=== PATIENT | female | born 1950 | race Caucasian/White ===

== ENCOUNTER 2017-04-01 09:10 | Day surgery (SDC) | payer MEDICARE ==
[~2017-04-01 09:10] MED LIST: ACET325 PO; ALBIPROI; ALBIPROI INH; ALBU90OI INH; ALBU90OI61 INH; AMIT10 PO; AMIT50 PO; ARIXTRA SC; ASPI325 PO; ATEN50 PO; Amox Tr-K Clv1 EAC2; Aspirin EC81 MG PO; BENHYD1012; BUME1; BUME1 PO; BUME2 PO; Bactrim 400-801 EACH PO; Bactrim Ds Tab1 EACH PO; CALC.25 PO; CALCAVITDA PO; CEPH125SU; CEPH500; CEPH500 PO; CIPR250 PO; CIPR500 PO; CITA20; CLAR500 PO; CLIN300 PO; CLOP75; CLOP75 PO; CODE30; CODGUAEL PO; CRUTCH4 USE; CYCL10 PO; Cephalexin500 MG PO; Clindamycin HC300 MG; Coumadin5 MG PO; Cymbalta30 MG PO; DIPATR; DIPATR PO; DIPATRL; DIPH50 PO; DOCU100 PO; DOXY100 PO; Dazidox10 MG PO; ENOX100I SC; ERGO50000 PO; FAMO20 PO; FENT100TP TOP; FENT50TP TOP; FERR325 PO; FISH1000 PO; FLUC100; FLUSAL2505; FOLI1 PO; FURO20; FURO20 PO; FURO40; FURO80 PO; GABA100 PO; GABA300 PO; GENPREOPSU LEFTEYE; GINKO BILOBA; GRANIX300 MCG/0. SQ; HCT; HYDACE5 PO; HYDACE5325 PO; HYDACE7.5L PO; HYDCHL12.5 PO; HYDCHL25 PO; HYDMOR2 PO; HYDR-86 PO; HYDRA25 PO; IBUP200; IBUP400 PO; IBUP600; INSLIS75I SC; INSN100I SC; INSR10I SC; INSUASPI; KLOR-CON 20MEQ; Klor-Con M1010 MEQ PO; LAMO100 PO; LAVAP17G PO; LEVFLO500 PO; LEVSOD125 PO; LIDO2TG30 TOP; LIDO5TP; LIDO5TP TD; LISHYD2012 PO; LISHYD2025 PO; LORA1 PO; Lovenox100 MG/1 M SC; METF500 PO; METO10 PO; METO2.5 PO; METO25ER PO; METO50; METO50 PO; METO50ER; METO50ER PO; NAPR500 PO; NEUPOGEN300 MCG/0. IJ; NITR.4SL SL; NITR.6SL SL; NITRSPRAY; NORT10; NYST100TC; Nitrostat0.4 MG SL; Novolin R100 UNIT/M IM; OLME20; ONDA8 PO; OXALIPLATIN50 MG; OXYACE5T PO; OXYC10ER PO; OXYC10TA19 PO; OXYC30 PO; OXYC5; Omeprazole20 M1 PO; Oxycodone HCl20 M1 PO; PANT40 PO; PARI1 PO; PIOG15; POTA10T PO; POTCHL10ER PO; PRED10 PO; PRED20 PO; PREG100 PO; PREG75 PO; PRIMATENE MIST; PROC10 PO; PROM25 PO; Pepcid20 MG PO; Potassium Chlo10 ME2 PO; Prilosec20 MG PO; QUIN325; RXCEPH500 PO; RXCLIN PO; RXHYDACE PO; RXOXYACE PO; RXSULTRIDS PO; SPIR25 PO; SULTRIDS PO; SULTRISS PO; TELM40; TOUJEO SOL300 UNIT/1 SC; VALA500 PO; VALS80; VARUBI90 MG PO; VENL75; VITAMIN D-32000 UNI1 PO; WARF5 PO; WARF7.5 PO; WARFARIN 5 MG; ZESTORETIC 20-121 EA; Zithromax Tri-500 MG PO; Zofran8 MG PO; [UNRECOGNIZED DRUG - OTHER]; [UNRECOGNIZED DRUG - OTHER] INJ; [UNRECOGNIZED DRUG - OTHER] IV
[2017-04-08] MEDS ORDERED: CEPH500 PO (11:41)
[2017-04-25] MEDS ORDERED: FURO80 PO ×2 (10:31→10:32)
[2017-04-25] MEDS ORDERED: Micro-K10 MEQ PO (10:33)
[2017-08-11] MEDS ORDERED: Bactrim Ds Tab1 EACH PO (10:11)
[2017-11-04] MEDS ORDERED: CHOL10002 PO (10:54)
[2018-04-04] MEDS ORDERED: ROXICODONE5 MG PO (21:49)
[2018-06-15] MEDS ORDERED: ALLO100 PO (11:00)
[2018-07-17] MEDS ORDERED: BUME1 PO (10:47)
[2018-07-17] MEDS ORDERED: GABA100 PO (10:47)
[2018-08-24] MEDS ORDERED: TEMA30 PO (10:33)
[2018-09-15] MEDS ORDERED: SPIR25 (10:04)
[2018-10-09] MEDS ORDERED: DULO60 PO (10:30)
== END 2017-04-01 22:46 | disposition home or self-care (01) ==
LOC: WOUND 09:10
PROC: 0HBLXZZ Excision of Left Lower Leg Skin, External Approach (ICD-10-PCS; principal; 2017-04-01)
DX: Z48.00 Encounter for change or removal of nonsurgical wound dressing (principal); E11.622 Type 2 diabetes mellitus with other skin ulcer; L89.623 Pressure ulcer of left heel, stage 3; I70.238 Atherosclerosis of native arteries of right leg with ulceration of other part of lower leg; L97.812 Non-pressure chronic ulcer of other part of right lower leg with fat layer exposed; Z85.09 Personal history of malignant neoplasm of other digestive organs

== ENCOUNTER 2017-05-06 00:21 | Day surgery (SDC) | payer OTHER ==
[~2017-05-06 00:21] MED LIST changes: +Micro-K10 MEQ PO
[2017-05-06 11:42] LABS: Hematocrit 32.1 % (33.0-51.0); Hemoglobin 10.3 g/dL (11.5-16.0); Mean Corpuscular HGB 28.3 pg (26.0-34.0); Mean Corpuscular HGB Conc 32.1 g/dL (31.5-36.5); Mean Corpuscular Volume 88 fL (80-100); Mean Platelet Volume 12.5 fL (9.1-12.4); Platelet Count 83 K/mm3 (150-400); RDW Coefficient Variation 13.9 % (11.7-14.2); RDW Standard Deviation 45.2 fL (35.1-46.3); Red Blood Cell Count 3.64 M/mm3 (3.80-5.20); White Blood Cell Count 3.54 K/mm3 (4.00-11.30)
[2017-05-06 12:12] LABS: Albumin, Blood 2.9 g/dL (3.4-5.0); Anion Gap 12 mmol/L (6-16); Blood Urea Nitrogen 48 mg/dL (8-24); Bun/Creatinine Ratio 31.2 (12.0-20.0); CO2, Blood 27 mmol/L (21-32); Calcium, Blood 8.4 mg/dL (8.5-10.1); Chloride, Blood 98 mmol/L (98-108); Creatinine, Blood 1.54 mg/dL (0.40-1.00); Glomerular Filtration Rate 36 (60-); Glucose, Blood 243 mg/dL (70-99); Potassium, Blood 4.5 mmol/L (3.5-5.5); Sodium, Blood 137 mmol/L (136-145)
[2017-08-11] MEDS ORDERED: Bactrim Ds Tab1 EACH PO (10:11)
[2017-11-04] MEDS ORDERED: CHOL10002 PO (10:54)
[2018-04-04] MEDS ORDERED: ROXICODONE5 MG PO (21:49)
== END 2017-05-06 11:28 | disposition home or self-care (01) ==
LOC: ATC 00:21
PROVIDERS: Internal Medicine Nephrology
DX: E11.22 Type 2 diabetes mellitus with diabetic chronic kidney disease (principal); N18.3 Chronic kidney disease, stage 3 (moderate); D63.1 Anemia in chronic kidney disease; E11.622 Type 2 diabetes mellitus with other skin ulcer; L89.623 Pressure ulcer of left heel, stage 3; I70.238 Atherosclerosis of native arteries of right leg with ulceration of other part of lower leg; C22.1 Intrahepatic bile duct carcinoma; L97.812 Non-pressure chronic ulcer of other part of right lower leg with fat layer exposed
CPT/HCPCS: 80069; 85027; 96365; J1642

== ENCOUNTER 2017-05-06 09:20 | Day surgery (SDC) | payer OTHER ==
[2017-08-11] MEDS ORDERED: Bactrim Ds Tab1 EACH PO (10:11)
[2017-11-04] MEDS ORDERED: CHOL10002 PO (10:54)
[2018-04-04] MEDS ORDERED: ROXICODONE5 MG PO (21:49)
== END 2017-05-06 10:39 | disposition home or self-care (01) ==
LOC: WOUND 09:20
PROC: 0HBLXZZ Excision of Left Lower Leg Skin, External Approach (ICD-10-PCS; principal; 2017-05-06)
DX: Z48.00 Encounter for change or removal of nonsurgical wound dressing (principal); E11.622 Type 2 diabetes mellitus with other skin ulcer; L97.222 Non-pressure chronic ulcer of left calf with fat layer exposed; L89.623 Pressure ulcer of left heel, stage 3; I70.238 Atherosclerosis of native arteries of right leg with ulceration of other part of lower leg; C22.1 Intrahepatic bile duct carcinoma
CPT/HCPCS: G0463

== ENCOUNTER 2017-05-09 00:52 | Day surgery (SDC) | payer OTHER ==
[2017-08-11] MEDS ORDERED: Bactrim Ds Tab1 EACH PO (10:11)
[2017-11-04] MEDS ORDERED: CHOL10002 PO (10:54)
[2018-04-04] MEDS ORDERED: ROXICODONE5 MG PO (21:49)
== END 2017-05-09 11:52 | disposition home or self-care (01) ==
LOC: ATC 00:52
DX: E87.70 Fluid overload, unspecified (principal); E11.22 Type 2 diabetes mellitus with diabetic chronic kidney disease; N18.3 Chronic kidney disease, stage 3 (moderate); D63.1 Anemia in chronic kidney disease; R80.0 Isolated proteinuria
CPT/HCPCS: 96365; J1642

== ENCOUNTER 2017-05-13 00:32 | Day surgery (SDC) | payer OTHER ==
[2017-08-11] MEDS ORDERED: Bactrim Ds Tab1 EACH PO (10:11)
[2017-11-04] MEDS ORDERED: CHOL10002 PO (10:54)
[2018-04-04] MEDS ORDERED: ROXICODONE5 MG PO (21:49)
== END 2017-05-13 22:40 | disposition home or self-care (01) ==
LOC: WOUND 00:32
PROC: 0HBLXZZ Excision of Left Lower Leg Skin, External Approach (ICD-10-PCS; principal; 2017-05-13)
DX: Z48.00 Encounter for change or removal of nonsurgical wound dressing (principal); E11.622 Type 2 diabetes mellitus with other skin ulcer; L97.812 Non-pressure chronic ulcer of other part of right lower leg with fat layer exposed; L89.623 Pressure ulcer of left heel, stage 3; I70.238 Atherosclerosis of native arteries of right leg with ulceration of other part of lower leg; C22.1 Intrahepatic bile duct carcinoma
CPT/HCPCS: G0463

== ENCOUNTER 2017-05-13 00:41 | Day surgery (SDC) | payer OTHER ==
[2017-08-11] MEDS ORDERED: Bactrim Ds Tab1 EACH PO (10:11)
[2017-11-04] MEDS ORDERED: CHOL10002 PO (10:54)
[2018-04-04] MEDS ORDERED: ROXICODONE5 MG PO (21:49)
== END 2017-05-13 11:59 | disposition home or self-care (01) ==
LOC: ATC 00:41
DX: C22.1 Intrahepatic bile duct carcinoma (principal); E11.622 Type 2 diabetes mellitus with other skin ulcer; L89.623 Pressure ulcer of left heel, stage 3; I70.238 Atherosclerosis of native arteries of right leg with ulceration of other part of lower leg; L97.812 Non-pressure chronic ulcer of other part of right lower leg with fat layer exposed; E11.22 Type 2 diabetes mellitus with diabetic chronic kidney disease; N18.3 Chronic kidney disease, stage 3 (moderate); D63.1 Anemia in chronic kidney disease; E87.70 Fluid overload, unspecified; R60.0 Localized edema
CPT/HCPCS: 96365; J1642

== ENCOUNTER 2017-05-16 00:25 | Day surgery (SDC) | payer OTHER ==
[2017-05-16 11:57] LABS: Albumin, Blood 3.1 g/dL (3.4-5.0); Anion Gap 9 mmol/L (6-16); Blood Urea Nitrogen 37 mg/dL (8-24); Bun/Creatinine Ratio 27.2 (12.0-20.0); CO2, Blood 27 mmol/L (21-32); Calcium, Blood 8.3 mg/dL (8.5-10.1); Chloride, Blood 99 mmol/L (98-108); Creatinine, Blood 1.36 mg/dL (0.40-1.00); Glomerular Filtration Rate 41 (60-); Glucose, Blood 238 mg/dL (70-99); Phosphorus, Blood 3.3 mg/dL (2.5-4.9); Sodium, Blood 135 mmol/L (136-145)
[2017-08-11] MEDS ORDERED: Bactrim Ds Tab1 EACH PO (10:11)
[2017-11-04] MEDS ORDERED: CHOL10002 PO (10:54)
[2018-04-04] MEDS ORDERED: ROXICODONE5 MG PO (21:49)
== END 2017-05-16 10:53 | disposition home or self-care (01) ==
LOC: ATC 00:25
PROVIDERS: Internal Medicine Nephrology
DX: E11.622 Type 2 diabetes mellitus with other skin ulcer (principal); L89.623 Pressure ulcer of left heel, stage 3; I70.238 Atherosclerosis of native arteries of right leg with ulceration of other part of lower leg; C22.1 Intrahepatic bile duct carcinoma; L97.812 Non-pressure chronic ulcer of other part of right lower leg with fat layer exposed; L97.929 Non-pressure chronic ulcer of unspecified part of left lower leg with unspecified severity; L95.8 Other vasculitis limited to the skin
CPT/HCPCS: 80069; 96365; J1642

== ENCOUNTER 2017-05-20 00:50 | Day surgery (SDC) | payer OTHER ==
[2017-08-11] MEDS ORDERED: Bactrim Ds Tab1 EACH PO (10:11)
[2017-11-04] MEDS ORDERED: CHOL10002 PO (10:54)
[2018-04-04] MEDS ORDERED: ROXICODONE5 MG PO (21:49)
== END 2017-05-20 11:40 | disposition home or self-care (01) ==
LOC: ATC 00:50
DX: E11.622 Type 2 diabetes mellitus with other skin ulcer (principal); L89.623 Pressure ulcer of left heel, stage 3; I70.238 Atherosclerosis of native arteries of right leg with ulceration of other part of lower leg; C22.1 Intrahepatic bile duct carcinoma; L97.812 Non-pressure chronic ulcer of other part of right lower leg with fat layer exposed; E11.22 Type 2 diabetes mellitus with diabetic chronic kidney disease; D63.1 Anemia in chronic kidney disease; N18.3 Chronic kidney disease, stage 3 (moderate)
CPT/HCPCS: 96365; J1642

== ENCOUNTER 2017-05-20 09:20 | Day surgery (SDC) | payer OTHER ==
[2017-08-11] MEDS ORDERED: Bactrim Ds Tab1 EACH PO (10:11)
[2017-11-04] MEDS ORDERED: CHOL10002 PO (10:54)
[2018-04-04] MEDS ORDERED: ROXICODONE5 MG PO (21:49)
== END 2017-05-20 11:04 | disposition home or self-care (01) ==
LOC: WOUND 09:20
DX: Z48.00 Encounter for change or removal of nonsurgical wound dressing (principal); E11.622 Type 2 diabetes mellitus with other skin ulcer; L89.623 Pressure ulcer of left heel, stage 3; I70.238 Atherosclerosis of native arteries of right leg with ulceration of other part of lower leg; C22.1 Intrahepatic bile duct carcinoma; L97.812 Non-pressure chronic ulcer of other part of right lower leg with fat layer exposed; R60.0 Localized edema
CPT/HCPCS: 87070; 87075; 87077; 87147; 87186; 87205; G0463

== ENCOUNTER 2017-05-22 11:57 | Day surgery (SDC) | payer OTHER ==
[2017-05-23 09:27] LABS: Albumin, Blood 2.9 g/dL (3.4-5.0); Anion Gap 6 mmol/L (6-16); Blood Urea Nitrogen 33 mg/dL (8-24); Bun/Creatinine Ratio 28.7 (12.0-20.0); CO2, Blood 25 mmol/L (21-32); Calcium, Blood 8.1 mg/dL (8.5-10.1); Chloride, Blood 100 mmol/L (98-108); Creatinine, Blood 1.15 mg/dL (0.40-1.00); Glomerular Filtration Rate 50 (60-); Glucose, Blood 221 mg/dL (70-99); Phosphorus, Blood 3.1 mg/dL (2.5-4.9); Potassium, Blood 4.4 mmol/L (3.5-5.5); Sodium, Blood 131 mmol/L (136-145)
[2017-08-11] MEDS ORDERED: Bactrim Ds Tab1 EACH PO (10:11)
[2017-11-04] MEDS ORDERED: CHOL10002 PO (10:54)
[2018-04-04] MEDS ORDERED: ROXICODONE5 MG PO (21:49)
== END 2017-05-22 15:06 | disposition home or self-care (01) ==
LOC: ATC 11:57
PROVIDERS: Internal Medicine Nephrology
DX: E11.22 Type 2 diabetes mellitus with diabetic chronic kidney disease (principal); N18.3 Chronic kidney disease, stage 3 (moderate); D63.1 Anemia in chronic kidney disease; E87.70 Fluid overload, unspecified; R60.0 Localized edema; R31.9 Hematuria, unspecified
CPT/HCPCS: 80069; 85018; 96365; J1642

== ENCOUNTER 2017-05-27 00:28 | Day surgery (SDC) | payer OTHER ==
[2017-05-27] MEDS ORDERED: Oxycodone HCl20 M1 PO (11:04)
[2017-05-27] MEDS ORDERED: Bactrim Ds Tab1 EACH PO (11:05)
[2017-08-11] MEDS ORDERED: Bactrim Ds Tab1 EACH PO (10:11)
[2017-11-04] MEDS ORDERED: CHOL10002 PO (10:54)
[2018-04-04] MEDS ORDERED: ROXICODONE5 MG PO (21:49)
== END 2017-05-27 11:36 | disposition home or self-care (01) ==
LOC: ATC 00:28
DX: E11.622 Type 2 diabetes mellitus with other skin ulcer (principal); L89.623 Pressure ulcer of left heel, stage 3; I70.238 Atherosclerosis of native arteries of right leg with ulceration of other part of lower leg; C22.1 Intrahepatic bile duct carcinoma; L97.812 Non-pressure chronic ulcer of other part of right lower leg with fat layer exposed
CPT/HCPCS: 96365; J1642

== ENCOUNTER 2017-05-27 09:30 | Day surgery (SDC) | payer OTHER ==
[2017-05-27] MEDS ORDERED: Oxycodone HCl20 M1 PO (11:04)
[2017-05-27] MEDS ORDERED: Bactrim Ds Tab1 EACH PO (11:05)
[2017-08-11] MEDS ORDERED: Bactrim Ds Tab1 EACH PO (10:11)
[2017-11-04] MEDS ORDERED: CHOL10002 PO (10:54)
[2018-04-04] MEDS ORDERED: ROXICODONE5 MG PO (21:49)
== END 2017-05-27 12:54 | disposition home or self-care (01) ==
LOC: WOUND 09:30
DX: Z48.00 Encounter for change or removal of nonsurgical wound dressing (principal); E11.622 Type 2 diabetes mellitus with other skin ulcer; L89.623 Pressure ulcer of left heel, stage 3; I70.238 Atherosclerosis of native arteries of right leg with ulceration of other part of lower leg; C22.1 Intrahepatic bile duct carcinoma; L97.812 Non-pressure chronic ulcer of other part of right lower leg with fat layer exposed
CPT/HCPCS: G0463

== ENCOUNTER 2017-05-30 00:58 | Day surgery (SDC) | payer OTHER ==
[2017-08-11] MEDS ORDERED: Bactrim Ds Tab1 EACH PO (10:11)
[2017-11-04] MEDS ORDERED: CHOL10002 PO (10:54)
[2018-04-04] MEDS ORDERED: ROXICODONE5 MG PO (21:49)
== END 2017-05-30 11:08 | disposition home or self-care (01) ==
LOC: ATC 00:58
DX: N18.3 Chronic kidney disease, stage 3 (moderate) (principal); D63.1 Anemia in chronic kidney disease; E87.70 Fluid overload, unspecified; R60.0 Localized edema
CPT/HCPCS: 96365; J1642

== ENCOUNTER 2017-06-03 00:09 | Day surgery (SDC) | payer OTHER ==
[2017-08-11] MEDS ORDERED: Bactrim Ds Tab1 EACH PO (10:11)
[2017-11-04] MEDS ORDERED: CHOL10002 PO (10:54)
[2018-04-04] MEDS ORDERED: ROXICODONE5 MG PO (21:49)
== END 2017-06-03 10:56 | disposition home or self-care (01) ==
LOC: ATC 00:09
DX: E11.22 Type 2 diabetes mellitus with diabetic chronic kidney disease (principal); N18.3 Chronic kidney disease, stage 3 (moderate); L03.90 Cellulitis, unspecified; D63.1 Anemia in chronic kidney disease; E87.70 Fluid overload, unspecified; R60.0 Localized edema; I73.9 Peripheral vascular disease, unspecified; Z85.89 Personal history of malignant neoplasm of other organs and systems
CPT/HCPCS: 96365; J1642

== ENCOUNTER 2017-06-06 00:43 | Day surgery (SDC) | payer OTHER ==
[2017-08-11] MEDS ORDERED: Bactrim Ds Tab1 EACH PO (10:11)
== END 2017-06-06 23:18 | disposition home or self-care (01) ==
LOC: WOUND 00:43
DX: Z48.00 Encounter for change or removal of nonsurgical wound dressing (principal); E11.622 Type 2 diabetes mellitus with other skin ulcer; E11.621 Type 2 diabetes mellitus with foot ulcer; L89.623 Pressure ulcer of left heel, stage 3; C22.1 Intrahepatic bile duct carcinoma; L97.812 Non-pressure chronic ulcer of other part of right lower leg with fat layer exposed
CPT/HCPCS: G0463

== ENCOUNTER 2017-06-06 01:01 | Day surgery (SDC) | payer OTHER ==
[2017-06-06 11:35] LABS: BASOPHILS ABSOLUTE AUTO 0.03 K/mm3 (0.00-0.23); BASOPHILS PERCENT AUTO 1 % (0-2); EOSINOPHILS ABSOLUTE AUTO 0.26 K/mm3 (0.00-0.68); EOSINOPHILS PERCENT AUTO 7 % (0-6); Hematocrit 35.8 % (33.0-51.0); Hemoglobin 11.4 g/dL (11.5-16.0); IMMATURE GRAN ABSOLUTE AUTO 0.08 K/mm3 (0.00-0.10); IMMATURE GRAN PERCENT AUTO 2 % (0-1); LYMPHOCYTES PERCENT AUTO 13 % (21-46); MONOCYTES ABSOLUTE AUTO 0.32 K/mm3 (0.16-1.47); MONOCYTES PERCENT AUTO 8 % (4-13); Mean Corpuscular HGB 26.7 pg (26.0-34.0); Mean Corpuscular HGB Conc 31.8 g/dL (31.5-36.5); Mean Corpuscular Volume 84 fL (80-100); NEUTROPHILS ABSOLUTE AUTO 2.77 K/mm3 (1.96-9.15); NEUTROPHILS PERCENT AUTO 70 % (41-73); RDW Coefficient Variation 14.4 % (11.7-14.2); RDW Standard Deviation 43.7 fL (35.1-46.3); Red Blood Cell Count 4.27 M/mm3 (3.80-5.20); White Blood Cell Count 3.96 K/mm3 (4.00-11.30)
[2017-06-06 11:39] LABS: Mean Platelet Volume 13.3 fL (9.1-12.4); Platelet Count 71 K/mm3 (150-400)
[2017-06-06 11:51] LABS: Albumin, Blood 3.4 g/dL (3.4-5.0); Anion Gap 6 mmol/L (6-16); Blood Urea Nitrogen 49 mg/dL (8-24); Bun/Creatinine Ratio 29.9 (12.0-20.0); CO2, Blood 25 mmol/L (21-32); Calcium, Blood 8.7 mg/dL (8.5-10.1); Chloride, Blood 104 mmol/L (98-108); Creatinine, Blood 1.64 mg/dL (0.40-1.00); Glomerular Filtration Rate 33 (60-); Glucose, Blood 316 mg/dL (70-99); Phosphorus, Blood 3.9 mg/dL (2.5-4.9); Potassium, Blood 5.4 mmol/L (3.5-5.5); Sodium, Blood 135 mmol/L (136-145)
[2017-08-11] MEDS ORDERED: Bactrim Ds Tab1 EACH PO (10:11)
[2017-11-04] MEDS ORDERED: CHOL10002 PO (10:54)
[2018-04-04] MEDS ORDERED: ROXICODONE5 MG PO (21:49)
== END 2017-06-06 12:04 | disposition home or self-care (01) ==
LOC: ATC 01:01
PROVIDERS: Internal Medicine Nephrology
DX: E11.622 Type 2 diabetes mellitus with other skin ulcer (principal); L89.623 Pressure ulcer of left heel, stage 3; I70.238 Atherosclerosis of native arteries of right leg with ulceration of other part of lower leg; C22.1 Intrahepatic bile duct carcinoma; N18.3 Chronic kidney disease, stage 3 (moderate); D63.1 Anemia in chronic kidney disease; E87.70 Fluid overload, unspecified; R60.0 Localized edema
CPT/HCPCS: 80069; 85025; 96365; J1642

== ENCOUNTER 2017-06-10 01:07 | Day surgery (SDC) | payer OTHER ==
[2017-08-11] MEDS ORDERED: Bactrim Ds Tab1 EACH PO (10:11)
[2017-11-04] MEDS ORDERED: CHOL10002 PO (10:54)
[2018-04-04] MEDS ORDERED: ROXICODONE5 MG PO (21:49)
== END 2017-06-10 10:33 | disposition home or self-care (01) ==
LOC: ATC 01:07
DX: E87.5 Hyperkalemia (principal); N18.3 Chronic kidney disease, stage 3 (moderate); D63.1 Anemia in chronic kidney disease; E87.70 Fluid overload, unspecified; R60.0 Localized edema
CPT/HCPCS: 84132; 96365; J1642

== ENCOUNTER 2017-06-13 00:39 | Day surgery (SDC) | payer OTHER ==
[2017-08-11] MEDS ORDERED: Bactrim Ds Tab1 EACH PO (10:11)
[2017-11-04] MEDS ORDERED: CHOL10002 PO (10:54)
[2018-04-04] MEDS ORDERED: ROXICODONE5 MG PO (21:49)
== END 2017-06-13 11:03 | disposition home or self-care (01) ==
LOC: ATC 00:39
DX: Z45.2 Encounter for adjustment and management of vascular access device (principal); E11.622 Type 2 diabetes mellitus with other skin ulcer; L89.623 Pressure ulcer of left heel, stage 3; I70.238 Atherosclerosis of native arteries of right leg with ulceration of other part of lower leg; C22.1 Intrahepatic bile duct carcinoma; L97.812 Non-pressure chronic ulcer of other part of right lower leg with fat layer exposed; E87.5 Hyperkalemia; N18.3 Chronic kidney disease, stage 3 (moderate); D63.1 Anemia in chronic kidney disease; E87.70 Fluid overload, unspecified; R60.0 Localized edema
CPT/HCPCS: 96365; J1642

== ENCOUNTER 2017-06-13 09:30 | Day surgery (SDC) | payer OTHER ==
[2017-08-11] MEDS ORDERED: Bactrim Ds Tab1 EACH PO (10:11)
[2017-11-04] MEDS ORDERED: CHOL10002 PO (10:54)
[2018-04-04] MEDS ORDERED: ROXICODONE5 MG PO (21:49)
== END 2017-06-13 10:47 | disposition home or self-care (01) ==
LOC: WOUND 09:30
DX: Z48.00 Encounter for change or removal of nonsurgical wound dressing (principal); E11.622 Type 2 diabetes mellitus with other skin ulcer; L89.623 Pressure ulcer of left heel, stage 3; I70.238 Atherosclerosis of native arteries of right leg with ulceration of other part of lower leg; C22.1 Intrahepatic bile duct carcinoma; L97.812 Non-pressure chronic ulcer of other part of right lower leg with fat layer exposed
CPT/HCPCS: G0463

== ENCOUNTER 2017-06-17 00:53 | Day surgery (SDC) | payer OTHER ==
[2017-08-11] MEDS ORDERED: Bactrim Ds Tab1 EACH PO (10:11)
[2017-11-04] MEDS ORDERED: CHOL10002 PO (10:54)
[2018-04-04] MEDS ORDERED: ROXICODONE5 MG PO (21:49)
== END 2017-06-17 14:55 | disposition home or self-care (01) ==
LOC: ATC 00:53
DX: E11.22 Type 2 diabetes mellitus with diabetic chronic kidney disease (principal); N18.3 Chronic kidney disease, stage 3 (moderate); L03.90 Cellulitis, unspecified
CPT/HCPCS: 96365; J1642

== ENCOUNTER 2017-06-20 00:44 | Day surgery (SDC) | payer OTHER ==
[2017-08-11] MEDS ORDERED: Bactrim Ds Tab1 EACH PO (10:11)
[2017-11-04] MEDS ORDERED: CHOL10002 PO (10:54)
[2018-04-04] MEDS ORDERED: ROXICODONE5 MG PO (21:49)
== END 2017-06-21 23:04 | disposition home or self-care (01) ==
LOC: ATC 00:44
DX: E11.22 Type 2 diabetes mellitus with diabetic chronic kidney disease (principal); N18.3 Chronic kidney disease, stage 3 (moderate); L03.90 Cellulitis, unspecified; C22.1 Intrahepatic bile duct carcinoma; E11.622 Type 2 diabetes mellitus with other skin ulcer; L89.623 Pressure ulcer of left heel, stage 3; I70.238 Atherosclerosis of native arteries of right leg with ulceration of other part of lower leg; L97.812 Non-pressure chronic ulcer of other part of right lower leg with fat layer exposed

== ENCOUNTER 2017-06-24 00:25 | Day surgery (SDC) | payer OTHER ==
[2017-08-11] MEDS ORDERED: Bactrim Ds Tab1 EACH PO (10:11)
[2017-11-04] MEDS ORDERED: CHOL10002 PO (10:54)
[2018-04-04] MEDS ORDERED: ROXICODONE5 MG PO (21:49)
== END 2017-06-24 14:17 | disposition home or self-care (01) ==
LOC: WOUND 00:25
PROC: 0HBLXZZ Excision of Left Lower Leg Skin, External Approach (ICD-10-PCS; principal; 2017-06-24)
DX: Z48.00 Encounter for change or removal of nonsurgical wound dressing (principal); E11.622 Type 2 diabetes mellitus with other skin ulcer; L89.623 Pressure ulcer of left heel, stage 3; I70.238 Atherosclerosis of native arteries of right leg with ulceration of other part of lower leg; C22.1 Intrahepatic bile duct carcinoma; L97.812 Non-pressure chronic ulcer of other part of right lower leg with fat layer exposed
CPT/HCPCS: G0463

== ENCOUNTER 2017-06-24 00:55 | Day surgery (SDC) | payer OTHER ==
[2017-08-11] MEDS ORDERED: Bactrim Ds Tab1 EACH PO (10:11)
[2017-11-04] MEDS ORDERED: CHOL10002 PO (10:54)
[2018-04-04] MEDS ORDERED: ROXICODONE5 MG PO (21:49)
== END 2017-06-24 11:48 | disposition home or self-care (01) ==
LOC: ATC 00:55
DX: N18.3 Chronic kidney disease, stage 3 (moderate) (principal); L03.90 Cellulitis, unspecified; I73.9 Peripheral vascular disease, unspecified; L89.619 Pressure ulcer of right heel, unspecified stage
CPT/HCPCS: 96365; J1642

== ENCOUNTER 2017-06-27 01:01 | Day surgery (SDC) | payer OTHER ==
[2017-06-27 10:26] LABS: Albumin, Blood 3.5 g/dL (3.4-5.0); Anion Gap 6 mmol/L (6-16); Blood Urea Nitrogen 50 mg/dL (8-24); Bun/Creatinine Ratio 37.6 (12.0-20.0); CO2, Blood 27 mmol/L (21-32); Calcium, Blood 8.6 mg/dL (8.5-10.1); Chloride, Blood 103 mmol/L (98-108); Creatinine, Blood 1.33 mg/dL (0.40-1.00); Glomerular Filtration Rate 42 (60-); Glucose, Blood 344 mg/dL (70-99); Phosphorus, Blood 3.3 mg/dL (2.5-4.9); Sodium, Blood 136 mmol/L (136-145)
[2017-08-11] MEDS ORDERED: Bactrim Ds Tab1 EACH PO (10:11)
[2017-11-04] MEDS ORDERED: CHOL10002 PO (10:54)
[2018-04-04] MEDS ORDERED: ROXICODONE5 MG PO (21:49)
== END 2017-06-27 10:40 | disposition home or self-care (01) ==
LOC: ATC 01:01
PROVIDERS: Internal Medicine Nephrology
DX: E11.22 Type 2 diabetes mellitus with diabetic chronic kidney disease (principal); N18.3 Chronic kidney disease, stage 3 (moderate); D63.1 Anemia in chronic kidney disease; E11.622 Type 2 diabetes mellitus with other skin ulcer; L89.623 Pressure ulcer of left heel, stage 3; I70.238 Atherosclerosis of native arteries of right leg with ulceration of other part of lower leg; C22.1 Intrahepatic bile duct carcinoma; L97.812 Non-pressure chronic ulcer of other part of right lower leg with fat layer exposed
CPT/HCPCS: 80069; 85018; 96365; J1642

== ENCOUNTER 2017-07-01 00:12 | Day surgery (SDC) | payer OTHER ==
[2017-08-11] MEDS ORDERED: Bactrim Ds Tab1 EACH PO (10:11)
[2017-11-04] MEDS ORDERED: CHOL10002 PO (10:54)
[2018-04-04] MEDS ORDERED: ROXICODONE5 MG PO (21:49)
== END 2017-07-01 12:05 | disposition home or self-care (01) ==
LOC: ATC 00:12
DX: E11.22 Type 2 diabetes mellitus with diabetic chronic kidney disease (principal); N18.3 Chronic kidney disease, stage 3 (moderate); D63.1 Anemia in chronic kidney disease; E11.622 Type 2 diabetes mellitus with other skin ulcer; L89.623 Pressure ulcer of left heel, stage 3; I70.238 Atherosclerosis of native arteries of right leg with ulceration of other part of lower leg; C22.1 Intrahepatic bile duct carcinoma; L97.812 Non-pressure chronic ulcer of other part of right lower leg with fat layer exposed
CPT/HCPCS: 83036; 84132; 87081; 96365; G0463; J1642

== ENCOUNTER 2017-07-01 09:13 | Day surgery (SDC) | payer OTHER ==
[2017-08-11] MEDS ORDERED: Bactrim Ds Tab1 EACH PO (10:11)
== END 2017-07-01 11:47 | disposition home or self-care (01) ==
LOC: WOUND 09:13
DX: Z48.00 Encounter for change or removal of nonsurgical wound dressing (principal); E11.622 Type 2 diabetes mellitus with other skin ulcer; L97.812 Non-pressure chronic ulcer of other part of right lower leg with fat layer exposed; L89.623 Pressure ulcer of left heel, stage 3; I70.238 Atherosclerosis of native arteries of right leg with ulceration of other part of lower leg; C22.1 Intrahepatic bile duct carcinoma
CPT/HCPCS: 87081; G0463

== ENCOUNTER 2017-07-04 00:19 | Day surgery (SDC) | payer OTHER ==
[2017-08-11] MEDS ORDERED: Bactrim Ds Tab1 EACH PO (10:11)
[2017-11-04] MEDS ORDERED: CHOL10002 PO (10:54)
[2018-04-04] MEDS ORDERED: ROXICODONE5 MG PO (21:49)
== END 2017-07-04 11:29 | disposition home or self-care (01) ==
LOC: ATC 00:19
DX: E11.22 Type 2 diabetes mellitus with diabetic chronic kidney disease (principal); N18.3 Chronic kidney disease, stage 3 (moderate); D63.1 Anemia in chronic kidney disease; E11.622 Type 2 diabetes mellitus with other skin ulcer; L89.623 Pressure ulcer of left heel, stage 3; C22.1 Intrahepatic bile duct carcinoma; L97.812 Non-pressure chronic ulcer of other part of right lower leg with fat layer exposed
CPT/HCPCS: 96365; J1642

== ENCOUNTER 2017-07-08 09:10 | Day surgery (SDC) | payer OTHER ==
[2017-08-11] MEDS ORDERED: Bactrim Ds Tab1 EACH PO (10:11)
[2017-11-04] MEDS ORDERED: CHOL10002 PO (10:54)
[2018-04-04] MEDS ORDERED: ROXICODONE5 MG PO (21:49)
== END 2017-07-08 23:04 | disposition home or self-care (01) ==
LOC: WOUND 09:10
DX: Z48.00 Encounter for change or removal of nonsurgical wound dressing (principal); E11.622 Type 2 diabetes mellitus with other skin ulcer; L97.812 Non-pressure chronic ulcer of other part of right lower leg with fat layer exposed; L89.623 Pressure ulcer of left heel, stage 3; I70.238 Atherosclerosis of native arteries of right leg with ulceration of other part of lower leg; C22.1 Intrahepatic bile duct carcinoma
CPT/HCPCS: 87081; G0463

== ENCOUNTER 2017-07-08 09:19 | Day surgery (SDC) | payer OTHER ==
[2017-08-11] MEDS ORDERED: Bactrim Ds Tab1 EACH PO (10:11)
[2017-11-04] MEDS ORDERED: CHOL10002 PO (10:54)
[2018-04-04] MEDS ORDERED: ROXICODONE5 MG PO (21:49)
== END 2017-07-08 11:43 | disposition home or self-care (01) ==
LOC: ATC 09:19
DX: I12.9 Hypertensive chronic kidney disease with stage 1 through stage 4 chronic kidney disease, or unspecified chronic kidney disease (principal); E11.22 Type 2 diabetes mellitus with diabetic chronic kidney disease; D63.1 Anemia in chronic kidney disease; N25.81 Secondary hyperparathyroidism of renal origin; E87.70 Fluid overload, unspecified; R60.9 Edema, unspecified
CPT/HCPCS: 96365; J1642

== ENCOUNTER 2017-07-11 01:11 | Day surgery (SDC) | payer OTHER ==
[2017-07-11 11:10] LABS: Bun/Creatinine Ratio 34.8 (12.0-20.0); Calcium, Blood 8.6 mg/dL (8.5-10.1); Creatinine, Blood 1.78 mg/dL (0.40-1.00); Potassium, Blood 4.3 mmol/L (3.5-5.5)
[2017-08-11] MEDS ORDERED: Bactrim Ds Tab1 EACH PO (10:11)
[2017-11-04] MEDS ORDERED: CHOL10002 PO (10:54)
[2018-04-04] MEDS ORDERED: ROXICODONE5 MG PO (21:49)
== END 2017-07-11 10:57 | disposition home or self-care (01) ==
LOC: ATC 01:11
PROVIDERS: Surgery Surgical Oncology
DX: C22.1 Intrahepatic bile duct carcinoma (principal)
CPT/HCPCS: 80048; 96365; J1642

== ENCOUNTER 2017-07-15 00:13 | Day surgery (SDC) | payer OTHER ==
[2017-08-11] MEDS ORDERED: Bactrim Ds Tab1 EACH PO (10:11)
[2017-11-04] MEDS ORDERED: CHOL10002 PO (10:54)
[2018-04-04] MEDS ORDERED: ROXICODONE5 MG PO (21:49)
== END 2017-07-15 11:15 | disposition home or self-care (01) ==
LOC: ATC 00:13
DX: C22.1 Intrahepatic bile duct carcinoma (principal); E11.622 Type 2 diabetes mellitus with other skin ulcer; E11.621 Type 2 diabetes mellitus with foot ulcer; L89.623 Pressure ulcer of left heel, stage 3; I70.238 Atherosclerosis of native arteries of right leg with ulceration of other part of lower leg; L97.812 Non-pressure chronic ulcer of other part of right lower leg with fat layer exposed
CPT/HCPCS: 96365; J1642

== ENCOUNTER 2017-07-15 09:18 | Day surgery (SDC) | payer OTHER ==
[2017-08-11] MEDS ORDERED: Bactrim Ds Tab1 EACH PO (10:11)
[2017-11-04] MEDS ORDERED: CHOL10002 PO (10:54)
[2018-04-04] MEDS ORDERED: ROXICODONE5 MG PO (21:49)
== END 2017-07-15 10:36 | disposition home or self-care (01) ==
LOC: WOUND 09:18
DX: Z48.00 Encounter for change or removal of nonsurgical wound dressing (principal); E11.622 Type 2 diabetes mellitus with other skin ulcer; L97.812 Non-pressure chronic ulcer of other part of right lower leg with fat layer exposed; L89.623 Pressure ulcer of left heel, stage 3; I70.238 Atherosclerosis of native arteries of right leg with ulceration of other part of lower leg; C22.1 Intrahepatic bile duct carcinoma
CPT/HCPCS: G0463

== ENCOUNTER 2017-07-18 00:45 | Day surgery (SDC) | payer OTHER ==
[2017-08-11] MEDS ORDERED: Bactrim Ds Tab1 EACH PO (10:11)
[2017-11-04] MEDS ORDERED: CHOL10002 PO (10:54)
[2018-04-04] MEDS ORDERED: ROXICODONE5 MG PO (21:49)
== END 2017-07-18 11:02 | disposition home or self-care (01) ==
LOC: ATC 00:45
DX: C22.1 Intrahepatic bile duct carcinoma (principal); E11.622 Type 2 diabetes mellitus with other skin ulcer; L89.623 Pressure ulcer of left heel, stage 3; I70.238 Atherosclerosis of native arteries of right leg with ulceration of other part of lower leg; L97.812 Non-pressure chronic ulcer of other part of right lower leg with fat layer exposed
CPT/HCPCS: 96365; J1642

== ENCOUNTER 2017-07-22 00:48 | Day surgery (SDC) | payer OTHER ==
[2017-08-11] MEDS ORDERED: Bactrim Ds Tab1 EACH PO (10:11)
[2017-11-04] MEDS ORDERED: CHOL10002 PO (10:54)
[2018-04-04] MEDS ORDERED: ROXICODONE5 MG PO (21:49)
== END 2017-07-22 11:50 | disposition home or self-care (01) ==
LOC: ATC 00:48
DX: C22.1 Intrahepatic bile duct carcinoma (principal); E11.622 Type 2 diabetes mellitus with other skin ulcer; L89.623 Pressure ulcer of left heel, stage 3; I70.238 Atherosclerosis of native arteries of right leg with ulceration of other part of lower leg; L97.812 Non-pressure chronic ulcer of other part of right lower leg with fat layer exposed
CPT/HCPCS: 96365; J1642

== ENCOUNTER 2017-07-24 09:27 | Day surgery (SDC) | payer OTHER ==
[2017-08-11] MEDS ORDERED: Bactrim Ds Tab1 EACH PO (10:11)
[2017-11-04] MEDS ORDERED: CHOL10002 PO (10:54)
[2018-04-04] MEDS ORDERED: ROXICODONE5 MG PO (21:49)
== END 2017-07-24 11:28 | disposition home or self-care (01) ==
LOC: WOUND 09:27
PROC: 2W1RX6Z Compression of Left Lower Leg using Pressure Dressing (ICD-10-PCS; principal; 2017-07-24)
DX: Z48.00 Encounter for change or removal of nonsurgical wound dressing (principal); E11.622 Type 2 diabetes mellitus with other skin ulcer; L89.623 Pressure ulcer of left heel, stage 3; I70.238 Atherosclerosis of native arteries of right leg with ulceration of other part of lower leg; L97.812 Non-pressure chronic ulcer of other part of right lower leg with fat layer exposed; Z85.09 Personal history of malignant neoplasm of other digestive organs; Z86.14 Personal history of Methicillin resistant Staphylococcus aureus infection; Z79.4 Long term (current) use of insulin
CPT/HCPCS: G0463

== ENCOUNTER 2017-07-24 10:37 | Day surgery (SDC) | payer OTHER ==
[2017-08-11] MEDS ORDERED: Bactrim Ds Tab1 EACH PO (10:11)
[2017-11-04] MEDS ORDERED: CHOL10002 PO (10:54)
[2018-04-04] MEDS ORDERED: ROXICODONE5 MG PO (21:49)
== END 2017-07-24 11:45 | disposition home or self-care (01) ==
LOC: ATC 10:37
DX: C22.1 Intrahepatic bile duct carcinoma (principal); E11.622 Type 2 diabetes mellitus with other skin ulcer; L89.623 Pressure ulcer of left heel, stage 3; I70.238 Atherosclerosis of native arteries of right leg with ulceration of other part of lower leg; L97.812 Non-pressure chronic ulcer of other part of right lower leg with fat layer exposed
CPT/HCPCS: 96365; J1642

== ENCOUNTER 2017-07-28 00:43 | Day surgery (SDC) | payer OTHER ==
[2017-07-28] MEDS ORDERED: GUAI600T33 PO (09:44)
[2017-08-11] MEDS ORDERED: Bactrim Ds Tab1 EACH PO (10:11)
[2017-11-04] MEDS ORDERED: CHOL10002 PO (10:54)
[2018-04-04] MEDS ORDERED: ROXICODONE5 MG PO (21:49)
== END 2017-07-28 10:13 | disposition home or self-care (01) ==
LOC: ATC 00:43
DX: Z45.2 Encounter for adjustment and management of vascular access device (principal); C22.1 Intrahepatic bile duct carcinoma
CPT/HCPCS: 96365; J1642

== ENCOUNTER 2017-07-28 09:00 | Day surgery (SDC) | payer OTHER ==
[2017-07-28] MEDS ORDERED: GUAI600T33 PO (09:44)
[2017-08-11] MEDS ORDERED: Bactrim Ds Tab1 EACH PO (10:11)
[2017-11-04] MEDS ORDERED: CHOL10002 PO (10:54)
[2018-04-04] MEDS ORDERED: ROXICODONE5 MG PO (21:49)
== END 2017-07-28 10:37 | disposition home or self-care (01) ==
LOC: WOUND 09:00
PROC: 2W1RX6Z Compression of Left Lower Leg using Pressure Dressing (ICD-10-PCS; principal; 2017-07-28)
DX: Z48.00 Encounter for change or removal of nonsurgical wound dressing (principal); L89.529 Pressure ulcer of left ankle, unspecified stage; L89.623 Pressure ulcer of left heel, stage 3; I70.238 Atherosclerosis of native arteries of right leg with ulceration of other part of lower leg; E11.622 Type 2 diabetes mellitus with other skin ulcer; L97.812 Non-pressure chronic ulcer of other part of right lower leg with fat layer exposed; Z86.14 Personal history of Methicillin resistant Staphylococcus aureus infection; Z79.4 Long term (current) use of insulin; Z85.89 Personal history of malignant neoplasm of other organs and systems

== ENCOUNTER 2017-07-31 00:56 | Day surgery (SDC) | payer OTHER ==
[~2017-07-31 00:56] MED LIST changes: +GUAI600T33 PO
[2017-08-11] MEDS ORDERED: Bactrim Ds Tab1 EACH PO (10:11)
[2017-11-04] MEDS ORDERED: CHOL10002 PO (10:54)
[2018-04-04] MEDS ORDERED: ROXICODONE5 MG PO (21:49)
== END 2017-07-31 11:36 | disposition home or self-care (01) ==
LOC: ATC 00:56
DX: Z45.2 Encounter for adjustment and management of vascular access device (principal); C22.1 Intrahepatic bile duct carcinoma
CPT/HCPCS: 96365; J1642

== ENCOUNTER 2017-07-31 09:30 | Day surgery (SDC) | payer OTHER ==
[2017-08-11] MEDS ORDERED: Bactrim Ds Tab1 EACH PO (10:11)
== END 2017-07-31 22:51 | disposition home or self-care (01) ==
LOC: WOUND 09:30
PROC: 2W1RX6Z Compression of Left Lower Leg using Pressure Dressing (ICD-10-PCS; principal; 2017-07-31)
DX: E11.622 Type 2 diabetes mellitus with other skin ulcer (principal); L97.812 Non-pressure chronic ulcer of other part of right lower leg with fat layer exposed; L89.623 Pressure ulcer of left heel, stage 3; C22.1 Intrahepatic bile duct carcinoma
CPT/HCPCS: G0463

== ENCOUNTER 2017-08-04 00:29 | Day surgery (SDC) | payer OTHER ==
[2017-08-11] MEDS ORDERED: Bactrim Ds Tab1 EACH PO (10:11)
== END 2017-08-04 09:05 | disposition home or self-care (01) ==
LOC: ATC 00:29
DX: C22.1 Intrahepatic bile duct carcinoma (principal); E11.622 Type 2 diabetes mellitus with other skin ulcer; L89.623 Pressure ulcer of left heel, stage 3; I70.238 Atherosclerosis of native arteries of right leg with ulceration of other part of lower leg; L97.812 Non-pressure chronic ulcer of other part of right lower leg with fat layer exposed
CPT/HCPCS: 96365; J1642

== ENCOUNTER → 2017-08-06 | Outpatient (CLI) | payer OTHER | LOC: LAB SHORT 11:48 → LAB 11:48 | DX: L02.91 Cutaneous abscess, unspecified (principal) | CPT/HCPCS: 87070; 87075; 87077; 87147; 87186; 87205 ==

== ENCOUNTER 2017-08-07 01:25 | Day surgery (SDC) | payer OTHER ==
[2017-08-11] MEDS ORDERED: Bactrim Ds Tab1 EACH PO (10:11)
== END 2017-08-07 11:55 | disposition home or self-care (01) ==
LOC: ATC 01:25
DX: C22.1 Intrahepatic bile duct carcinoma (principal); E11.622 Type 2 diabetes mellitus with other skin ulcer; L89.623 Pressure ulcer of left heel, stage 3; I70.238 Atherosclerosis of native arteries of right leg with ulceration of other part of lower leg
CPT/HCPCS: 96365; J1642

== ENCOUNTER 2017-08-07 09:15 | Day surgery (SDC) | payer OTHER ==
[2017-08-11] MEDS ORDERED: Bactrim Ds Tab1 EACH PO (10:11)
== END 2017-08-07 22:39 | disposition home or self-care (01) ==
LOC: WOUND 09:15
PROC: 2W1RX6Z Compression of Left Lower Leg using Pressure Dressing (ICD-10-PCS; principal; 2017-08-07)
DX: E11.622 Type 2 diabetes mellitus with other skin ulcer (principal); L97.812 Non-pressure chronic ulcer of other part of right lower leg with fat layer exposed; L89.623 Pressure ulcer of left heel, stage 3; I70.238 Atherosclerosis of native arteries of right leg with ulceration of other part of lower leg; C22.1 Intrahepatic bile duct carcinoma
CPT/HCPCS: 96365; G0463; J1642

== ENCOUNTER 2017-08-12 11:04 | Day surgery (SDC) | payer OTHER ==
[2017-08-12 12:20] LABS: Albumin, Blood 3.6 g/dL (3.4-5.0); Anion Gap 8 mmol/L (6-16); Blood Urea Nitrogen 63 mg/dL (8-24); CO2, Blood 24 mmol/L (21-32); Calcium, Blood 8.8 mg/dL (8.5-10.1); Chloride, Blood 105 mmol/L (98-108); Creatinine, Blood 2.25 mg/dL (0.40-1.00); Glomerular Filtration Rate 23 (60-); Glucose, Blood 221 mg/dL (70-99); Phosphorus, Blood 4.3 mg/dL (2.5-4.9); Potassium, Blood 5.1 mmol/L (3.5-5.5); Sodium, Blood 137 mmol/L (136-145)
== END 2017-08-12 11:52 | disposition home or self-care (01) ==
LOC: ATC 11:04
PROVIDERS: Internal Medicine Nephrology
DX: N18.3 Chronic kidney disease, stage 3 (moderate) (principal); C22.1 Intrahepatic bile duct carcinoma; D63.1 Anemia in chronic kidney disease; E11.622 Type 2 diabetes mellitus with other skin ulcer; L89.623 Pressure ulcer of left heel, stage 3; I70.238 Atherosclerosis of native arteries of right leg with ulceration of other part of lower leg; L97.812 Non-pressure chronic ulcer of other part of right lower leg with fat layer exposed
CPT/HCPCS: 36591; 80069; 85018; J1642

== ENCOUNTER 2017-08-12 11:15 | Day surgery (SDC) | payer OTHER | END 2017-08-12 12:23 | disposition home or self-care (01) | LOC: WOUND 11:15 | DX: Z48.00 Encounter for change or removal of nonsurgical wound dressing (principal); E11.622 Type 2 diabetes mellitus with other skin ulcer; L97.812 Non-pressure chronic ulcer of other part of right lower leg with fat layer exposed; I70.238 Atherosclerosis of native arteries of right leg with ulceration of other part of lower leg; C22.1 Intrahepatic bile duct carcinoma | CPT/HCPCS: G0463 ==

== ENCOUNTER 2017-08-14 00:28 | Day surgery (SDC) | payer OTHER | END 2017-08-14 11:49 | disposition home or self-care (01) | LOC: ATC 00:28 | DX: E11.22 Type 2 diabetes mellitus with diabetic chronic kidney disease (principal); N18.3 Chronic kidney disease, stage 3 (moderate); C22.1 Intrahepatic bile duct carcinoma; E11.622 Type 2 diabetes mellitus with other skin ulcer; L89.623 Pressure ulcer of left heel, stage 3; I70.238 Atherosclerosis of native arteries of right leg with ulceration of other part of lower leg; L97.812 Non-pressure chronic ulcer of other part of right lower leg with fat layer exposed | CPT/HCPCS: 96365; J1642 ==

== ENCOUNTER 2017-08-14 09:00 | Day surgery (SDC) | payer OTHER | END 2017-08-14 22:41 | disposition home or self-care (01) | LOC: WOUND 09:00 | PROC: 2W1RX6Z Compression of Left Lower Leg using Pressure Dressing (ICD-10-PCS; principal; 2017-08-14) | DX: E11.622 Type 2 diabetes mellitus with other skin ulcer (principal); L97.812 Non-pressure chronic ulcer of other part of right lower leg with fat layer exposed; L89.623 Pressure ulcer of left heel, stage 3; I70.238 Atherosclerosis of native arteries of right leg with ulceration of other part of lower leg; C22.1 Intrahepatic bile duct carcinoma | CPT/HCPCS: G0463 ==

== ENCOUNTER 2017-08-21 09:15 | Day surgery (SDC) | payer OTHER | END 2017-08-21 22:37 | disposition home or self-care (01) | LOC: WOUND 09:15 | PROC: 2W1RX6Z Compression of Left Lower Leg using Pressure Dressing (ICD-10-PCS; principal; 2017-08-21) | DX: E11.622 Type 2 diabetes mellitus with other skin ulcer (principal); L89.623 Pressure ulcer of left heel, stage 3; I70.238 Atherosclerosis of native arteries of right leg with ulceration of other part of lower leg; C22.1 Intrahepatic bile duct carcinoma; L97.812 Non-pressure chronic ulcer of other part of right lower leg with fat layer exposed; R60.0 Localized edema ==

== ENCOUNTER 2017-08-25 00:46 | Day surgery (SDC) | payer OTHER | END 2017-08-25 10:07 | disposition home or self-care (01) | LOC: ATC 00:46 | DX: E11.22 Type 2 diabetes mellitus with diabetic chronic kidney disease (principal); E11.622 Type 2 diabetes mellitus with other skin ulcer; N18.3 Chronic kidney disease, stage 3 (moderate); C22.1 Intrahepatic bile duct carcinoma; L89.623 Pressure ulcer of left heel, stage 3; I70.238 Atherosclerosis of native arteries of right leg with ulceration of other part of lower leg; L97.812 Non-pressure chronic ulcer of other part of right lower leg with fat layer exposed | CPT/HCPCS: 96365; G0463; J1642 ==

== ENCOUNTER 2017-08-26 11:50 | Day surgery (SDC) | payer OTHER | END 2017-08-26 22:52 | disposition home or self-care (01) | LOC: WOUND 11:50 | PROC: 2W1RX6Z Compression of Left Lower Leg using Pressure Dressing (ICD-10-PCS; principal; 2017-08-26) | DX: E11.622 Type 2 diabetes mellitus with other skin ulcer (principal); L97.812 Non-pressure chronic ulcer of other part of right lower leg with fat layer exposed; L89.623 Pressure ulcer of left heel, stage 3; I70.238 Atherosclerosis of native arteries of right leg with ulceration of other part of lower leg; C22.1 Intrahepatic bile duct carcinoma; R60.0 Localized edema ==

== ENCOUNTER 2017-08-28 00:14 | Day surgery (SDC) | payer OTHER ==
[2017-08-28] MEDS ORDERED: Neurontin 100100 MG PO (10:26)
== END 2017-08-28 15:45 | disposition home or self-care (01) ==
LOC: WOUND 00:14
DX: Z48.00 Encounter for change or removal of nonsurgical wound dressing (principal); E11.622 Type 2 diabetes mellitus with other skin ulcer; L89.623 Pressure ulcer of left heel, stage 3; L97.812 Non-pressure chronic ulcer of other part of right lower leg with fat layer exposed; I70.238 Atherosclerosis of native arteries of right leg with ulceration of other part of lower leg; R60.0 Localized edema; C22.1 Intrahepatic bile duct carcinoma
CPT/HCPCS: G0463

== ENCOUNTER 2017-09-02 01:06 | Day surgery (SDC) | payer OTHER ==
[~2017-09-02 01:06] MED LIST changes: +Neurontin 100100 MG PO
[2017-09-02] MEDS ORDERED: AZIT250 PO (19:09)
[2017-09-02] MEDS ORDERED: Ultram50 MG PO (19:09)
== END 2017-09-02 11:25 | disposition home or self-care (01) ==
LOC: ATC 01:06
DX: E11.22 Type 2 diabetes mellitus with diabetic chronic kidney disease (principal); N18.3 Chronic kidney disease, stage 3 (moderate); D63.1 Anemia in chronic kidney disease; C22.1 Intrahepatic bile duct carcinoma; E11.622 Type 2 diabetes mellitus with other skin ulcer; L89.623 Pressure ulcer of left heel, stage 3; L97.812 Non-pressure chronic ulcer of other part of right lower leg with fat layer exposed; I70.238 Atherosclerosis of native arteries of right leg with ulceration of other part of lower leg
CPT/HCPCS: J1642

== ENCOUNTER 2017-09-02 10:33 | Day surgery (SDC) | payer OTHER ==
[2017-09-02] MEDS ORDERED: Ultram50 MG PO (19:09)
[2017-09-02] MEDS ORDERED: AZIT250 PO (19:09)
== END 2017-09-02 23:34 | disposition home or self-care (01) ==
LOC: WOUND 10:33
DX: Z48.00 Encounter for change or removal of nonsurgical wound dressing (principal); E11.622 Type 2 diabetes mellitus with other skin ulcer; L89.623 Pressure ulcer of left heel, stage 3; I70.238 Atherosclerosis of native arteries of right leg with ulceration of other part of lower leg; C22.1 Intrahepatic bile duct carcinoma; L97.812 Non-pressure chronic ulcer of other part of right lower leg with fat layer exposed; R60.0 Localized edema
CPT/HCPCS: G0463

== ENCOUNTER 2017-09-05 00:14 | Day surgery (SDC) | payer OTHER ==
[~2017-09-05 00:14] MED LIST changes: +AZIT250 PO; +Ultram50 MG PO
[2017-09-05 11:30] LABS: Albumin, Blood 3.2 g/dL (3.4-5.0); Anion Gap 7 mmol/L (6-16); Blood Urea Nitrogen 57 mg/dL (8-24); Bun/Creatinine Ratio 27.1 (12.0-20.0); CO2, Blood 26 mmol/L (21-32); Calcium, Blood 8.3 mg/dL (8.5-10.1); Chloride, Blood 101 mmol/L (98-108); Glomerular Filtration Rate 25 (60-); Glucose, Blood 219 mg/dL (70-99); Phosphorus, Blood 3.1 mg/dL (2.5-4.9); Potassium, Blood 3.7 mmol/L (3.5-5.5); Sodium, Blood 134 mmol/L (136-145)
== END 2017-09-05 11:50 | disposition home or self-care (01) ==
LOC: ATC 00:14
PROVIDERS: Internal Medicine Nephrology
DX: E11.22 Type 2 diabetes mellitus with diabetic chronic kidney disease (principal); E11.622 Type 2 diabetes mellitus with other skin ulcer; N18.3 Chronic kidney disease, stage 3 (moderate); D63.1 Anemia in chronic kidney disease; C22.1 Intrahepatic bile duct carcinoma; L89.623 Pressure ulcer of left heel, stage 3; I70.238 Atherosclerosis of native arteries of right leg with ulceration of other part of lower leg; L97.812 Non-pressure chronic ulcer of other part of right lower leg with fat layer exposed
CPT/HCPCS: 80069; 85018; 96365; J1642

== ENCOUNTER 2017-09-09 00:45 | Day surgery (SDC) | payer OTHER | END 2017-09-09 11:46 | disposition home or self-care (01) | LOC: ATC 00:45 | DX: E11.22 Type 2 diabetes mellitus with diabetic chronic kidney disease (principal); E11.622 Type 2 diabetes mellitus with other skin ulcer; N18.3 Chronic kidney disease, stage 3 (moderate); D63.1 Anemia in chronic kidney disease; C22.1 Intrahepatic bile duct carcinoma; L89.623 Pressure ulcer of left heel, stage 3; L97.812 Non-pressure chronic ulcer of other part of right lower leg with fat layer exposed | CPT/HCPCS: 96365; J1642 ==

== ENCOUNTER 2017-09-11 11:55 | Day surgery (SDC) | payer OTHER | END 2017-09-11 16:11 | disposition home or self-care (01) | LOC: ATC 11:55 | DX: E11.22 Type 2 diabetes mellitus with diabetic chronic kidney disease (principal); E11.622 Type 2 diabetes mellitus with other skin ulcer; N18.3 Chronic kidney disease, stage 3 (moderate); L89.623 Pressure ulcer of left heel, stage 3; I70.238 Atherosclerosis of native arteries of right leg with ulceration of other part of lower leg; C22.1 Intrahepatic bile duct carcinoma; L97.812 Non-pressure chronic ulcer of other part of right lower leg with fat layer exposed; D63.1 Anemia in chronic kidney disease | CPT/HCPCS: 96365; J1642 ==

== ENCOUNTER 2017-09-17 07:53 | Day surgery (SDC) | payer OTHER ==
[2017-09-17 11:59] LABS: Albumin, Blood 3.2 g/dL (3.4-5.0); Anion Gap 7 mmol/L (6-16); Blood Urea Nitrogen 26 mg/dL (8-24); Bun/Creatinine Ratio 19.4 (12.0-20.0); CO2, Blood 27 mmol/L (21-32); Calcium, Blood 8.6 mg/dL (8.5-10.1); Chloride, Blood 105 mmol/L (98-108); Creatinine, Blood 1.34 mg/dL (0.40-1.00); Glomerular Filtration Rate 42 (60-); Glucose, Blood 210 mg/dL (70-99); Phosphorus, Blood 2.9 mg/dL (2.5-4.9); Sodium, Blood 139 mmol/L (136-145)
== END 2017-09-17 15:31 | disposition home or self-care (01) ==
LOC: ATC 07:53
PROVIDERS: Internal Medicine Nephrology
DX: E11.22 Type 2 diabetes mellitus with diabetic chronic kidney disease (principal); N18.4 Chronic kidney disease, stage 4 (severe); E87.70 Fluid overload, unspecified; E11.622 Type 2 diabetes mellitus with other skin ulcer; L89.623 Pressure ulcer of left heel, stage 3; L97.812 Non-pressure chronic ulcer of other part of right lower leg with fat layer exposed; C22.1 Intrahepatic bile duct carcinoma
CPT/HCPCS: 80069; 85018; 96365; J1642

== ENCOUNTER 2017-09-23 00:39 | Day surgery (SDC) | payer OTHER | END 2017-09-23 11:35 | disposition home or self-care (01) | LOC: ATC 00:39 | DX: E11.22 Type 2 diabetes mellitus with diabetic chronic kidney disease (principal); N18.4 Chronic kidney disease, stage 4 (severe); E11.622 Type 2 diabetes mellitus with other skin ulcer; E87.70 Fluid overload, unspecified; R60.0 Localized edema; L89.623 Pressure ulcer of left heel, stage 3; C22.1 Intrahepatic bile duct carcinoma; L97.812 Non-pressure chronic ulcer of other part of right lower leg with fat layer exposed | CPT/HCPCS: 96365; J1642 ==

== ENCOUNTER 2017-09-26 00:07 | Day surgery (SDC) | payer OTHER ==
[2017-09-26] MEDS ORDERED: Prednisone20 MG PO (06:41)
== END 2017-09-26 16:00 | disposition home or self-care (01) ==
LOC: ATC 00:07
DX: E11.22 Type 2 diabetes mellitus with diabetic chronic kidney disease (principal); N18.3 Chronic kidney disease, stage 3 (moderate); D63.1 Anemia in chronic kidney disease; L89.623 Pressure ulcer of left heel, stage 3; E11.622 Type 2 diabetes mellitus with other skin ulcer; C22.1 Intrahepatic bile duct carcinoma; L97.812 Non-pressure chronic ulcer of other part of right lower leg with fat layer exposed
CPT/HCPCS: 96365; J1642

== ENCOUNTER 2017-09-26 04:46 | Emergency (ER) | payer OTHER ==
[~2017-09-26] VITALS: Ht 167.6 cm; Wt 83.0 kg
[2017-09-26] MEDS ORDERED: Prednisone20 MG PO (06:41)
== END 2017-09-26 07:02 | disposition home or self-care (01) ==
LOC: ER 04:46
DX: S46.911A Strain of unspecified muscle, fascia and tendon at shoulder and upper arm level, right arm, initial encounter (principal); R07.89 Other chest pain; I12.9 Hypertensive chronic kidney disease with stage 1 through stage 4 chronic kidney disease, or unspecified chronic kidney disease; E11.22 Type 2 diabetes mellitus with diabetic chronic kidney disease; N18.9 Chronic kidney disease, unspecified; I48.91 Unspecified atrial fibrillation; J44.9 Chronic obstructive pulmonary disease, unspecified; K21.9 Gastro-esophageal reflux disease without esophagitis; Z88.1 Allergy status to other antibiotic agents; Z88.8 Allergy status to other drugs, medicaments and biological substances; Z79.899 Other long term (current) drug therapy; Z79.4 Long term (current) use of insulin; Z79.52 Long term (current) use of systemic steroids; Z87.891 Personal history of nicotine dependence; X50.9XXA Other and unspecified overexertion or strenuous movements or postures, initial encounter
CPT/HCPCS: 73030; J2930

== ENCOUNTER 2017-10-04 14:21 | Day surgery (SDC) | payer OTHER ==
[~2017-10-04 14:21] MED LIST changes: +Prednisone20 MG PO
== END 2017-10-04 15:33 | disposition home or self-care (01) ==
LOC: ATC 14:21
DX: E11.22 Type 2 diabetes mellitus with diabetic chronic kidney disease (principal); N18.4 Chronic kidney disease, stage 4 (severe); E87.70 Fluid overload, unspecified; R60.0 Localized edema; L89.623 Pressure ulcer of left heel, stage 3; I70.238 Atherosclerosis of native arteries of right leg with ulceration of other part of lower leg; C22.1 Intrahepatic bile duct carcinoma
CPT/HCPCS: 96365; J1642

== ENCOUNTER 2017-10-07 00:29 | Day surgery (SDC) | payer OTHER | END 2017-10-07 11:42 | disposition home or self-care (01) | LOC: ATC 00:29 | DX: E11.22 Type 2 diabetes mellitus with diabetic chronic kidney disease (principal); N18.4 Chronic kidney disease, stage 4 (severe); E87.70 Fluid overload, unspecified; E11.622 Type 2 diabetes mellitus with other skin ulcer; L89.623 Pressure ulcer of left heel, stage 3; L97.812 Non-pressure chronic ulcer of other part of right lower leg with fat layer exposed; C22.1 Intrahepatic bile duct carcinoma | CPT/HCPCS: 96365; J1642 ==

== ENCOUNTER 2017-10-10 00:15 | Day surgery (SDC) | payer OTHER ==
[2017-10-10] MEDS ORDERED: PRED20 PO (11:00)
[2017-10-10 11:30] LABS: Albumin, Blood 3.1 g/dL (3.4-5.0); Anion Gap 11 mmol/L (6-16); Blood Urea Nitrogen 50 mg/dL (8-24); Bun/Creatinine Ratio 36.5 (12.0-20.0); CO2, Blood 26 mmol/L (21-32); Calcium, Blood 8.6 mg/dL (8.5-10.1); Chloride, Blood 91 mmol/L (98-108); Creatinine, Blood 1.37 mg/dL (0.40-1.00); Glomerular Filtration Rate 41 (60-); Glucose, Blood 713 mg/dL (70-99); Phosphorus, Blood 3.6 mg/dL (2.5-4.9); Sodium, Blood 128 mmol/L (136-145)
== END 2017-10-10 11:10 | disposition home or self-care (01) ==
LOC: ATC 00:15
PROVIDERS: Internal Medicine Nephrology
DX: E11.22 Type 2 diabetes mellitus with diabetic chronic kidney disease (principal); N18.3 Chronic kidney disease, stage 3 (moderate); D63.1 Anemia in chronic kidney disease; L89.623 Pressure ulcer of left heel, stage 3; E11.622 Type 2 diabetes mellitus with other skin ulcer; L97.812 Non-pressure chronic ulcer of other part of right lower leg with fat layer exposed; C22.1 Intrahepatic bile duct carcinoma
CPT/HCPCS: 80069; 85018; 96365; J1642

== ENCOUNTER 2017-10-14 00:49 | Day surgery (SDC) | payer OTHER ==
[2017-10-14] MEDS ORDERED: Novolog Fl100 UNIT/1 SC (10:14)
[2017-10-14 10:52] LABS: Albumin, Blood 3.6 g/dL (3.4-5.0); Anion Gap 11 mmol/L (6-16); Blood Urea Nitrogen 80 mg/dL (8-24); Bun/Creatinine Ratio 47.1 (12.0-20.0); CO2, Blood 27 mmol/L (21-32); Calcium, Blood 8.7 mg/dL (8.5-10.1); Chloride, Blood 86 mmol/L (98-108); Glomerular Filtration Rate 32 (60-); Glucose, Blood 626 mg/dL (70-99); Sodium, Blood 124 mmol/L (136-145)
== END 2017-10-14 11:08 | disposition home or self-care (01) ==
LOC: ATC 00:49
PROVIDERS: Internal Medicine Nephrology
DX: E11.22 Type 2 diabetes mellitus with diabetic chronic kidney disease (principal); N18.3 Chronic kidney disease, stage 3 (moderate); D63.1 Anemia in chronic kidney disease; E87.70 Fluid overload, unspecified; R60.0 Localized edema; E11.622 Type 2 diabetes mellitus with other skin ulcer; L89.623 Pressure ulcer of left heel, stage 3; C22.1 Intrahepatic bile duct carcinoma; L97.812 Non-pressure chronic ulcer of other part of right lower leg with fat layer exposed
CPT/HCPCS: 80069; 85018; 96365; J1642

== ENCOUNTER 2017-10-17 00:13 | Day surgery (SDC) | payer OTHER ==
[~2017-10-17 00:13] MED LIST changes: +Novolog Fl100 UNIT/1 SC
[2017-10-17 10:47] LABS: Albumin, Blood 3.4 g/dL (3.4-5.0); Anion Gap 11 mmol/L (6-16); Blood Urea Nitrogen 66 mg/dL (8-24); CO2, Blood 22 mmol/L (21-32); Calcium, Blood 8.1 mg/dL (8.5-10.1); Chloride, Blood 95 mmol/L (98-108); Creatinine, Blood 1.57 mg/dL (0.40-1.00); Glomerular Filtration Rate 35 (60-); Glucose, Blood 600 mg/dL (70-99); Phosphorus, Blood 3.9 mg/dL (2.5-4.9); Sodium, Blood 128 mmol/L (136-145)
[2017-10-17] MEDS ORDERED: CYAN500 PO (11:11)
[2017-10-17] MEDS ORDERED: ERGO400 PO (11:12)
== END 2017-10-17 10:42 | disposition home or self-care (01) ==
LOC: ATC 00:13
PROVIDERS: Internal Medicine Nephrology
DX: E11.22 Type 2 diabetes mellitus with diabetic chronic kidney disease (principal); N18.3 Chronic kidney disease, stage 3 (moderate); D63.1 Anemia in chronic kidney disease; C22.1 Intrahepatic bile duct carcinoma; E11.622 Type 2 diabetes mellitus with other skin ulcer; L89.623 Pressure ulcer of left heel, stage 3; L97.812 Non-pressure chronic ulcer of other part of right lower leg with fat layer exposed
CPT/HCPCS: 80069; 85018; 96365; J1642

== ENCOUNTER 2017-10-21 00:20 | Day surgery (SDC) | payer OTHER ==
[~2017-10-21 00:20] MED LIST changes: +CYAN500 PO; +ERGO400 PO
[2017-10-21 11:20] LABS: BASOPHILS ABSOLUTE AUTO 0.02 K/mm3 (0.00-0.23); BASOPHILS PERCENT AUTO 0 % (0-2); EOSINOPHILS ABSOLUTE AUTO 0.16 K/mm3 (0.00-0.68); EOSINOPHILS PERCENT AUTO 2 % (0-6); Hematocrit 35.6 % (33.0-51.0); Hemoglobin 12.3 g/dL (11.5-16.0); IMMATURE GRAN ABSOLUTE AUTO 0.36 K/mm3 (0.00-0.10); IMMATURE GRAN PERCENT AUTO 4 % (0-1); LYMPHOCYTES PERCENT AUTO 9 % (21-46); MONOCYTES PERCENT AUTO 6 % (4-13); Mean Corpuscular HGB 28.5 pg (26.0-34.0); Mean Corpuscular HGB Conc 34.6 g/dL (31.5-36.5); Mean Corpuscular Volume 83 fL (80-100); Mean Platelet Volume 11.9 fL (9.1-12.4); NEUTROPHILS ABSOLUTE AUTO 6.79 K/mm3 (1.96-9.15); NEUTROPHILS PERCENT AUTO 79 % (41-73); Platelet Count 101 K/mm3 (150-400); RDW Coefficient Variation 14.2 % (11.7-14.2); RDW Standard Deviation 42.9 fL (35.1-46.3); Red Blood Cell Count 4.31 M/mm3 (3.80-5.20); White Blood Cell Count 8.63 K/mm3 (4.00-11.30)
[2017-10-21 11:39] LABS: Albumin/Globulin Ratio 1.1 (0.8-1.8); Bilirubin, Total 0.3 mg/dL (0.1-1.0); Calcium, Blood 8.5 mg/dL (8.5-10.1); Creatinine, Blood 1.34 mg/dL (0.40-1.00); Globulin, Blood 2.7 g/dL (2.2-4.0); Potassium, Blood 5.3 mmol/L (3.5-5.5); Total Protein, Blood 5.7 g/dL (6.4-8.2)
== END 2017-10-21 10:51 | disposition home or self-care (01) ==
LOC: ATC 00:20
PROVIDERS: Surgery Surgical Oncology
DX: C22.1 Intrahepatic bile duct carcinoma (principal); E11.622 Type 2 diabetes mellitus with other skin ulcer; L89.623 Pressure ulcer of left heel, stage 3; I70.238 Atherosclerosis of native arteries of right leg with ulceration of other part of lower leg; L97.812 Non-pressure chronic ulcer of other part of right lower leg with fat layer exposed
CPT/HCPCS: 80053; 82306; 85025; 86301; 96365; J1642

== ENCOUNTER 2017-10-22 17:00 | Emergency (ER) | payer OTHER ==
[~2017-10-22] VITALS: Ht 167.6 cm; Wt 81.2 kg
[2017-10-22 17:54] LABS: BASOPHILS ABSOLUTE AUTO 0.05 K/mm3 (0.00-0.23); BASOPHILS PERCENT AUTO 0 % (0-2); EOSINOPHILS ABSOLUTE AUTO 0.17 K/mm3 (0.00-0.68); EOSINOPHILS PERCENT AUTO 2 % (0-6); Hematocrit 38.3 % (33.0-51.0); Hemoglobin 13.3 g/dL (11.5-16.0); IMMATURE GRAN PERCENT AUTO 4 % (0-1); LYMPHOCYTES ABSOLUTE AUTO 0.77 K/mm3 (0.84-5.20); LYMPHOCYTES PERCENT AUTO 7 % (21-46); MONOCYTES PERCENT AUTO 4 % (4-13); Mean Corpuscular HGB 28.8 pg (26.0-34.0); Mean Corpuscular HGB Conc 34.7 g/dL (31.5-36.5); Mean Corpuscular Volume 83 fL (80-100); Mean Platelet Volume 11.7 fL (9.1-12.4); NEUTROPHILS ABSOLUTE AUTO 9.58 K/mm3 (1.96-9.15); NEUTROPHILS PERCENT AUTO 84 % (41-73); Platelet Count 118 K/mm3 (150-400); RDW Coefficient Variation 14.3 % (11.7-14.2); RDW Standard Deviation 42.8 fL (35.1-46.3); Red Blood Cell Count 4.62 M/mm3 (3.80-5.20); White Blood Cell Count 11.47 K/mm3 (4.00-11.30)
[2017-10-22 18:11] LABS: Alanine Aminotransfer (ALT/SGP 43 U/L (12-78); Albumin, Blood 3.4 g/dL (3.4-5.0); Albumin/Globulin Ratio 1.1 (0.8-1.8); Alk Phos 103 U/L (50-136); Anion Gap 11 mmol/L (6-16); Aspartate Aminotrans (AST/SGOT 7 U/L (12-37); Bilirubin, Total 0.3 mg/dL (0.1-1.0); Blood Urea Nitrogen 80 mg/dL (8-24); Bun/Creatinine Ratio 46.8 (12.0-20.0); CO2, Blood 22 mmol/L (21-32); Calcium, Blood 8.9 mg/dL (8.5-10.1); Chloride, Blood 93 mmol/L (98-108); Creatinine, Blood 1.71 mg/dL (0.40-1.00); Glomerular Filtration Rate 32 (60-); Glucose, Blood 625 mg/dL (70-99); Potassium, Blood 5.9 mmol/L (3.5-5.5); Sodium, Blood 126 mmol/L (136-145); Total Protein, Blood 6.4 g/dL (6.4-8.2)
[2017-10-22 19:18] LABS: Source, Urine Clean Catch
[2017-10-22 19:24] LABS: Bilirubin, Urine Neg (Neg); Blood, Urine Neg (Neg); Glucose Qualitative, Urine 4+ (Neg); Ketones, Urine Neg (Neg); Leukocyte Esterase, Urine Neg (Neg); Nitrite, Urine Neg (Neg); Protein, Urine 1+ (Neg); Urobilinogen, Urine NORM (Normal)
[2017-10-22 19:32] LABS: Appearance, Urine Clear (Clear); Color, Urine Yellow (P-Yellow)
[2017-10-22 20:15] LABS: Calcium, Ionized (POC) 1.14 mmol/L (1.10-1.46); Chloride (POC) 97 mmol/L (98-108); Creatinine (POC) 1.6 mg/dL (0.6-1.0); Glucose (ISTAT POC) 398 mg/dL (70-99); Hemoglobin (POC) 11.6 g/dL (12.0-16.0); Potassium (POC) 4.9 mmol/L (3.5-5.5); Sodium (POC) 132 mmol/L (135-148); Total CO2 (POC) 22 mmol/L (21-32)
== END 2017-10-22 20:45 | disposition home or self-care (01) ==
LOC: ER 17:00
PROVIDERS: Emergency Medicine
DX: E11.65 Type 2 diabetes mellitus with hyperglycemia (principal); Z88.1 Allergy status to other antibiotic agents; Z79.899 Other long term (current) drug therapy; Z79.4 Long term (current) use of insulin; Z79.891 Long term (current) use of opiate analgesic; I10 Essential (primary) hypertension; Z87.891 Personal history of nicotine dependence
CPT/HCPCS: 36415; 80047; 80053; 82010; 82947; 85014; 85025; 93005; 93010; 96360; 99283; J1815; J7030

== ENCOUNTER 2017-10-28 00:28 | Day surgery (SDC) | payer OTHER | END 2017-10-28 10:59 | disposition home or self-care (01) | LOC: ATC 00:28 | DX: E11.22 Type 2 diabetes mellitus with diabetic chronic kidney disease (principal); N18.4 Chronic kidney disease, stage 4 (severe); E11.622 Type 2 diabetes mellitus with other skin ulcer; L97.812 Non-pressure chronic ulcer of other part of right lower leg with fat layer exposed; E87.70 Fluid overload, unspecified; R60.0 Localized edema; L89.623 Pressure ulcer of left heel, stage 3 | CPT/HCPCS: 96365; J1642 ==

== ENCOUNTER 2017-10-30 00:12 | Day surgery (SDC) | payer OTHER ==
[2017-11-04] MEDS ORDERED: CHOL10002 PO (10:54)
== END 2017-10-30 16:27 | disposition home or self-care (01) ==
LOC: ATC 00:12
DX: I70.238 Atherosclerosis of native arteries of right leg with ulceration of other part of lower leg (principal); L89.623 Pressure ulcer of left heel, stage 3; E11.622 Type 2 diabetes mellitus with other skin ulcer; E83.59 Other disorders of calcium metabolism; R60.0 Localized edema; B02.22 Postherpetic trigeminal neuralgia; Z85.09 Personal history of malignant neoplasm of other digestive organs
CPT/HCPCS: 96365; J1642

== ENCOUNTER 2017-11-18 00:11 | Day surgery (SDC) | payer OTHER ==
[~2017-11-18 00:11] MED LIST changes: +CHOL10002 PO
== END 2017-11-18 14:52 | disposition home or self-care (01) ==
LOC: ATC 00:11
DX: N18.3 Chronic kidney disease, stage 3 (moderate) (principal); E86.9 Volume depletion, unspecified; E87.1 Hypo-osmolality and hyponatremia
CPT/HCPCS: 96365; J1642

== ENCOUNTER 2017-11-25 00:39 | Day surgery (SDC) | payer OTHER | END 2017-11-25 11:50 | disposition home or self-care (01) | LOC: ATC 00:39 | DX: E11.22 Type 2 diabetes mellitus with diabetic chronic kidney disease (principal); E11.622 Type 2 diabetes mellitus with other skin ulcer; N18.3 Chronic kidney disease, stage 3 (moderate); E88.9 Metabolic disorder, unspecified; E87.1 Hypo-osmolality and hyponatremia; L89.623 Pressure ulcer of left heel, stage 3; C22.1 Intrahepatic bile duct carcinoma; L97.812 Non-pressure chronic ulcer of other part of right lower leg with fat layer exposed | CPT/HCPCS: 96365; J1642 ==

== ENCOUNTER 2017-12-16 00:49 | Day surgery (SDC) | payer OTHER | END 2017-12-16 10:41 | disposition home or self-care (01) | LOC: ATC 00:49 | DX: E11.22 Type 2 diabetes mellitus with diabetic chronic kidney disease (principal); N18.3 Chronic kidney disease, stage 3 (moderate); E88.9 Metabolic disorder, unspecified; E87.1 Hypo-osmolality and hyponatremia; E11.622 Type 2 diabetes mellitus with other skin ulcer; L89.623 Pressure ulcer of left heel, stage 3; C22.1 Intrahepatic bile duct carcinoma; L97.812 Non-pressure chronic ulcer of other part of right lower leg with fat layer exposed | CPT/HCPCS: 96365; J1642 ==

== ENCOUNTER 2017-12-23 00:08 | Day surgery (SDC) | payer OTHER | END 2017-12-23 11:15 | disposition home or self-care (01) | LOC: ATC 00:08 | DX: I12.9 Hypertensive chronic kidney disease with stage 1 through stage 4 chronic kidney disease, or unspecified chronic kidney disease (principal); E11.22 Type 2 diabetes mellitus with diabetic chronic kidney disease; N18.3 Chronic kidney disease, stage 3 (moderate); L03.90 Cellulitis, unspecified; D63.1 Anemia in chronic kidney disease; N25.81 Secondary hyperparathyroidism of renal origin; E87.70 Fluid overload, unspecified; E55.9 Vitamin D deficiency, unspecified | CPT/HCPCS: 96365; J1642 ==

== ENCOUNTER 2017-12-30 07:28 | Day surgery (SDC) | payer OTHER | END 2017-12-30 10:41 | disposition home or self-care (01) | LOC: ATC 07:28 | DX: N18.3 Chronic kidney disease, stage 3 (moderate) (principal); L03.90 Cellulitis, unspecified; D63.1 Anemia in chronic kidney disease | CPT/HCPCS: 96365; J1642 ==

== ENCOUNTER 2018-01-02 00:25 | Day surgery (SDC) | payer OTHER | END 2018-01-02 11:15 | disposition home or self-care (01) | LOC: ATC 00:25 | DX: N18.3 Chronic kidney disease, stage 3 (moderate) (principal); L03.90 Cellulitis, unspecified | CPT/HCPCS: 96365; J1642 ==

== ENCOUNTER 2018-01-13 00:03 | Day surgery (SDC) | payer OTHER | END 2018-01-13 10:59 | disposition home or self-care (01) | LOC: ATC 00:03 | DX: I12.9 Hypertensive chronic kidney disease with stage 1 through stage 4 chronic kidney disease, or unspecified chronic kidney disease (principal); N18.3 Chronic kidney disease, stage 3 (moderate); L03.90 Cellulitis, unspecified | CPT/HCPCS: 96365; J1642 ==

== ENCOUNTER 2018-01-16 00:11 | Day surgery (SDC) | payer OTHER | END 2018-01-16 10:39 | disposition home or self-care (01) | LOC: ATC 00:11 | DX: I12.9 Hypertensive chronic kidney disease with stage 1 through stage 4 chronic kidney disease, or unspecified chronic kidney disease (principal); N18.3 Chronic kidney disease, stage 3 (moderate); L03.90 Cellulitis, unspecified; D63.1 Anemia in chronic kidney disease; N25.81 Secondary hyperparathyroidism of renal origin; E11.21 Type 2 diabetes mellitus with diabetic nephropathy; E11.22 Type 2 diabetes mellitus with diabetic chronic kidney disease; E87.70 Fluid overload, unspecified; E55.9 Vitamin D deficiency, unspecified | CPT/HCPCS: 96365; J1642 ==

== ENCOUNTER 2018-01-20 00:11 | Day surgery (SDC) | payer OTHER | END 2018-01-20 10:52 | disposition home or self-care (01) | LOC: ATC 00:11 | DX: I12.9 Hypertensive chronic kidney disease with stage 1 through stage 4 chronic kidney disease, or unspecified chronic kidney disease (principal); E11.22 Type 2 diabetes mellitus with diabetic chronic kidney disease; N18.3 Chronic kidney disease, stage 3 (moderate); L03.90 Cellulitis, unspecified; D63.1 Anemia in chronic kidney disease; N25.81 Secondary hyperparathyroidism of renal origin; E87.70 Fluid overload, unspecified; D50.9 Iron deficiency anemia, unspecified; E55.9 Vitamin D deficiency, unspecified | CPT/HCPCS: 96365; J1642 ==

== ENCOUNTER 2018-01-23 00:38 | Day surgery (SDC) | payer OTHER | END 2018-01-23 10:52 | disposition home or self-care (01) | LOC: ATC 00:38 | DX: I12.9 Hypertensive chronic kidney disease with stage 1 through stage 4 chronic kidney disease, or unspecified chronic kidney disease (principal); N18.3 Chronic kidney disease, stage 3 (moderate); L03.90 Cellulitis, unspecified | CPT/HCPCS: 96365; J1642 ==

== ENCOUNTER 2018-01-27 00:15 | Day surgery (SDC) | payer OTHER | END 2018-01-27 11:05 | disposition home or self-care (01) | LOC: ATC 00:15 | DX: I12.9 Hypertensive chronic kidney disease with stage 1 through stage 4 chronic kidney disease, or unspecified chronic kidney disease (principal); N18.3 Chronic kidney disease, stage 3 (moderate); L03.90 Cellulitis, unspecified | CPT/HCPCS: 96365; 96375; J1642; J2550 ==

== ENCOUNTER 2018-01-30 00:22 | Day surgery (SDC) | payer OTHER | END 2018-01-30 11:10 | disposition home or self-care (01) | LOC: ATC 00:22 | DX: I12.9 Hypertensive chronic kidney disease with stage 1 through stage 4 chronic kidney disease, or unspecified chronic kidney disease (principal); N18.3 Chronic kidney disease, stage 3 (moderate); E11.22 Type 2 diabetes mellitus with diabetic chronic kidney disease; D63.1 Anemia in chronic kidney disease; N25.81 Secondary hyperparathyroidism of renal origin; E55.9 Vitamin D deficiency, unspecified; E87.70 Fluid overload, unspecified; G60.9 Hereditary and idiopathic neuropathy, unspecified; D50.9 Iron deficiency anemia, unspecified; E11.21 Type 2 diabetes mellitus with diabetic nephropathy | CPT/HCPCS: 96365; 96375; J1642; J2405; J2550 ==

== ENCOUNTER 2018-02-03 00:03 | Day surgery (SDC) | payer OTHER ==
[2018-02-03] MEDS ORDERED: ONDA8 IV (09:36)
== END 2018-02-03 22:36 | disposition home or self-care (01) ==
LOC: ATC 00:03
DX: I12.9 Hypertensive chronic kidney disease with stage 1 through stage 4 chronic kidney disease, or unspecified chronic kidney disease (principal); N18.3 Chronic kidney disease, stage 3 (moderate); E11.22 Type 2 diabetes mellitus with diabetic chronic kidney disease; D63.1 Anemia in chronic kidney disease; N25.81 Secondary hyperparathyroidism of renal origin; E87.70 Fluid overload, unspecified; D50.9 Iron deficiency anemia, unspecified; E11.21 Type 2 diabetes mellitus with diabetic nephropathy; G60.9 Hereditary and idiopathic neuropathy, unspecified; E55.9 Vitamin D deficiency, unspecified
CPT/HCPCS: 96365; 96375; J1642; J2405

== ENCOUNTER 2018-02-06 00:18 | Day surgery (SDC) | payer OTHER ==
[~2018-02-06 00:18] MED LIST changes: +ONDA8 IV
== END 2018-02-06 11:00 | disposition home or self-care (01) ==
LOC: ATC 00:18
DX: E11.22 Type 2 diabetes mellitus with diabetic chronic kidney disease (principal); I12.9 Hypertensive chronic kidney disease with stage 1 through stage 4 chronic kidney disease, or unspecified chronic kidney disease; N18.3 Chronic kidney disease, stage 3 (moderate); D63.1 Anemia in chronic kidney disease; N25.81 Secondary hyperparathyroidism of renal origin; E87.70 Fluid overload, unspecified; R60.9 Edema, unspecified; D50.9 Iron deficiency anemia, unspecified; E11.21 Type 2 diabetes mellitus with diabetic nephropathy; G60.9 Hereditary and idiopathic neuropathy, unspecified; E55.9 Vitamin D deficiency, unspecified
CPT/HCPCS: 96365; J1642; J2405

== ENCOUNTER 2018-04-20 14:02 | Day surgery (SDC) | payer OTHER ==
[~2018-04-20 14:02] MED LIST changes: +ROXICODONE5 MG PO
== END 2018-04-20 15:08 | disposition home or self-care (01) ==
LOC: ATC 14:02
DX: C32.1 Malignant neoplasm of supraglottis (principal); F17.200 Nicotine dependence, unspecified, uncomplicated
CPT/HCPCS: 96365; 96375; J1642; J2405

== ENCOUNTER 2018-04-23 14:21 | Emergency (ER) | payer OTHER ==
[~2018-04-23] VITALS: Ht 165.1 cm; Wt 94.3 kg
[2018-04-23 15:15] LABS: BASOPHILS ABSOLUTE AUTO 0.02 K/mm3 (0.00-0.23); BASOPHILS PERCENT AUTO 0 % (0-2); EOSINOPHILS ABSOLUTE AUTO 0.11 K/mm3 (0.00-0.68); EOSINOPHILS PERCENT AUTO 2 % (0-6); Hematocrit 39.5 % (33.0-51.0); Hemoglobin 12.8 g/dL (11.5-16.0); IMMATURE GRAN ABSOLUTE AUTO 0.05 K/mm3 (0.00-0.10); IMMATURE GRAN PERCENT AUTO 1 % (0-1); LYMPHOCYTES ABSOLUTE AUTO 0.48 K/mm3 (0.84-5.20); LYMPHOCYTES PERCENT AUTO 8 % (21-46); MONOCYTES ABSOLUTE AUTO 0.35 K/mm3 (0.16-1.47); MONOCYTES PERCENT AUTO 6 % (4-13); Mean Corpuscular HGB 26.9 pg (26.0-34.0); Mean Corpuscular HGB Conc 32.4 g/dL (31.5-36.5); Mean Corpuscular Volume 83 fL (80-100); NEUTROPHILS ABSOLUTE AUTO 4.88 K/mm3 (1.96-9.15); NEUTROPHILS PERCENT AUTO 83 % (41-73); Platelet Count 85 K/mm3 (150-400); RDW Coefficient Variation 15.1 % (11.7-14.2); RDW Standard Deviation 45.9 fL (35.1-46.3); Red Blood Cell Count 4.76 M/mm3 (3.80-5.20); White Blood Cell Count 5.89 K/mm3 (4.00-11.30)
[2018-04-23 15:29] LABS: Mean Platelet Volume 13.2 fL (9.1-12.4)
[2018-04-23 15:40] LABS: Albumin, Blood 3.5 g/dL (3.4-5.0); Albumin/Globulin Ratio 1.1 (0.8-1.8); Bilirubin, Total 0.3 mg/dL (0.1-1.0); Bun/Creatinine Ratio 23.2 (12.0-20.0); Calcium, Blood 8.4 mg/dL (8.5-10.1); Creatinine, Blood 1.25 mg/dL (0.40-1.00); Globulin, Blood 3.2 g/dL (2.2-4.0); Potassium, Blood 3.3 mmol/L (3.5-5.5); Total Protein, Blood 6.7 g/dL (6.4-8.2)
[2018-04-23] MEDS ORDERED: FURO80 PO (17:33)
[2018-04-23] MEDS ORDERED: PREG100 PO (17:38)
[2018-04-23] MEDS ORDERED: CLOP75 PO (17:38)
[2018-04-23] MEDS ORDERED: Zithromax250 MG PO (18:49)
[2018-04-23] MEDS ORDERED: Prednisone50 MG PO (18:49)
== END 2018-04-23 19:17 | disposition home or self-care (01) ==
LOC: ER 14:21
PROVIDERS: Physician Assistant
DX: J44.0 Chronic obstructive pulmonary disease with (acute) lower respiratory infection (principal); J20.9 Acute bronchitis, unspecified; I12.9 Hypertensive chronic kidney disease with stage 1 through stage 4 chronic kidney disease, or unspecified chronic kidney disease; E11.22 Type 2 diabetes mellitus with diabetic chronic kidney disease; N18.9 Chronic kidney disease, unspecified; I48.91 Unspecified atrial fibrillation; K21.9 Gastro-esophageal reflux disease without esophagitis; Z79.899 Other long term (current) drug therapy; Z79.4 Long term (current) use of insulin; Z88.1 Allergy status to other antibiotic agents; Z87.891 Personal history of nicotine dependence
CPT/HCPCS: 36415; 71046; 80053; 85025; 93005; 93010; 93971; 99285-25

== ENCOUNTER 2018-04-24 00:05 | Day surgery (SDC) | payer OTHER ==
[~2018-04-24 00:05] MED LIST changes: +Prednisone50 MG PO; +Zithromax250 MG PO
== END 2018-04-24 22:45 | disposition home or self-care (01) ==
LOC: ATC 00:05
DX: J06.9 Acute upper respiratory infection, unspecified (principal); D69.6 Thrombocytopenia, unspecified
CPT/HCPCS: 96365; 96375; J1642; J2405

== ENCOUNTER 2018-04-27 00:03 | Day surgery (SDC) | payer OTHER ==
[2018-04-27 10:34] LABS: BASOPHILS ABSOLUTE AUTO 0.03 K/mm3 (0.00-0.23); BASOPHILS PERCENT AUTO 0 % (0-2); EOSINOPHILS ABSOLUTE AUTO 0.12 K/mm3 (0.00-0.68); EOSINOPHILS PERCENT AUTO 2 % (0-6); Hematocrit 39.1 % (33.0-51.0); Hemoglobin 12.8 g/dL (11.5-16.0); IMMATURE GRAN ABSOLUTE AUTO 0.13 K/mm3 (0.00-0.10); IMMATURE GRAN PERCENT AUTO 2 % (0-1); LYMPHOCYTES ABSOLUTE AUTO 0.61 K/mm3 (0.84-5.20); LYMPHOCYTES PERCENT AUTO 8 % (21-46); MONOCYTES ABSOLUTE AUTO 0.42 K/mm3 (0.16-1.47); MONOCYTES PERCENT AUTO 6 % (4-13); Mean Corpuscular HGB 26.2 pg (26.0-34.0); Mean Corpuscular HGB Conc 32.7 g/dL (31.5-36.5); NEUTROPHILS ABSOLUTE AUTO 5.95 K/mm3 (1.96-9.15); NEUTROPHILS PERCENT AUTO 82 % (41-73); Platelet Count 98 K/mm3 (150-400); RDW Coefficient Variation 15.2 % (11.7-14.2); RDW Standard Deviation 43.8 fL (35.1-46.3); Red Blood Cell Count 4.88 M/mm3 (3.80-5.20); White Blood Cell Count 7.26 K/mm3 (4.00-11.30)
[2018-04-27 10:36] LABS: Mean Corpuscular Volume 80 fL (80-100); Mean Platelet Volume 13.6 fL (9.1-12.4)
[2018-04-27 10:50] LABS: Albumin, Blood 3.6 g/dL (3.4-5.0); Anion Gap 12 mmol/L (6-16); Blood Urea Nitrogen 49 mg/dL (8-24); Bun/Creatinine Ratio 33.6 (12.0-20.0); CO2, Blood 28 mmol/L (21-32); Calcium, Blood 8.3 mg/dL (8.5-10.1); Chloride, Blood 93 mmol/L (98-108); Creatinine, Blood 1.46 mg/dL (0.40-1.00); Glomerular Filtration Rate 38 (60-); Glucose, Blood 528 mg/dL (70-99); Phosphorus, Blood 3.9 mg/dL (2.5-4.9); Potassium, Blood 3.6 mmol/L (3.5-5.5); Sodium, Blood 133 mmol/L (136-145)
== END 2018-04-27 11:04 | disposition home or self-care (01) ==
LOC: ATC 00:03
PROVIDERS: Internal Medicine Nephrology
DX: N18.3 Chronic kidney disease, stage 3 (moderate) (principal); D63.1 Anemia in chronic kidney disease; J06.9 Acute upper respiratory infection, unspecified; D69.6 Thrombocytopenia, unspecified
CPT/HCPCS: 80069; 85025; 96365; 96375; J1642; J2405

== ENCOUNTER 2018-05-01 02:26 | Day surgery (SDC) | payer OTHER | END 2018-05-01 10:43 | disposition home or self-care (01) | LOC: ATC 02:26 | DX: N18.3 Chronic kidney disease, stage 3 (moderate) (principal); D69.6 Thrombocytopenia, unspecified; J06.9 Acute upper respiratory infection, unspecified | CPT/HCPCS: 96365; 96375; J1642; J2405 ==

== ENCOUNTER 2018-05-03 13:05 | Emergency (ER) | payer OTHER ==
[~2018-05-03] VITALS: Ht 165.1 cm; Wt 93.0 kg
[2018-05-03] MEDS ORDERED: SINUS 12 HOUR120 MG PO (13:27)
[2018-05-03] MEDS ORDERED: Amoxicillin875 MG PO (13:27)
== END 2018-05-03 13:37 | disposition home or self-care (01) ==
LOC: ER 13:05
DX: J32.9 Chronic sinusitis, unspecified (principal); I12.9 Hypertensive chronic kidney disease with stage 1 through stage 4 chronic kidney disease, or unspecified chronic kidney disease; E11.22 Type 2 diabetes mellitus with diabetic chronic kidney disease; N18.9 Chronic kidney disease, unspecified; I48.91 Unspecified atrial fibrillation; Z87.891 Personal history of nicotine dependence; Z88.1 Allergy status to other antibiotic agents; Z79.52 Long term (current) use of systemic steroids; Z79.2 Long term (current) use of antibiotics; Z79.4 Long term (current) use of insulin; Z79.899 Other long term (current) drug therapy
CPT/HCPCS: 99283

== ENCOUNTER 2018-05-05 10:02 | Day surgery (SDC) | payer OTHER ==
[~2018-05-05 10:02] MED LIST changes: +Amoxicillin875 MG PO; +SINUS 12 HOUR120 MG PO
[2018-05-05] MEDS ORDERED: AMOX875 PO (10:37)
== END 2018-05-05 10:58 | disposition home or self-care (01) ==
LOC: ATC 10:02
DX: N18.3 Chronic kidney disease, stage 3 (moderate) (principal); D63.1 Anemia in chronic kidney disease; J06.9 Acute upper respiratory infection, unspecified; D69.6 Thrombocytopenia, unspecified
CPT/HCPCS: 96365; 96375; J1642; J2405

== ENCOUNTER 2018-05-08 01:26 | Day surgery (SDC) | payer OTHER ==
[~2018-05-08 01:26] MED LIST changes: +AMOX875 PO
== END 2018-05-08 08:52 | disposition home or self-care (01) ==
LOC: ATC 01:26
DX: N18.3 Chronic kidney disease, stage 3 (moderate) (principal); D63.1 Anemia in chronic kidney disease
CPT/HCPCS: 96365; 96374; J1642; J2405

== ENCOUNTER 2018-05-12 00:07 | Day surgery (SDC) | payer OTHER | END 2018-05-12 11:04 | disposition home or self-care (01) | LOC: ATC 00:07 | DX: I12.9 Hypertensive chronic kidney disease with stage 1 through stage 4 chronic kidney disease, or unspecified chronic kidney disease (principal); N18.3 Chronic kidney disease, stage 3 (moderate); D63.1 Anemia in chronic kidney disease; N25.81 Secondary hyperparathyroidism of renal origin; E11.21 Type 2 diabetes mellitus with diabetic nephropathy; R60.9 Edema, unspecified; E55.9 Vitamin D deficiency, unspecified | CPT/HCPCS: 96365; 96375; J1642; J2405 ==

== ENCOUNTER 2018-05-15 00:19 | Day surgery (SDC) | payer OTHER | END 2018-05-15 10:44 | disposition home or self-care (01) | LOC: ATC 00:19 | DX: N18.3 Chronic kidney disease, stage 3 (moderate) (principal); D69.6 Thrombocytopenia, unspecified; D63.1 Anemia in chronic kidney disease | CPT/HCPCS: 96365; 96375; J1642; J2405 ==

== ENCOUNTER 2018-05-19 00:17 | Day surgery (SDC) | payer OTHER ==
[2018-05-19] MEDS ORDERED: TRAM50 PO (07:41)
== END 2018-05-19 08:50 | disposition home or self-care (01) ==
LOC: ATC 00:17
DX: N18.3 Chronic kidney disease, stage 3 (moderate) (principal); D63.1 Anemia in chronic kidney disease; J06.9 Acute upper respiratory infection, unspecified; D69.6 Thrombocytopenia, unspecified
CPT/HCPCS: 96365; 96375; J1642; J2405

== ENCOUNTER 2018-05-22 00:58 | Day surgery (SDC) | payer OTHER ==
[~2018-05-22 00:58] MED LIST changes: +TRAM50 PO
== END 2018-05-22 11:03 | disposition home or self-care (01) ==
LOC: ATC 00:58
DX: N18.3 Chronic kidney disease, stage 3 (moderate) (principal); D63.1 Anemia in chronic kidney disease; J06.9 Acute upper respiratory infection, unspecified; D69.6 Thrombocytopenia, unspecified; R11.2 Nausea with vomiting, unspecified
CPT/HCPCS: 96365; 96375; J1642; J2405

== ENCOUNTER 2018-05-26 00:05 | Day surgery (SDC) | payer OTHER | END 2018-05-26 11:08 | disposition home or self-care (01) | LOC: ATC 00:05 | DX: N18.3 Chronic kidney disease, stage 3 (moderate) (principal); D63.1 Anemia in chronic kidney disease; J06.9 Acute upper respiratory infection, unspecified; D69.6 Thrombocytopenia, unspecified | CPT/HCPCS: 96365; 96375; J1642; J2405 ==

== ENCOUNTER 2018-05-29 00:52 | Day surgery (SDC) | payer OTHER | END 2018-05-29 11:04 | disposition home or self-care (01) | LOC: ATC 00:52 | DX: J06.9 Acute upper respiratory infection, unspecified (principal); D69.6 Thrombocytopenia, unspecified; N18.3 Chronic kidney disease, stage 3 (moderate); D63.1 Anemia in chronic kidney disease | CPT/HCPCS: 96365; 96375; J1642; J2405 ==

== ENCOUNTER 2018-06-01 01:45 | Emergency (ER) | payer OTHER ==
[~2018-06-01] VITALS: Ht 167.6 cm; Wt 99.8 kg
[2018-06-01] MEDS ORDERED: RISP1 PO (03:08)
[2018-06-01] MEDS ORDERED: OXYC5 (03:08)
[2018-06-01] MEDS ORDERED: ARIPIPRAZOLE2 MG PO (03:09)
[2018-06-01] MEDS ORDERED: Novolin R100 UNIT/M SC (03:16)
== END 2018-06-01 04:46 | disposition home or self-care (01) ==
LOC: ER 01:45
DX: M25.431 Effusion, right wrist (principal); I10 Essential (primary) hypertension; E11.9 Type 2 diabetes mellitus without complications; Z87.891 Personal history of nicotine dependence; Z88.1 Allergy status to other antibiotic agents; Z79.899 Other long term (current) drug therapy
CPT/HCPCS: 29125; 73110; 99283-25

== ENCOUNTER 2018-06-02 00:15 | Day surgery (SDC) | payer OTHER ==
[~2018-06-02 00:15] MED LIST changes: +ARIPIPRAZOLE2 MG PO; +Novolin R100 UNIT/M SC; +RISP1 PO
== END 2018-06-02 11:00 | disposition home or self-care (01) ==
LOC: ATC 00:15
DX: N18.3 Chronic kidney disease, stage 3 (moderate) (principal); D63.1 Anemia in chronic kidney disease; J06.9 Acute upper respiratory infection, unspecified; D69.6 Thrombocytopenia, unspecified
CPT/HCPCS: 96365; 96375; J1642; J2405

== ENCOUNTER 2018-06-05 07:25 | Day surgery (SDC) | payer OTHER ==
[2018-06-05 10:45] LABS: Albumin, Blood 3.3 g/dL (3.4-5.0); Anion Gap 7 mmol/L (6-16); Blood Urea Nitrogen 38 mg/dL (8-24); Bun/Creatinine Ratio 26.6 (12.0-20.0); CO2, Blood 30 mmol/L (21-32); Calcium, Blood 8.6 mg/dL (8.5-10.1); Chloride, Blood 101 mmol/L (98-108); Creatinine, Blood 1.43 mg/dL (0.40-1.00); Glomerular Filtration Rate 39 (60-); Glucose, Blood 276 mg/dL (70-99); Phosphorus, Blood 3.3 mg/dL (2.5-4.9); Potassium, Blood 3.8 mmol/L (3.5-5.5); Sodium, Blood 138 mmol/L (136-145); Uric Acid, Blood 9.9 mg/dL (2.6-6.0)
[2018-06-05 10:53] LABS: BASOPHILS ABSOLUTE AUTO 0.02 K/mm3 (0.00-0.23); BASOPHILS PERCENT AUTO 0 % (0-2); EOSINOPHILS ABSOLUTE AUTO 0.08 K/mm3 (0.00-0.68); EOSINOPHILS PERCENT AUTO 2 % (0-6); Hematocrit 37.3 % (33.0-51.0); Hemoglobin 12.1 g/dL (11.5-16.0); IMMATURE GRAN ABSOLUTE AUTO 0.09 K/mm3 (0.00-0.10); IMMATURE GRAN PERCENT AUTO 2 % (0-1); LYMPHOCYTES ABSOLUTE AUTO 0.53 K/mm3 (0.84-5.20); LYMPHOCYTES PERCENT AUTO 11 % (21-46); MONOCYTES ABSOLUTE AUTO 0.32 K/mm3 (0.16-1.47); MONOCYTES PERCENT AUTO 7 % (4-13); Mean Corpuscular HGB 26.6 pg (26.0-34.0); Mean Corpuscular HGB Conc 32.4 g/dL (31.5-36.5); Mean Corpuscular Volume 82 fL (80-100); NEUTROPHILS ABSOLUTE AUTO 3.88 K/mm3 (1.96-9.15); NEUTROPHILS PERCENT AUTO 79 % (41-73); Platelet Count 109 K/mm3 (150-400); RDW Coefficient Variation 15.6 % (11.7-14.2); RDW Standard Deviation 46.7 fL (35.1-46.3); Red Blood Cell Count 4.55 M/mm3 (3.80-5.20); White Blood Cell Count 4.92 K/mm3 (4.00-11.30)
== END 2018-06-05 11:03 | disposition home or self-care (01) ==
LOC: ATC 07:25
PROVIDERS: Internal Medicine Nephrology
DX: E11.22 Type 2 diabetes mellitus with diabetic chronic kidney disease (principal); I12.9 Hypertensive chronic kidney disease with stage 1 through stage 4 chronic kidney disease, or unspecified chronic kidney disease; N18.3 Chronic kidney disease, stage 3 (moderate); J06.9 Acute upper respiratory infection, unspecified; D69.6 Thrombocytopenia, unspecified; D63.1 Anemia in chronic kidney disease; N25.81 Secondary hyperparathyroidism of renal origin; M25.441 Effusion, right hand; R60.9 Edema, unspecified; D50.9 Iron deficiency anemia, unspecified; G60.9 Hereditary and idiopathic neuropathy, unspecified; E55.9 Vitamin D deficiency, unspecified
CPT/HCPCS: 73100; 73120; 80069; 84550; 85025; 96365; 96375; J1642; J2405

== ENCOUNTER 2018-06-08 00:19 | Day surgery (SDC) | payer OTHER | END 2018-06-08 10:37 | disposition home or self-care (01) | LOC: ATC 00:19 | DX: J06.9 Acute upper respiratory infection, unspecified (principal); D69.6 Thrombocytopenia, unspecified; M25.441 Effusion, right hand; I12.9 Hypertensive chronic kidney disease with stage 1 through stage 4 chronic kidney disease, or unspecified chronic kidney disease; N18.3 Chronic kidney disease, stage 3 (moderate) | CPT/HCPCS: 96365; 96375; J1642; J2405 ==

== ENCOUNTER 2018-06-11 09:52 | Day surgery (SDC) | payer OTHER ==
--- NOTE | 2018-06-11 12:50 | NUR ---
LINE SLUGGISH WHILE FLUSHING. AFTER 10ML NOT ABLE TO FLUSH 2ND SYRINGE. DEACCESSED PORT AND NEW ZAIDI PLACED. GOOD BLOOD RETURN, SAMPLE SENT FOR LAB AND DEACCESSED. BANDAID PLACED OVER SITE, NO BLEEDING NOTED
[2018-06-11 12:59] LABS: Free Thyroxine 1.29 ng/dL (0.70-1.60)
[2018-06-11 13:02] LABS: Thyroid Stimulating Hormone 6.06 uIU/mL (0.360-4.800)
== END 2018-06-11 11:45 | disposition home or self-care (01) ==
LOC: ATC 09:52
PROVIDERS: Nurse Practitioner Family
DX: I12.9 Hypertensive chronic kidney disease with stage 1 through stage 4 chronic kidney disease, or unspecified chronic kidney disease (principal); E11.22 Type 2 diabetes mellitus with diabetic chronic kidney disease; N18.3 Chronic kidney disease, stage 3 (moderate); D63.1 Anemia in chronic kidney disease; J06.9 Acute upper respiratory infection, unspecified; D69.6 Thrombocytopenia, unspecified; E03.9 Hypothyroidism, unspecified; N25.81 Secondary hyperparathyroidism of renal origin
CPT/HCPCS: 83036; 84439; 84443; 96365; 96375; J1642; J2405

== ENCOUNTER 2018-06-15 00:11 | Day surgery (SDC) | payer OTHER ==
[2018-06-15] MEDS ORDERED: ALLO100 (11:00)
== END 2018-06-15 22:37 | disposition home or self-care (01) ==
LOC: ATC 00:11
DX: I12.9 Hypertensive chronic kidney disease with stage 1 through stage 4 chronic kidney disease, or unspecified chronic kidney disease (principal); E11.622 Type 2 diabetes mellitus with other skin ulcer; N18.3 Chronic kidney disease, stage 3 (moderate); D63.1 Anemia in chronic kidney disease; N25.81 Secondary hyperparathyroidism of renal origin; E11.21 Type 2 diabetes mellitus with diabetic nephropathy; J06.9 Acute upper respiratory infection, unspecified; D69.6 Thrombocytopenia, unspecified
CPT/HCPCS: 96365; 96375; J1642; J2405

== ENCOUNTER 2018-06-18 00:23 | Day surgery (SDC) | payer OTHER ==
[~2018-06-18 00:23] MED LIST changes: +ALLO100
== END 2018-06-18 08:21 | disposition home or self-care (01) ==
LOC: ATC 00:23
DX: J06.9 Acute upper respiratory infection, unspecified (principal); D69.6 Thrombocytopenia, unspecified; N18.3 Chronic kidney disease, stage 3 (moderate); D63.1 Anemia in chronic kidney disease; E03.9 Hypothyroidism, unspecified; E11.9 Type 2 diabetes mellitus without complications; Z79.4 Long term (current) use of insulin
CPT/HCPCS: 96365; 96375; J1642; J2405

== ENCOUNTER 2018-06-22 00:13 | Day surgery (SDC) | payer OTHER | END 2018-06-22 09:42 | disposition home or self-care (01) | LOC: ATC 00:13 | DX: J06.9 Acute upper respiratory infection, unspecified (principal); D69.6 Thrombocytopenia, unspecified; M25.441 Effusion, right hand; E03.9 Hypothyroidism, unspecified; E11.22 Type 2 diabetes mellitus with diabetic chronic kidney disease; I12.9 Hypertensive chronic kidney disease with stage 1 through stage 4 chronic kidney disease, or unspecified chronic kidney disease; N18.3 Chronic kidney disease, stage 3 (moderate); D63.1 Anemia in chronic kidney disease; N25.81 Secondary hyperparathyroidism of renal origin; G60.9 Hereditary and idiopathic neuropathy, unspecified; E55.9 Vitamin D deficiency, unspecified | CPT/HCPCS: 96365; 96375; J1642; J2405 ==

== ENCOUNTER 2018-06-26 00:48 | Day surgery (SDC) | payer OTHER ==
[2018-06-26 11:19] LABS: CHOL/HDL RATIO 5.3; Cholesterol 148 mg/dL (50-200); HDL Cholesterol 28 mg/dL (>39); LDL/HDL RATIO Unable to Calculate; Low Density Lipoprotein Chol Unable to Calculate mg/dL (0-110); Triglycerides 500 mg/dL (30-160); Very Low Density Lipoprot Chol Unable to Calculate mg/dL (6-32)
[2018-06-26] MEDS ORDERED: SHORT ACTING INSULIN (11:30)
[2018-06-26 11:35] LABS: LDL Direct Measurement 53 mg/dL (0-130)
[2018-06-26 11:40] LABS: Creatinine, Urine Random 96.5 mg/dL (27.00-270.00)
--- NOTE | 2018-06-26 11:51 | NUR ---
BLOOD WORK LAB RESULTS FROM TODAY FAXED TO JENNIFER ZHAO NP AT [phone].
--- NOTE | 2018-06-26 11:52 | NUR ---
BLOOD WORK WAS DRAWN FROM [facility] BY Jesús BLACKMAN RN.
[2018-06-26 12:27] LABS: Microalb/Creat Ratio UR, Rand 743.005 mg/g (0.000-30.000)
== END 2018-06-26 11:24 | disposition home or self-care (01) ==
LOC: ATC 00:48
PROVIDERS: Nurse Practitioner Family
DX: E11.9 Type 2 diabetes mellitus without complications (principal)
CPT/HCPCS: 80061; 82043; 82570; 83721; J1642; J2405

== ENCOUNTER 2018-07-01 00:08 | Day surgery (SDC) | payer OTHER ==
[~2018-07-01 00:08] MED LIST changes: +SHORT ACTING INSULIN
[2018-07-01] MEDS ORDERED: Bactrim 400-801 EACH PO (14:51)
[2018-07-01] MEDS ORDERED: HUMULIN 70100 UNIT/1 SC (14:52)
[2018-07-01 15:31] LABS: Albumin, Blood 3.5 g/dL (3.4-5.0); Anion Gap 10 mmol/L (6-16); Blood Urea Nitrogen 34 mg/dL (8-24); Bun/Creatinine Ratio 23.6 (12.0-20.0); CO2, Blood 25 mmol/L (21-32); Chloride, Blood 102 mmol/L (98-108); Creatinine, Blood 1.44 mg/dL (0.40-1.00); Glomerular Filtration Rate 39 (60-); Glucose, Blood 371 mg/dL (70-99); Phosphorus, Blood 3.8 mg/dL (2.5-4.9); Potassium, Blood 3.7 mmol/L (3.5-5.5); Sodium, Blood 137 mmol/L (136-145)
== END 2018-07-01 15:07 | disposition home or self-care (01) ==
LOC: ATC 00:08
PROVIDERS: Internal Medicine Nephrology
DX: N18.3 Chronic kidney disease, stage 3 (moderate) (principal); D63.1 Anemia in chronic kidney disease; E11.9 Type 2 diabetes mellitus without complications; E03.9 Hypothyroidism, unspecified; Z79.4 Long term (current) use of insulin
CPT/HCPCS: 80069; 85018; 96365; 96375; J1642; J2405

== ENCOUNTER 2018-07-03 00:09 | Day surgery (SDC) | payer OTHER ==
[~2018-07-03 00:09] MED LIST changes: +HUMULIN 70100 UNIT/1 SC
== END 2018-07-03 10:57 | disposition home or self-care (01) ==
LOC: ATC 00:09
DX: E11.22 Type 2 diabetes mellitus with diabetic chronic kidney disease (principal); I12.9 Hypertensive chronic kidney disease with stage 1 through stage 4 chronic kidney disease, or unspecified chronic kidney disease; N18.3 Chronic kidney disease, stage 3 (moderate); D63.1 Anemia in chronic kidney disease; J06.9 Acute upper respiratory infection, unspecified; D69.6 Thrombocytopenia, unspecified; M25.441 Effusion, right hand; E03.9 Hypothyroidism, unspecified; N25.81 Secondary hyperparathyroidism of renal origin; E87.70 Fluid overload, unspecified; D50.9 Iron deficiency anemia, unspecified; E11.21 Type 2 diabetes mellitus with diabetic nephropathy; G60.9 Hereditary and idiopathic neuropathy, unspecified; E55.9 Vitamin D deficiency, unspecified
CPT/HCPCS: 96365; 96375; J1642; J2405

== ENCOUNTER 2018-07-07 09:58 | Day surgery (SDC) | payer OTHER | END 2018-07-07 11:02 | disposition home or self-care (01) | LOC: ATC 09:58 | DX: N18.3 Chronic kidney disease, stage 3 (moderate) (principal); L03.90 Cellulitis, unspecified | CPT/HCPCS: 96365; 96375; J1642; J2405 ==

== ENCOUNTER 2018-07-10 00:52 | Day surgery (SDC) | payer OTHER | END 2018-07-10 10:49 | disposition home or self-care (01) | LOC: ATC 00:52 | DX: N18.3 Chronic kidney disease, stage 3 (moderate) (principal); L03.90 Cellulitis, unspecified | CPT/HCPCS: 96365; 96375; J1642; J2405 ==

== ENCOUNTER 2018-07-15 00:09 | Day surgery (SDC) | payer OTHER ==
[2018-07-17] MEDS ORDERED: BUME1 PO (10:47)
[2018-07-17] MEDS ORDERED: GABA100 PO (10:47)
== END 2018-07-15 14:58 | disposition home or self-care (01) ==
LOC: ATC 00:09
DX: N18.3 Chronic kidney disease, stage 3 (moderate) (principal); D69.6 Thrombocytopenia, unspecified; Z79.899 Other long term (current) drug therapy
CPT/HCPCS: 96365; 96375; J1642; J2405

== ENCOUNTER → 2018-07-18 | Outpatient (CLI) | payer OTHER ==
[2018-07-18 12:34] LABS: Creatinine Urine 21.7 mg/dL (27.00-270.00)
[2018-07-18 12:37] LABS: Microalbumin, Urine Quant. 90.1 mg/L (0.000-20.000)
== END | disposition home or self-care (01) ==
LOC: LAB SHORT 11:59 → LAB 11:59
PROVIDERS: Internal Medicine Nephrology
DX: N18.3 Chronic kidney disease, stage 3 (moderate) (principal); D63.1 Anemia in chronic kidney disease; R80.9 Proteinuria, unspecified
CPT/HCPCS: 81050; 82043; 82570; 84156

== ENCOUNTER 2018-07-21 00:07 | Day surgery (SDC) | payer OTHER | END 2018-07-21 10:58 | disposition home or self-care (01) | LOC: ATC 00:07 | DX: I12.9 Hypertensive chronic kidney disease with stage 1 through stage 4 chronic kidney disease, or unspecified chronic kidney disease (principal); E11.22 Type 2 diabetes mellitus with diabetic chronic kidney disease; N18.3 Chronic kidney disease, stage 3 (moderate); D63.1 Anemia in chronic kidney disease; R80.9 Proteinuria, unspecified; E11.21 Type 2 diabetes mellitus with diabetic nephropathy; N25.81 Secondary hyperparathyroidism of renal origin | CPT/HCPCS: 96365; 96375; J1642; J2405 ==

== ENCOUNTER 2018-07-24 00:22 | Day surgery (SDC) | payer OTHER | END 2018-07-24 11:08 | disposition home or self-care (01) | LOC: ATC 00:22 | DX: I12.9 Hypertensive chronic kidney disease with stage 1 through stage 4 chronic kidney disease, or unspecified chronic kidney disease (principal); E11.22 Type 2 diabetes mellitus with diabetic chronic kidney disease; N18.3 Chronic kidney disease, stage 3 (moderate); D63.1 Anemia in chronic kidney disease; E11.21 Type 2 diabetes mellitus with diabetic nephropathy; L03.90 Cellulitis, unspecified; R80.9 Proteinuria, unspecified; N25.81 Secondary hyperparathyroidism of renal origin; E87.70 Fluid overload, unspecified; D50.9 Iron deficiency anemia, unspecified; G60.9 Hereditary and idiopathic neuropathy, unspecified; E55.9 Vitamin D deficiency, unspecified; Z79.899 Other long term (current) drug therapy | CPT/HCPCS: 96365; 96375; J1642; J2405 ==

== ENCOUNTER 2018-07-28 00:18 | Day surgery (SDC) | payer OTHER | END 2018-07-28 10:47 | disposition home or self-care (01) | LOC: ATC 00:18 | DX: I12.9 Hypertensive chronic kidney disease with stage 1 through stage 4 chronic kidney disease, or unspecified chronic kidney disease (principal); N18.3 Chronic kidney disease, stage 3 (moderate); L03.90 Cellulitis, unspecified; D63.1 Anemia in chronic kidney disease; R80.9 Proteinuria, unspecified; N25.81 Secondary hyperparathyroidism of renal origin; E87.70 Fluid overload, unspecified; D50.9 Iron deficiency anemia, unspecified; E11.21 Type 2 diabetes mellitus with diabetic nephropathy; E55.9 Vitamin D deficiency, unspecified; G80.9 Cerebral palsy, unspecified; Z79.899 Other long term (current) drug therapy; Z88.2 Allergy status to sulfonamides; Z88.1 Allergy status to other antibiotic agents | CPT/HCPCS: J1642; J2405 ==

== ENCOUNTER 2018-08-07 00:40 | Day surgery (SDC) | payer OTHER ==
[~2018-08-07 00:40] MED LIST changes: -ALLO100; +ALLO100 PO
[2018-08-07] MEDS ORDERED: BUPR150ER PO (11:29)
== END 2018-08-07 10:52 | disposition home or self-care (01) ==
LOC: ATC 00:40
DX: I12.9 Hypertensive chronic kidney disease with stage 1 through stage 4 chronic kidney disease, or unspecified chronic kidney disease (principal); E11.22 Type 2 diabetes mellitus with diabetic chronic kidney disease; N18.3 Chronic kidney disease, stage 3 (moderate); D63.1 Anemia in chronic kidney disease; R80.9 Proteinuria, unspecified; E11.21 Type 2 diabetes mellitus with diabetic nephropathy; Z88.1 Allergy status to other antibiotic agents; Z88.2 Allergy status to sulfonamides; Z88.8 Allergy status to other drugs, medicaments and biological substances; Z79.899 Other long term (current) drug therapy
CPT/HCPCS: 96365; 96375; J1642; J2405

== ENCOUNTER 2018-08-14 00:26 | Day surgery (SDC) | payer OTHER ==
[~2018-08-14 00:26] MED LIST changes: +BUPR150ER PO
== END 2018-08-14 10:39 | disposition home or self-care (01) ==
LOC: ATC 00:26
DX: I12.9 Hypertensive chronic kidney disease with stage 1 through stage 4 chronic kidney disease, or unspecified chronic kidney disease (principal); E11.22 Type 2 diabetes mellitus with diabetic chronic kidney disease; N18.3 Chronic kidney disease, stage 3 (moderate); D63.1 Anemia in chronic kidney disease; L03.90 Cellulitis, unspecified; R80.9 Proteinuria, unspecified; E11.40 Type 2 diabetes mellitus with diabetic neuropathy, unspecified; Z79.899 Other long term (current) drug therapy; Z88.8 Allergy status to other drugs, medicaments and biological substances; Z88.1 Allergy status to other antibiotic agents; Z88.2 Allergy status to sulfonamides
CPT/HCPCS: J1642; J2405

== ENCOUNTER 2018-08-18 00:10 | Day surgery (SDC) | payer OTHER | END 2018-08-18 11:00 | disposition home or self-care (01) | LOC: ATC 00:10 | DX: I12.9 Hypertensive chronic kidney disease with stage 1 through stage 4 chronic kidney disease, or unspecified chronic kidney disease (principal); E11.22 Type 2 diabetes mellitus with diabetic chronic kidney disease; N18.3 Chronic kidney disease, stage 3 (moderate); D63.1 Anemia in chronic kidney disease; R80.9 Proteinuria, unspecified; L03.90 Cellulitis, unspecified; E11.21 Type 2 diabetes mellitus with diabetic nephropathy; Z88.2 Allergy status to sulfonamides; Z88.1 Allergy status to other antibiotic agents; Z88.0 Allergy status to penicillin; Z79.899 Other long term (current) drug therapy | CPT/HCPCS: 96365; 96375; J1642; J2405 ==

== ENCOUNTER 2018-08-21 07:16 | Day surgery (SDC) | payer OTHER ==
[2018-08-21] MEDS ORDERED: METO5 PO (10:28)
[2018-08-21] MEDS ORDERED: LAMO100 PO (10:29)
[2018-08-21] MEDS ORDERED: GLYXAMBI 10 MG1 EACH PO (10:30)
[2018-08-21] MEDS ORDERED: NOVOLOG FL100 UNIT/1 SC (10:31)
[2018-08-21] MEDS ORDERED: TOUJEO SOL300 UNIT/1 SC (10:31)
[2018-08-24] MEDS ORDERED: TEMA30 PO (10:33)
== END 2018-08-21 10:56 | disposition home or self-care (01) ==
LOC: ATC 07:16
DX: I12.9 Hypertensive chronic kidney disease with stage 1 through stage 4 chronic kidney disease, or unspecified chronic kidney disease (principal); N18.3 Chronic kidney disease, stage 3 (moderate); D63.1 Anemia in chronic kidney disease; L03.90 Cellulitis, unspecified; R80.9 Proteinuria, unspecified; D50.9 Iron deficiency anemia, unspecified; Z79.899 Other long term (current) drug therapy; Z88.1 Allergy status to other antibiotic agents; Z88.2 Allergy status to sulfonamides; Z88.8 Allergy status to other drugs, medicaments and biological substances
CPT/HCPCS: 96365; 96375; J1642; J2405

== ENCOUNTER 2018-08-28 00:17 | Day surgery (SDC) | payer OTHER ==
[~2018-08-28 00:17] MED LIST changes: +GLYXAMBI 10 MG1 EACH PO; +METO5 PO; +NOVOLOG FL100 UNIT/1 SC; +TEMA30 PO
[2018-08-28] MEDS ORDERED: HEPARIN IV (10:32)
[2018-08-28 11:23] LABS: Albumin, Blood 3.8 g/dL (3.4-5.0); Anion Gap 12 mmol/L (6-16); Blood Urea Nitrogen 57 mg/dL (8-24); Bun/Creatinine Ratio 28.1 (12.0-20.0); CO2, Blood 30 mmol/L (21-32); Chloride, Blood 96 mmol/L (98-108); Creatinine, Blood 2.03 mg/dL (0.40-1.00); Glomerular Filtration Rate 26 (60-); Glucose, Blood 234 mg/dL (70-99); Phosphorus, Blood 3.7 mg/dL (2.5-4.9); Potassium, Blood 2.4 mmol/L (3.5-5.5); Sodium, Blood 138 mmol/L (136-145)
== END 2018-08-28 10:56 | disposition home or self-care (01) ==
LOC: ATC 00:17
PROVIDERS: Internal Medicine Nephrology
DX: I12.9 Hypertensive chronic kidney disease with stage 1 through stage 4 chronic kidney disease, or unspecified chronic kidney disease (principal); E11.21 Type 2 diabetes mellitus with diabetic nephropathy; E11.22 Type 2 diabetes mellitus with diabetic chronic kidney disease; N18.3 Chronic kidney disease, stage 3 (moderate); D63.1 Anemia in chronic kidney disease; L03.90 Cellulitis, unspecified; R80.9 Proteinuria, unspecified; Z79.899 Other long term (current) drug therapy; Z79.82 Long term (current) use of aspirin; Z88.1 Allergy status to other antibiotic agents; Z88.2 Allergy status to sulfonamides; Z88.8 Allergy status to other drugs, medicaments and biological substances
CPT/HCPCS: 80069; 96365; 96375; J1642; J2405

== ENCOUNTER 2018-09-01 00:27 | Day surgery (SDC) | payer OTHER ==
[~2018-09-01 00:27] MED LIST changes: +HEPARIN IV
[2018-09-01] MEDS ORDERED: POTCHL10ER PO (10:24)
== END 2018-09-01 10:56 | disposition home or self-care (01) ==
LOC: ATC 00:27
DX: I12.9 Hypertensive chronic kidney disease with stage 1 through stage 4 chronic kidney disease, or unspecified chronic kidney disease (principal); E11.22 Type 2 diabetes mellitus with diabetic chronic kidney disease; N18.3 Chronic kidney disease, stage 3 (moderate); D63.1 Anemia in chronic kidney disease; L03.90 Cellulitis, unspecified; R80.9 Proteinuria, unspecified; D50.9 Iron deficiency anemia, unspecified; Z79.899 Other long term (current) drug therapy; Z88.8 Allergy status to other drugs, medicaments and biological substances; Z88.1 Allergy status to other antibiotic agents; Z88.2 Allergy status to sulfonamides
CPT/HCPCS: 84132; 96365; 96375; J1642; J2405

== ENCOUNTER 2018-09-08 00:20 | Day surgery (SDC) | payer OTHER | END 2018-09-08 22:58 | disposition home or self-care (01) | LOC: ATC 00:20 | DX: L03.90 Cellulitis, unspecified (principal); E11.22 Type 2 diabetes mellitus with diabetic chronic kidney disease; I12.9 Hypertensive chronic kidney disease with stage 1 through stage 4 chronic kidney disease, or unspecified chronic kidney disease; N18.3 Chronic kidney disease, stage 3 (moderate); D63.1 Anemia in chronic kidney disease; R80.9 Proteinuria, unspecified; E87.6 Hypokalemia; Z88.1 Allergy status to other antibiotic agents; Z88.2 Allergy status to sulfonamides; Z88.8 Allergy status to other drugs, medicaments and biological substances; Z79.899 Other long term (current) drug therapy | CPT/HCPCS: 84132; 96365; 96375; J1642; J2405 ==

== ENCOUNTER 2018-09-17 00:16 | Day surgery (SDC) | payer OTHER ==
[~2018-09-17 00:16] MED LIST changes: +SPIR25
== END 2018-09-17 08:44 | disposition home or self-care (01) ==
LOC: ATC 00:16
DX: I12.9 Hypertensive chronic kidney disease with stage 1 through stage 4 chronic kidney disease, or unspecified chronic kidney disease (principal); E11.22 Type 2 diabetes mellitus with diabetic chronic kidney disease; N18.4 Chronic kidney disease, stage 4 (severe); D63.1 Anemia in chronic kidney disease; E87.6 Hypokalemia; E86.9 Volume depletion, unspecified
CPT/HCPCS: 84132; 96365; 96375; J1642; J2405

== ENCOUNTER 2018-09-24 00:27 | Day surgery (SDC) | payer OTHER ==
[2018-09-24 12:04] LABS: Albumin, Blood 3.5 g/dL (3.4-5.0); Anion Gap 8 mmol/L (6-16); Blood Urea Nitrogen 33 mg/dL (8-24); Bun/Creatinine Ratio 22.6 (12.0-20.0); CO2, Blood 27 mmol/L (21-32); Calcium, Blood 8.3 mg/dL (8.5-10.1); Chloride, Blood 103 mmol/L (98-108); Creatinine, Blood 1.46 mg/dL (0.40-1.00); Glomerular Filtration Rate 38 (60-); Glucose, Blood 193 mg/dL (70-99); Phosphorus, Blood 3.8 mg/dL (2.5-4.9); Potassium, Blood 3.7 mmol/L (3.5-5.5); Sodium, Blood 138 mmol/L (136-145)
== END 2018-09-24 12:11 | disposition home or self-care (01) ==
LOC: ATC 00:27
PROVIDERS: Internal Medicine Nephrology
DX: I12.9 Hypertensive chronic kidney disease with stage 1 through stage 4 chronic kidney disease, or unspecified chronic kidney disease (principal); E11.22 Type 2 diabetes mellitus with diabetic chronic kidney disease; N18.6 End stage renal disease; D63.1 Anemia in chronic kidney disease; D50.9 Iron deficiency anemia, unspecified; E87.6 Hypokalemia; Z79.899 Other long term (current) drug therapy; Z79.82 Long term (current) use of aspirin; Z88.1 Allergy status to other antibiotic agents; Z88.2 Allergy status to sulfonamides; Z88.8 Allergy status to other drugs, medicaments and biological substances
CPT/HCPCS: 80069; 96365; 96375; J1642; J2405

== ENCOUNTER 2018-10-06 00:26 | Day surgery (SDC) | payer OTHER | END 2018-10-06 11:03 | disposition home or self-care (01) | LOC: ATC 00:26 | DX: B02.22 Postherpetic trigeminal neuralgia (principal); I12.9 Hypertensive chronic kidney disease with stage 1 through stage 4 chronic kidney disease, or unspecified chronic kidney disease; E11.22 Type 2 diabetes mellitus with diabetic chronic kidney disease; N18.4 Chronic kidney disease, stage 4 (severe); D63.1 Anemia in chronic kidney disease; E86.9 Volume depletion, unspecified; E78.5 Hyperlipidemia, unspecified; M54.9 Dorsalgia, unspecified; G89.29 Other chronic pain | CPT/HCPCS: 96365; 96375; J1642; J2405 ==

== ENCOUNTER 2018-10-12 15:55 | Day surgery (SDC) | payer OTHER ==
[2018-10-12 11:23] LABS: Albumin, Blood 3.9 g/dL (3.4-5.0); Anion Gap 8 mmol/L (6-16); Blood Urea Nitrogen 78 mg/dL (8-24); CO2, Blood 35 mmol/L (21-32); Calcium, Blood 9.5 mg/dL (8.5-10.1); Chloride, Blood 89 mmol/L (98-108); Glomerular Filtration Rate 26 (60-); Glucose, Blood 282 mg/dL (70-99); Phosphorus, Blood 3.8 mg/dL (2.5-4.9); Potassium, Blood 2.9 mmol/L (3.5-5.5); Sodium, Blood 132 mmol/L (136-145)
--- NOTE | 2018-10-12 11:33 | NUR ---
PT CONTINUES TO BE VERY DIZZY WITH MOVING.
[~2018-10-12 15:55] MED LIST changes: +DULO60 PO; +SODIUM THI12.5 GM/50 IV; -SPIR25; -[UNRECOGNIZED DRUG - OTHER] IV
--- NOTE | 2018-10-12 16:12 | NUR ---
2ND VISIT: PT CAME BACK FOR 2ND VISIT AND IV FLUIDS
== END 2018-10-12 17:12 | disposition home or self-care (01) ==
LOC: ATC 15:55
PROVIDERS: Internal Medicine Nephrology
DX: I12.9 Hypertensive chronic kidney disease with stage 1 through stage 4 chronic kidney disease, or unspecified chronic kidney disease (principal); E11.22 Type 2 diabetes mellitus with diabetic chronic kidney disease; N18.4 Chronic kidney disease, stage 4 (severe); D63.1 Anemia in chronic kidney disease; E86.9 Volume depletion, unspecified; J45.909 Unspecified asthma, uncomplicated; E78.5 Hyperlipidemia, unspecified; F32.9 Major depressive disorder, single episode, unspecified; Z79.899 Other long term (current) drug therapy; Z79.01 Long term (current) use of anticoagulants; Z88.1 Allergy status to other antibiotic agents; Z88.8 Allergy status to other drugs, medicaments and biological substances; Z87.891 Personal history of nicotine dependence
CPT/HCPCS: 80069; 85018; 96361; 96365; 96375; J1642; J2405; J7030

== ENCOUNTER 2018-10-13 11:48 | Day surgery (SDC) | payer OTHER | END 2018-10-13 14:51 | disposition home or self-care (01) | LOC: ATC 11:48 | DX: E87.6 Hypokalemia (principal); B02.22 Postherpetic trigeminal neuralgia; I10 Essential (primary) hypertension; E11.9 Type 2 diabetes mellitus without complications; J45.909 Unspecified asthma, uncomplicated; E78.5 Hyperlipidemia, unspecified; F32.9 Major depressive disorder, single episode, unspecified; D64.9 Anemia, unspecified; Z79.899 Other long term (current) drug therapy; Z79.01 Long term (current) use of anticoagulants; Z87.891 Personal history of nicotine dependence | CPT/HCPCS: 84132; 96360; J1642; J7030 ==

== ENCOUNTER 2018-10-14 08:08 | Day surgery (SDC) | payer OTHER ==
--- NOTE | 2018-10-14 12:02 | NUR ---
STOP TIME: 1202
== END 2018-10-14 12:05 | disposition home or self-care (01) ==
LOC: ATC 08:08
DX: E87.6 Hypokalemia (principal); B02.22 Postherpetic trigeminal neuralgia; I10 Essential (primary) hypertension; E11.9 Type 2 diabetes mellitus without complications; J45.909 Unspecified asthma, uncomplicated; E78.5 Hyperlipidemia, unspecified; F32.9 Major depressive disorder, single episode, unspecified; D64.9 Anemia, unspecified; Z79.899 Other long term (current) drug therapy; Z79.01 Long term (current) use of anticoagulants; Z88.1 Allergy status to other antibiotic agents; Z88.8 Allergy status to other drugs, medicaments and biological substances; Z87.891 Personal history of nicotine dependence
CPT/HCPCS: 84132; 96361; 96365; 96375; J1642; J2405; J7030

== ENCOUNTER 2018-10-17 19:41 | Inpatient (IN) | payer OTHER ==
[~2018-10-17] VITALS: Ht 167.6 cm; Wt 91.5 kg
[2018-10-17 20:06] LABS: BASOPHILS ABSOLUTE AUTO 0.05 K/mm3 (0.00-0.23); BASOPHILS PERCENT AUTO 0 % (0-2); EOSINOPHILS ABSOLUTE AUTO 0.29 K/mm3 (0.00-0.68); EOSINOPHILS PERCENT AUTO 3 % (0-6); Hematocrit 42.3 % (33.0-51.0); IMMATURE GRAN ABSOLUTE AUTO 0.25 K/mm3 (0.00-0.10); IMMATURE GRAN PERCENT AUTO 2 % (0-1); LYMPHOCYTES ABSOLUTE AUTO 1.26 K/mm3 (0.84-5.20); LYMPHOCYTES PERCENT AUTO 11 % (21-46); MONOCYTES ABSOLUTE AUTO 0.73 K/mm3 (0.16-1.47); MONOCYTES PERCENT AUTO 7 % (4-13); Mean Corpuscular HGB 28.4 pg (26.0-34.0); Mean Corpuscular HGB Conc 33.1 g/dL (31.5-36.5); Mean Corpuscular Volume 86 fL (80-100); Mean Platelet Volume 12.5 fL (9.1-12.4); NEUTROPHILS ABSOLUTE AUTO 8.57 K/mm3 (1.96-9.15); NEUTROPHILS PERCENT AUTO 77 % (41-73); Platelet Count 153 K/mm3 (150-400); RDW Coefficient Variation 16.2 % (11.7-14.2); RDW Standard Deviation 50.7 fL (35.1-46.3); Red Blood Cell Count 4.93 M/mm3 (3.80-5.20); White Blood Cell Count 11.15 K/mm3 (4.00-11.30)
[2018-10-17 20:24] LABS: Albumin, Blood 3.8 g/dL (3.4-5.0); Albumin/Globulin Ratio 1.3 (0.8-1.8); Bilirubin, Total 0.3 mg/dL (0.1-1.0); Bun/Creatinine Ratio 18.9 (12.0-20.0); Calcium, Blood 8.5 mg/dL (8.5-10.1); Creatinine, Blood 1.75 mg/dL (0.40-1.00); Globulin, Blood 2.9 g/dL (2.2-4.0); Potassium, Blood 3.8 mmol/L (3.5-5.5); Total Protein, Blood 6.7 g/dL (6.4-8.2)
--- NOTE | 2018-10-17 23:00 | NUR ---
RECEIVED HAND OFF FROM ER NURSE USING SBAR. TRANSPORTED TO ROOM 214 VIA STRETCHER. TRANSFERED TO BED WITH FULL STAFF ASSISTANCE. TOLERATED WELL. LYING IN SEMI FOWERS WITH EYES CLOSED AND SPOUSE AT BEDSIDE. AAO X3, INTERMITTENTLY DROWSY, BUT ABLE TO COMMUNICATE CLEARLY. ORIENTED TO ROOM, CALL SYSTEM, AND POC, VOICES UNDERSTANDING. LEFT FA 20G SL PIV IS PATENT, FLUSHING WITH EASE. RIGHT AC 20G PIV IS PATENT, FLUSING WITH EASE WHILE INFUSING NS AT 100ML/HR. JEFF CATH IS PATENT, DRAINING CLOUDY YELLOW URINE TO GRAVITY. POSITIONED FOR COMFORT, DENIES FURTHER NEEDS AT THIS TIME. SAFETY MEASURES IN PLACE. ADMISSION ASSESSMENT IN PROGRESS. WILL CONTINUE TO MONITOR.
[2018-10-17 23:15] LABS: Source, Urine Catheter
[2018-10-17 23:24] LABS: Appearance, Urine Hazy (Clear); Bilirubin, Urine Neg (Neg); Blood, Urine Neg (Neg); Color, Urine Yellow (P-Yellow); Glucose Qualitative, Urine 4+ (Neg); Ketones, Urine Neg (Neg); Leukocyte Esterase, Urine 2+ (Neg); Nitrite, Urine Neg (Neg); Protein, Urine Neg (Neg); Urobilinogen, Urine NORM (Normal)
[2018-10-17 23:30] LABS: Bacteria Many /hpf; Red Blood Cells, Urine 0-2 /hpf (0-2); Squamous Epithelial Cells Many /hpf (Few)
[2018-10-18 04:29] LABS: Bun/Creatinine Ratio 18.9 (12.0-20.0); Calcium, Blood 7.8 mg/dL (8.5-10.1); Creatinine, Blood 1.96 mg/dL (0.40-1.00); Potassium, Blood 4.1 mmol/L (3.5-5.5)
--- NOTE | 2018-10-18 07:11 | NUR ---
SHIFT SUMMARY RESTED WELL, HAS REQUIRED PAIN MEDS LESS OFTEN , BUT MUSCLE SPASMS HAVE BEEN UNBEARABLE AT TIMES. DENEIS PAIN OR DISCOMFORT AT THIS TIME. DENEIS FURTHER NEEDS AT THIS TIME. SAFETY MEASURES IN PLACE. WILL CONTINUE TO MONITOR.
--- NOTE | 2018-10-18 13:46 | NUR ---
PT TAKEN TO OR AT THIS TIME BY CAMI ALVAREZ.
--- NOTE | 2018-10-18 14:06 | NUR ---
REPORT GIVEN TO GIANNI ALVAREZ. PT IN OR AT THIS TIME.
--- NOTE | 2018-10-18 16:33 | NUR ---
POST-OP ARRIVED FROM PACU VIA BED, AWAKE, A&OX3, PT MOANING, C/O 8/10 PAIN ON L HIP, PT WAS GIVEN FENTANYL IN PACU, GAVE 2 OXYCODONE, CONT. TO MONITOR.
--- NOTE | 2018-10-18 17:31 | NUR ---
VSS, REPORTS PAIN IS "GETTING BETTER" REPOSITIONED IN BED, NO ACUTE CHANGES THIS SHIFT.
--- NOTE | 2018-10-18 20:15 | NUR ---
CONTINUES TO RATE PAIN AT 10/10. REPOSITIONED AND REPLACED ICE PACK. VERBALIZES UNDERSTANDING OF INSTRUCTIONS WITH T/C/DB AND CALMING BEATHING. UPDATED ON NEXT AVAILABILITY OF PAIN MEDS. SPOUSE AT BEDSIDE. SAFETY MEASURES IN PLACE. WILL CONTINUE TO MONITOR.
--- NOTE | 2018-10-19 06:54 | NUR ---
SHIFT SUMMARY RESTED WELL, PAIN MANAGEMENT HAS BEEN DIFFICULT. HAS BEEN BEING MEDICATED QUITE OFTEN THROUGHOUT SHIFT. DENIES FURTHER NEEDS AT THIS TIME. SAFETY MEASURES IN PLACE. WILL CONTINUE TO MONITOR.
[2018-10-19 08:40] LABS: Hematocrit 32.9 % (33.0-51.0); Hemoglobin 10.9 g/dL (11.5-16.0); Mean Corpuscular HGB Conc 33.1 g/dL (31.5-36.5); Mean Corpuscular Volume 88 fL (80-100); Platelet Count 86 K/mm3 (150-400); RDW Coefficient Variation 15.9 % (11.7-14.2); RDW Standard Deviation 50.2 fL (35.1-46.3); Red Blood Cell Count 3.76 M/mm3 (3.80-5.20); White Blood Cell Count 10.17 K/mm3 (4.00-11.30)
[2018-10-19 08:52] LABS: Bun/Creatinine Ratio 19.7 (12.0-20.0); Calcium, Blood 7.9 mg/dL (8.5-10.1); Creatinine, Blood 1.57 mg/dL (0.40-1.00); Potassium, Blood 3.7 mmol/L (3.5-5.5)
--- NOTE | 2018-10-19 13:26 | NUR ---
10/19/18 1326 Nehal Alexander VERIFICTIONS: EDIT CHART.
--- NOTE | 2018-10-19 18:22 | NUR ---
SHIFT SUMMARY PT STRUGGLED WITH PAIN BUT WAS ABLE TO WORK WITH THERAPY, SIT UP IN CHAIR. JEFF WAS REMOVED AND PT VOIDING WITHOUT DIFF; DOESN'T HAVE THE STRENGTH AT THIS TIME TO WALK TO RESTROOM BUT DISCUSSED MAKING GOALS FOR EACH DAY.
--- NOTE | 2018-10-20 00:20 | NUR ---
ASSUMED CARE OF PT. PT LYING AWAKE IN BED, DENIES NEEDS AT THIS TIME. PRN PAIN MED ORDERS REV W/PT, PLAN TO MONITOR AND TX PER ORDERS.
[2018-10-20 05:47] LABS: Calcium, Blood 8.3 mg/dL (8.5-10.1); Creatinine, Blood 1.38 mg/dL (0.40-1.00); Potassium, Blood 3.8 mmol/L (3.5-5.5)
--- NOTE | 2018-10-20 06:33 | NUR ---
POD 2 S/P LEFT HIP REPAIR. PT VSS T/O NIGHT. DRESSING CDI. PAIN MGD PER EMAR. PT UP OOB W/1-2 ASSIST. PT ANXIOUS AT TIMES, NEEDING ENCOURAGEMENT TO PARTICIPATE W/REPOSITIONING AND TRANSFERS. PT USING CALL LIGHT FOR ASSISTANCE, ATTENTIVE AT BEDSIDE, WILL CONT TO MONITOR UNTIL REP GIVEN TO ONCOMING RN.
--- NOTE | 2018-10-20 15:55 | NUR ---
DISCHARGE PT WORKED WITH BOTH PT&OT, SAT UP IN CHAIR x 3 THIS SHIFT. PASSING GAS BUT NO BM, DISCUSSED IMPORTANCE OF BOWEL CARE. REPORT CALLED TO CAROLINE PENA. PT TRANSERED VIA W/C, SPOUSE AT SIDE, ATTENTIVE AND LOVING.
== END 2018-10-20 15:44 | DRG 482 ==
LOC: ER 19:41 → SURS 21:27
PROVIDERS: Emergency Medicine; Internal Medicine; Orthopaedic Surgery; ADMIT Internal Medicine
PROC: 0QS736Z Reposition Left Upper Femur with Intramedullary Internal Fixation Device, Percutaneous Approach (ICD-10-PCS; principal; 2018-10-18 13:00)
DX: S72.142A Displaced intertrochanteric fracture of left femur, initial encounter for closed fracture (principal); I12.9 Hypertensive chronic kidney disease with stage 1 through stage 4 chronic kidney disease, or unspecified chronic kidney disease; E11.22 Type 2 diabetes mellitus with diabetic chronic kidney disease; N18.3 Chronic kidney disease, stage 3 (moderate); E03.9 Hypothyroidism, unspecified; I73.9 Peripheral vascular disease, unspecified; W19.XXXA Unspecified fall, initial encounter; I48.2 Chronic atrial fibrillation; K21.9 Gastro-esophageal reflux disease without esophagitis; Z98.84 Bariatric surgery status; J45.909 Unspecified asthma, uncomplicated; Z85.09 Personal history of malignant neoplasm of other digestive organs; I95.1 Orthostatic hypotension; Z87.891 Personal history of nicotine dependence
CPT/HCPCS: 36415; 51702; 71045; 73502; 80048; 80053; 81001; 82947; 83036; 84443; 85025; 85027; 87077; 87081; 87086; 87186; 93005; 93010; 94762; 96361; 96374; 96375; 96376; 97110; 97163; 97167; 97530; 97535; 99285-25; C1713; J0690; J1170; J1650; J1815; J2250; J2370; J2405; J2704; J2710; J3010; J7030; J7120

== ENCOUNTER 2018-11-03 00:12 | Day surgery (SDC) | payer OTHER | END 2018-11-03 10:35 | disposition home or self-care (01) | LOC: ATC 00:12 | DX: N18.3 Chronic kidney disease, stage 3 (moderate) (principal); L03.90 Cellulitis, unspecified; E87.6 Hypokalemia; E87.5 Hyperkalemia | CPT/HCPCS: 96365; 96375; J1642; J2405 ==

== ENCOUNTER 2018-11-06 01:13 | Day surgery (SDC) | payer OTHER | END 2018-11-06 11:31 | disposition home or self-care (01) | LOC: ATC 01:13 | DX: E87.6 Hypokalemia (principal); I10 Essential (primary) hypertension; E11.9 Type 2 diabetes mellitus without complications; E03.8 Other specified hypothyroidism; K21.9 Gastro-esophageal reflux disease without esophagitis; J45.909 Unspecified asthma, uncomplicated; E78.5 Hyperlipidemia, unspecified; F32.9 Major depressive disorder, single episode, unspecified; D64.9 Anemia, unspecified; Z79.899 Other long term (current) drug therapy; Z79.01 Long term (current) use of anticoagulants; Z88.1 Allergy status to other antibiotic agents; Z87.891 Personal history of nicotine dependence | CPT/HCPCS: 96365; 96375; J1642; J2405 ==

== ENCOUNTER 2018-11-10 00:24 | Day surgery (SDC) | payer OTHER | END 2018-11-10 11:08 | disposition home or self-care (01) | LOC: ATC 00:24 | DX: E11.22 Type 2 diabetes mellitus with diabetic chronic kidney disease (principal); N18.3 Chronic kidney disease, stage 3 (moderate); L03.90 Cellulitis, unspecified; E87.6 Hypokalemia; B02.22 Postherpetic trigeminal neuralgia; I12.9 Hypertensive chronic kidney disease with stage 1 through stage 4 chronic kidney disease, or unspecified chronic kidney disease; E11.42 Type 2 diabetes mellitus with diabetic polyneuropathy; E78.5 Hyperlipidemia, unspecified; F32.9 Major depressive disorder, single episode, unspecified; D63.1 Anemia in chronic kidney disease; N25.81 Secondary hyperparathyroidism of renal origin; E78.00 Pure hypercholesterolemia, unspecified; E55.9 Vitamin D deficiency, unspecified; E86.9 Volume depletion, unspecified; R80.9 Proteinuria, unspecified; E87.1 Hypo-osmolality and hyponatremia; Z79.899 Other long term (current) drug therapy; Z85.05 Personal history of malignant neoplasm of liver; Z79.4 Long term (current) use of insulin; Z88.2 Allergy status to sulfonamides; Z88.1 Allergy status to other antibiotic agents | CPT/HCPCS: 96365; 96375; J1642; J2405 ==

== ENCOUNTER 2018-11-13 00:46 | Day surgery (SDC) | payer OTHER ==
[2018-11-13] MEDS ORDERED: CYCL10 PO (10:44)
[2018-11-13] MEDS ORDERED: OXYC5 PO (10:45)
== END 2018-11-13 10:55 | disposition home or self-care (01) ==
LOC: ATC 00:46
DX: E87.6 Hypokalemia (principal); B02.22 Postherpetic trigeminal neuralgia; E11.22 Type 2 diabetes mellitus with diabetic chronic kidney disease; I12.9 Hypertensive chronic kidney disease with stage 1 through stage 4 chronic kidney disease, or unspecified chronic kidney disease; N18.9 Chronic kidney disease, unspecified; E11.42 Type 2 diabetes mellitus with diabetic polyneuropathy; J45.909 Unspecified asthma, uncomplicated; E78.5 Hyperlipidemia, unspecified; F32.9 Major depressive disorder, single episode, unspecified; Z87.891 Personal history of nicotine dependence; Z79.899 Other long term (current) drug therapy; Z85.05 Personal history of malignant neoplasm of liver; Z79.4 Long term (current) use of insulin
CPT/HCPCS: 96365; 96375; J1642; J2405

== ENCOUNTER 2018-11-17 00:25 | Day surgery (SDC) | payer OTHER ==
[~2018-11-17 00:25] MED LIST changes: +OXYC5 PO
[2018-11-17] MEDS ORDERED: TRAM50 PO (16:23)
== END 2018-11-17 17:02 | disposition home or self-care (01) ==
LOC: ATC 00:25
DX: B02.22 Postherpetic trigeminal neuralgia (principal); I12.9 Hypertensive chronic kidney disease with stage 1 through stage 4 chronic kidney disease, or unspecified chronic kidney disease; E11.22 Type 2 diabetes mellitus with diabetic chronic kidney disease; N18.9 Chronic kidney disease, unspecified; J45.909 Unspecified asthma, uncomplicated; E78.5 Hyperlipidemia, unspecified; G89.29 Other chronic pain; F32.9 Major depressive disorder, single episode, unspecified; Z79.899 Other long term (current) drug therapy; Z88.1 Allergy status to other antibiotic agents; Z88.0 Allergy status to penicillin; Z87.891 Personal history of nicotine dependence
CPT/HCPCS: 96365; 96375; J1642; J2405

== ENCOUNTER 2018-11-20 00:54 | Day surgery (SDC) | payer OTHER | END 2018-11-20 23:33 | disposition home or self-care (01) | LOC: ATC 00:54 | DX: E87.6 Hypokalemia (principal); B02.22 Postherpetic trigeminal neuralgia; N18.3 Chronic kidney disease, stage 3 (moderate); E11.42 Type 2 diabetes mellitus with diabetic polyneuropathy; E78.5 Hyperlipidemia, unspecified; E11.22 Type 2 diabetes mellitus with diabetic chronic kidney disease; I12.9 Hypertensive chronic kidney disease with stage 1 through stage 4 chronic kidney disease, or unspecified chronic kidney disease; Z85.05 Personal history of malignant neoplasm of liver; Z79.899 Other long term (current) drug therapy; Z98.84 Bariatric surgery status; Z98.0 Intestinal bypass and anastomosis status; Z79.4 Long term (current) use of insulin; Z87.891 Personal history of nicotine dependence | CPT/HCPCS: 96365; 96375; J1642; J2405 ==

== ENCOUNTER 2018-11-24 00:03 | Day surgery (SDC) | payer OTHER ==
[2018-11-24] MEDS ORDERED: HYDR1TAB94 PO (10:33)
== END 2018-11-24 11:32 | disposition home or self-care (01) ==
LOC: ATC 00:03
DX: B02.22 Postherpetic trigeminal neuralgia (principal); E87.6 Hypokalemia; E11.9 Type 2 diabetes mellitus without complications; J45.909 Unspecified asthma, uncomplicated; E78.5 Hyperlipidemia, unspecified; M54.9 Dorsalgia, unspecified; G89.29 Other chronic pain; I12.9 Hypertensive chronic kidney disease with stage 1 through stage 4 chronic kidney disease, or unspecified chronic kidney disease; N18.9 Chronic kidney disease, unspecified; Z87.891 Personal history of nicotine dependence
CPT/HCPCS: 96365; 96375; J1642; J2405

== ENCOUNTER 2018-11-27 02:25 | Day surgery (SDC) | payer OTHER ==
[~2018-11-27 02:25] MED LIST changes: +HYDR1TAB94 PO
== END 2018-11-27 11:14 | disposition home or self-care (01) ==
LOC: ATC 02:25
DX: E87.6 Hypokalemia (principal); B02.22 Postherpetic trigeminal neuralgia; I12.9 Hypertensive chronic kidney disease with stage 1 through stage 4 chronic kidney disease, or unspecified chronic kidney disease; E11.22 Type 2 diabetes mellitus with diabetic chronic kidney disease; N18.9 Chronic kidney disease, unspecified; D63.1 Anemia in chronic kidney disease; E11.40 Type 2 diabetes mellitus with diabetic neuropathy, unspecified; J45.909 Unspecified asthma, uncomplicated; F32.9 Major depressive disorder, single episode, unspecified; E78.5 Hyperlipidemia, unspecified; Z79.899 Other long term (current) drug therapy; Z88.1 Allergy status to other antibiotic agents; Z87.891 Personal history of nicotine dependence
CPT/HCPCS: 96365; 96375; J1642; J2405

== ENCOUNTER 2018-12-01 00:10 | Day surgery (SDC) | payer OTHER ==
[2018-12-01 11:18] LABS: Albumin, Blood 3.8 g/dL (3.4-5.0); Anion Gap 9 mmol/L (6-16); Blood Urea Nitrogen 54 mg/dL (8-24); CO2, Blood 29 mmol/L (21-32); Calcium, Blood 8.6 mg/dL (8.5-10.1); Chloride, Blood 92 mmol/L (98-108); Creatinine, Blood 1.59 mg/dL (0.40-1.00); Glomerular Filtration Rate 34 (60-); Glucose, Blood 347 mg/dL (70-99); Phosphorus, Blood 4.1 mg/dL (2.5-4.9); Potassium, Blood 3.2 mmol/L (3.5-5.5); Sodium, Blood 130 mmol/L (136-145)
== END 2018-12-01 11:02 | disposition home or self-care (01) ==
LOC: ATC 00:10
PROVIDERS: Internal Medicine Nephrology
DX: B02.22 Postherpetic trigeminal neuralgia (principal); I12.9 Hypertensive chronic kidney disease with stage 1 through stage 4 chronic kidney disease, or unspecified chronic kidney disease; E11.22 Type 2 diabetes mellitus with diabetic chronic kidney disease; N18.3 Chronic kidney disease, stage 3 (moderate); D63.1 Anemia in chronic kidney disease; L03.90 Cellulitis, unspecified; E87.6 Hypokalemia; J45.909 Unspecified asthma, uncomplicated; F32.9 Major depressive disorder, single episode, unspecified; E78.5 Hyperlipidemia, unspecified; Z79.899 Other long term (current) drug therapy; Z79.02 Long term (current) use of antithrombotics/antiplatelets; Z88.1 Allergy status to other antibiotic agents; Z87.891 Personal history of nicotine dependence
CPT/HCPCS: 80069; 85018; 96365; 96375; J1642; J2405

== ENCOUNTER 2018-12-04 02:09 | Day surgery (SDC) | payer OTHER ==
[2018-12-04 10:36] LABS: Potassium, Blood 3.1 mmol/L (3.5-5.5)
== END 2018-12-04 10:44 | disposition home or self-care (01) ==
LOC: ATC 02:09
PROVIDERS: Internal Medicine Nephrology
DX: E87.1 Hypo-osmolality and hyponatremia (principal); E87.6 Hypokalemia; L03.90 Cellulitis, unspecified; I12.9 Hypertensive chronic kidney disease with stage 1 through stage 4 chronic kidney disease, or unspecified chronic kidney disease; E11.22 Type 2 diabetes mellitus with diabetic chronic kidney disease; N18.3 Chronic kidney disease, stage 3 (moderate); D63.1 Anemia in chronic kidney disease; B02.22 Postherpetic trigeminal neuralgia; E78.5 Hyperlipidemia, unspecified; M54.9 Dorsalgia, unspecified; G89.29 Other chronic pain
CPT/HCPCS: 84132; 84295; 96365; 96375; J1642; J2405

== ENCOUNTER 2018-12-08 00:08 | Day surgery (SDC) | payer OTHER ==
[2018-12-08 11:04] LABS: Albumin, Blood 3.9 g/dL (3.4-5.0); Anion Gap 12 mmol/L (6-16); Blood Urea Nitrogen 74 mg/dL (8-24); Bun/Creatinine Ratio 38.7 (12.0-20.0); CO2, Blood 29 mmol/L (21-32); Calcium, Blood 8.9 mg/dL (8.5-10.1); Chloride, Blood 89 mmol/L (98-108); Creatinine, Blood 1.91 mg/dL (0.40-1.00); Glomerular Filtration Rate 28 (60-); Glucose, Blood 340 mg/dL (70-99); Phosphorus, Blood 4.4 mg/dL (2.5-4.9); Potassium, Blood 2.8 mmol/L (3.5-5.5); Sodium, Blood 130 mmol/L (136-145)
== END 2018-12-08 10:54 | disposition home or self-care (01) ==
LOC: ATC 00:08
PROVIDERS: Internal Medicine Nephrology
DX: I12.9 Hypertensive chronic kidney disease with stage 1 through stage 4 chronic kidney disease, or unspecified chronic kidney disease (principal); E11.22 Type 2 diabetes mellitus with diabetic chronic kidney disease; N18.3 Chronic kidney disease, stage 3 (moderate); L03.90 Cellulitis, unspecified; J45.909 Unspecified asthma, uncomplicated; E78.5 Hyperlipidemia, unspecified; G89.29 Other chronic pain; F32.9 Major depressive disorder, single episode, unspecified; D64.9 Anemia, unspecified; Z79.899 Other long term (current) drug therapy; Z87.891 Personal history of nicotine dependence; Z98.890 Other specified postprocedural states
CPT/HCPCS: 80069; 96365; 96375; J1642; J2405

== ENCOUNTER 2018-12-11 00:20 | Day surgery (SDC) | payer OTHER | END 2018-12-11 10:29 | disposition home or self-care (01) | LOC: ATC 00:20 | DX: I12.9 Hypertensive chronic kidney disease with stage 1 through stage 4 chronic kidney disease, or unspecified chronic kidney disease (principal); E11.22 Type 2 diabetes mellitus with diabetic chronic kidney disease; N18.3 Chronic kidney disease, stage 3 (moderate); D63.1 Anemia in chronic kidney disease; E87.6 Hypokalemia; L03.90 Cellulitis, unspecified; J45.909 Unspecified asthma, uncomplicated; E78.5 Hyperlipidemia, unspecified; F32.9 Major depressive disorder, single episode, unspecified; Z79.899 Other long term (current) drug therapy; Z79.02 Long term (current) use of antithrombotics/antiplatelets; Z87.891 Personal history of nicotine dependence | CPT/HCPCS: 36591; 84132; 96365; 96375; J1642; J2405 ==

== ENCOUNTER 2018-12-15 00:17 | Day surgery (SDC) | payer OTHER ==
[2018-12-15] MEDS ORDERED: POTCHL20ER PO (10:06)
== END 2018-12-15 10:37 | disposition home or self-care (01) ==
LOC: ATC 00:17
DX: I12.9 Hypertensive chronic kidney disease with stage 1 through stage 4 chronic kidney disease, or unspecified chronic kidney disease (principal); E11.22 Type 2 diabetes mellitus with diabetic chronic kidney disease; N18.3 Chronic kidney disease, stage 3 (moderate); D63.1 Anemia in chronic kidney disease; E87.6 Hypokalemia; L03.90 Cellulitis, unspecified; E11.40 Type 2 diabetes mellitus with diabetic neuropathy, unspecified; J45.909 Unspecified asthma, uncomplicated; E78.5 Hyperlipidemia, unspecified; F32.9 Major depressive disorder, single episode, unspecified; Z79.01 Long term (current) use of anticoagulants; Z79.899 Other long term (current) drug therapy; Z87.891 Personal history of nicotine dependence
CPT/HCPCS: 96365; 96374; J1642; J2405

== ENCOUNTER 2018-12-18 01:51 | Day surgery (SDC) | payer OTHER ==
[~2018-12-18 01:51] MED LIST changes: +POTCHL20ER PO
[2018-12-18 10:50] LABS: Albumin, Blood 3.7 g/dL (3.4-5.0); Anion Gap 8 mmol/L (6-16); Blood Urea Nitrogen 62 mg/dL (8-24); Bun/Creatinine Ratio 34.4 (12.0-20.0); CO2, Blood 31 mmol/L (21-32); Chloride, Blood 96 mmol/L (98-108); Glomerular Filtration Rate 30 (60-); Glucose, Blood 229 mg/dL (70-99); Phosphorus, Blood 4.3 mg/dL (2.5-4.9); Potassium, Blood 3.2 mmol/L (3.5-5.5); Sodium, Blood 135 mmol/L (136-145)
== END 2018-12-18 10:48 | disposition home or self-care (01) ==
LOC: ATC 01:51
PROVIDERS: Internal Medicine Nephrology
DX: I12.9 Hypertensive chronic kidney disease with stage 1 through stage 4 chronic kidney disease, or unspecified chronic kidney disease (principal); E11.22 Type 2 diabetes mellitus with diabetic chronic kidney disease; N18.3 Chronic kidney disease, stage 3 (moderate); D63.1 Anemia in chronic kidney disease; B02.22 Postherpetic trigeminal neuralgia; F32.9 Major depressive disorder, single episode, unspecified; E78.5 Hyperlipidemia, unspecified; J45.909 Unspecified asthma, uncomplicated; Z79.899 Other long term (current) drug therapy; Z79.02 Long term (current) use of antithrombotics/antiplatelets; Z88.1 Allergy status to other antibiotic agents; Z87.891 Personal history of nicotine dependence
CPT/HCPCS: 80069; 85018; 96365; 96375; J1642; J2405

== ENCOUNTER 2018-12-20 10:44 | Emergency (ER) | payer OTHER ==
[~2018-12-20] VITALS: Ht 167.6 cm; Wt 83.5 kg
[2018-12-20] MEDS ORDERED: FLUC200 PO (11:21)
[2018-12-20] MEDS ORDERED: KETO15TC TOP (11:21)
[2018-12-20] MEDS ORDERED: HYDR1TAB94 PO (11:22)
== END 2018-12-20 12:40 | disposition home or self-care (01) ==
LOC: ER 10:44
DX: L30.4 Erythema intertrigo (principal); M25.552 Pain in left hip; G89.29 Other chronic pain; Z88.1 Allergy status to other antibiotic agents; Z79.899 Other long term (current) drug therapy; Z79.4 Long term (current) use of insulin; Z79.891 Long term (current) use of opiate analgesic; I48.91 Unspecified atrial fibrillation; E11.9 Type 2 diabetes mellitus without complications; I12.9 Hypertensive chronic kidney disease with stage 1 through stage 4 chronic kidney disease, or unspecified chronic kidney disease; N18.9 Chronic kidney disease, unspecified; K21.9 Gastro-esophageal reflux disease without esophagitis; Z87.891 Personal history of nicotine dependence
CPT/HCPCS: 99283

== ENCOUNTER 2018-12-22 00:12 | Day surgery (SDC) | payer OTHER ==
[~2018-12-22 00:12] MED LIST changes: +FLUC200 PO; +KETO15TC TOP
== END 2018-12-22 11:13 | disposition home or self-care (01) ==
LOC: ATC 00:12
DX: I12.9 Hypertensive chronic kidney disease with stage 1 through stage 4 chronic kidney disease, or unspecified chronic kidney disease (principal); E11.22 Type 2 diabetes mellitus with diabetic chronic kidney disease; N18.3 Chronic kidney disease, stage 3 (moderate); D63.1 Anemia in chronic kidney disease; E78.5 Hyperlipidemia, unspecified; M54.9 Dorsalgia, unspecified; G89.29 Other chronic pain; Z87.891 Personal history of nicotine dependence
CPT/HCPCS: 96365; 96375; J1642; J2405

== ENCOUNTER 2018-12-25 01:54 | Day surgery (SDC) | payer OTHER ==
[2018-12-25] MEDS ORDERED: POTA10T PO (10:19)
[2018-12-26] MEDS ORDERED: Augmentin 875-1 EACH PO (19:17)
[2018-12-26] MEDS ORDERED: Monodox100 MG PO (19:17)
== END 2018-12-25 10:35 | disposition home or self-care (01) ==
LOC: ATC 01:54
DX: I12.9 Hypertensive chronic kidney disease with stage 1 through stage 4 chronic kidney disease, or unspecified chronic kidney disease (principal); E11.22 Type 2 diabetes mellitus with diabetic chronic kidney disease; N18.3 Chronic kidney disease, stage 3 (moderate); D63.1 Anemia in chronic kidney disease; B02.29 Other postherpetic nervous system involvement; J45.909 Unspecified asthma, uncomplicated; E78.5 Hyperlipidemia, unspecified; M54.9 Dorsalgia, unspecified; G89.29 Other chronic pain; Z87.891 Personal history of nicotine dependence; Z88.1 Allergy status to other antibiotic agents
CPT/HCPCS: 84132; 96365; 96375; J1642; J2405

== ENCOUNTER 2018-12-26 14:42 | Emergency (ER) | payer OTHER ==
[~2018-12-26] VITALS: Ht 167.6 cm; Wt 83.0 kg
[2018-12-26 15:58] LABS: BASOPHILS ABSOLUTE AUTO 0.03 K/mm3 (0.00-0.23); BASOPHILS PERCENT AUTO 0 % (0-2); EOSINOPHILS ABSOLUTE AUTO 0.14 K/mm3 (0.00-0.68); EOSINOPHILS PERCENT AUTO 2 % (0-6); Hematocrit 37.7 % (33.0-51.0); Hemoglobin 12.5 g/dL (11.5-16.0); IMMATURE GRAN ABSOLUTE AUTO 0.11 K/mm3 (0.00-0.10); IMMATURE GRAN PERCENT AUTO 2 % (0-1); LYMPHOCYTES ABSOLUTE AUTO 0.61 K/mm3 (0.84-5.20); LYMPHOCYTES PERCENT AUTO 8 % (21-46); MONOCYTES ABSOLUTE AUTO 0.53 K/mm3 (0.16-1.47); MONOCYTES PERCENT AUTO 7 % (4-13); Mean Corpuscular HGB 27.8 pg (26.0-34.0); Mean Corpuscular HGB Conc 33.2 g/dL (31.5-36.5); Mean Corpuscular Volume 84 fL (80-100); Mean Platelet Volume 12.6 fL (9.1-12.4); NEUTROPHILS PERCENT AUTO 81 % (41-73); Platelet Count 137 K/mm3 (150-400); RDW Standard Deviation 45.7 fL (35.1-46.3); White Blood Cell Count 7.52 K/mm3 (4.00-11.30)
[2018-12-26 16:16] LABS: Albumin, Blood 3.7 g/dL (3.4-5.0); Albumin/Globulin Ratio 1.1 (0.8-1.8); Bilirubin, Total 0.3 mg/dL (0.1-1.0); Bun/Creatinine Ratio 28.8 (12.0-20.0); Calcium, Blood 8.7 mg/dL (8.5-10.1); Creatinine, Blood 1.7 mg/dL (0.40-1.00); Globulin, Blood 3.5 g/dL (2.2-4.0); Potassium, Blood 2.9 mmol/L (3.5-5.5); Total Protein, Blood 7.2 g/dL (6.4-8.2)
[2018-12-26] MEDS ORDERED: Augmentin 875-1 EACH PO (19:17)
[2018-12-26] MEDS ORDERED: Monodox100 MG PO (19:17)
== END 2018-12-26 19:40 | disposition home or self-care (01) ==
LOC: ER 14:42
PROVIDERS: Physician Assistant
DX: N76.4 Abscess of vulva (principal); E87.6 Hypokalemia; Z88.1 Allergy status to other antibiotic agents; Z79.899 Other long term (current) drug therapy; Z79.4 Long term (current) use of insulin; Z79.891 Long term (current) use of opiate analgesic; I10 Essential (primary) hypertension; E11.9 Type 2 diabetes mellitus without complications; Z85.05 Personal history of malignant neoplasm of liver; Z87.891 Personal history of nicotine dependence
CPT/HCPCS: 36415; 72192; 80053; 83605; 85025; 87040; 93005; 93010; 96365; 96374; 99284-25; J2543

== ENCOUNTER 2018-12-29 00:06 | Day surgery (SDC) | payer OTHER ==
[~2018-12-29 00:06] MED LIST changes: +Augmentin 875-1 EACH PO; +Monodox100 MG PO
== END 2018-12-29 10:54 | disposition home or self-care (01) ==
LOC: ATC 00:06
DX: I12.9 Hypertensive chronic kidney disease with stage 1 through stage 4 chronic kidney disease, or unspecified chronic kidney disease (principal); N18.4 Chronic kidney disease, stage 4 (severe); D63.1 Anemia in chronic kidney disease; L03.90 Cellulitis, unspecified; N25.81 Secondary hyperparathyroidism of renal origin; E55.9 Vitamin D deficiency, unspecified; Z79.899 Other long term (current) drug therapy; Z88.1 Allergy status to other antibiotic agents; Z88.2 Allergy status to sulfonamides
CPT/HCPCS: 84132; 96365; 96375; J1642; J2405

== ENCOUNTER 2019-01-01 00:29 | Day surgery (SDC) | payer OTHER | END 2019-01-01 11:20 | disposition home or self-care (01) | LOC: ATC 00:29 | DX: I12.9 Hypertensive chronic kidney disease with stage 1 through stage 4 chronic kidney disease, or unspecified chronic kidney disease (principal); N18.4 Chronic kidney disease, stage 4 (severe); D63.1 Anemia in chronic kidney disease; L03.90 Cellulitis, unspecified; E87.6 Hypokalemia; N25.81 Secondary hyperparathyroidism of renal origin; E86.9 Volume depletion, unspecified; E87.1 Hypo-osmolality and hyponatremia; E78.00 Pure hypercholesterolemia, unspecified; E55.9 Vitamin D deficiency, unspecified | CPT/HCPCS: 96365; 96375; J1642; J2405 ==

== ENCOUNTER 2019-01-05 00:21 | Day surgery (SDC) | payer OTHER ==
[2019-01-05 11:23] LABS: Creatinine, Blood 1.51 mg/dL (0.40-1.00); Magnesium, Blood 1.5 mg/dL (1.6-2.4); Potassium, Blood 2.9 mmol/L (3.5-5.5)
== END 2019-01-05 11:39 | disposition home or self-care (01) ==
LOC: ATC 00:21
PROVIDERS: Internal Medicine Nephrology
DX: I12.9 Hypertensive chronic kidney disease with stage 1 through stage 4 chronic kidney disease, or unspecified chronic kidney disease (principal); N18.4 Chronic kidney disease, stage 4 (severe); D63.1 Anemia in chronic kidney disease; N25.81 Secondary hyperparathyroidism of renal origin; Z79.899 Other long term (current) drug therapy; Z79.82 Long term (current) use of aspirin; Z88.8 Allergy status to other drugs, medicaments and biological substances; Z88.1 Allergy status to other antibiotic agents; Z88.2 Allergy status to sulfonamides
CPT/HCPCS: 82565; 83735; 84132; 96365; 96375; J1642; J2405

== ENCOUNTER 2019-01-08 02:17 | Day surgery (SDC) | payer OTHER ==
[2019-01-08 12:03] LABS: Magnesium, Blood 1.5 mg/dL (1.6-2.4); Potassium, Blood 3.4 mmol/L (3.5-5.5)
== END 2019-01-08 11:48 | disposition home or self-care (01) ==
LOC: ATC 02:17
PROVIDERS: Internal Medicine Nephrology
DX: I12.9 Hypertensive chronic kidney disease with stage 1 through stage 4 chronic kidney disease, or unspecified chronic kidney disease (principal); N18.4 Chronic kidney disease, stage 4 (severe); D63.1 Anemia in chronic kidney disease; N25.81 Secondary hyperparathyroidism of renal origin; E87.1 Hypo-osmolality and hyponatremia; E87.6 Hypokalemia; E78.00 Pure hypercholesterolemia, unspecified; E55.9 Vitamin D deficiency, unspecified
CPT/HCPCS: 83735; 84132; 96365; 96375; J1642; J2405

== ENCOUNTER 2019-01-12 00:10 | Day surgery (SDC) | payer OTHER ==
[2019-01-12 10:49] LABS: Magnesium, Blood 1.7 mg/dL (1.6-2.4)
[2019-01-12 10:50] LABS: Potassium, Blood 3.3 mmol/L (3.5-5.5)
== END 2019-01-12 10:59 | disposition home or self-care (01) ==
LOC: ATC 00:10
PROVIDERS: Internal Medicine Nephrology
DX: I12.9 Hypertensive chronic kidney disease with stage 1 through stage 4 chronic kidney disease, or unspecified chronic kidney disease (principal); N18.4 Chronic kidney disease, stage 4 (severe); N18.3 Chronic kidney disease, stage 3 (moderate); D63.1 Anemia in chronic kidney disease; N25.81 Secondary hyperparathyroidism of renal origin; E87.6 Hypokalemia; Z79.899 Other long term (current) drug therapy; Z88.1 Allergy status to other antibiotic agents; Z88.2 Allergy status to sulfonamides; Z88.8 Allergy status to other drugs, medicaments and biological substances
CPT/HCPCS: 83735; 84132; 96365; 96375; J1642; J2405

== ENCOUNTER 2019-01-15 00:41 | Day surgery (SDC) | payer OTHER ==
[2019-01-15 10:48] LABS: Magnesium, Blood 1.7 mg/dL (1.6-2.4); Potassium, Blood 3.2 mmol/L (3.5-5.5)
== END 2019-01-15 10:55 | disposition home or self-care (01) ==
LOC: ATC 00:41
PROVIDERS: Internal Medicine Nephrology
DX: I12.9 Hypertensive chronic kidney disease with stage 1 through stage 4 chronic kidney disease, or unspecified chronic kidney disease (principal); N18.4 Chronic kidney disease, stage 4 (severe); D63.1 Anemia in chronic kidney disease; N25.81 Secondary hyperparathyroidism of renal origin; E83.42 Hypomagnesemia; E87.6 Hypokalemia; L03.90 Cellulitis, unspecified; Z79.899 Other long term (current) drug therapy; Z88.0 Allergy status to penicillin; Z88.2 Allergy status to sulfonamides; Z88.1 Allergy status to other antibiotic agents
CPT/HCPCS: 36591; 83735; 84132; 96365; 96375; J1642; J2405

== ENCOUNTER 2019-01-19 00:16 | Day surgery (SDC) | payer OTHER ==
[2019-01-19] MEDS ORDERED: Bumetanide2 MG PO (10:34)
[2019-01-19] MEDS ORDERED: POTCHL20ER PO (10:35)
== END 2019-01-19 11:00 | disposition home or self-care (01) ==
LOC: ATC 00:16
DX: I12.9 Hypertensive chronic kidney disease with stage 1 through stage 4 chronic kidney disease, or unspecified chronic kidney disease (principal); N18.4 Chronic kidney disease, stage 4 (severe); D63.1 Anemia in chronic kidney disease; N25.81 Secondary hyperparathyroidism of renal origin; E86.9 Volume depletion, unspecified; E87.1 Hypo-osmolality and hyponatremia; E87.6 Hypokalemia; E78.00 Pure hypercholesterolemia, unspecified; E55.9 Vitamin D deficiency, unspecified; R80.9 Proteinuria, unspecified; Z88.1 Allergy status to other antibiotic agents; Z88.2 Allergy status to sulfonamides
CPT/HCPCS: 96365; 96375; J1642; J2405

== ENCOUNTER 2019-01-22 00:27 | Day surgery (SDC) | payer OTHER ==
[~2019-01-22 00:27] MED LIST changes: +Bumetanide2 MG PO
== END 2019-01-22 11:40 | disposition home or self-care (01) ==
LOC: ATC 00:27
DX: I12.9 Hypertensive chronic kidney disease with stage 1 through stage 4 chronic kidney disease, or unspecified chronic kidney disease (principal); N18.4 Chronic kidney disease, stage 4 (severe); D63.1 Anemia in chronic kidney disease; N25.81 Secondary hyperparathyroidism of renal origin; L03.90 Cellulitis, unspecified; E86.9 Volume depletion, unspecified; E87.1 Hypo-osmolality and hyponatremia; E87.6 Hypokalemia; E55.9 Vitamin D deficiency, unspecified; Z79.899 Other long term (current) drug therapy; Z79.82 Long term (current) use of aspirin; Z88.1 Allergy status to other antibiotic agents; Z88.2 Allergy status to sulfonamides; Z88.8 Allergy status to other drugs, medicaments and biological substances
CPT/HCPCS: 96365; 96375; J1642; J2405

== ENCOUNTER 2019-01-26 00:11 | Day surgery (SDC) | payer OTHER ==
[2019-01-26 11:06] LABS: Albumin, Blood 3.8 g/dL (3.4-5.0); Anion Gap 8 mmol/L (6-16); Blood Urea Nitrogen 70 mg/dL (8-24); Bun/Creatinine Ratio 38.7 (12.0-20.0); CO2, Blood 30 mmol/L (21-32); Calcium, Blood 8.5 mg/dL (8.5-10.1); Chloride, Blood 92 mmol/L (98-108); Creatinine, Blood 1.81 mg/dL (0.40-1.00); Glomerular Filtration Rate 30 (60-); Glucose, Blood 352 mg/dL (70-99); Magnesium, Blood 1.7 mg/dL (1.6-2.4); Phosphorus, Blood 4.4 mg/dL (2.5-4.9); Potassium, Blood 3.8 mmol/L (3.5-5.5); Sodium, Blood 130 mmol/L (136-145)
== END 2019-01-26 22:46 | disposition home or self-care (01) ==
LOC: ATC 00:11
PROVIDERS: Internal Medicine Nephrology
DX: I12.9 Hypertensive chronic kidney disease with stage 1 through stage 4 chronic kidney disease, or unspecified chronic kidney disease (principal); N18.4 Chronic kidney disease, stage 4 (severe); D63.1 Anemia in chronic kidney disease; N25.81 Secondary hyperparathyroidism of renal origin; L03.90 Cellulitis, unspecified; E86.9 Volume depletion, unspecified; E55.9 Vitamin D deficiency, unspecified; Z79.899 Other long term (current) drug therapy; Z88.1 Allergy status to other antibiotic agents; Z88.2 Allergy status to sulfonamides; Z88.8 Allergy status to other drugs, medicaments and biological substances
CPT/HCPCS: 80069; 83735; 85018; 96365; 96375; J1642; J2405

== ENCOUNTER 2019-01-29 01:07 | Day surgery (SDC) | payer OTHER | END 2019-01-29 11:07 | disposition home or self-care (01) | LOC: ATC 01:07 | DX: I12.9 Hypertensive chronic kidney disease with stage 1 through stage 4 chronic kidney disease, or unspecified chronic kidney disease (principal); N18.4 Chronic kidney disease, stage 4 (severe); D63.1 Anemia in chronic kidney disease; N25.81 Secondary hyperparathyroidism of renal origin; E86.9 Volume depletion, unspecified; E87.1 Hypo-osmolality and hyponatremia; E55.9 Vitamin D deficiency, unspecified; E87.6 Hypokalemia; Z79.899 Other long term (current) drug therapy; Z88.1 Allergy status to other antibiotic agents; Z88.2 Allergy status to sulfonamides; Z88.8 Allergy status to other drugs, medicaments and biological substances | CPT/HCPCS: 96365; 96375; J1642; J2405 ==

== ENCOUNTER 2019-02-02 00:15 | Day surgery (SDC) | payer OTHER | END 2019-02-02 11:16 | disposition home or self-care (01) | LOC: ATC 00:15 | DX: I12.9 Hypertensive chronic kidney disease with stage 1 through stage 4 chronic kidney disease, or unspecified chronic kidney disease (principal); N18.4 Chronic kidney disease, stage 4 (severe); D63.1 Anemia in chronic kidney disease; N25.81 Secondary hyperparathyroidism of renal origin; R80.9 Proteinuria, unspecified; E87.1 Hypo-osmolality and hyponatremia; E87.0 Hyperosmolality and hypernatremia; E55.9 Vitamin D deficiency, unspecified; E78.00 Pure hypercholesterolemia, unspecified | CPT/HCPCS: 96365; 96374; 96375; J1642; J2405 ==

== ENCOUNTER 2019-02-05 00:19 | Day surgery (SDC) | payer OTHER | END 2019-02-05 11:02 | disposition home or self-care (01) | LOC: ATC 00:19 | DX: I12.9 Hypertensive chronic kidney disease with stage 1 through stage 4 chronic kidney disease, or unspecified chronic kidney disease (principal); E11.22 Type 2 diabetes mellitus with diabetic chronic kidney disease; N18.3 Chronic kidney disease, stage 3 (moderate); L03.90 Cellulitis, unspecified; D63.1 Anemia in chronic kidney disease; N25.81 Secondary hyperparathyroidism of renal origin; Z79.899 Other long term (current) drug therapy; Z79.82 Long term (current) use of aspirin; Z88.8 Allergy status to other drugs, medicaments and biological substances; Z88.1 Allergy status to other antibiotic agents; Z88.2 Allergy status to sulfonamides; Z79.02 Long term (current) use of antithrombotics/antiplatelets; Z79.4 Long term (current) use of insulin | CPT/HCPCS: 96365; 96375; J1642; J2405 ==

== ENCOUNTER 2019-02-09 00:03 | Day surgery (SDC) | payer OTHER | END 2019-02-09 08:40 | disposition home or self-care (01) | LOC: ATC 00:03 | DX: I12.9 Hypertensive chronic kidney disease with stage 1 through stage 4 chronic kidney disease, or unspecified chronic kidney disease (principal); N18.3 Chronic kidney disease, stage 3 (moderate); D63.1 Anemia in chronic kidney disease; L03.90 Cellulitis, unspecified; N25.81 Secondary hyperparathyroidism of renal origin; E87.70 Fluid overload, unspecified; D50.9 Iron deficiency anemia, unspecified; E55.9 Vitamin D deficiency, unspecified; E11.21 Type 2 diabetes mellitus with diabetic nephropathy; G60.9 Hereditary and idiopathic neuropathy, unspecified; Z88.1 Allergy status to other antibiotic agents; Z88.2 Allergy status to sulfonamides; Z79.899 Other long term (current) drug therapy | CPT/HCPCS: 96365; 96375; J1642; J2405 ==

== ENCOUNTER 2019-02-12 00:33 | Day surgery (SDC) | payer OTHER | END 2019-02-12 10:47 | disposition home or self-care (01) | LOC: ATC 00:33 | DX: I12.9 Hypertensive chronic kidney disease with stage 1 through stage 4 chronic kidney disease, or unspecified chronic kidney disease (principal); N18.4 Chronic kidney disease, stage 4 (severe); L03.90 Cellulitis, unspecified; D63.1 Anemia in chronic kidney disease; N25.81 Secondary hyperparathyroidism of renal origin; E86.9 Volume depletion, unspecified; M10.9 Gout, unspecified; Z79.899 Other long term (current) drug therapy; Z79.82 Long term (current) use of aspirin; Z88.1 Allergy status to other antibiotic agents; Z88.8 Allergy status to other drugs, medicaments and biological substances; Z88.2 Allergy status to sulfonamides; Z79.02 Long term (current) use of antithrombotics/antiplatelets | CPT/HCPCS: 96365; 96375; J1642; J2405 ==

== ENCOUNTER 2019-02-16 09:50 | Day surgery (SDC) | payer OTHER | END 2019-02-16 10:50 | disposition home or self-care (01) | LOC: ATC 09:50 | DX: I12.9 Hypertensive chronic kidney disease with stage 1 through stage 4 chronic kidney disease, or unspecified chronic kidney disease (principal); N18.3 Chronic kidney disease, stage 3 (moderate); L03.90 Cellulitis, unspecified; N25.81 Secondary hyperparathyroidism of renal origin; D63.1 Anemia in chronic kidney disease; E78.00 Pure hypercholesterolemia, unspecified; M10.9 Gout, unspecified; Z79.899 Other long term (current) drug therapy; Z88.1 Allergy status to other antibiotic agents; Z88.8 Allergy status to other drugs, medicaments and biological substances; Z88.2 Allergy status to sulfonamides; Z79.02 Long term (current) use of antithrombotics/antiplatelets; Z79.4 Long term (current) use of insulin | CPT/HCPCS: 96365; 96375; J1642; J2405 ==

== ENCOUNTER 2019-02-19 01:13 | Day surgery (SDC) | payer OTHER | END 2019-02-19 16:28 | disposition home or self-care (01) | LOC: ATC 01:13 | DX: I12.9 Hypertensive chronic kidney disease with stage 1 through stage 4 chronic kidney disease, or unspecified chronic kidney disease (principal); N18.4 Chronic kidney disease, stage 4 (severe); D63.1 Anemia in chronic kidney disease; N25.81 Secondary hyperparathyroidism of renal origin; E86.9 Volume depletion, unspecified; R80.9 Proteinuria, unspecified; E87.1 Hypo-osmolality and hyponatremia; E87.6 Hypokalemia; E78.00 Pure hypercholesterolemia, unspecified; E55.9 Vitamin D deficiency, unspecified; Z79.82 Long term (current) use of aspirin; Z79.899 Other long term (current) drug therapy; Z88.0 Allergy status to penicillin; Z88.2 Allergy status to sulfonamides; Z88.1 Allergy status to other antibiotic agents | CPT/HCPCS: 96365; 96375; J1642; J2405 ==

== ENCOUNTER 2019-02-26 00:38 | Day surgery (SDC) | payer OTHER | END 2019-02-26 11:05 | disposition home or self-care (01) | LOC: ATC 00:38 | DX: I12.9 Hypertensive chronic kidney disease with stage 1 through stage 4 chronic kidney disease, or unspecified chronic kidney disease (principal); E11.22 Type 2 diabetes mellitus with diabetic chronic kidney disease; N18.3 Chronic kidney disease, stage 3 (moderate); D63.1 Anemia in chronic kidney disease; L03.90 Cellulitis, unspecified; E11.21 Type 2 diabetes mellitus with diabetic nephropathy; Z88.1 Allergy status to other antibiotic agents; Z88.2 Allergy status to sulfonamides | CPT/HCPCS: 96365; 96375; J1642; J2405 ==

== ENCOUNTER 2019-03-04 12:44 | Emergency (ER) | payer OTHER ==
[~2019-03-04] VITALS: Ht 167.6 cm; Wt 85.7 kg
[2019-03-04] MEDS ORDERED: TRAM50 PO (14:30)
== END 2019-03-04 14:57 | disposition home or self-care (01) ==
LOC: ER 12:44
DX: S20.212A Contusion of left front wall of thorax, initial encounter (principal); I10 Essential (primary) hypertension; E11.9 Type 2 diabetes mellitus without complications; Z79.899 Other long term (current) drug therapy; Z87.891 Personal history of nicotine dependence; X58.XXXA Exposure to other specified factors, initial encounter
CPT/HCPCS: 71101; 99283-25

== ENCOUNTER 2019-03-05 00:21 | Day surgery (SDC) | payer OTHER ==
[2019-03-05 11:56] LABS: Albumin, Blood 3.9 g/dL (3.4-5.0); Anion Gap 9 mmol/L (6-16); Blood Urea Nitrogen 70 mg/dL (8-24); Bun/Creatinine Ratio 37.2 (12.0-20.0); CO2, Blood 29 mmol/L (21-32); Calcium, Blood 8.4 mg/dL (8.5-10.1); Chloride, Blood 88 mmol/L (98-108); Creatinine, Blood 1.88 mg/dL (0.40-1.00); Glomerular Filtration Rate 28 (60-); Glucose, Blood 437 mg/dL (70-99); Phosphorus, Blood 3.8 mg/dL (2.5-4.9); Sodium, Blood 126 mmol/L (136-145)
== END 2019-03-05 11:24 | disposition home or self-care (01) ==
LOC: ATC 00:21
PROVIDERS: Internal Medicine Nephrology
DX: I12.9 Hypertensive chronic kidney disease with stage 1 through stage 4 chronic kidney disease, or unspecified chronic kidney disease (principal); E11.22 Type 2 diabetes mellitus with diabetic chronic kidney disease; N18.3 Chronic kidney disease, stage 3 (moderate); D63.1 Anemia in chronic kidney disease; L03.90 Cellulitis, unspecified; N25.81 Secondary hyperparathyroidism of renal origin; E11.21 Type 2 diabetes mellitus with diabetic nephropathy; G60.9 Hereditary and idiopathic neuropathy, unspecified; E11.40 Type 2 diabetes mellitus with diabetic neuropathy, unspecified; E78.00 Pure hypercholesterolemia, unspecified; Z79.899 Other long term (current) drug therapy; Z88.1 Allergy status to other antibiotic agents; Z88.2 Allergy status to sulfonamides; Z88.8 Allergy status to other drugs, medicaments and biological substances
CPT/HCPCS: 80069; 85018; 96365; 96375; J1642; J2405

== ENCOUNTER 2019-03-19 10:03 | Day surgery (SDC) | payer OTHER ==
[2019-03-19 10:58] LABS: Albumin, Blood 3.5 g/dL (3.4-5.0); Anion Gap 6 mmol/L (6-16); Blood Urea Nitrogen 38 mg/dL (8-24); Bun/Creatinine Ratio 27.1 (12.0-20.0); CO2, Blood 28 mmol/L (21-32); Calcium, Blood 8.6 mg/dL (8.5-10.1); Chloride, Blood 101 mmol/L (98-108); Glomerular Filtration Rate 40 (60-); Glucose, Blood 239 mg/dL (70-99); Phosphorus, Blood 3.2 mg/dL (2.5-4.9); Potassium, Blood 4.3 mmol/L (3.5-5.5); Sodium, Blood 135 mmol/L (136-145)
== END 2019-03-19 11:20 | disposition home or self-care (01) ==
LOC: ATC 10:03
PROVIDERS: Internal Medicine Nephrology
DX: I12.9 Hypertensive chronic kidney disease with stage 1 through stage 4 chronic kidney disease, or unspecified chronic kidney disease (principal); E11.21 Type 2 diabetes mellitus with diabetic nephropathy; E11.22 Type 2 diabetes mellitus with diabetic chronic kidney disease; N18.3 Chronic kidney disease, stage 3 (moderate); L03.90 Cellulitis, unspecified; D63.1 Anemia in chronic kidney disease; N25.81 Secondary hyperparathyroidism of renal origin; E87.70 Fluid overload, unspecified; G60.9 Hereditary and idiopathic neuropathy, unspecified; E55.9 Vitamin D deficiency, unspecified; D50.9 Iron deficiency anemia, unspecified; Z88.0 Allergy status to penicillin; Z88.2 Allergy status to sulfonamides; Z88.1 Allergy status to other antibiotic agents; Z79.899 Other long term (current) drug therapy; Z79.02 Long term (current) use of antithrombotics/antiplatelets; Z79.4 Long term (current) use of insulin
CPT/HCPCS: 80069; 85018; J1642; J2405

== ENCOUNTER 2019-03-23 00:13 | Day surgery (SDC) | payer OTHER ==
[2019-03-30] MEDS ORDERED: Azithromycin250 MG PO (10:28)
== END 2019-03-23 11:00 | disposition home or self-care (01) ==
LOC: ATC 00:13
DX: I12.9 Hypertensive chronic kidney disease with stage 1 through stage 4 chronic kidney disease, or unspecified chronic kidney disease (principal); E11.22 Type 2 diabetes mellitus with diabetic chronic kidney disease; N18.3 Chronic kidney disease, stage 3 (moderate); L03.90 Cellulitis, unspecified; D63.1 Anemia in chronic kidney disease; N25.81 Secondary hyperparathyroidism of renal origin; E11.21 Type 2 diabetes mellitus with diabetic nephropathy; D50.9 Iron deficiency anemia, unspecified; Z79.899 Other long term (current) drug therapy; Z88.1 Allergy status to other antibiotic agents; Z88.2 Allergy status to sulfonamides; Z88.8 Allergy status to other drugs, medicaments and biological substances; Z79.02 Long term (current) use of antithrombotics/antiplatelets; Z79.4 Long term (current) use of insulin
CPT/HCPCS: 96365; 96375; J1642; J2405

== ENCOUNTER 2019-03-26 00:24 | Day surgery (SDC) | payer OTHER ==
[2019-03-30] MEDS ORDERED: Azithromycin250 MG PO (10:28)
== END 2019-03-26 11:01 | disposition home or self-care (01) ==
LOC: ATC 00:24
DX: I12.9 Hypertensive chronic kidney disease with stage 1 through stage 4 chronic kidney disease, or unspecified chronic kidney disease (principal); E11.22 Type 2 diabetes mellitus with diabetic chronic kidney disease; E11.21 Type 2 diabetes mellitus with diabetic nephropathy; E55.9 Vitamin D deficiency, unspecified; E11.40 Type 2 diabetes mellitus with diabetic neuropathy, unspecified; N18.3 Chronic kidney disease, stage 3 (moderate); L03.90 Cellulitis, unspecified; D63.1 Anemia in chronic kidney disease; N25.81 Secondary hyperparathyroidism of renal origin; Z79.899 Other long term (current) drug therapy; Z88.2 Allergy status to sulfonamides; Z88.1 Allergy status to other antibiotic agents; Z88.0 Allergy status to penicillin; Z79.02 Long term (current) use of antithrombotics/antiplatelets; Z79.4 Long term (current) use of insulin
CPT/HCPCS: 96365; 96375; J1642; J2405

== ENCOUNTER 2019-04-06 00:03 | Day surgery (SDC) | payer OTHER ==
[~2019-04-06 00:03] MED LIST changes: +Azithromycin250 MG PO
== END 2019-04-06 11:05 | disposition home or self-care (01) ==
LOC: ATC 00:03
DX: I12.9 Hypertensive chronic kidney disease with stage 1 through stage 4 chronic kidney disease, or unspecified chronic kidney disease (principal); N18.3 Chronic kidney disease, stage 3 (moderate); L03.90 Cellulitis, unspecified; D63.1 Anemia in chronic kidney disease; N25.81 Secondary hyperparathyroidism of renal origin; E86.9 Volume depletion, unspecified; E78.00 Pure hypercholesterolemia, unspecified; M10.9 Gout, unspecified; Z88.1 Allergy status to other antibiotic agents; Z88.2 Allergy status to sulfonamides; Z88.8 Allergy status to other drugs, medicaments and biological substances; Z79.02 Long term (current) use of antithrombotics/antiplatelets; Z79.82 Long term (current) use of aspirin; Z79.4 Long term (current) use of insulin; Z79.2 Long term (current) use of antibiotics; Z79.899 Other long term (current) drug therapy
CPT/HCPCS: 96365; 96375; J1642; J2405

== ENCOUNTER 2019-04-09 01:20 | Day surgery (SDC) | payer OTHER | END 2019-04-09 11:00 | disposition home or self-care (01) | LOC: ATC 01:20 | DX: I12.9 Hypertensive chronic kidney disease with stage 1 through stage 4 chronic kidney disease, or unspecified chronic kidney disease (principal); N18.3 Chronic kidney disease, stage 3 (moderate); L03.90 Cellulitis, unspecified; N25.81 Secondary hyperparathyroidism of renal origin; D63.1 Anemia in chronic kidney disease; E86.9 Volume depletion, unspecified; E78.00 Pure hypercholesterolemia, unspecified; M10.9 Gout, unspecified; Z88.1 Allergy status to other antibiotic agents; Z88.2 Allergy status to sulfonamides; Z88.8 Allergy status to other drugs, medicaments and biological substances; Z79.02 Long term (current) use of antithrombotics/antiplatelets; Z79.82 Long term (current) use of aspirin; Z79.4 Long term (current) use of insulin; Z79.2 Long term (current) use of antibiotics; Z79.899 Other long term (current) drug therapy | CPT/HCPCS: 96365; 96375; J1642; J2405 ==

== ENCOUNTER 2019-04-13 00:11 | Day surgery (SDC) | payer OTHER | END 2019-04-13 22:56 | disposition home or self-care (01) | LOC: ATC 00:11 | DX: I12.9 Hypertensive chronic kidney disease with stage 1 through stage 4 chronic kidney disease, or unspecified chronic kidney disease (principal); N18.4 Chronic kidney disease, stage 4 (severe); L03.90 Cellulitis, unspecified; D63.1 Anemia in chronic kidney disease; N25.81 Secondary hyperparathyroidism of renal origin; E86.9 Volume depletion, unspecified; E87.1 Hypo-osmolality and hyponatremia; E87.6 Hypokalemia; R11.2 Nausea with vomiting, unspecified; E78.00 Pure hypercholesterolemia, unspecified; E55.9 Vitamin D deficiency, unspecified; M85.80 Other specified disorders of bone density and structure, unspecified site; M10.9 Gout, unspecified; Z79.82 Long term (current) use of aspirin; Z79.899 Other long term (current) drug therapy; Z88.0 Allergy status to penicillin; Z88.2 Allergy status to sulfonamides; Z88.1 Allergy status to other antibiotic agents | CPT/HCPCS: 96365; 96375; J1642; J2405 ==

== ENCOUNTER 2019-04-15 00:12 | Day surgery (SDC) | payer OTHER | END 2019-04-15 10:35 | disposition home or self-care (01) | LOC: ATC 00:12 | DX: I12.9 Hypertensive chronic kidney disease with stage 1 through stage 4 chronic kidney disease, or unspecified chronic kidney disease (principal); E11.22 Type 2 diabetes mellitus with diabetic chronic kidney disease; N18.3 Chronic kidney disease, stage 3 (moderate); L03.90 Cellulitis, unspecified; D63.1 Anemia in chronic kidney disease; N25.81 Secondary hyperparathyroidism of renal origin; E11.21 Type 2 diabetes mellitus with diabetic nephropathy; E86.9 Volume depletion, unspecified; E55.9 Vitamin D deficiency, unspecified; Z79.02 Long term (current) use of antithrombotics/antiplatelets; Z79.4 Long term (current) use of insulin; Z79.899 Other long term (current) drug therapy; Z88.1 Allergy status to other antibiotic agents | CPT/HCPCS: 96365; 96375; J1642; J2405 ==

== ENCOUNTER 2019-04-20 00:31 | Day surgery (SDC) | payer OTHER ==
--- NOTE | 2019-04-20 11:28 | NUR ---
PT HAD A SUDDEN ONSET OF PROJECTILE VOMITING AFTER INFUSION DINISHED.
== END 2019-04-20 11:15 | disposition home or self-care (01) ==
LOC: ATC 00:31
DX: I12.9 Hypertensive chronic kidney disease with stage 1 through stage 4 chronic kidney disease, or unspecified chronic kidney disease (principal); E11.22 Type 2 diabetes mellitus with diabetic chronic kidney disease; N18.3 Chronic kidney disease, stage 3 (moderate); L03.90 Cellulitis, unspecified; D63.1 Anemia in chronic kidney disease; N25.81 Secondary hyperparathyroidism of renal origin; E11.21 Type 2 diabetes mellitus with diabetic nephropathy; E55.9 Vitamin D deficiency, unspecified; Z79.82 Long term (current) use of aspirin; Z79.4 Long term (current) use of insulin; Z79.02 Long term (current) use of antithrombotics/antiplatelets; Z79.899 Other long term (current) drug therapy; Z88.1 Allergy status to other antibiotic agents; Z88.2 Allergy status to sulfonamides; Z88.8 Allergy status to other drugs, medicaments and biological substances
CPT/HCPCS: 96365; 96375; J1642; J2405

== ENCOUNTER 2019-04-24 09:59 | Day surgery (SDC) | payer OTHER | END 2019-04-24 10:58 | disposition home or self-care (01) | LOC: ATC 09:59 | DX: I12.9 Hypertensive chronic kidney disease with stage 1 through stage 4 chronic kidney disease, or unspecified chronic kidney disease (principal); E11.22 Type 2 diabetes mellitus with diabetic chronic kidney disease; N18.3 Chronic kidney disease, stage 3 (moderate); E11.628 Type 2 diabetes mellitus with other skin complications; L03.90 Cellulitis, unspecified; D63.1 Anemia in chronic kidney disease; N25.81 Secondary hyperparathyroidism of renal origin; E11.21 Type 2 diabetes mellitus with diabetic nephropathy; E55.9 Vitamin D deficiency, unspecified; E86.9 Volume depletion, unspecified; Z79.82 Long term (current) use of aspirin; Z79.899 Other long term (current) drug therapy; Z88.1 Allergy status to other antibiotic agents; Z88.2 Allergy status to sulfonamides; Z79.4 Long term (current) use of insulin; Z79.02 Long term (current) use of antithrombotics/antiplatelets; Z88.8 Allergy status to other drugs, medicaments and biological substances | CPT/HCPCS: 96365; 96375; J1642; J2405 ==

== ENCOUNTER 2019-04-27 00:05 | Day surgery (SDC) | payer OTHER ==
[2019-04-27 10:22] LABS: BASOPHILS ABSOLUTE AUTO 0.07 K/mm3 (0.00-0.23); BASOPHILS PERCENT AUTO 1 % (0-2); EOSINOPHILS ABSOLUTE AUTO 0.24 K/mm3 (0.00-0.68); EOSINOPHILS PERCENT AUTO 2 % (0-6); Hematocrit 42.8 % (33.0-51.0); Hemoglobin 13.8 g/dL (11.5-16.0); IMMATURE GRAN ABSOLUTE AUTO 0.16 K/mm3 (0.00-0.10); IMMATURE GRAN PERCENT AUTO 2 % (0-1); LYMPHOCYTES ABSOLUTE AUTO 1.04 K/mm3 (0.84-5.20); LYMPHOCYTES PERCENT AUTO 10 % (21-46); MONOCYTES ABSOLUTE AUTO 0.56 K/mm3 (0.16-1.47); MONOCYTES PERCENT AUTO 6 % (4-13); Mean Corpuscular HGB Conc 32.2 g/dL (31.5-36.5); Mean Corpuscular Volume 87 fL (80-100); Mean Platelet Volume 12.7 fL (9.1-12.4); NEUTROPHILS ABSOLUTE AUTO 8.07 K/mm3 (1.96-9.15); NEUTROPHILS PERCENT AUTO 80 % (41-73); Platelet Count 166 K/mm3 (150-400); RDW Coefficient Variation 14.7 % (11.7-14.2); RDW Standard Deviation 47.2 fL (35.1-46.3); Red Blood Cell Count 4.93 M/mm3 (3.80-5.20); White Blood Cell Count 10.14 K/mm3 (4.00-11.30)
[2019-04-27 10:46] LABS: Albumin, Blood 3.9 g/dL (3.4-5.0); Anion Gap 7 mmol/L (6-16); Blood Urea Nitrogen 47 mg/dL (8-24); Bun/Creatinine Ratio 32.6 (12.0-20.0); CO2, Blood 28 mmol/L (21-32); Calcium, Blood 9.1 mg/dL (8.5-10.1); Chloride, Blood 102 mmol/L (98-108); Creatinine, Blood 1.44 mg/dL (0.40-1.00); Glomerular Filtration Rate 38 (60-); Glucose, Blood 227 mg/dL (70-99); Phosphorus, Blood 4.5 mg/dL (2.5-4.9); Potassium, Blood 4.1 mmol/L (3.5-5.5); Sodium, Blood 137 mmol/L (136-145)
== END 2019-04-27 10:31 | disposition home or self-care (01) ==
LOC: ATC 00:05
PROVIDERS: Internal Medicine Nephrology
DX: I12.9 Hypertensive chronic kidney disease with stage 1 through stage 4 chronic kidney disease, or unspecified chronic kidney disease (principal); E11.22 Type 2 diabetes mellitus with diabetic chronic kidney disease; N18.3 Chronic kidney disease, stage 3 (moderate); E11.628 Type 2 diabetes mellitus with other skin complications; L03.90 Cellulitis, unspecified; D63.1 Anemia in chronic kidney disease; N25.81 Secondary hyperparathyroidism of renal origin; E55.9 Vitamin D deficiency, unspecified; Z79.82 Long term (current) use of aspirin; Z79.02 Long term (current) use of antithrombotics/antiplatelets; Z79.4 Long term (current) use of insulin; Z79.899 Other long term (current) drug therapy; Z88.1 Allergy status to other antibiotic agents; Z88.2 Allergy status to sulfonamides; Z88.8 Allergy status to other drugs, medicaments and biological substances
CPT/HCPCS: 80069; 85025; 96365; 96375; J1642; J2405

== ENCOUNTER 2019-04-30 02:13 | Day surgery (SDC) | payer OTHER | END 2019-04-30 10:57 | disposition home or self-care (01) | LOC: ATC 02:13 | DX: I12.9 Hypertensive chronic kidney disease with stage 1 through stage 4 chronic kidney disease, or unspecified chronic kidney disease (principal); E11.22 Type 2 diabetes mellitus with diabetic chronic kidney disease; N18.3 Chronic kidney disease, stage 3 (moderate); D63.1 Anemia in chronic kidney disease; L03.90 Cellulitis, unspecified; N25.81 Secondary hyperparathyroidism of renal origin; E11.21 Type 2 diabetes mellitus with diabetic nephropathy; E55.9 Vitamin D deficiency, unspecified; M85.80 Other specified disorders of bone density and structure, unspecified site; Z79.899 Other long term (current) drug therapy; Z88.0 Allergy status to penicillin; Z88.1 Allergy status to other antibiotic agents; Z88.2 Allergy status to sulfonamides; Z88.8 Allergy status to other drugs, medicaments and biological substances | CPT/HCPCS: 96365; 96375; J1642; J2405 ==

== ENCOUNTER 2019-05-04 00:53 | Day surgery (SDC) | payer OTHER | END 2019-05-04 11:28 | disposition home or self-care (01) | LOC: ATC 00:53 | DX: I12.9 Hypertensive chronic kidney disease with stage 1 through stage 4 chronic kidney disease, or unspecified chronic kidney disease (principal); N18.3 Chronic kidney disease, stage 3 (moderate); L03.90 Cellulitis, unspecified; D63.1 Anemia in chronic kidney disease; Z79.899 Other long term (current) drug therapy; Z79.82 Long term (current) use of aspirin; Z88.1 Allergy status to other antibiotic agents; Z88.2 Allergy status to sulfonamides | CPT/HCPCS: 96365; 96375; J1642; J2405 ==

== ENCOUNTER 2019-05-09 07:05 | Day surgery (SDC) | payer OTHER | END 2019-05-09 22:34 | disposition home or self-care (01) | LOC: ATC 07:05 | DX: I12.9 Hypertensive chronic kidney disease with stage 1 through stage 4 chronic kidney disease, or unspecified chronic kidney disease (principal); E11.22 Type 2 diabetes mellitus with diabetic chronic kidney disease; N18.3 Chronic kidney disease, stage 3 (moderate); L03.90 Cellulitis, unspecified; D63.1 Anemia in chronic kidney disease; N25.81 Secondary hyperparathyroidism of renal origin; E11.21 Type 2 diabetes mellitus with diabetic nephropathy; E86.9 Volume depletion, unspecified; E55.9 Vitamin D deficiency, unspecified; M85.80 Other specified disorders of bone density and structure, unspecified site; M25.551 Pain in right hip; M25.552 Pain in left hip; Z88.2 Allergy status to sulfonamides; Z88.1 Allergy status to other antibiotic agents; Z88.0 Allergy status to penicillin; Z79.02 Long term (current) use of antithrombotics/antiplatelets; Z79.899 Other long term (current) drug therapy; Z79.4 Long term (current) use of insulin | CPT/HCPCS: J1642; J2405 ==

== ENCOUNTER 2019-05-11 00:25 | Day surgery (SDC) | payer OTHER | END 2019-05-11 11:35 | disposition home or self-care (01) | LOC: ATC 00:25 | DX: I12.9 Hypertensive chronic kidney disease with stage 1 through stage 4 chronic kidney disease, or unspecified chronic kidney disease (principal); E11.22 Type 2 diabetes mellitus with diabetic chronic kidney disease; N18.3 Chronic kidney disease, stage 3 (moderate); L03.90 Cellulitis, unspecified; E11.21 Type 2 diabetes mellitus with diabetic nephropathy; E86.9 Volume depletion, unspecified; E55.9 Vitamin D deficiency, unspecified; N25.81 Secondary hyperparathyroidism of renal origin; D63.1 Anemia in chronic kidney disease; Z79.82 Long term (current) use of aspirin; Z79.899 Other long term (current) drug therapy; Z88.1 Allergy status to other antibiotic agents; Z79.02 Long term (current) use of antithrombotics/antiplatelets; Z79.4 Long term (current) use of insulin | CPT/HCPCS: 96365; 96375; J1642; J2405 ==

== ENCOUNTER 2019-05-14 00:52 | Day surgery (SDC) | payer OTHER | END 2019-05-14 23:07 | disposition home or self-care (01) | LOC: ATC 00:52 | DX: I12.9 Hypertensive chronic kidney disease with stage 1 through stage 4 chronic kidney disease, or unspecified chronic kidney disease (principal); E11.22 Type 2 diabetes mellitus with diabetic chronic kidney disease; N18.3 Chronic kidney disease, stage 3 (moderate); L03.90 Cellulitis, unspecified; D63.1 Anemia in chronic kidney disease; N25.81 Secondary hyperparathyroidism of renal origin; E11.21 Type 2 diabetes mellitus with diabetic nephropathy; E55.9 Vitamin D deficiency, unspecified; Z79.82 Long term (current) use of aspirin; Z79.899 Other long term (current) drug therapy; Z88.1 Allergy status to other antibiotic agents; Z88.2 Allergy status to sulfonamides; Z79.02 Long term (current) use of antithrombotics/antiplatelets; Z79.4 Long term (current) use of insulin | CPT/HCPCS: 96365; 96375; J1642; J2405 ==

== ENCOUNTER 2019-05-18 00:03 | Day surgery (SDC) | payer OTHER | END 2019-05-18 11:12 | disposition home or self-care (01) | LOC: ATC 00:03 | DX: I12.9 Hypertensive chronic kidney disease with stage 1 through stage 4 chronic kidney disease, or unspecified chronic kidney disease (principal); E11.22 Type 2 diabetes mellitus with diabetic chronic kidney disease; N18.3 Chronic kidney disease, stage 3 (moderate); L03.90 Cellulitis, unspecified; D63.1 Anemia in chronic kidney disease; N25.81 Secondary hyperparathyroidism of renal origin; E11.21 Type 2 diabetes mellitus with diabetic nephropathy; E86.9 Volume depletion, unspecified; E55.9 Vitamin D deficiency, unspecified; J44.9 Chronic obstructive pulmonary disease, unspecified; I48.0 Paroxysmal atrial fibrillation; Z79.82 Long term (current) use of aspirin; Z79.02 Long term (current) use of antithrombotics/antiplatelets; Z79.4 Long term (current) use of insulin; Z79.899 Other long term (current) drug therapy; Z88.1 Allergy status to other antibiotic agents; Z88.2 Allergy status to sulfonamides; Z88.8 Allergy status to other drugs, medicaments and biological substances; Z87.891 Personal history of nicotine dependence | CPT/HCPCS: 96365; 96375; J1642; J2405 ==

== ENCOUNTER 2019-05-21 02:05 | Day surgery (SDC) | payer OTHER ==
[2019-05-21] MEDS ORDERED: METO25ER PO (12:51)
== END 2019-05-21 10:57 | disposition home or self-care (01) ==
LOC: ATC 02:05
DX: I12.9 Hypertensive chronic kidney disease with stage 1 through stage 4 chronic kidney disease, or unspecified chronic kidney disease (principal); E11.22 Type 2 diabetes mellitus with diabetic chronic kidney disease; N18.3 Chronic kidney disease, stage 3 (moderate); L03.90 Cellulitis, unspecified; D63.1 Anemia in chronic kidney disease; N25.81 Secondary hyperparathyroidism of renal origin; E11.21 Type 2 diabetes mellitus with diabetic nephropathy; E86.9 Volume depletion, unspecified; E55.9 Vitamin D deficiency, unspecified; Z79.82 Long term (current) use of aspirin; Z79.02 Long term (current) use of antithrombotics/antiplatelets; Z79.4 Long term (current) use of insulin; Z79.899 Other long term (current) drug therapy; Z88.1 Allergy status to other antibiotic agents; Z88.2 Allergy status to sulfonamides; Z88.8 Allergy status to other drugs, medicaments and biological substances
CPT/HCPCS: 96365; 96375; J1642; J2405

== ENCOUNTER 2019-05-25 00:10 | Day surgery (SDC) | payer OTHER | END 2019-05-25 11:00 | disposition home or self-care (01) | LOC: ATC 00:10 | DX: I12.9 Hypertensive chronic kidney disease with stage 1 through stage 4 chronic kidney disease, or unspecified chronic kidney disease (principal); E11.22 Type 2 diabetes mellitus with diabetic chronic kidney disease; N18.3 Chronic kidney disease, stage 3 (moderate); L03.90 Cellulitis, unspecified; D63.1 Anemia in chronic kidney disease; N25.81 Secondary hyperparathyroidism of renal origin; E11.21 Type 2 diabetes mellitus with diabetic nephropathy; E86.9 Volume depletion, unspecified; E55.9 Vitamin D deficiency, unspecified; Z79.82 Long term (current) use of aspirin; Z79.02 Long term (current) use of antithrombotics/antiplatelets; Z79.4 Long term (current) use of insulin; Z79.899 Other long term (current) drug therapy; Z88.1 Allergy status to other antibiotic agents; Z88.2 Allergy status to sulfonamides; Z88.8 Allergy status to other drugs, medicaments and biological substances | CPT/HCPCS: 96365; 96375; J1642; J2405 ==

== ENCOUNTER 2019-06-01 00:02 | Day surgery (SDC) | payer OTHER | END 2019-06-01 11:13 | disposition home or self-care (01) | LOC: ATC 00:02 | DX: I12.9 Hypertensive chronic kidney disease with stage 1 through stage 4 chronic kidney disease, or unspecified chronic kidney disease (principal); E11.22 Type 2 diabetes mellitus with diabetic chronic kidney disease; N18.3 Chronic kidney disease, stage 3 (moderate); L03.90 Cellulitis, unspecified; D63.1 Anemia in chronic kidney disease; N25.81 Secondary hyperparathyroidism of renal origin; E11.21 Type 2 diabetes mellitus with diabetic nephropathy; E86.9 Volume depletion, unspecified; E55.9 Vitamin D deficiency, unspecified; R94.6 Abnormal results of thyroid function studies; M85.80 Other specified disorders of bone density and structure, unspecified site; Z79.899 Other long term (current) drug therapy; Z88.1 Allergy status to other antibiotic agents; Z88.2 Allergy status to sulfonamides; Z88.8 Allergy status to other drugs, medicaments and biological substances; Z79.02 Long term (current) use of antithrombotics/antiplatelets; Z79.4 Long term (current) use of insulin | CPT/HCPCS: J1642; J2405 ==

== ENCOUNTER 2019-06-06 15:43 | Emergency (ER) | payer OTHER ==
[~2019-06-06] VITALS: Ht 167.6 cm; Wt 89.4 kg
== END 2019-06-06 17:40 | disposition home or self-care (01) ==
LOC: ER 15:43
DX: S06.9X9A Unspecified intracranial injury with loss of consciousness of unspecified duration, initial encounter (principal); S30.0XXA Contusion of lower back and pelvis, initial encounter; I12.9 Hypertensive chronic kidney disease with stage 1 through stage 4 chronic kidney disease, or unspecified chronic kidney disease; E11.22 Type 2 diabetes mellitus with diabetic chronic kidney disease; N18.9 Chronic kidney disease, unspecified; E11.51 Type 2 diabetes mellitus with diabetic peripheral angiopathy without gangrene; I73.9 Peripheral vascular disease, unspecified; I48.91 Unspecified atrial fibrillation; J44.9 Chronic obstructive pulmonary disease, unspecified; K21.9 Gastro-esophageal reflux disease without esophagitis; Z88.1 Allergy status to other antibiotic agents; Z79.899 Other long term (current) drug therapy; Z79.4 Long term (current) use of insulin; Z79.01 Long term (current) use of anticoagulants; W01.0XXA Fall on same level from slipping, tripping and stumbling without subsequent striking against object, initial encounter
CPT/HCPCS: 70450; 72125; 72131; 99284-25; J2405; J3010

== ENCOUNTER 2019-06-08 00:10 | Day surgery (SDC) | payer OTHER | END 2019-06-08 22:56 | disposition home or self-care (01) | LOC: ATC 00:10 | DX: I12.9 Hypertensive chronic kidney disease with stage 1 through stage 4 chronic kidney disease, or unspecified chronic kidney disease (principal); L03.90 Cellulitis, unspecified; N18.3 Chronic kidney disease, stage 3 (moderate); D63.1 Anemia in chronic kidney disease; E11.21 Type 2 diabetes mellitus with diabetic nephropathy; N25.81 Secondary hyperparathyroidism of renal origin; E11.22 Type 2 diabetes mellitus with diabetic chronic kidney disease ==

== ENCOUNTER 2019-06-18 02:00 | Day surgery (SDC) | payer OTHER ==
[~2019-06-18 02:00] MED LIST changes: -ALLO100 PO; -BUPR150ER PO; -Bumetanide2 MG PO; -DULO60 PO; -GLYXAMBI 10 MG1 EACH PO; -METO5 PO; -NOVOLOG FL100 UNIT/1 SC; -SODIUM THI12.5 GM/50 IV; -TEMA30 PO
== END 2019-06-18 10:10 | disposition home or self-care (01) ==
LOC: ATC 02:00
DX: I12.9 Hypertensive chronic kidney disease with stage 1 through stage 4 chronic kidney disease, or unspecified chronic kidney disease (principal); E11.21 Type 2 diabetes mellitus with diabetic nephropathy; E11.22 Type 2 diabetes mellitus with diabetic chronic kidney disease; N18.3 Chronic kidney disease, stage 3 (moderate); L03.90 Cellulitis, unspecified; D63.1 Anemia in chronic kidney disease; N25.81 Secondary hyperparathyroidism of renal origin; M25.551 Pain in right hip; M25.552 Pain in left hip; Z88.0 Allergy status to penicillin; Z79.82 Long term (current) use of aspirin; Z79.4 Long term (current) use of insulin; Z88.1 Allergy status to other antibiotic agents; Z88.2 Allergy status to sulfonamides; E83.59 Other disorders of calcium metabolism; M85.80 Other specified disorders of bone density and structure, unspecified site; Z79.899 Other long term (current) drug therapy; Z79.02 Long term (current) use of antithrombotics/antiplatelets
CPT/HCPCS: 96365; 96375; J1642; J2405

== ENCOUNTER 2019-06-22 00:02 | Day surgery (SDC) | payer OTHER ==
[2019-06-22 09:27] LABS: BASOPHILS ABSOLUTE AUTO 0.06 K/mm3 (0.00-0.23); BASOPHILS PERCENT AUTO 0 % (0-2); EOSINOPHILS ABSOLUTE AUTO 0.28 K/mm3 (0.00-0.68); EOSINOPHILS PERCENT AUTO 2 % (0-6); Hematocrit 39.1 % (33.0-51.0); Hemoglobin 13.2 g/dL (11.5-16.0); IMMATURE GRAN ABSOLUTE AUTO 0.19 K/mm3 (0.00-0.10); IMMATURE GRAN PERCENT AUTO 1 % (0-1); LYMPHOCYTES ABSOLUTE AUTO 1.04 K/mm3 (0.84-5.20); LYMPHOCYTES PERCENT AUTO 8 % (21-46); MONOCYTES ABSOLUTE AUTO 1.01 K/mm3 (0.16-1.47); MONOCYTES PERCENT AUTO 7 % (4-13); Mean Corpuscular HGB Conc 33.8 g/dL (31.5-36.5); Mean Corpuscular Volume 83 fL (80-100); Mean Platelet Volume 11.5 fL (9.1-12.4); NEUTROPHILS ABSOLUTE AUTO 11.22 K/mm3 (1.96-9.15); NEUTROPHILS PERCENT AUTO 81 % (41-73); Platelet Count 226 K/mm3 (150-400); RDW Coefficient Variation 13.6 % (11.7-14.2); RDW Standard Deviation 41.1 fL (35.1-46.3); Red Blood Cell Count 4.72 M/mm3 (3.80-5.20)
[2019-06-22 09:54] LABS: Alanine Aminotransfer (ALT/SGP 24 U/L (12-78); Albumin, Blood 3.5 g/dL (3.4-5.0); Alk Phos 108 U/L (50-136); Anion Gap 11 mmol/L (6-16); Aspartate Aminotrans (AST/SGOT 13 U/L (12-37); Bilirubin, Direct 0.1 mg/dL (0.0-0.3); Bilirubin, Indirect 0.4 mg/dL (0.1-0.7); Bilirubin, Total 0.5 mg/dL (0.1-1.0); Blood Urea Nitrogen 60 mg/dL (8-24); Bun/Creatinine Ratio 32.4 (12.0-20.0); CO2, Blood 31 mmol/L (21-32); Calcium, Blood 7.9 mg/dL (8.5-10.1); Chloride, Blood 84 mmol/L (98-108); Creatinine, Blood 1.85 mg/dL (0.40-1.00); Globulin, Blood 3.4 g/dL (2.2-4.0); Glomerular Filtration Rate 29 (60-); Glucose, Blood 208 mg/dL (70-99); Phosphorus, Blood 4.1 mg/dL (2.5-4.9); Sodium, Blood 126 mmol/L (136-145); Total Protein, Blood 6.9 g/dL (6.4-8.2)
[2019-06-22 10:01] LABS: Potassium, Blood 2.2 mmol/L (3.5-5.5)
--- NOTE | 2019-06-22 13:15 | NUR ---
1314, THIS RN CALLED AND SPOKE WITH DR HERNDON CONCERNING RESULTS OF LAB, K+ 2.2
[2019-06-22] MEDS ORDERED: OXYC10TA19 PO (17:52)
[2019-06-22] MEDS ORDERED: SPIR25 PO (17:53)
[2019-06-22] MEDS ORDERED: BUPROPION XL150 M1 PO (17:53)
[2019-06-22] MEDS ORDERED: DULO30 PO (17:53)
[2019-06-22] MEDS ORDERED: NOVOLOG FL100 UNIT/1 SC (17:54)
[2019-06-22] MEDS ORDERED: FOLI1 PO (17:55)
[2019-06-22] MEDS ORDERED: GABA300 PO ×2 (17:55→18:20)
[2019-06-22] MEDS ORDERED: METO5 PO (17:55)
[2019-06-22] MEDS ORDERED: GLYXAMBI 10 MG1 EACH PO (17:56)
[2019-06-22] MEDS ORDERED: Bumetanide2 MG PO (17:56)
[2019-06-22] MEDS ORDERED: CLOP75 PO (17:57)
[2019-06-22] MEDS ORDERED: METO25ER PO (18:00)
[2019-06-22] MEDS ORDERED: EUTHYROX125 MCG PO (18:16)
[2019-06-22] MEDS ORDERED: SODIUM THI12.5 GM/50 IV (18:16)
[2019-06-22] MEDS ORDERED: ALLO100 PO (18:17)
[2019-06-22] MEDS ORDERED: TEMA30 PO (18:17)
[2019-06-22] MEDS ORDERED: TOUJEO SOL300 UNIT/1 SC (18:17)
[2019-06-22] MEDS ORDERED: POTA10T PO (18:18)
[2019-06-22] MEDS ORDERED: LAMO100 PO (18:22)
[2019-06-22] MEDS ORDERED: DULO60 PO (21:25)
[2019-06-22] MEDS ORDERED: POTCHL20ER PO ×2 (21:45→21:46)
== END 2019-06-22 10:19 | disposition home or self-care (01) ==
LOC: ATC 00:02
PROVIDERS: Internal Medicine Nephrology
DX: N18.3 Chronic kidney disease, stage 3 (moderate) (principal); L03.90 Cellulitis, unspecified
CPT/HCPCS: 36591; 80053; 82248; 84100; 85025; 96365; 96375; J1642; J2405

== ENCOUNTER 2019-06-22 16:22 | Inpatient (IN) | payer OTHER ==
[~2019-06-22] VITALS: Ht 167.6 cm; Wt 81.4 kg
[2019-06-22] MEDS ORDERED: OXYC10TA19 PO (17:52)
[2019-06-22] MEDS ORDERED: DULO30 PO (17:53)
[2019-06-22] MEDS ORDERED: SPIR25 PO (17:53)
[2019-06-22] MEDS ORDERED: BUPROPION XL150 M1 PO (17:53)
[2019-06-22] MEDS ORDERED: NOVOLOG FL100 UNIT/1 SC (17:54)
[2019-06-22] MEDS ORDERED: FOLI1 PO (17:55)
[2019-06-22] MEDS ORDERED: METO5 PO (17:55)
[2019-06-22] MEDS ORDERED: GABA300 PO ×2 (17:55→18:20)
[2019-06-22] MEDS ORDERED: Bumetanide2 MG PO (17:56)
[2019-06-22] MEDS ORDERED: GLYXAMBI 10 MG1 EACH PO (17:56)
[2019-06-22] MEDS ORDERED: CLOP75 PO (17:57)
[2019-06-22] MEDS ORDERED: METO25ER PO (18:00)
[2019-06-22] MEDS ORDERED: SODIUM THI12.5 GM/50 IV (18:16)
[2019-06-22] MEDS ORDERED: EUTHYROX125 MCG PO (18:16)
[2019-06-22] MEDS ORDERED: TEMA30 PO (18:17)
[2019-06-22] MEDS ORDERED: ALLO100 PO (18:17)
[2019-06-22] MEDS ORDERED: TOUJEO SOL300 UNIT/1 SC (18:17)
[2019-06-22] MEDS ORDERED: POTA10T PO (18:18)
[2019-06-22] MEDS ORDERED: LAMO100 PO (18:22)
[2019-06-22] MEDS ORDERED: DULO60 PO (21:25)
[2019-06-22] MEDS ORDERED: POTCHL20ER PO ×2 (21:45→21:46)
[2019-06-23 05:28] LABS: Hemoglobin 12.6 g/dL (11.5-16.0); Mean Corpuscular HGB 27.9 pg (26.0-34.0); Mean Corpuscular HGB Conc 34.1 g/dL (31.5-36.5); Mean Corpuscular Volume 82 fL (80-100); Mean Platelet Volume 11.9 fL (9.1-12.4); Platelet Count 201 K/mm3 (150-400); RDW Coefficient Variation 13.9 % (11.7-14.2); Red Blood Cell Count 4.52 M/mm3 (3.80-5.20); White Blood Cell Count 9.84 K/mm3 (4.00-11.30)
[2019-06-23 06:00] LABS: Magnesium, Blood 2.1 mg/dL (1.6-2.4)
[2019-06-23 06:15] LABS: Bun/Creatinine Ratio 34.4 (12.0-20.0); Calcium, Blood 8.2 mg/dL (8.5-10.1); Creatinine, Blood 1.89 mg/dL (0.40-1.00)
[2019-06-23 06:18] LABS: Potassium, Blood 2.3 mmol/L (3.5-5.5)
--- NOTE | 2019-06-23 07:57 | NUR ---
SHIFT SUMMARY PT NEW ADMIT TO FLOOR LAST NIGHT FOR LOW K. AOX4. VSS. REPORTS PAIN IN LEFT SIDE/HIP FROM PREVIOUS FALL ON 06/06/19, MEDICATED W/OXYCODONE PER ORDERS. REPORTS NAUSEA & MEDICATED 1X W/ZOFRAN & STATES RELIEF. DENIES DYSPNEA. NS W/20MEQ RUNNING @75/HR. THIS AM PT HAD A CRITICAL K OF 2.3, DR SON WAS NOTIFIED & NEW ORDERS WERE PLACE. CALL LIGHT IN REACH.
--- NOTE | 2019-06-23 12:07 | NUR ---
ALERTED THAT FAMILY BROUGHT IN HOME MED (TOUJAO). NO NEW ORDERS RECIEVED AT THIS TIME BUT SHE STATED SHE'D REVIEW IT.
--- NOTE | 2019-06-23 13:31 | NUR ---
REPORT PROVIDED TO REBECCA DONIS WHO'S NOW RESUMING CARE.
--- NOTE | 2019-06-23 14:51 | NUR ---
PATIENT DISCHARGE PATIENT WHEELED OUT WITH THIS RN AND AT BEDSIDE. PATIENT STATED SHE WOULD FOLLOW UP WITH DR. HERNDON HER PCP ON HER OWN. HE REQUESTED SHE STOP BY HIS OFFICE AFTER SHE LEAVES THE HOSPITAL. PATIENT ON HER WAY OVER THERE. GIVEN BACK HOME MEDICATION TRAJEO. PATIENT HAD NO OTHER REQUESTS. NO NEW SCRIPTS NOTED.
== END 2019-06-23 14:34 | disposition home health service (06) | DRG 641 ==
LOC: ER 16:22 → ERHOLD 16:23 → MEDS 20:47
PROVIDERS: ADMIT Internal Medicine
DX: E87.6 Hypokalemia (principal); N18.4 Chronic kidney disease, stage 4 (severe); E83.42 Hypomagnesemia; E11.22 Type 2 diabetes mellitus with diabetic chronic kidney disease; R29.6 Repeated falls; E11.51 Type 2 diabetes mellitus with diabetic peripheral angiopathy without gangrene; I12.9 Hypertensive chronic kidney disease with stage 1 through stage 4 chronic kidney disease, or unspecified chronic kidney disease; K21.9 Gastro-esophageal reflux disease without esophagitis; I48.0 Paroxysmal atrial fibrillation; E03.9 Hypothyroidism, unspecified; Z79.4 Long term (current) use of insulin; Z79.02 Long term (current) use of antithrombotics/antiplatelets; Z79.899 Other long term (current) drug therapy; R42 Dizziness and giddiness
CPT/HCPCS: 36415; 80048; 82947; 83735; 84132; 85027; 87070; 87147; 93005; 93010; 96365; 96366; 96367; 96375; 97116; 97161; 99285-25; A9270-GY; G0378; J1642; J2405; J3475; J3480

== ENCOUNTER 2019-06-25 00:12 | Day surgery (SDC) | payer OTHER ==
[~2019-06-25 00:12] MED LIST changes: +ALLO100 PO; +BUPROPION XL150 M1 PO; +Bumetanide2 MG PO; +DULO30 PO; +DULO60 PO; +EUTHYROX125 MCG PO; +GLYXAMBI 10 MG1 EACH PO; +METO5 PO; +NOVOLOG FL100 UNIT/1 SC; +SODIUM THI12.5 GM/50 IV; +TEMA30 PO
[2019-06-25 09:55] LABS: Albumin, Blood 3.1 g/dL (3.4-5.0); Anion Gap 8 mmol/L (6-16); Blood Urea Nitrogen 45 mg/dL (8-24); Bun/Creatinine Ratio 32.8 (12.0-20.0); CO2, Blood 24 mmol/L (21-32); Calcium, Blood 8.1 mg/dL (8.5-10.1); Chloride, Blood 105 mmol/L (98-108); Creatinine, Blood 1.37 mg/dL (0.40-1.00); Glomerular Filtration Rate 41 (60-); Glucose, Blood 136 mg/dL (70-99); Magnesium, Blood 1.7 mg/dL (1.6-2.4); Phosphorus, Blood 2.3 mg/dL (2.5-4.9); Potassium, Blood 3.7 mmol/L (3.5-5.5); Sodium, Blood 137 mmol/L (136-145)
--- NOTE | 2019-06-25 11:23 | NUR ---
PT VERY SLEEPY. AWAKENS EASILY.
[2019-06-28] MEDS ORDERED: Tamiflu75 MG PO (18:42)
== END 2019-06-25 10:15 | disposition home or self-care (01) ==
LOC: ATC 00:12
PROVIDERS: Internal Medicine Nephrology
DX: E87.6 Hypokalemia (principal); L03.90 Cellulitis, unspecified; E11.22 Type 2 diabetes mellitus with diabetic chronic kidney disease; I12.9 Hypertensive chronic kidney disease with stage 1 through stage 4 chronic kidney disease, or unspecified chronic kidney disease; E11.51 Type 2 diabetes mellitus with diabetic peripheral angiopathy without gangrene; E03.9 Hypothyroidism, unspecified; N18.4 Chronic kidney disease, stage 4 (severe); E83.42 Hypomagnesemia; J45.909 Unspecified asthma, uncomplicated; K21.9 Gastro-esophageal reflux disease without esophagitis; Z88.1 Allergy status to other antibiotic agents; Z79.4 Long term (current) use of insulin; Z91.81 History of falling; Z79.899 Other long term (current) drug therapy
CPT/HCPCS: 80069; 83735; 85018; J1642; J2405

== ENCOUNTER 2019-07-02 00:56 | Day surgery (SDC) | payer OTHER ==
[~2019-07-02 00:56] MED LIST changes: +Tamiflu75 MG PO
== END 2019-07-02 23:26 | disposition home or self-care (01) ==
LOC: ATC 00:56
DX: I12.9 Hypertensive chronic kidney disease with stage 1 through stage 4 chronic kidney disease, or unspecified chronic kidney disease (principal); E11.22 Type 2 diabetes mellitus with diabetic chronic kidney disease; N18.4 Chronic kidney disease, stage 4 (severe); E03.9 Hypothyroidism, unspecified; E11.51 Type 2 diabetes mellitus with diabetic peripheral angiopathy without gangrene; J45.909 Unspecified asthma, uncomplicated; K21.9 Gastro-esophageal reflux disease without esophagitis; I48.0 Paroxysmal atrial fibrillation; E83.59 Other disorders of calcium metabolism; Z88.1 Allergy status to other antibiotic agents; Z79.02 Long term (current) use of antithrombotics/antiplatelets; Z79.4 Long term (current) use of insulin; Z79.899 Other long term (current) drug therapy

== ENCOUNTER 2019-07-04 18:18 | Emergency (ER) | payer OTHER ==
[~2019-07-04] VITALS: Ht 167.6 cm; Wt 86.6 kg
[2019-07-04 20:08] LABS: BASOPHILS ABSOLUTE AUTO 0.06 K/mm3 (0.00-0.23); BASOPHILS PERCENT AUTO 0 % (0-2); EOSINOPHILS ABSOLUTE AUTO 0.31 K/mm3 (0.00-0.68); EOSINOPHILS PERCENT AUTO 2 % (0-6); Hematocrit 35.1 % (33.0-51.0); Hemoglobin 11.4 g/dL (11.5-16.0); IMMATURE GRAN ABSOLUTE AUTO 0.44 K/mm3 (0.00-0.10); IMMATURE GRAN PERCENT AUTO 3 % (0-1); LYMPHOCYTES ABSOLUTE AUTO 0.89 K/mm3 (0.84-5.20); LYMPHOCYTES PERCENT AUTO 6 % (21-46); MONOCYTES ABSOLUTE AUTO 0.77 K/mm3 (0.16-1.47); MONOCYTES PERCENT AUTO 6 % (4-13); Mean Corpuscular HGB 27.7 pg (26.0-34.0); Mean Corpuscular HGB Conc 32.5 g/dL (31.5-36.5); Mean Corpuscular Volume 85 fL (80-100); Mean Platelet Volume 11.1 fL (9.1-12.4); NEUTROPHILS ABSOLUTE AUTO 11.62 K/mm3 (1.96-9.15); NEUTROPHILS PERCENT AUTO 83 % (41-73); Platelet Count 295 K/mm3 (150-400); RDW Coefficient Variation 14.6 % (11.7-14.2); RDW Standard Deviation 45.7 fL (35.1-46.3); Red Blood Cell Count 4.12 M/mm3 (3.80-5.20); White Blood Cell Count 14.09 K/mm3 (4.00-11.30)
[2019-07-04 20:27] LABS: Albumin, Blood 3.1 g/dL (3.4-5.0); Albumin/Globulin Ratio 0.8 (0.8-1.8); Bilirubin, Total 0.3 mg/dL (0.1-1.0); Calcium, Blood 8.4 mg/dL (8.5-10.1); Creatinine, Blood 1.31 mg/dL (0.40-1.00); Globulin, Blood 3.9 g/dL (2.2-4.0); Potassium, Blood 4.5 mmol/L (3.5-5.5)
[2019-07-04] MEDS ORDERED: AZIT250 PO (20:49)
[2019-07-04] MEDS ORDERED: Augmentin 875-1 EACH PO (20:49)
[2019-07-04] MEDS ORDERED: GUAIFENESIN-CODE5 ML PO (20:52)
== END 2019-07-04 21:22 | disposition home or self-care (01) ==
LOC: ER 18:18
PROVIDERS: Physician Assistant
DX: J18.9 Pneumonia, unspecified organism (principal); J02.9 Acute pharyngitis, unspecified; E11.51 Type 2 diabetes mellitus with diabetic peripheral angiopathy without gangrene; E11.22 Type 2 diabetes mellitus with diabetic chronic kidney disease; N18.9 Chronic kidney disease, unspecified; I12.9 Hypertensive chronic kidney disease with stage 1 through stage 4 chronic kidney disease, or unspecified chronic kidney disease; J44.9 Chronic obstructive pulmonary disease, unspecified; K21.9 Gastro-esophageal reflux disease without esophagitis; I48.91 Unspecified atrial fibrillation; Z88.1 Allergy status to other antibiotic agents; Z79.4 Long term (current) use of insulin; Z79.899 Other long term (current) drug therapy
CPT/HCPCS: 71046; 80053; 83605; 85025; 96365; 99283-25; J0696

== ENCOUNTER 2019-07-09 11:02 | Day surgery (SDC) | payer OTHER ==
[~2019-07-09 11:02] MED LIST changes: +GUAIFENESIN-CODE5 ML PO
[2019-07-09 11:06] LABS: Alanine Aminotransfer (ALT/SGP 22 U/L (12-78); Albumin/Globulin Ratio 0.9 (0.8-1.8); Alk Phos 95 U/L (50-136); Anion Gap 5 mmol/L (6-16); Aspartate Aminotrans (AST/SGOT 12 U/L (12-37); Bilirubin, Direct <0.1 mg/dL (0.0-0.3); Bilirubin, Indirect Unable to Calculate mg/dL (0.1-0.7); Bilirubin, Total 0.3 mg/dL (0.1-1.0); Blood Urea Nitrogen 21 mg/dL (8-24); Bun/Creatinine Ratio 16.2 (12.0-20.0); CO2, Blood 26 mmol/L (21-32); Calcium, Blood 8.4 mg/dL (8.5-10.1); Chloride, Blood 108 mmol/L (98-108); Globulin, Blood 3.3 g/dL (2.2-4.0); Glomerular Filtration Rate 43 (60-); Glucose, Blood 146 mg/dL (70-99); Phosphorus, Blood 3.8 mg/dL (2.5-4.9); Potassium, Blood 4.6 mmol/L (3.5-5.5); Sodium, Blood 139 mmol/L (136-145); Total Protein, Blood 6.3 g/dL (6.4-8.2)
== END 2019-07-09 11:09 | disposition home or self-care (01) ==
LOC: ATC 11:02
PROVIDERS: Internal Medicine Nephrology
DX: E87.6 Hypokalemia (principal); E83.42 Hypomagnesemia; I12.9 Hypertensive chronic kidney disease with stage 1 through stage 4 chronic kidney disease, or unspecified chronic kidney disease; E11.51 Type 2 diabetes mellitus with diabetic peripheral angiopathy without gangrene; E11.22 Type 2 diabetes mellitus with diabetic chronic kidney disease; N18.4 Chronic kidney disease, stage 4 (severe); E03.9 Hypothyroidism, unspecified; Z91.81 History of falling; Z79.02 Long term (current) use of antithrombotics/antiplatelets; Z79.4 Long term (current) use of insulin; Z79.899 Other long term (current) drug therapy; J45.909 Unspecified asthma, uncomplicated; K21.9 Gastro-esophageal reflux disease without esophagitis; Z88.1 Allergy status to other antibiotic agents
CPT/HCPCS: 36591; 80053; 82248; 84100; 96365; J1642; J2405

== ENCOUNTER 2019-07-13 00:03 | Day surgery (SDC) | payer OTHER | END 2019-07-13 11:03 | disposition home or self-care (01) | LOC: ATC 00:03 | DX: E87.6 Hypokalemia (principal); E83.42 Hypomagnesemia; E11.22 Type 2 diabetes mellitus with diabetic chronic kidney disease; E11.51 Type 2 diabetes mellitus with diabetic peripheral angiopathy without gangrene; I12.9 Hypertensive chronic kidney disease with stage 1 through stage 4 chronic kidney disease, or unspecified chronic kidney disease; E03.9 Hypothyroidism, unspecified; L03.90 Cellulitis, unspecified; N18.4 Chronic kidney disease, stage 4 (severe); J45.909 Unspecified asthma, uncomplicated; K21.9 Gastro-esophageal reflux disease without esophagitis; Z88.1 Allergy status to other antibiotic agents; Z79.4 Long term (current) use of insulin; Z79.02 Long term (current) use of antithrombotics/antiplatelets; Z79.899 Other long term (current) drug therapy; Z91.81 History of falling | CPT/HCPCS: 96365; J1642; J2405 ==

== ENCOUNTER 2019-07-16 02:37 | Day surgery (SDC) | payer OTHER ==
--- NOTE | 2019-07-21 10:49 | NUR ---
LATE ENTRY: 07/16/2019 SODIUM THIOSULFATE STOP TIME 1055.
== END 2019-07-16 10:59 | disposition home or self-care (01) ==
LOC: ATC 02:37
DX: E11.22 Type 2 diabetes mellitus with diabetic chronic kidney disease (principal); I12.9 Hypertensive chronic kidney disease with stage 1 through stage 4 chronic kidney disease, or unspecified chronic kidney disease; N18.4 Chronic kidney disease, stage 4 (severe); L03.90 Cellulitis, unspecified; E03.9 Hypothyroidism, unspecified; E11.51 Type 2 diabetes mellitus with diabetic peripheral angiopathy without gangrene; R42 Dizziness and giddiness; E87.6 Hypokalemia; E83.42 Hypomagnesemia; K21.9 Gastro-esophageal reflux disease without esophagitis; Z88.1 Allergy status to other antibiotic agents; Z79.02 Long term (current) use of antithrombotics/antiplatelets; Z79.899 Other long term (current) drug therapy; Z79.4 Long term (current) use of insulin
CPT/HCPCS: 96365; 96375; J1642; J2405

== ENCOUNTER 2019-07-20 00:18 | Day surgery (SDC) | payer OTHER | END 2019-07-20 10:55 | disposition home or self-care (01) | LOC: ATC 00:18 | DX: I12.9 Hypertensive chronic kidney disease with stage 1 through stage 4 chronic kidney disease, or unspecified chronic kidney disease (principal); E11.22 Type 2 diabetes mellitus with diabetic chronic kidney disease; N18.4 Chronic kidney disease, stage 4 (severe); L03.90 Cellulitis, unspecified; E11.51 Type 2 diabetes mellitus with diabetic peripheral angiopathy without gangrene; I73.9 Peripheral vascular disease, unspecified; I48.0 Paroxysmal atrial fibrillation; E03.9 Hypothyroidism, unspecified; Z79.899 Other long term (current) drug therapy; Z79.01 Long term (current) use of anticoagulants; Z79.4 Long term (current) use of insulin | CPT/HCPCS: 96365; 96375; J1642; J2405 ==

== ENCOUNTER 2019-07-23 00:42 | Day surgery (SDC) | payer OTHER | END 2019-07-23 11:17 | disposition home or self-care (01) | LOC: ATC 00:42 | DX: I12.9 Hypertensive chronic kidney disease with stage 1 through stage 4 chronic kidney disease, or unspecified chronic kidney disease (principal); E11.22 Type 2 diabetes mellitus with diabetic chronic kidney disease; N18.4 Chronic kidney disease, stage 4 (severe); E87.6 Hypokalemia; I48.0 Paroxysmal atrial fibrillation; E11.51 Type 2 diabetes mellitus with diabetic peripheral angiopathy without gangrene; E03.9 Hypothyroidism, unspecified; K21.9 Gastro-esophageal reflux disease without esophagitis; J45.909 Unspecified asthma, uncomplicated; E83.42 Hypomagnesemia; Z79.4 Long term (current) use of insulin; Z79.899 Other long term (current) drug therapy | CPT/HCPCS: 96365; 96375; J1642; J2405 ==

== ENCOUNTER 2019-07-30 00:28 | Day surgery (SDC) | payer OTHER | END 2019-07-30 10:53 | disposition home or self-care (01) | LOC: ATC 00:28 | DX: I12.9 Hypertensive chronic kidney disease with stage 1 through stage 4 chronic kidney disease, or unspecified chronic kidney disease (principal); E11.22 Type 2 diabetes mellitus with diabetic chronic kidney disease; N18.4 Chronic kidney disease, stage 4 (severe); L03.90 Cellulitis, unspecified; I48.0 Paroxysmal atrial fibrillation; E11.51 Type 2 diabetes mellitus with diabetic peripheral angiopathy without gangrene; E03.9 Hypothyroidism, unspecified; J45.909 Unspecified asthma, uncomplicated; K21.9 Gastro-esophageal reflux disease without esophagitis; E87.6 Hypokalemia; E83.42 Hypomagnesemia; Z88.1 Allergy status to other antibiotic agents; Z79.02 Long term (current) use of antithrombotics/antiplatelets; Z79.4 Long term (current) use of insulin; Z79.899 Other long term (current) drug therapy; Z91.81 History of falling | CPT/HCPCS: J1642; J2405 ==

== ENCOUNTER 2019-08-27 00:27 | Day surgery (SDC) | payer OTHER | END 2019-08-27 11:02 | disposition home or self-care (01) | LOC: ATC 00:27 | DX: E11.22 Type 2 diabetes mellitus with diabetic chronic kidney disease (principal); I12.9 Hypertensive chronic kidney disease with stage 1 through stage 4 chronic kidney disease, or unspecified chronic kidney disease; N18.4 Chronic kidney disease, stage 4 (severe); E87.6 Hypokalemia; E03.9 Hypothyroidism, unspecified; J45.909 Unspecified asthma, uncomplicated; Z88.1 Allergy status to other antibiotic agents; Z79.4 Long term (current) use of insulin; Z79.02 Long term (current) use of antithrombotics/antiplatelets; Z79.899 Other long term (current) drug therapy; E83.42 Hypomagnesemia; E11.51 Type 2 diabetes mellitus with diabetic peripheral angiopathy without gangrene; Z91.81 History of falling | CPT/HCPCS: J1642; J2405 ==

== ENCOUNTER 2019-09-10 00:11 | Day surgery (SDC) | payer OTHER | END 2019-09-10 11:22 | disposition home or self-care (01) | LOC: ATC 00:11 | DX: I12.0 Hypertensive chronic kidney disease with stage 5 chronic kidney disease or end stage renal disease (principal); E11.22 Type 2 diabetes mellitus with diabetic chronic kidney disease; L03.90 Cellulitis, unspecified; E87.6 Hypokalemia; N18.4 Chronic kidney disease, stage 4 (severe); E03.9 Hypothyroidism, unspecified; E11.51 Type 2 diabetes mellitus with diabetic peripheral angiopathy without gangrene; I48.0 Paroxysmal atrial fibrillation; K21.9 Gastro-esophageal reflux disease without esophagitis; E83.42 Hypomagnesemia; J45.909 Unspecified asthma, uncomplicated; Z88.1 Allergy status to other antibiotic agents; Z79.4 Long term (current) use of insulin; Z79.899 Other long term (current) drug therapy; Z79.02 Long term (current) use of antithrombotics/antiplatelets; Z91.81 History of falling | CPT/HCPCS: J1642; J2405 ==

== ENCOUNTER 2019-09-14 00:06 | Day surgery (SDC) | payer OTHER ==
[2019-09-14 11:58] LABS: Albumin, Blood 3.4 g/dL (3.4-5.0); Anion Gap 15 mmol/L (6-16); Blood Urea Nitrogen 29 mg/dL (8-24); Bun/Creatinine Ratio 21.8 (12.0-20.0); CO2, Blood 23 mmol/L (21-32); Calcium, Blood 7.7 mg/dL (8.5-10.1); Chloride, Blood 101 mmol/L (98-108); Creatinine, Blood 1.33 mg/dL (0.40-1.00); Glomerular Filtration Rate 42 (60-); Glucose, Blood 261 mg/dL (70-99); Phosphorus, Blood 3.1 mg/dL (2.5-4.9); Potassium, Blood 4.1 mmol/L (3.5-5.5); Sodium, Blood 139 mmol/L (136-145)
== END 2019-09-14 11:05 | disposition home or self-care (01) ==
LOC: ATC 00:06
PROVIDERS: Internal Medicine Nephrology
DX: I12.9 Hypertensive chronic kidney disease with stage 1 through stage 4 chronic kidney disease, or unspecified chronic kidney disease (principal); N18.3 Chronic kidney disease, stage 3 (moderate); L03.90 Cellulitis, unspecified; E11.22 Type 2 diabetes mellitus with diabetic chronic kidney disease; E11.51 Type 2 diabetes mellitus with diabetic peripheral angiopathy without gangrene; E03.9 Hypothyroidism, unspecified; I48.0 Paroxysmal atrial fibrillation; K21.9 Gastro-esophageal reflux disease without esophagitis; Z88.1 Allergy status to other antibiotic agents; Z79.02 Long term (current) use of antithrombotics/antiplatelets; Z79.4 Long term (current) use of insulin; Z79.899 Other long term (current) drug therapy
CPT/HCPCS: 80069; 85018; 96365; 96375; J1642; J2405

== ENCOUNTER 2019-09-17 00:09 | Day surgery (SDC) | payer OTHER | END 2019-09-17 11:02 | disposition home or self-care (01) | LOC: ATC 00:09 | DX: I12.9 Hypertensive chronic kidney disease with stage 1 through stage 4 chronic kidney disease, or unspecified chronic kidney disease (principal); N18.3 Chronic kidney disease, stage 3 (moderate); L03.90 Cellulitis, unspecified; E03.9 Hypothyroidism, unspecified; E11.22 Type 2 diabetes mellitus with diabetic chronic kidney disease; E11.51 Type 2 diabetes mellitus with diabetic peripheral angiopathy without gangrene; I48.0 Paroxysmal atrial fibrillation; K21.9 Gastro-esophageal reflux disease without esophagitis; J45.909 Unspecified asthma, uncomplicated; Z88.1 Allergy status to other antibiotic agents; Z79.02 Long term (current) use of antithrombotics/antiplatelets; Z79.4 Long term (current) use of insulin; Z79.899 Other long term (current) drug therapy | CPT/HCPCS: 96365; 96375; J1642; J2405 ==

== ENCOUNTER 2019-09-21 00:07 | Day surgery (SDC) | payer OTHER | END 2019-09-21 11:02 | disposition home or self-care (01) | DX: I12.9 Hypertensive chronic kidney disease with stage 1 through stage 4 chronic kidney disease, or unspecified chronic kidney disease (principal); N18.3 Chronic kidney disease, stage 3 (moderate); L03.90 Cellulitis, unspecified; E11.22 Type 2 diabetes mellitus with diabetic chronic kidney disease; E03.9 Hypothyroidism, unspecified; E11.51 Type 2 diabetes mellitus with diabetic peripheral angiopathy without gangrene; I48.0 Paroxysmal atrial fibrillation; Z79.4 Long term (current) use of insulin; Z79.899 Other long term (current) drug therapy; Z88.1 Allergy status to other antibiotic agents ==

== ENCOUNTER 2019-10-01 00:48 | Day surgery (SDC) | payer OTHER | END 2019-10-01 11:04 | disposition home or self-care (01) | LOC: ATC 00:48 | DX: I12.9 Hypertensive chronic kidney disease with stage 1 through stage 4 chronic kidney disease, or unspecified chronic kidney disease (principal); E11.22 Type 2 diabetes mellitus with diabetic chronic kidney disease; N18.3 Chronic kidney disease, stage 3 (moderate); Z91.81 History of falling; E11.51 Type 2 diabetes mellitus with diabetic peripheral angiopathy without gangrene; E03.9 Hypothyroidism, unspecified; E87.6 Hypokalemia; E83.42 Hypomagnesemia; Z79.4 Long term (current) use of insulin; Z79.02 Long term (current) use of antithrombotics/antiplatelets; Z79.899 Other long term (current) drug therapy; J45.909 Unspecified asthma, uncomplicated; K21.9 Gastro-esophageal reflux disease without esophagitis | CPT/HCPCS: 96365; 96375; J1642; J2405 ==

== ENCOUNTER 2019-10-08 00:21 | Day surgery (SDC) | payer OTHER | END 2019-10-08 11:40 | disposition home or self-care (01) | LOC: ATC 00:21 | DX: I12.9 Hypertensive chronic kidney disease with stage 1 through stage 4 chronic kidney disease, or unspecified chronic kidney disease (principal); E11.22 Type 2 diabetes mellitus with diabetic chronic kidney disease; N18.3 Chronic kidney disease, stage 3 (moderate); E11.51 Type 2 diabetes mellitus with diabetic peripheral angiopathy without gangrene; E03.9 Hypothyroidism, unspecified; Z91.81 History of falling; E87.6 Hypokalemia; E83.42 Hypomagnesemia; J45.909 Unspecified asthma, uncomplicated; K21.9 Gastro-esophageal reflux disease without esophagitis; Z88.1 Allergy status to other antibiotic agents; Z79.899 Other long term (current) drug therapy; Z79.02 Long term (current) use of antithrombotics/antiplatelets; Z79.4 Long term (current) use of insulin | CPT/HCPCS: 96365; 96375 ==

== ENCOUNTER 2019-10-12 00:02 | Day surgery (SDC) | payer OTHER | END 2019-10-12 13:00 | disposition home or self-care (01) | LOC: ATC 00:02 | DX: I12.9 Hypertensive chronic kidney disease with stage 1 through stage 4 chronic kidney disease, or unspecified chronic kidney disease (principal); E11.22 Type 2 diabetes mellitus with diabetic chronic kidney disease; N18.3 Chronic kidney disease, stage 3 (moderate); D63.1 Anemia in chronic kidney disease; Z79.899 Other long term (current) drug therapy; Z79.82 Long term (current) use of aspirin; Z88.1 Allergy status to other antibiotic agents; Z88.2 Allergy status to sulfonamides; Z88.8 Allergy status to other drugs, medicaments and biological substances; N25.81 Secondary hyperparathyroidism of renal origin; E87.1 Hypo-osmolality and hyponatremia; E87.6 Hypokalemia; E55.9 Vitamin D deficiency, unspecified; E03.9 Hypothyroidism, unspecified; E79.0 Hyperuricemia without signs of inflammatory arthritis and tophaceous disease; Z79.02 Long term (current) use of antithrombotics/antiplatelets; Z79.4 Long term (current) use of insulin | CPT/HCPCS: 96365; 96375; J1642; J2405 ==

== ENCOUNTER 2019-10-15 00:23 | Day surgery (SDC) | payer OTHER ==
--- NOTE | 2019-10-18 17:21 | NUR ---
STOP TIME FOR SODIUM THIOSULFATE ON 10-15-19 WAS 1050
== END 2019-10-15 10:40 | disposition home or self-care (01) ==
LOC: ATC 00:23
DX: I12.9 Hypertensive chronic kidney disease with stage 1 through stage 4 chronic kidney disease, or unspecified chronic kidney disease (principal); E11.22 Type 2 diabetes mellitus with diabetic chronic kidney disease; N18.3 Chronic kidney disease, stage 3 (moderate); D63.1 Anemia in chronic kidney disease; N25.81 Secondary hyperparathyroidism of renal origin; E87.1 Hypo-osmolality and hyponatremia; E55.9 Vitamin D deficiency, unspecified; E03.9 Hypothyroidism, unspecified; E79.0 Hyperuricemia without signs of inflammatory arthritis and tophaceous disease; Z79.899 Other long term (current) drug therapy; Z79.82 Long term (current) use of aspirin; Z88.2 Allergy status to sulfonamides; Z88.1 Allergy status to other antibiotic agents; Z79.02 Long term (current) use of antithrombotics/antiplatelets; Z79.4 Long term (current) use of insulin
CPT/HCPCS: 96365; 96375; J1642; J2405

== ENCOUNTER 2019-10-22 01:20 | Day surgery (SDC) | payer OTHER ==
[2019-10-26] MEDS ORDERED: METO5 PO (10:39)
== END 2019-10-22 11:00 | disposition home or self-care (01) ==
LOC: ATC 01:20
DX: I12.9 Hypertensive chronic kidney disease with stage 1 through stage 4 chronic kidney disease, or unspecified chronic kidney disease (principal); E11.22 Type 2 diabetes mellitus with diabetic chronic kidney disease; N18.3 Chronic kidney disease, stage 3 (moderate); D63.1 Anemia in chronic kidney disease; N25.81 Secondary hyperparathyroidism of renal origin; E87.1 Hypo-osmolality and hyponatremia; E87.6 Hypokalemia; E55.9 Vitamin D deficiency, unspecified; E03.9 Hypothyroidism, unspecified; E79.0 Hyperuricemia without signs of inflammatory arthritis and tophaceous disease; Z88.2 Allergy status to sulfonamides; Z88.1 Allergy status to other antibiotic agents; Z88.0 Allergy status to penicillin; Z88.8 Allergy status to other drugs, medicaments and biological substances; Z79.899 Other long term (current) drug therapy; Z79.02 Long term (current) use of antithrombotics/antiplatelets; Z79.4 Long term (current) use of insulin
CPT/HCPCS: 96365; 96375; J1642; J2405

== ENCOUNTER 2019-11-09 00:04 | Day surgery (SDC) | payer OTHER ==
[~2019-11-09 00:04] MED LIST changes: -NOVOLOG FL100 UNIT/1 SC; +NOVOLOG FL100 UNIT/3 SC; +SODIUM THI IV; -SODIUM THI12.5 GM/50 IV; +TOUJEO SOL300 UNIT/2 SC
== END 2019-11-09 10:43 | disposition home or self-care (01) ==
LOC: ATC 00:04
DX: I12.9 Hypertensive chronic kidney disease with stage 1 through stage 4 chronic kidney disease, or unspecified chronic kidney disease (principal); E11.22 Type 2 diabetes mellitus with diabetic chronic kidney disease; N18.3 Chronic kidney disease, stage 3 (moderate); D63.1 Anemia in chronic kidney disease; N25.81 Secondary hyperparathyroidism of renal origin; E87.1 Hypo-osmolality and hyponatremia; E87.6 Hypokalemia; E55.9 Vitamin D deficiency, unspecified; E03.9 Hypothyroidism, unspecified; E79.0 Hyperuricemia without signs of inflammatory arthritis and tophaceous disease; Z88.2 Allergy status to sulfonamides; Z88.1 Allergy status to other antibiotic agents; Z79.82 Long term (current) use of aspirin; Z79.02 Long term (current) use of antithrombotics/antiplatelets; Z79.899 Other long term (current) drug therapy; Z79.4 Long term (current) use of insulin
CPT/HCPCS: 96365; 96375; J1642; J2405

== ENCOUNTER 2019-11-16 01:17 | Day surgery (SDC) | payer OTHER | END 2019-11-16 11:18 | disposition home or self-care (01) | LOC: ATC 01:17 | DX: I12.9 Hypertensive chronic kidney disease with stage 1 through stage 4 chronic kidney disease, or unspecified chronic kidney disease (principal); E11.22 Type 2 diabetes mellitus with diabetic chronic kidney disease; N18.3 Chronic kidney disease, stage 3 (moderate); N25.81 Secondary hyperparathyroidism of renal origin; E87.6 Hypokalemia; E55.9 Vitamin D deficiency, unspecified; E87.1 Hypo-osmolality and hyponatremia; E03.9 Hypothyroidism, unspecified; E79.0 Hyperuricemia without signs of inflammatory arthritis and tophaceous disease; Z79.899 Other long term (current) drug therapy; Z79.82 Long term (current) use of aspirin; Z88.0 Allergy status to penicillin; Z88.1 Allergy status to other antibiotic agents; Z88.2 Allergy status to sulfonamides; Z79.02 Long term (current) use of antithrombotics/antiplatelets; Z79.4 Long term (current) use of insulin | CPT/HCPCS: 96365; 96375; J1642; J2405 ==

== ENCOUNTER 2019-12-12 20:25 | Emergency (ER) | payer OTHER ==
[~2019-12-12] VITALS: Ht 167.6 cm; Wt 91.6 kg
[2019-12-12] MEDS ORDERED: Monodox100 MG PO (22:24)
== END 2019-12-12 22:52 | disposition home or self-care (01) ==
LOC: ER 20:25
DX: L03.317 Cellulitis of buttock (principal); I10 Essential (primary) hypertension; E11.9 Type 2 diabetes mellitus without complications; Z88.1 Allergy status to other antibiotic agents; Z88.0 Allergy status to penicillin; Z79.4 Long term (current) use of insulin; Z79.02 Long term (current) use of antithrombotics/antiplatelets; Z79.899 Other long term (current) drug therapy; Z87.891 Personal history of nicotine dependence; Z90.710 Acquired absence of both cervix and uterus
CPT/HCPCS: 72192; 99283-25

== ENCOUNTER 2019-12-14 00:07 | Day surgery (SDC) | payer OTHER | END 2019-12-14 11:28 | disposition home or self-care (01) | LOC: ATC 00:07 | DX: I12.9 Hypertensive chronic kidney disease with stage 1 through stage 4 chronic kidney disease, or unspecified chronic kidney disease (principal); N18.3 Chronic kidney disease, stage 3 (moderate); L03.90 Cellulitis, unspecified; D63.1 Anemia in chronic kidney disease; E11.22 Type 2 diabetes mellitus with diabetic chronic kidney disease; E11.21 Type 2 diabetes mellitus with diabetic nephropathy; Z88.1 Allergy status to other antibiotic agents; Z88.2 Allergy status to sulfonamides | CPT/HCPCS: 96365; 96375; J1642; J2405 ==

== ENCOUNTER 2019-12-17 00:28 | Day surgery (SDC) | payer OTHER ==
[2019-12-17] MEDS ORDERED: MONDOXYNE NL100 MG PO (10:34)
[2019-12-17 11:01] LABS: Anion Gap 7 mmol/L (6-16); Blood Urea Nitrogen 41 mg/dL (8-24); Bun/Creatinine Ratio 24.8 (12.0-20.0); CO2, Blood 25 mmol/L (21-32); Calcium, Blood 8.6 mg/dL (8.5-10.1); Chloride, Blood 104 mmol/L (98-108); Creatinine, Blood 1.65 mg/dL (0.40-1.00); Glomerular Filtration Rate 33 (60-); Glucose, Blood 181 mg/dL (70-99); Phosphorus, Blood 4.3 mg/dL (2.5-4.9); Potassium, Blood 4.4 mmol/L (3.5-5.5); Sodium, Blood 136 mmol/L (136-145); Uric Acid, Blood 6.1 mg/dL (2.6-6.0)
== END 2019-12-17 11:01 | disposition home or self-care (01) ==
LOC: ATC 00:28
PROVIDERS: Internal Medicine Nephrology
DX: I12.9 Hypertensive chronic kidney disease with stage 1 through stage 4 chronic kidney disease, or unspecified chronic kidney disease (principal); E11.22 Type 2 diabetes mellitus with diabetic chronic kidney disease; N18.3 Chronic kidney disease, stage 3 (moderate); D63.1 Anemia in chronic kidney disease; N25.81 Secondary hyperparathyroidism of renal origin; E87.1 Hypo-osmolality and hyponatremia; E87.6 Hypokalemia; E55.9 Vitamin D deficiency, unspecified; E03.9 Hypothyroidism, unspecified; E79.0 Hyperuricemia without signs of inflammatory arthritis and tophaceous disease; Z79.899 Other long term (current) drug therapy; Z88.0 Allergy status to penicillin; Z88.2 Allergy status to sulfonamides; Z88.1 Allergy status to other antibiotic agents; Z88.8 Allergy status to other drugs, medicaments and biological substances; Z79.02 Long term (current) use of antithrombotics/antiplatelets; Z79.4 Long term (current) use of insulin
CPT/HCPCS: 80069; 84550; 85018; 96365; 96375; J1642; J2405

== ENCOUNTER 2019-12-21 00:32 | Day surgery (SDC) | payer OTHER ==
[~2019-12-21 00:32] MED LIST changes: +MONDOXYNE NL100 MG PO
== END 2019-12-21 11:05 | disposition home or self-care (01) ==
LOC: ATC 00:32
DX: I12.9 Hypertensive chronic kidney disease with stage 1 through stage 4 chronic kidney disease, or unspecified chronic kidney disease (principal); E11.22 Type 2 diabetes mellitus with diabetic chronic kidney disease; N18.3 Chronic kidney disease, stage 3 (moderate); D63.1 Anemia in chronic kidney disease; N25.81 Secondary hyperparathyroidism of renal origin; E87.1 Hypo-osmolality and hyponatremia; E87.6 Hypokalemia; E55.9 Vitamin D deficiency, unspecified; E03.9 Hypothyroidism, unspecified; E79.0 Hyperuricemia without signs of inflammatory arthritis and tophaceous disease; Z88.2 Allergy status to sulfonamides; Z88.8 Allergy status to other drugs, medicaments and biological substances; Z88.1 Allergy status to other antibiotic agents; Z79.82 Long term (current) use of aspirin; Z79.899 Other long term (current) drug therapy; Z79.02 Long term (current) use of antithrombotics/antiplatelets; Z79.4 Long term (current) use of insulin
CPT/HCPCS: 96365; 96375; J1642; J2405

== ENCOUNTER 2019-12-28 00:05 | Day surgery (SDC) | payer OTHER | END 2019-12-28 10:59 | disposition home or self-care (01) | LOC: ATC 00:05 | DX: I12.9 Hypertensive chronic kidney disease with stage 1 through stage 4 chronic kidney disease, or unspecified chronic kidney disease (principal); E11.22 Type 2 diabetes mellitus with diabetic chronic kidney disease; D63.1 Anemia in chronic kidney disease; N18.3 Chronic kidney disease, stage 3 (moderate); N25.81 Secondary hyperparathyroidism of renal origin; E87.1 Hypo-osmolality and hyponatremia; E87.6 Hypokalemia; E55.9 Vitamin D deficiency, unspecified; E03.9 Hypothyroidism, unspecified; E79.0 Hyperuricemia without signs of inflammatory arthritis and tophaceous disease; Z79.899 Other long term (current) drug therapy; Z79.82 Long term (current) use of aspirin; Z88.0 Allergy status to penicillin; Z88.2 Allergy status to sulfonamides; Z88.8 Allergy status to other drugs, medicaments and biological substances; Z88.1 Allergy status to other antibiotic agents; Z79.02 Long term (current) use of antithrombotics/antiplatelets; Z79.4 Long term (current) use of insulin | CPT/HCPCS: 96365; 96375; J1642; J2405 ==

== ENCOUNTER 2019-12-31 11:47 | Emergency (ER) | payer OTHER ==
[~2019-12-31] VITALS: Ht 165.1 cm; Wt 91.2 kg
[2019-12-31] MEDS ORDERED: Estrace Vagin42.5 GM VAG (14:35)
== END 2019-12-31 14:50 | disposition home or self-care (01) ==
LOC: ER 11:47
DX: R04.0 Epistaxis (principal); N76.89 Other specified inflammation of vagina and vulva; I10 Essential (primary) hypertension; E11.9 Type 2 diabetes mellitus without complications; Z88.1 Allergy status to other antibiotic agents; Z79.02 Long term (current) use of antithrombotics/antiplatelets; Z79.4 Long term (current) use of insulin; Z79.899 Other long term (current) drug therapy; Z87.891 Personal history of nicotine dependence
CPT/HCPCS: 99283

== ENCOUNTER 2020-01-07 07:36 | Day surgery (SDC) | payer OTHER ==
[~2020-01-07 07:36] MED LIST changes: +Estrace Vagin42.5 GM VAG
== END 2020-01-07 10:58 | disposition home or self-care (01) ==
LOC: ATC 07:36
DX: I12.9 Hypertensive chronic kidney disease with stage 1 through stage 4 chronic kidney disease, or unspecified chronic kidney disease (principal); E11.22 Type 2 diabetes mellitus with diabetic chronic kidney disease; N18.3 Chronic kidney disease, stage 3 (moderate); E55.9 Vitamin D deficiency, unspecified; E87.6 Hypokalemia; E03.9 Hypothyroidism, unspecified; E79.0 Hyperuricemia without signs of inflammatory arthritis and tophaceous disease; D63.1 Anemia in chronic kidney disease; Z79.899 Other long term (current) drug therapy; Z79.82 Long term (current) use of aspirin; Z88.2 Allergy status to sulfonamides; Z88.8 Allergy status to other drugs, medicaments and biological substances; Z88.0 Allergy status to penicillin; Z79.02 Long term (current) use of antithrombotics/antiplatelets; Z79.4 Long term (current) use of insulin
CPT/HCPCS: 96365; 96375; J1642; J2405

== ENCOUNTER 2020-01-11 00:21 | Day surgery (SDC) | payer OTHER | END 2020-01-11 11:00 | disposition home or self-care (01) | LOC: ATC 00:21 | DX: I12.9 Hypertensive chronic kidney disease with stage 1 through stage 4 chronic kidney disease, or unspecified chronic kidney disease (principal); E11.22 Type 2 diabetes mellitus with diabetic chronic kidney disease; N18.3 Chronic kidney disease, stage 3 (moderate); D63.1 Anemia in chronic kidney disease; N25.81 Secondary hyperparathyroidism of renal origin; E87.1 Hypo-osmolality and hyponatremia; E87.6 Hypokalemia; E83.30 Disorder of phosphorus metabolism, unspecified; E03.9 Hypothyroidism, unspecified; E79.0 Hyperuricemia without signs of inflammatory arthritis and tophaceous disease; E83.59 Other disorders of calcium metabolism; Z79.82 Long term (current) use of aspirin; Z79.899 Other long term (current) drug therapy; Z88.2 Allergy status to sulfonamides; Z88.0 Allergy status to penicillin; Z88.1 Allergy status to other antibiotic agents; Z79.02 Long term (current) use of antithrombotics/antiplatelets; Z79.4 Long term (current) use of insulin | CPT/HCPCS: 96365; 96375; J1642; J2405 ==

== ENCOUNTER 2020-01-14 00:43 | Day surgery (SDC) | payer OTHER | END 2020-01-14 10:49 | disposition home or self-care (01) | LOC: ATC 00:43 | DX: I12.9 Hypertensive chronic kidney disease with stage 1 through stage 4 chronic kidney disease, or unspecified chronic kidney disease (principal); N18.3 Chronic kidney disease, stage 3 (moderate); L03.90 Cellulitis, unspecified; D63.1 Anemia in chronic kidney disease; N25.81 Secondary hyperparathyroidism of renal origin; E11.21 Type 2 diabetes mellitus with diabetic nephropathy; Z79.899 Other long term (current) drug therapy | CPT/HCPCS: 96365; 96375; J1642; J2405 ==

== ENCOUNTER 2020-01-18 00:11 | Day surgery (SDC) | payer OTHER | END 2020-01-18 11:20 | disposition home or self-care (01) | LOC: ATC 00:11 | DX: I12.9 Hypertensive chronic kidney disease with stage 1 through stage 4 chronic kidney disease, or unspecified chronic kidney disease (principal); E11.22 Type 2 diabetes mellitus with diabetic chronic kidney disease; N18.3 Chronic kidney disease, stage 3 (moderate); D63.1 Anemia in chronic kidney disease; N25.81 Secondary hyperparathyroidism of renal origin; E87.1 Hypo-osmolality and hyponatremia; E87.6 Hypokalemia; E55.9 Vitamin D deficiency, unspecified; E03.9 Hypothyroidism, unspecified; E79.0 Hyperuricemia without signs of inflammatory arthritis and tophaceous disease; Z79.899 Other long term (current) drug therapy; Z88.2 Allergy status to sulfonamides; Z88.1 Allergy status to other antibiotic agents; Z79.02 Long term (current) use of antithrombotics/antiplatelets; Z79.4 Long term (current) use of insulin | CPT/HCPCS: 96365; J1642; J2405 ==

== ENCOUNTER 2020-01-21 00:30 | Day surgery (SDC) | payer OTHER ==
[2020-01-21] MEDS ORDERED: BUME2 PO (10:47)
[2020-01-21] MEDS ORDERED: NOVOLOG100 UNIT/3 SC (10:49)
[2020-01-21 11:25] LABS: Albumin, Blood 3.6 g/dL (3.4-5.0); Anion Gap 8 mmol/L (6-16); Blood Urea Nitrogen 36 mg/dL (8-24); Bun/Creatinine Ratio 24.7 (12.0-20.0); CO2, Blood 23 mmol/L (21-32); Calcium, Blood 8.3 mg/dL (8.5-10.1); Chloride, Blood 104 mmol/L (98-108); Creatinine, Blood 1.46 mg/dL (0.40-1.00); Glomerular Filtration Rate 38 (60-); Glucose, Blood 339 mg/dL (70-99); Phosphorus, Blood 3.8 mg/dL (2.5-4.9); Potassium, Blood 4.7 mmol/L (3.5-5.5); Sodium, Blood 135 mmol/L (136-145)
== END 2020-01-21 11:35 | disposition home or self-care (01) ==
LOC: ATC 00:30
PROVIDERS: Internal Medicine Nephrology
DX: I12.9 Hypertensive chronic kidney disease with stage 1 through stage 4 chronic kidney disease, or unspecified chronic kidney disease (principal); N18.3 Chronic kidney disease, stage 3 (moderate); D63.1 Anemia in chronic kidney disease; Z79.899 Other long term (current) drug therapy; Z88.0 Allergy status to penicillin; Z88.1 Allergy status to other antibiotic agents; Z88.2 Allergy status to sulfonamides; E11.22 Type 2 diabetes mellitus with diabetic chronic kidney disease; E87.1 Hypo-osmolality and hyponatremia; E87.6 Hypokalemia; E55.9 Vitamin D deficiency, unspecified; E03.9 Hypothyroidism, unspecified; E79.0 Hyperuricemia without signs of inflammatory arthritis and tophaceous disease; Z79.02 Long term (current) use of antithrombotics/antiplatelets; Z79.4 Long term (current) use of insulin
CPT/HCPCS: 80069; 96365; 96375; J1642; J2405

== ENCOUNTER 2020-01-25 00:25 | Day surgery (SDC) | payer OTHER ==
[~2020-01-25 00:25] MED LIST changes: +NOVOLOG100 UNIT/3 SC
== END 2020-01-25 11:03 | disposition home or self-care (01) ==
LOC: ATC 00:25
DX: I12.9 Hypertensive chronic kidney disease with stage 1 through stage 4 chronic kidney disease, or unspecified chronic kidney disease (principal); E11.22 Type 2 diabetes mellitus with diabetic chronic kidney disease; N18.3 Chronic kidney disease, stage 3 (moderate); D63.1 Anemia in chronic kidney disease; N25.81 Secondary hyperparathyroidism of renal origin; E55.9 Vitamin D deficiency, unspecified; E03.9 Hypothyroidism, unspecified; Z79.82 Long term (current) use of aspirin; Z79.899 Other long term (current) drug therapy; Z88.2 Allergy status to sulfonamides; Z88.1 Allergy status to other antibiotic agents; Z88.0 Allergy status to penicillin
CPT/HCPCS: 96365; 96375; J1642; J2405

== ENCOUNTER 2020-02-07 00:13 | Day surgery (SDC) | payer OTHER | END 2020-02-07 11:28 | disposition home or self-care (01) | LOC: ATC 00:13 | DX: I12.9 Hypertensive chronic kidney disease with stage 1 through stage 4 chronic kidney disease, or unspecified chronic kidney disease (principal); E11.22 Type 2 diabetes mellitus with diabetic chronic kidney disease; N18.30 Chronic kidney disease, stage 3 unspecified; Z88.2 Allergy status to sulfonamides; Z88.1 Allergy status to other antibiotic agents; Z88.8 Allergy status to other drugs, medicaments and biological substances; D63.1 Anemia in chronic kidney disease; N25.81 Secondary hyperparathyroidism of renal origin; E87.1 Hypo-osmolality and hyponatremia; E87.6 Hypokalemia; E03.9 Hypothyroidism, unspecified; E55.9 Vitamin D deficiency, unspecified; Z79.899 Other long term (current) drug therapy; Z79.82 Long term (current) use of aspirin; Z79.02 Long term (current) use of antithrombotics/antiplatelets; Z79.4 Long term (current) use of insulin | CPT/HCPCS: 96365; 96375; J1642; J2405 ==

== ENCOUNTER 2020-02-10 00:27 | Day surgery (SDC) | payer OTHER | END 2020-02-10 10:47 | disposition home or self-care (01) | LOC: ATC 00:27 | DX: I12.9 Hypertensive chronic kidney disease with stage 1 through stage 4 chronic kidney disease, or unspecified chronic kidney disease (principal); E11.22 Type 2 diabetes mellitus with diabetic chronic kidney disease; N18.30 Chronic kidney disease, stage 3 unspecified; Z79.899 Other long term (current) drug therapy; Z88.2 Allergy status to sulfonamides; Z88.1 Allergy status to other antibiotic agents; Z88.8 Allergy status to other drugs, medicaments and biological substances; N25.81 Secondary hyperparathyroidism of renal origin; D63.1 Anemia in chronic kidney disease; E87.1 Hypo-osmolality and hyponatremia; E87.6 Hypokalemia; E55.9 Vitamin D deficiency, unspecified; E03.9 Hypothyroidism, unspecified; Z79.02 Long term (current) use of antithrombotics/antiplatelets; Z79.4 Long term (current) use of insulin | CPT/HCPCS: 96365; 96375; J1642; J2405 ==

== ENCOUNTER 2020-02-14 00:13 | Day surgery (SDC) | payer OTHER | END 2020-02-14 11:09 | disposition home or self-care (01) | LOC: ATC 00:13 | DX: I12.9 Hypertensive chronic kidney disease with stage 1 through stage 4 chronic kidney disease, or unspecified chronic kidney disease (principal); E11.22 Type 2 diabetes mellitus with diabetic chronic kidney disease; N18.30 Chronic kidney disease, stage 3 unspecified; D63.1 Anemia in chronic kidney disease; L03.90 Cellulitis, unspecified; N25.81 Secondary hyperparathyroidism of renal origin; E11.21 Type 2 diabetes mellitus with diabetic nephropathy; E55.9 Vitamin D deficiency, unspecified; E03.9 Hypothyroidism, unspecified; E87.1 Hypo-osmolality and hyponatremia; E87.6 Hypokalemia; Z79.82 Long term (current) use of aspirin; Z79.899 Other long term (current) drug therapy; Z88.2 Allergy status to sulfonamides; Z88.1 Allergy status to other antibiotic agents | CPT/HCPCS: 96365; 96375; J1642; J2405 ==

== ENCOUNTER 2020-02-17 00:09 | Day surgery (SDC) | payer OTHER | END 2020-02-17 10:47 | disposition home or self-care (01) | LOC: ATC 00:09 | DX: I12.9 Hypertensive chronic kidney disease with stage 1 through stage 4 chronic kidney disease, or unspecified chronic kidney disease (principal); E11.22 Type 2 diabetes mellitus with diabetic chronic kidney disease; N18.30 Chronic kidney disease, stage 3 unspecified; N25.81 Secondary hyperparathyroidism of renal origin; D63.1 Anemia in chronic kidney disease; E87.1 Hypo-osmolality and hyponatremia; E87.6 Hypokalemia; E55.9 Vitamin D deficiency, unspecified; E03.9 Hypothyroidism, unspecified; Z79.82 Long term (current) use of aspirin; Z88.1 Allergy status to other antibiotic agents; Z88.2 Allergy status to sulfonamides; Z88.0 Allergy status to penicillin; Z79.899 Other long term (current) drug therapy; Z79.02 Long term (current) use of antithrombotics/antiplatelets; Z79.4 Long term (current) use of insulin | CPT/HCPCS: 96365; 96375; J1642; J2405 ==

== ENCOUNTER 2020-02-21 00:13 | Day surgery (SDC) | payer OTHER ==
[2020-02-21] MEDS ORDERED: CEPH250A PO (10:57)
== END 2020-02-21 11:08 | disposition home or self-care (01) ==
LOC: ATC 00:13
DX: I12.9 Hypertensive chronic kidney disease with stage 1 through stage 4 chronic kidney disease, or unspecified chronic kidney disease (principal); E11.22 Type 2 diabetes mellitus with diabetic chronic kidney disease; N18.30 Chronic kidney disease, stage 3 unspecified; N25.81 Secondary hyperparathyroidism of renal origin; D63.1 Anemia in chronic kidney disease; Z88.2 Allergy status to sulfonamides; Z88.1 Allergy status to other antibiotic agents; E87.1 Hypo-osmolality and hyponatremia; E55.9 Vitamin D deficiency, unspecified; E03.9 Hypothyroidism, unspecified; E79.0 Hyperuricemia without signs of inflammatory arthritis and tophaceous disease; Z79.899 Other long term (current) drug therapy; Z79.82 Long term (current) use of aspirin; Z79.02 Long term (current) use of antithrombotics/antiplatelets; Z79.4 Long term (current) use of insulin
CPT/HCPCS: 96365; 96375; J1642; J2405

== ENCOUNTER 2020-02-25 02:01 | Day surgery (SDC) | payer OTHER ==
[~2020-02-25 02:01] MED LIST changes: +CEPH250A PO
== END 2020-02-25 11:10 | disposition home or self-care (01) ==
LOC: ATC 02:01
DX: I12.9 Hypertensive chronic kidney disease with stage 1 through stage 4 chronic kidney disease, or unspecified chronic kidney disease (principal); N18.30 Chronic kidney disease, stage 3 unspecified; D63.1 Anemia in chronic kidney disease; E11.22 Type 2 diabetes mellitus with diabetic chronic kidney disease; Z79.899 Other long term (current) drug therapy; Z79.82 Long term (current) use of aspirin; Z88.2 Allergy status to sulfonamides; Z88.1 Allergy status to other antibiotic agents; Z88.8 Allergy status to other drugs, medicaments and biological substances; E87.1 Hypo-osmolality and hyponatremia; E55.9 Vitamin D deficiency, unspecified; E03.9 Hypothyroidism, unspecified; E87.6 Hypokalemia
CPT/HCPCS: 96365; 96375; J1642; J2405

== ENCOUNTER 2020-02-28 00:08 | Day surgery (SDC) | payer OTHER ==
[2020-02-28] MEDS ORDERED: OZEMPIC0.25 MG/0. SC (10:57)
== END 2020-02-28 11:10 | disposition home or self-care (01) ==
LOC: ATC 00:08
DX: I12.9 Hypertensive chronic kidney disease with stage 1 through stage 4 chronic kidney disease, or unspecified chronic kidney disease (principal); E11.22 Type 2 diabetes mellitus with diabetic chronic kidney disease; N18.30 Chronic kidney disease, stage 3 unspecified; D63.1 Anemia in chronic kidney disease; L03.90 Cellulitis, unspecified; N25.81 Secondary hyperparathyroidism of renal origin; E11.21 Type 2 diabetes mellitus with diabetic nephropathy; E87.70 Fluid overload, unspecified; E87.1 Hypo-osmolality and hyponatremia; E55.9 Vitamin D deficiency, unspecified; E87.6 Hypokalemia; Z79.4 Long term (current) use of insulin; Z79.82 Long term (current) use of aspirin; Z79.899 Other long term (current) drug therapy; Z88.1 Allergy status to other antibiotic agents; Z88.2 Allergy status to sulfonamides; Z88.8 Allergy status to other drugs, medicaments and biological substances; Z51.5 Encounter for palliative care
CPT/HCPCS: 96365; 96375; J1642; J2405

== ENCOUNTER 2020-03-02 00:20 | Day surgery (SDC) | payer OTHER ==
[~2020-03-02 00:20] MED LIST changes: +OZEMPIC0.25 MG/0. SC
== END 2020-03-02 11:06 | disposition home or self-care (01) ==
LOC: ATC 00:20
DX: I12.9 Hypertensive chronic kidney disease with stage 1 through stage 4 chronic kidney disease, or unspecified chronic kidney disease (principal); E11.22 Type 2 diabetes mellitus with diabetic chronic kidney disease; N18.30 Chronic kidney disease, stage 3 unspecified; D63.1 Anemia in chronic kidney disease; N25.81 Secondary hyperparathyroidism of renal origin; Z88.2 Allergy status to sulfonamides; Z88.8 Allergy status to other drugs, medicaments and biological substances; Z88.1 Allergy status to other antibiotic agents; E87.1 Hypo-osmolality and hyponatremia; E87.6 Hypokalemia; E55.9 Vitamin D deficiency, unspecified; E03.9 Hypothyroidism, unspecified; Z79.899 Other long term (current) drug therapy; Z79.02 Long term (current) use of antithrombotics/antiplatelets; Z79.4 Long term (current) use of insulin
CPT/HCPCS: 96365; 96375; J1642; J2405

== ENCOUNTER 2020-03-14 00:22 | Day surgery (SDC) | payer OTHER | END 2020-03-14 10:56 | disposition home or self-care (01) | LOC: ATC 00:22 | DX: I12.9 Hypertensive chronic kidney disease with stage 1 through stage 4 chronic kidney disease, or unspecified chronic kidney disease (principal); E11.22 Type 2 diabetes mellitus with diabetic chronic kidney disease; N18.30 Chronic kidney disease, stage 3 unspecified; D63.1 Anemia in chronic kidney disease; N25.81 Secondary hyperparathyroidism of renal origin; E87.1 Hypo-osmolality and hyponatremia; E87.6 Hypokalemia; E55.9 Vitamin D deficiency, unspecified; E03.9 Hypothyroidism, unspecified; Z79.4 Long term (current) use of insulin; Z79.82 Long term (current) use of aspirin; Z88.2 Allergy status to sulfonamides; Z88.0 Allergy status to penicillin; Z88.1 Allergy status to other antibiotic agents; Z88.8 Allergy status to other drugs, medicaments and biological substances; Z79.899 Other long term (current) drug therapy | CPT/HCPCS: 96365; 96375; J1642; J2405 ==

== ENCOUNTER 2020-03-16 00:11 | Day surgery (SDC) | payer OTHER ==
[2020-03-16 12:21] LABS: BASOPHILS ABSOLUTE AUTO 0.05 K/mm3 (0.00-0.23); BASOPHILS PERCENT AUTO 1 % (0-2); EOSINOPHILS ABSOLUTE AUTO 0.29 K/mm3 (0.00-0.68); EOSINOPHILS PERCENT AUTO 4 % (0-6); Hemoglobin 12.2 g/dL (11.5-16.0); IMMATURE GRAN ABSOLUTE AUTO 0.14 K/mm3 (0.00-0.10); IMMATURE GRAN PERCENT AUTO 2 % (0-1); LYMPHOCYTES ABSOLUTE AUTO 0.61 K/mm3 (0.84-5.20); LYMPHOCYTES PERCENT AUTO 9 % (21-46); MONOCYTES ABSOLUTE AUTO 0.41 K/mm3 (0.16-1.47); MONOCYTES PERCENT AUTO 6 % (4-13); Mean Corpuscular HGB 26.1 pg (26.0-34.0); Mean Corpuscular HGB Conc 31.3 g/dL (31.5-36.5); Mean Corpuscular Volume 83 fL (80-100); Mean Platelet Volume 12.8 fL (9.1-12.4); NEUTROPHILS PERCENT AUTO 78 % (41-73); Platelet Count 172 K/mm3 (150-400); RDW Coefficient Variation 15.2 % (11.7-14.2); RDW Standard Deviation 45.6 fL (35.1-46.3); Red Blood Cell Count 4.68 M/mm3 (3.80-5.20)
[2020-03-16 12:50] LABS: Alanine Aminotransfer (ALT/SGP 34 U/L (12-78); Albumin, Blood 3.4 g/dL (3.4-5.0); Albumin/Globulin Ratio 1.1 (0.8-1.8); Alk Phos 121 U/L (50-136); Anion Gap 8 mmol/L (6-16); Aspartate Aminotrans (AST/SGOT 20 U/L (12-37); Bilirubin, Total 0.3 mg/dL (0.1-1.0); Blood Urea Nitrogen 42 mg/dL (8-24); Bun/Creatinine Ratio 25.1 (12.0-20.0); CHOL/HDL RATIO 5.5; CO2, Blood 27 mmol/L (21-32); Calcium, Blood 8.6 mg/dL (8.5-10.1); Chloride, Blood 100 mmol/L (98-108); Cholesterol 164 mg/dL (50-200); Creatinine, Blood 1.67 mg/dL (0.40-1.00); Globulin, Blood 3.2 g/dL (2.2-4.0); Glomerular Filtration Rate 32 (60-); Glucose, Blood 274 mg/dL (70-99); HDL Cholesterol 30 mg/dL (>39); LDL/HDL RATIO Unable to Calculate; Low Density Lipoprotein Chol Unable to Calculate mg/dL (0-110); Phosphorus, Blood 4.5 mg/dL (2.5-4.9); Potassium, Blood 3.9 mmol/L (3.5-5.5); Sodium, Blood 135 mmol/L (136-145); Total Protein, Blood 6.6 g/dL (6.4-8.2); Triglycerides 573 mg/dL (30-160); Very Low Density Lipoprot Chol Unable to Calculate mg/dL (6-32)
== END 2020-03-16 11:25 | disposition home or self-care (01) ==
LOC: ATC 00:11 → LAB 00:11 → ATC 10:00
PROVIDERS: Family Medicine
DX: I12.9 Hypertensive chronic kidney disease with stage 1 through stage 4 chronic kidney disease, or unspecified chronic kidney disease (principal); E11.22 Type 2 diabetes mellitus with diabetic chronic kidney disease; N18.30 Chronic kidney disease, stage 3 unspecified; D63.1 Anemia in chronic kidney disease; N25.81 Secondary hyperparathyroidism of renal origin; E11.21 Type 2 diabetes mellitus with diabetic nephropathy; E55.9 Vitamin D deficiency, unspecified; E03.9 Hypothyroidism, unspecified; Z88.0 Allergy status to penicillin; Z88.1 Allergy status to other antibiotic agents; Z88.2 Allergy status to sulfonamides; Z88.8 Allergy status to other drugs, medicaments and biological substances; Z79.02 Long term (current) use of antithrombotics/antiplatelets; Z79.4 Long term (current) use of insulin; Z79.82 Long term (current) use of aspirin; Z79.899 Other long term (current) drug therapy; Z51.5 Encounter for palliative care
CPT/HCPCS: 80053; 80061; 84100; 85025; 86803; 96365; 96375; J1642; J2405

== ENCOUNTER 2020-03-30 00:05 | Day surgery (SDC) | payer OTHER | END 2020-03-30 22:43 | disposition home or self-care (01) | LOC: ATC 00:05 | DX: I12.9 Hypertensive chronic kidney disease with stage 1 through stage 4 chronic kidney disease, or unspecified chronic kidney disease (principal); E11.22 Type 2 diabetes mellitus with diabetic chronic kidney disease; N18.30 Chronic kidney disease, stage 3 unspecified; D63.1 Anemia in chronic kidney disease; N25.81 Secondary hyperparathyroidism of renal origin; E87.6 Hypokalemia; E87.1 Hypo-osmolality and hyponatremia; E55.9 Vitamin D deficiency, unspecified; E03.9 Hypothyroidism, unspecified; Z79.82 Long term (current) use of aspirin; Z88.2 Allergy status to sulfonamides; Z88.1 Allergy status to other antibiotic agents; Z79.4 Long term (current) use of insulin | CPT/HCPCS: J1642; J2405 ==

== ENCOUNTER 2020-04-03 00:20 | Day surgery (SDC) | payer OTHER | END 2020-04-03 22:43 | disposition home or self-care (01) | LOC: ATC 00:20 | DX: I12.9 Hypertensive chronic kidney disease with stage 1 through stage 4 chronic kidney disease, or unspecified chronic kidney disease (principal); E11.22 Type 2 diabetes mellitus with diabetic chronic kidney disease; N18.30 Chronic kidney disease, stage 3 unspecified; N25.81 Secondary hyperparathyroidism of renal origin; D63.1 Anemia in chronic kidney disease; E55.9 Vitamin D deficiency, unspecified; E03.9 Hypothyroidism, unspecified; Z88.1 Allergy status to other antibiotic agents; Z88.0 Allergy status to penicillin; Z79.4 Long term (current) use of insulin; Z79.899 Other long term (current) drug therapy ==

== ENCOUNTER 2020-04-27 00:06 | Day surgery (SDC) | payer OTHER | END 2020-04-27 10:55 | disposition home or self-care (01) | LOC: ATC 00:06 | DX: I12.9 Hypertensive chronic kidney disease with stage 1 through stage 4 chronic kidney disease, or unspecified chronic kidney disease (principal); E11.22 Type 2 diabetes mellitus with diabetic chronic kidney disease; N18.30 Chronic kidney disease, stage 3 unspecified; L03.90 Cellulitis, unspecified; N25.81 Secondary hyperparathyroidism of renal origin; Z79.899 Other long term (current) drug therapy; Z88.2 Allergy status to sulfonamides; Z88.0 Allergy status to penicillin; Z88.1 Allergy status to other antibiotic agents; E87.1 Hypo-osmolality and hyponatremia; E87.6 Hypokalemia; E55.9 Vitamin D deficiency, unspecified; E03.9 Hypothyroidism, unspecified | CPT/HCPCS: 96365; 96375; J1642; J2405 ==

== ENCOUNTER 2020-05-02 00:19 | Day surgery (SDC) | payer OTHER | END 2020-05-02 11:19 | disposition home or self-care (01) | LOC: ATC 00:19 | DX: I12.9 Hypertensive chronic kidney disease with stage 1 through stage 4 chronic kidney disease, or unspecified chronic kidney disease (principal); E11.22 Type 2 diabetes mellitus with diabetic chronic kidney disease; N18.30 Chronic kidney disease, stage 3 unspecified; E11.628 Type 2 diabetes mellitus with other skin complications; L03.90 Cellulitis, unspecified; D63.1 Anemia in chronic kidney disease; N25.81 Secondary hyperparathyroidism of renal origin; E11.21 Type 2 diabetes mellitus with diabetic nephropathy; E55.9 Vitamin D deficiency, unspecified; Z88.0 Allergy status to penicillin; Z88.1 Allergy status to other antibiotic agents; Z88.2 Allergy status to sulfonamides; Z88.8 Allergy status to other drugs, medicaments and biological substances; Z79.82 Long term (current) use of aspirin; Z79.4 Long term (current) use of insulin; Z79.899 Other long term (current) drug therapy | CPT/HCPCS: 96365; 96375; J1642; J2405 ==

== ENCOUNTER 2020-05-15 00:21 | Day surgery (SDC) | payer OTHER ==
[2020-05-15 10:32] LABS: BASOPHILS ABSOLUTE AUTO 0.05 K/mm3 (0.00-0.23); BASOPHILS PERCENT AUTO 1 % (0-2); EOSINOPHILS ABSOLUTE AUTO 0.46 K/mm3 (0.00-0.68); EOSINOPHILS PERCENT AUTO 6 % (0-6); Hematocrit 35.6 % (33.0-51.0); Hemoglobin 10.7 g/dL (11.5-16.0); IMMATURE GRAN ABSOLUTE AUTO 0.11 K/mm3 (0.00-0.10); IMMATURE GRAN PERCENT AUTO 2 % (0-1); LYMPHOCYTES ABSOLUTE AUTO 1.29 K/mm3 (0.84-5.20); LYMPHOCYTES PERCENT AUTO 18 % (21-46); MONOCYTES ABSOLUTE AUTO 0.69 K/mm3 (0.16-1.47); MONOCYTES PERCENT AUTO 9 % (4-13); Mean Corpuscular HGB 24.5 pg (26.0-34.0); Mean Corpuscular HGB Conc 30.1 g/dL (31.5-36.5); Mean Corpuscular Volume 82 fL (80-100); Mean Platelet Volume 12.1 fL (9.1-12.4); NEUTROPHILS ABSOLUTE AUTO 4.73 K/mm3 (1.96-9.15); NEUTROPHILS PERCENT AUTO 65 % (41-73); Platelet Count 199 K/mm3 (150-400); RDW Coefficient Variation 17.2 % (11.7-14.2); RDW Standard Deviation 51.6 fL (35.1-46.3); Red Blood Cell Count 4.36 M/mm3 (3.80-5.20); White Blood Cell Count 7.33 K/mm3 (4.00-11.30)
[2020-05-15 10:54] LABS: Free Thyroxine 1.07 ng/dL (0.70-1.60); Triiodothyronine, Free 2.72 pg/mL (2.18-3.98)
[2020-05-15 10:58] LABS: Alanine Aminotransfer (ALT/SGP 28 U/L (12-78); Albumin/Globulin Ratio 0.9 (0.8-1.8); Alk Phos 101 U/L (50-136); Aspartate Aminotrans (AST/SGOT 18 U/L (12-37); Bilirubin, Direct <0.1 mg/dL (0.0-0.3); Bilirubin, Indirect Unable to Calculate mg/dL (0.1-0.7); Bilirubin, Total 0.3 mg/dL (0.1-1.0); Globulin, Blood 3.2 g/dL (2.2-4.0); Total Protein, Blood 6.2 g/dL (6.4-8.2)
[2020-08-30] MEDS ORDERED: LAMO100 PO (23:00)
[2020-08-31] MEDS ORDERED: DULO60 PO (02:38)
[2020-08-31] MEDS ORDERED: ONDA4 PO (02:39)
[2020-08-31] MEDS ORDERED: METO5 PO (02:40)
[2020-09-01] MEDS ORDERED: CEFD300 PO (11:40)
== END 2020-05-15 10:57 | disposition home or self-care (01) ==
LOC: ATC 00:21
PROVIDERS: Internal Medicine Nephrology
DX: N18.30 Chronic kidney disease, stage 3 unspecified (principal); L03.90 Cellulitis, unspecified; Z79.4 Long term (current) use of insulin; Z88.0 Allergy status to penicillin; Z88.1 Allergy status to other antibiotic agents; Z79.02 Long term (current) use of antithrombotics/antiplatelets; Z79.899 Other long term (current) drug therapy
CPT/HCPCS: 80076; 82728; 83540; 83550; 84439; 84443; 84481; 85025; 96365; 96375; J1642; J2405

== ENCOUNTER 2020-05-19 01:52 | Day surgery (SDC) | payer OTHER ==
[2020-08-30] MEDS ORDERED: LAMO100 PO (23:00)
[2020-08-31] MEDS ORDERED: DULO60 PO (02:38)
[2020-08-31] MEDS ORDERED: ONDA4 PO (02:39)
[2020-08-31] MEDS ORDERED: METO5 PO (02:40)
[2020-09-01] MEDS ORDERED: CEFD300 PO (11:40)
== END 2020-05-19 11:50 | disposition home or self-care (01) ==
LOC: ATC 01:52
DX: I12.9 Hypertensive chronic kidney disease with stage 1 through stage 4 chronic kidney disease, or unspecified chronic kidney disease (principal); N18.30 Chronic kidney disease, stage 3 unspecified; L03.90 Cellulitis, unspecified; N25.81 Secondary hyperparathyroidism of renal origin; E87.70 Fluid overload, unspecified; E11.21 Type 2 diabetes mellitus with diabetic nephropathy; Z88.0 Allergy status to penicillin; Z88.1 Allergy status to other antibiotic agents; Z79.899 Other long term (current) drug therapy
CPT/HCPCS: 96365; 96375; J1642; J2405

== ENCOUNTER 2020-05-22 00:14 | Day surgery (SDC) | payer OTHER ==
[2020-08-30] MEDS ORDERED: LAMO100 PO (23:00)
[2020-08-31] MEDS ORDERED: DULO60 PO (02:38)
[2020-08-31] MEDS ORDERED: ONDA4 PO (02:39)
[2020-08-31] MEDS ORDERED: METO5 PO (02:40)
[2020-09-01] MEDS ORDERED: CEFD300 PO (11:40)
== END 2020-05-22 10:55 | disposition home or self-care (01) ==
LOC: ATC 00:14
DX: I12.9 Hypertensive chronic kidney disease with stage 1 through stage 4 chronic kidney disease, or unspecified chronic kidney disease (principal); N18.30 Chronic kidney disease, stage 3 unspecified; E11.22 Type 2 diabetes mellitus with diabetic chronic kidney disease; L03.90 Cellulitis, unspecified; D63.1 Anemia in chronic kidney disease; N25.81 Secondary hyperparathyroidism of renal origin; E11.21 Type 2 diabetes mellitus with diabetic nephropathy; E03.9 Hypothyroidism, unspecified; Z88.0 Allergy status to penicillin; Z88.1 Allergy status to other antibiotic agents; Z79.02 Long term (current) use of antithrombotics/antiplatelets; Z79.4 Long term (current) use of insulin; Z79.899 Other long term (current) drug therapy
CPT/HCPCS: 96365; J1642; J2405

== ENCOUNTER 2020-05-25 00:24 | Day surgery (SDC) | payer OTHER ==
[2020-08-30] MEDS ORDERED: LAMO100 PO (23:00)
[2020-08-31] MEDS ORDERED: DULO60 PO (02:38)
[2020-08-31] MEDS ORDERED: ONDA4 PO (02:39)
[2020-08-31] MEDS ORDERED: METO5 PO (02:40)
[2020-09-01] MEDS ORDERED: CEFD300 PO (11:40)
== END 2020-05-25 11:02 | disposition home or self-care (01) ==
LOC: ATC 00:24
DX: I12.9 Hypertensive chronic kidney disease with stage 1 through stage 4 chronic kidney disease, or unspecified chronic kidney disease (principal); N18.30 Chronic kidney disease, stage 3 unspecified; L03.90 Cellulitis, unspecified; D63.1 Anemia in chronic kidney disease; N25.81 Secondary hyperparathyroidism of renal origin; Z88.0 Allergy status to penicillin; Z88.1 Allergy status to other antibiotic agents; Z79.02 Long term (current) use of antithrombotics/antiplatelets; Z79.4 Long term (current) use of insulin; Z79.899 Other long term (current) drug therapy
CPT/HCPCS: 96365; 96375; J1642; J2405

== ENCOUNTER 2020-06-01 00:14 | Day surgery (SDC) | payer OTHER ==
[2020-08-30] MEDS ORDERED: LAMO100 PO (23:00)
[2020-08-31] MEDS ORDERED: DULO60 PO (02:38)
[2020-08-31] MEDS ORDERED: ONDA4 PO (02:39)
[2020-08-31] MEDS ORDERED: METO5 PO (02:40)
[2020-09-01] MEDS ORDERED: CEFD300 PO (11:40)
== END 2020-06-01 11:05 | disposition home or self-care (01) ==
LOC: ATC 00:14
DX: N18.30 Chronic kidney disease, stage 3 unspecified (principal); L03.90 Cellulitis, unspecified; I12.9 Hypertensive chronic kidney disease with stage 1 through stage 4 chronic kidney disease, or unspecified chronic kidney disease; E11.22 Type 2 diabetes mellitus with diabetic chronic kidney disease; Z88.1 Allergy status to other antibiotic agents; Z88.2 Allergy status to sulfonamides; Z79.82 Long term (current) use of aspirin
CPT/HCPCS: 96365; 96375; J1642; J2405

== ENCOUNTER 2020-06-05 00:21 | Day surgery (SDC) | payer OTHER ==
--- NOTE | 2020-06-05 11:02 | NUR ---
Pt comes in today, states she has a new sore to her right calf that opened up yesterday. 1 cm round, dry, dark brown colored center open area. No drainage noted, firmness noted around wound edges. Called Dr. Mercer and notified him of the new open area on the right calf. New orders received for an increase in sodium thiosulfate to 25 grams IV twice a week. Spoke with pharmacy account director and new order faxed to pharmacy. Another 12.5 grams of sodium thiosulfate will be mixed and sent to [facility] this morning. Pt currently has the first 12.5 grams of sodium thiosulfate running.
[2020-08-30] MEDS ORDERED: LAMO100 PO (23:00)
[2020-08-31] MEDS ORDERED: DULO60 PO (02:38)
[2020-08-31] MEDS ORDERED: ONDA4 PO (02:39)
[2020-08-31] MEDS ORDERED: METO5 PO (02:40)
[2020-09-01] MEDS ORDERED: CEFD300 PO (11:40)
== END 2020-06-05 11:55 | disposition home or self-care (01) ==
LOC: ATC 00:21
DX: I12.9 Hypertensive chronic kidney disease with stage 1 through stage 4 chronic kidney disease, or unspecified chronic kidney disease (principal); N18.30 Chronic kidney disease, stage 3 unspecified; E11.22 Type 2 diabetes mellitus with diabetic chronic kidney disease; E03.9 Hypothyroidism, unspecified; Z88.1 Allergy status to other antibiotic agents; Z88.2 Allergy status to sulfonamides
CPT/HCPCS: 96365; 96375; J1642; J2405

== ENCOUNTER 2020-06-08 00:09 | Day surgery (SDC) | payer OTHER ==
--- NOTE | 2020-06-08 12:04 | NUR ---
PT C/O N/V DURING INFUSION, PT ALSO HAD A SEVER NOSE BLEED, WHICH SHE STS HAPPENS FRQUENTLY WHEN SHE VOMITS, SHE PLACED A NOSE CLAMP THAT SHE KEEPS WITH HER WHICH DID HELP TO STOP THE BLEEDING. D/C'D IVF AFTER 170ML OF THE 200ML BAG AT PT REQUEST. PT STS SHE WILL TALK TO HER DOCTOR RE CHANGING THE DOSE/FREQUENCY. PT WAS PREMEDICATED W/ 8 MG IV ZOFRAN.
[2020-08-30] MEDS ORDERED: LAMO100 PO (23:00)
[2020-08-31] MEDS ORDERED: DULO60 PO (02:38)
[2020-08-31] MEDS ORDERED: ONDA4 PO (02:39)
[2020-08-31] MEDS ORDERED: METO5 PO (02:40)
[2020-09-01] MEDS ORDERED: CEFD300 PO (11:40)
== END 2020-06-08 11:50 | disposition home or self-care (01) ==
LOC: ATC 00:09
DX: I12.9 Hypertensive chronic kidney disease with stage 1 through stage 4 chronic kidney disease, or unspecified chronic kidney disease (principal); E11.22 Type 2 diabetes mellitus with diabetic chronic kidney disease; N18.30 Chronic kidney disease, stage 3 unspecified; D63.1 Anemia in chronic kidney disease; Z79.4 Long term (current) use of insulin; Z88.2 Allergy status to sulfonamides; Z88.1 Allergy status to other antibiotic agents
CPT/HCPCS: 96365; 96375; J1642; J2405

== ENCOUNTER 2020-06-12 00:25 | Day surgery (SDC) | payer OTHER ==
[2020-08-30] MEDS ORDERED: LAMO100 PO (23:00)
[2020-08-31] MEDS ORDERED: DULO60 PO (02:38)
[2020-08-31] MEDS ORDERED: ONDA4 PO (02:39)
[2020-08-31] MEDS ORDERED: METO5 PO (02:40)
[2020-09-01] MEDS ORDERED: CEFD300 PO (11:40)
== END 2020-06-12 10:40 | disposition home or self-care (01) ==
LOC: ATC 00:25
DX: I12.9 Hypertensive chronic kidney disease with stage 1 through stage 4 chronic kidney disease, or unspecified chronic kidney disease (principal); E11.22 Type 2 diabetes mellitus with diabetic chronic kidney disease; N18.30 Chronic kidney disease, stage 3 unspecified; N25.81 Secondary hyperparathyroidism of renal origin; D63.1 Anemia in chronic kidney disease; E11.21 Type 2 diabetes mellitus with diabetic nephropathy; E03.9 Hypothyroidism, unspecified; E87.1 Hypo-osmolality and hyponatremia; Z88.1 Allergy status to other antibiotic agents; Z88.2 Allergy status to sulfonamides; Z79.82 Long term (current) use of aspirin; Z79.899 Other long term (current) drug therapy
CPT/HCPCS: 96365; J1642; J2405

== ENCOUNTER 2020-06-16 01:54 | Day surgery (SDC) | payer OTHER ==
[2020-08-30] MEDS ORDERED: LAMO100 PO (23:00)
[2020-08-31] MEDS ORDERED: DULO60 PO (02:38)
[2020-08-31] MEDS ORDERED: ONDA4 PO (02:39)
[2020-08-31] MEDS ORDERED: METO5 PO (02:40)
[2020-09-01] MEDS ORDERED: CEFD300 PO (11:40)
== END 2020-06-16 10:38 | disposition home or self-care (01) ==
LOC: ATC 01:54
DX: I12.9 Hypertensive chronic kidney disease with stage 1 through stage 4 chronic kidney disease, or unspecified chronic kidney disease (principal); E11.22 Type 2 diabetes mellitus with diabetic chronic kidney disease; N18.30 Chronic kidney disease, stage 3 unspecified; D63.1 Anemia in chronic kidney disease; N25.81 Secondary hyperparathyroidism of renal origin; E11.21 Type 2 diabetes mellitus with diabetic nephropathy; R60.9 Edema, unspecified; R80.9 Proteinuria, unspecified; E87.1 Hypo-osmolality and hyponatremia; E87.6 Hypokalemia; E55.9 Vitamin D deficiency, unspecified; Z79.4 Long term (current) use of insulin; Z88.2 Allergy status to sulfonamides
CPT/HCPCS: 96365; 96375; J1642; J2405

== ENCOUNTER 2020-06-19 00:22 | Day surgery (SDC) | payer OTHER ==
[2020-08-30] MEDS ORDERED: LAMO100 PO (23:00)
[2020-08-31] MEDS ORDERED: DULO60 PO (02:38)
[2020-08-31] MEDS ORDERED: ONDA4 PO (02:39)
[2020-08-31] MEDS ORDERED: METO5 PO (02:40)
[2020-09-01] MEDS ORDERED: CEFD300 PO (11:40)
== END 2020-06-19 11:10 | disposition home or self-care (01) ==
LOC: ATC 00:22
DX: I12.9 Hypertensive chronic kidney disease with stage 1 through stage 4 chronic kidney disease, or unspecified chronic kidney disease (principal); N18.30 Chronic kidney disease, stage 3 unspecified; E11.22 Type 2 diabetes mellitus with diabetic chronic kidney disease; D63.1 Anemia in chronic kidney disease; N25.81 Secondary hyperparathyroidism of renal origin; E11.21 Type 2 diabetes mellitus with diabetic nephropathy; E55.9 Vitamin D deficiency, unspecified; E03.9 Hypothyroidism, unspecified; Z88.1 Allergy status to other antibiotic agents; Z88.2 Allergy status to sulfonamides; Z79.82 Long term (current) use of aspirin
CPT/HCPCS: 96365; 96375; J1642; J2405

== ENCOUNTER 2020-06-21 00:11 | Day surgery (SDC) | payer OTHER ==
[2020-08-30] MEDS ORDERED: LAMO100 PO (23:00)
[2020-08-31] MEDS ORDERED: DULO60 PO (02:38)
[2020-08-31] MEDS ORDERED: ONDA4 PO (02:39)
[2020-08-31] MEDS ORDERED: METO5 PO (02:40)
[2020-09-01] MEDS ORDERED: CEFD300 PO (11:40)
== END 2020-06-21 11:00 | disposition home or self-care (01) ==
LOC: ATC 00:11
DX: I12.9 Hypertensive chronic kidney disease with stage 1 through stage 4 chronic kidney disease, or unspecified chronic kidney disease (principal); N18.30 Chronic kidney disease, stage 3 unspecified; E11.22 Type 2 diabetes mellitus with diabetic chronic kidney disease; D63.1 Anemia in chronic kidney disease; N25.81 Secondary hyperparathyroidism of renal origin; E11.21 Type 2 diabetes mellitus with diabetic nephropathy; E55.9 Vitamin D deficiency, unspecified; E03.9 Hypothyroidism, unspecified; Z88.1 Allergy status to other antibiotic agents; Z88.2 Allergy status to sulfonamides; Z79.82 Long term (current) use of aspirin
CPT/HCPCS: 96365; 96375; J1642; J2405

== ENCOUNTER 2020-06-23 00:59 | Day surgery (SDC) | payer OTHER ==
[2020-08-30] MEDS ORDERED: LAMO100 PO (23:00)
[2020-08-31] MEDS ORDERED: DULO60 PO (02:38)
[2020-08-31] MEDS ORDERED: ONDA4 PO (02:39)
[2020-08-31] MEDS ORDERED: METO5 PO (02:40)
[2020-09-01] MEDS ORDERED: CEFD300 PO (11:40)
== END 2020-06-23 10:40 | disposition home or self-care (01) ==
LOC: ATC 00:59
DX: I12.9 Hypertensive chronic kidney disease with stage 1 through stage 4 chronic kidney disease, or unspecified chronic kidney disease (principal); N18.30 Chronic kidney disease, stage 3 unspecified; E11.22 Type 2 diabetes mellitus with diabetic chronic kidney disease; D63.1 Anemia in chronic kidney disease; N25.81 Secondary hyperparathyroidism of renal origin; E11.21 Type 2 diabetes mellitus with diabetic nephropathy; E55.9 Vitamin D deficiency, unspecified; E03.9 Hypothyroidism, unspecified; Z88.1 Allergy status to other antibiotic agents; Z88.2 Allergy status to sulfonamides; Z79.82 Long term (current) use of aspirin
CPT/HCPCS: 96365; 96375; J1642; J2405

== ENCOUNTER 2020-06-26 00:21 | Day surgery (SDC) | payer OTHER ==
[2020-08-30] MEDS ORDERED: LAMO100 PO (23:00)
[2020-08-31] MEDS ORDERED: DULO60 PO (02:38)
[2020-08-31] MEDS ORDERED: ONDA4 PO (02:39)
[2020-08-31] MEDS ORDERED: METO5 PO (02:40)
[2020-09-01] MEDS ORDERED: CEFD300 PO (11:40)
== END 2020-06-26 10:58 | disposition home or self-care (01) ==
LOC: ATC 00:21
DX: E11.22 Type 2 diabetes mellitus with diabetic chronic kidney disease (principal); I12.9 Hypertensive chronic kidney disease with stage 1 through stage 4 chronic kidney disease, or unspecified chronic kidney disease; N18.30 Chronic kidney disease, stage 3 unspecified; D63.1 Anemia in chronic kidney disease; N25.81 Secondary hyperparathyroidism of renal origin; E87.70 Fluid overload, unspecified; E11.21 Type 2 diabetes mellitus with diabetic nephropathy; R80.9 Proteinuria, unspecified; E87.1 Hypo-osmolality and hyponatremia; E87.6 Hypokalemia; E83.30 Disorder of phosphorus metabolism, unspecified; E55.9 Vitamin D deficiency, unspecified
CPT/HCPCS: 96365; 96375; J1642; J2405

== ENCOUNTER 2020-06-28 00:14 | Day surgery (SDC) | payer OTHER ==
[2020-08-30] MEDS ORDERED: LAMO100 PO (23:00)
[2020-08-31] MEDS ORDERED: DULO60 PO (02:38)
[2020-08-31] MEDS ORDERED: ONDA4 PO (02:39)
[2020-08-31] MEDS ORDERED: METO5 PO (02:40)
[2020-09-01] MEDS ORDERED: CEFD300 PO (11:40)
== END 2020-06-28 11:00 | disposition home or self-care (01) ==
LOC: ATC 00:14
DX: N18.30 Chronic kidney disease, stage 3 unspecified (principal); I12.9 Hypertensive chronic kidney disease with stage 1 through stage 4 chronic kidney disease, or unspecified chronic kidney disease; E11.22 Type 2 diabetes mellitus with diabetic chronic kidney disease; E11.21 Type 2 diabetes mellitus with diabetic nephropathy; D63.1 Anemia in chronic kidney disease; Z79.82 Long term (current) use of aspirin; Z88.1 Allergy status to other antibiotic agents; Z88.2 Allergy status to sulfonamides; Z88.8 Allergy status to other drugs, medicaments and biological substances
CPT/HCPCS: 96365; 96375; J1642; J2405

== ENCOUNTER 2020-06-30 00:41 | Day surgery (SDC) | payer OTHER ==
[2020-08-30] MEDS ORDERED: LAMO100 PO (23:00)
[2020-08-31] MEDS ORDERED: DULO60 PO (02:38)
[2020-08-31] MEDS ORDERED: ONDA4 PO (02:39)
[2020-08-31] MEDS ORDERED: METO5 PO (02:40)
[2020-09-01] MEDS ORDERED: CEFD300 PO (11:40)
== END 2020-06-30 10:45 | disposition home or self-care (01) ==
LOC: ATC 00:41
DX: E11.22 Type 2 diabetes mellitus with diabetic chronic kidney disease (principal); I12.9 Hypertensive chronic kidney disease with stage 1 through stage 4 chronic kidney disease, or unspecified chronic kidney disease; N18.30 Chronic kidney disease, stage 3 unspecified; D63.1 Anemia in chronic kidney disease; N25.81 Secondary hyperparathyroidism of renal origin; E87.70 Fluid overload, unspecified; R80.9 Proteinuria, unspecified; E87.1 Hypo-osmolality and hyponatremia; E87.6 Hypokalemia; E55.9 Vitamin D deficiency, unspecified; E03.9 Hypothyroidism, unspecified; E79.0 Hyperuricemia without signs of inflammatory arthritis and tophaceous disease; Z88.1 Allergy status to other antibiotic agents; Z88.3 Allergy status to other anti-infective agents; Z88.2 Allergy status to sulfonamides; Z88.8 Allergy status to other drugs, medicaments and biological substances; Z79.82 Long term (current) use of aspirin; Z79.899 Other long term (current) drug therapy
CPT/HCPCS: 96365; 96375; J1642; J2405

== ENCOUNTER 2020-07-03 00:18 | Day surgery (SDC) | payer OTHER ==
[2020-08-30] MEDS ORDERED: LAMO100 PO (23:00)
[2020-08-31] MEDS ORDERED: DULO60 PO (02:38)
[2020-08-31] MEDS ORDERED: ONDA4 PO (02:39)
[2020-08-31] MEDS ORDERED: METO5 PO (02:40)
[2020-09-01] MEDS ORDERED: CEFD300 PO (11:40)
== END 2020-07-03 11:05 | disposition home or self-care (01) ==
LOC: ATC 00:18
DX: I12.9 Hypertensive chronic kidney disease with stage 1 through stage 4 chronic kidney disease, or unspecified chronic kidney disease (principal); N18.30 Chronic kidney disease, stage 3 unspecified; D63.1 Anemia in chronic kidney disease; N25.81 Secondary hyperparathyroidism of renal origin; E87.70 Fluid overload, unspecified; E11.21 Type 2 diabetes mellitus with diabetic nephropathy; E87.1 Hypo-osmolality and hyponatremia; E87.6 Hypokalemia; E83.30 Disorder of phosphorus metabolism, unspecified; E03.9 Hypothyroidism, unspecified; E79.0 Hyperuricemia without signs of inflammatory arthritis and tophaceous disease; Z79.82 Long term (current) use of aspirin
CPT/HCPCS: 96365; 96375; J1642; J2405

== ENCOUNTER 2020-07-05 | Day surgery (SDC) | payer OTHER ==
[2020-08-30] MEDS ORDERED: LAMO100 PO (23:00)
[2020-08-31] MEDS ORDERED: DULO60 PO (02:38)
[2020-08-31] MEDS ORDERED: ONDA4 PO (02:39)
[2020-08-31] MEDS ORDERED: METO5 PO (02:40)
[2020-09-01] MEDS ORDERED: CEFD300 PO (11:40)
== END 2020-07-05 10:54 | disposition home or self-care (01) ==
LOC: ATC
DX: E11.22 Type 2 diabetes mellitus with diabetic chronic kidney disease (principal); I12.9 Hypertensive chronic kidney disease with stage 1 through stage 4 chronic kidney disease, or unspecified chronic kidney disease; N18.30 Chronic kidney disease, stage 3 unspecified; D63.1 Anemia in chronic kidney disease; N25.81 Secondary hyperparathyroidism of renal origin; E87.70 Fluid overload, unspecified; E11.21 Type 2 diabetes mellitus with diabetic nephropathy; R80.9 Proteinuria, unspecified; E87.1 Hypo-osmolality and hyponatremia; E87.6 Hypokalemia; E83.30 Disorder of phosphorus metabolism, unspecified; E03.9 Hypothyroidism, unspecified; E79.0 Hyperuricemia without signs of inflammatory arthritis and tophaceous disease; E83.59 Other disorders of calcium metabolism; Z88.0 Allergy status to penicillin; Z88.2 Allergy status to sulfonamides; Z79.4 Long term (current) use of insulin; Z79.899 Other long term (current) drug therapy
CPT/HCPCS: 96365; 96375; J1642; J2405

== ENCOUNTER 2020-07-07 00:37 | Day surgery (SDC) | payer OTHER ==
[2020-08-30] MEDS ORDERED: LAMO100 PO (23:00)
[2020-08-31] MEDS ORDERED: DULO60 PO (02:38)
[2020-08-31] MEDS ORDERED: ONDA4 PO (02:39)
[2020-08-31] MEDS ORDERED: METO5 PO (02:40)
[2020-09-01] MEDS ORDERED: CEFD300 PO (11:40)
== END 2020-07-07 10:53 | disposition home or self-care (01) ==
LOC: ATC 00:37
DX: I12.9 Hypertensive chronic kidney disease with stage 1 through stage 4 chronic kidney disease, or unspecified chronic kidney disease (principal); N18.30 Chronic kidney disease, stage 3 unspecified; E11.22 Type 2 diabetes mellitus with diabetic chronic kidney disease; D63.1 Anemia in chronic kidney disease; N25.81 Secondary hyperparathyroidism of renal origin; E11.21 Type 2 diabetes mellitus with diabetic nephropathy; E83.30 Disorder of phosphorus metabolism, unspecified; E03.9 Hypothyroidism, unspecified; E83.59 Other disorders of calcium metabolism; E55.9 Vitamin D deficiency, unspecified; Z88.1 Allergy status to other antibiotic agents; Z88.2 Allergy status to sulfonamides; Z79.82 Long term (current) use of aspirin
CPT/HCPCS: 96365; 96375; J1642; J2405

== ENCOUNTER 2020-07-10 01:06 | Day surgery (SDC) | payer OTHER ==
[2020-08-30] MEDS ORDERED: LAMO100 PO (23:00)
[2020-08-31] MEDS ORDERED: DULO60 PO (02:38)
[2020-08-31] MEDS ORDERED: ONDA4 PO (02:39)
[2020-08-31] MEDS ORDERED: METO5 PO (02:40)
[2020-09-01] MEDS ORDERED: CEFD300 PO (11:40)
== END 2020-07-10 11:10 | disposition home or self-care (01) ==
LOC: ATC 01:06
DX: I12.9 Hypertensive chronic kidney disease with stage 1 through stage 4 chronic kidney disease, or unspecified chronic kidney disease (principal); N18.30 Chronic kidney disease, stage 3 unspecified; N25.81 Secondary hyperparathyroidism of renal origin; E03.9 Hypothyroidism, unspecified; E83.59 Other disorders of calcium metabolism; D63.1 Anemia in chronic kidney disease; E11.21 Type 2 diabetes mellitus with diabetic nephropathy; E11.22 Type 2 diabetes mellitus with diabetic chronic kidney disease; Z79.82 Long term (current) use of aspirin
CPT/HCPCS: 96365; 96375; J1642; J2405

== ENCOUNTER 2020-07-12 00:05 | Day surgery (SDC) | payer OTHER ==
[2020-07-12 14:21] LABS: Albumin, Blood 3.5 g/dL (3.4-5.0); Anion Gap 7 mmol/L (6-16); Blood Urea Nitrogen 28 mg/dL (8-24); Bun/Creatinine Ratio 19.7 (12.0-20.0); CO2, Blood 26 mmol/L (21-32); Chloride, Blood 96 mmol/L (98-108); Creatinine, Blood 1.42 mg/dL (0.40-1.00); Glomerular Filtration Rate 39 (60-); Glucose, Blood 154 mg/dL (70-99); Phosphorus, Blood 3.5 mg/dL (2.5-4.9); Potassium, Blood 4.2 mmol/L (3.5-5.5); Sodium, Blood 129 mmol/L (136-145)
--- NOTE | 2020-07-12 14:53 | NUR ---
LAB RESULTS FAXED TO DR DANA GOULD AND DR BAY PER PT REQUEST.
[2020-08-30] MEDS ORDERED: LAMO100 PO (23:00)
[2020-08-31] MEDS ORDERED: DULO60 PO (02:38)
[2020-08-31] MEDS ORDERED: ONDA4 PO (02:39)
[2020-08-31] MEDS ORDERED: METO5 PO (02:40)
[2020-09-01] MEDS ORDERED: CEFD300 PO (11:40)
== END 2020-07-12 14:30 | disposition home or self-care (01) ==
LOC: ATC 00:05
PROVIDERS: Internal Medicine Nephrology
DX: I12.9 Hypertensive chronic kidney disease with stage 1 through stage 4 chronic kidney disease, or unspecified chronic kidney disease (principal); N18.30 Chronic kidney disease, stage 3 unspecified; D63.1 Anemia in chronic kidney disease; E11.21 Type 2 diabetes mellitus with diabetic nephropathy; E11.22 Type 2 diabetes mellitus with diabetic chronic kidney disease
CPT/HCPCS: 80069; 84443; 85018; 96365; 96375; J1642; J2405

== ENCOUNTER 2020-07-14 00:40 | Day surgery (SDC) | payer OTHER ==
[2020-08-30] MEDS ORDERED: LAMO100 PO (23:00)
[2020-08-31] MEDS ORDERED: DULO60 PO (02:38)
[2020-08-31] MEDS ORDERED: ONDA4 PO (02:39)
[2020-08-31] MEDS ORDERED: METO5 PO (02:40)
[2020-09-01] MEDS ORDERED: CEFD300 PO (11:40)
== END 2020-07-14 11:02 | disposition home or self-care (01) ==
LOC: ATC 00:40
DX: I12.9 Hypertensive chronic kidney disease with stage 1 through stage 4 chronic kidney disease, or unspecified chronic kidney disease (principal); N18.30 Chronic kidney disease, stage 3 unspecified; N25.81 Secondary hyperparathyroidism of renal origin; D63.1 Anemia in chronic kidney disease; E11.21 Type 2 diabetes mellitus with diabetic nephropathy; E11.22 Type 2 diabetes mellitus with diabetic chronic kidney disease; E03.9 Hypothyroidism, unspecified; Z79.82 Long term (current) use of aspirin
CPT/HCPCS: 96365; 96375; J1642; J2405

== ENCOUNTER 2020-07-17 00:19 | Day surgery (SDC) | payer OTHER ==
[2020-08-30] MEDS ORDERED: LAMO100 PO (23:00)
[2020-08-31] MEDS ORDERED: DULO60 PO (02:38)
[2020-08-31] MEDS ORDERED: ONDA4 PO (02:39)
[2020-08-31] MEDS ORDERED: METO5 PO (02:40)
[2020-09-01] MEDS ORDERED: CEFD300 PO (11:40)
== END 2020-07-17 11:12 | disposition home or self-care (01) ==
LOC: ATC 00:19
DX: I12.9 Hypertensive chronic kidney disease with stage 1 through stage 4 chronic kidney disease, or unspecified chronic kidney disease (principal); N18.30 Chronic kidney disease, stage 3 unspecified; D63.1 Anemia in chronic kidney disease; E11.21 Type 2 diabetes mellitus with diabetic nephropathy; Z88.2 Allergy status to sulfonamides; Z88.8 Allergy status to other drugs, medicaments and biological substances; Z88.1 Allergy status to other antibiotic agents; Z79.4 Long term (current) use of insulin
CPT/HCPCS: 96365; 96375; J1642; J2405

== ENCOUNTER 2020-07-24 00:28 | Day surgery (SDC) | payer OTHER ==
[2020-08-30] MEDS ORDERED: LAMO100 PO (23:00)
[2020-08-31] MEDS ORDERED: DULO60 PO (02:38)
[2020-08-31] MEDS ORDERED: ONDA4 PO (02:39)
[2020-08-31] MEDS ORDERED: METO5 PO (02:40)
[2020-09-01] MEDS ORDERED: CEFD300 PO (11:40)
== END 2020-07-24 10:50 | disposition home or self-care (01) ==
LOC: ATC 00:28
DX: I12.9 Hypertensive chronic kidney disease with stage 1 through stage 4 chronic kidney disease, or unspecified chronic kidney disease (principal); N18.30 Chronic kidney disease, stage 3 unspecified; N17.9 Acute kidney failure, unspecified; D63.1 Anemia in chronic kidney disease; N25.81 Secondary hyperparathyroidism of renal origin; R60.9 Edema, unspecified; E11.22 Type 2 diabetes mellitus with diabetic chronic kidney disease; E11.21 Type 2 diabetes mellitus with diabetic nephropathy; R80.9 Proteinuria, unspecified; E87.1 Hypo-osmolality and hyponatremia; E87.6 Hypokalemia; E83.30 Disorder of phosphorus metabolism, unspecified; E55.9 Vitamin D deficiency, unspecified; E03.9 Hypothyroidism, unspecified; E79.0 Hyperuricemia without signs of inflammatory arthritis and tophaceous disease; E83.59 Other disorders of calcium metabolism; Z88.2 Allergy status to sulfonamides; Z88.1 Allergy status to other antibiotic agents; Z88.8 Allergy status to other drugs, medicaments and biological substances; Z79.4 Long term (current) use of insulin
CPT/HCPCS: 96365; 96375; J1642; J2405

== ENCOUNTER 2020-07-26 00:03 | Day surgery (SDC) | payer OTHER ==
[2020-08-30] MEDS ORDERED: LAMO100 PO (23:00)
[2020-08-31] MEDS ORDERED: DULO60 PO (02:38)
[2020-08-31] MEDS ORDERED: ONDA4 PO (02:39)
[2020-08-31] MEDS ORDERED: METO5 PO (02:40)
[2020-09-01] MEDS ORDERED: CEFD300 PO (11:40)
== END 2020-07-26 10:58 | disposition home or self-care (01) ==
LOC: ATC 00:03
DX: I12.9 Hypertensive chronic kidney disease with stage 1 through stage 4 chronic kidney disease, or unspecified chronic kidney disease (principal); N18.30 Chronic kidney disease, stage 3 unspecified; D63.1 Anemia in chronic kidney disease; N25.81 Secondary hyperparathyroidism of renal origin; E11.21 Type 2 diabetes mellitus with diabetic nephropathy; E03.9 Hypothyroidism, unspecified; Z88.1 Allergy status to other antibiotic agents; Z88.2 Allergy status to sulfonamides
CPT/HCPCS: 96365; 96375; J1642; J2405

== ENCOUNTER 2020-07-29 09:38 | Day surgery (SDC) | payer OTHER ==
[2020-08-30] MEDS ORDERED: LAMO100 PO (23:00)
[2020-08-31] MEDS ORDERED: DULO60 PO (02:38)
[2020-08-31] MEDS ORDERED: ONDA4 PO (02:39)
[2020-08-31] MEDS ORDERED: METO5 PO (02:40)
[2020-09-01] MEDS ORDERED: CEFD300 PO (11:40)
== END 2020-07-29 11:00 | disposition home or self-care (01) ==
LOC: ATC 09:38
DX: I12.9 Hypertensive chronic kidney disease with stage 1 through stage 4 chronic kidney disease, or unspecified chronic kidney disease (principal); N18.30 Chronic kidney disease, stage 3 unspecified; E11.22 Type 2 diabetes mellitus with diabetic chronic kidney disease; E11.21 Type 2 diabetes mellitus with diabetic nephropathy; D63.1 Anemia in chronic kidney disease; N25.81 Secondary hyperparathyroidism of renal origin; E03.9 Hypothyroidism, unspecified; E87.70 Fluid overload, unspecified; E87.1 Hypo-osmolality and hyponatremia; E83.30 Disorder of phosphorus metabolism, unspecified; E55.9 Vitamin D deficiency, unspecified; E83.59 Other disorders of calcium metabolism; Z88.1 Allergy status to other antibiotic agents; Z88.2 Allergy status to sulfonamides
CPT/HCPCS: 96365; 96375; J1642; J2405

== ENCOUNTER 2020-07-31 09:25 | Day surgery (SDC) | payer OTHER ==
[2020-07-31 11:04] LABS: Albumin, Blood 3.2 g/dL (3.4-5.0); Anion Gap 6 mmol/L (6-16); Blood Urea Nitrogen 17 mg/dL (8-24); Bun/Creatinine Ratio 13.1 (12.0-20.0); CO2, Blood 26 mmol/L (21-32); Calcium, Blood 7.6 mg/dL (8.5-10.1); Chloride, Blood 103 mmol/L (98-108); Glomerular Filtration Rate 43 (60-); Glucose, Blood 185 mg/dL (70-99); Phosphorus, Blood 3.7 mg/dL (2.5-4.9); Potassium, Blood 4.3 mmol/L (3.5-5.5); Sodium, Blood 135 mmol/L (136-145)
[2020-08-30] MEDS ORDERED: LAMO100 PO (23:00)
[2020-08-31] MEDS ORDERED: DULO60 PO (02:38)
[2020-08-31] MEDS ORDERED: ONDA4 PO (02:39)
[2020-08-31] MEDS ORDERED: METO5 PO (02:40)
[2020-09-01] MEDS ORDERED: CEFD300 PO (11:40)
== END 2020-07-31 11:16 | disposition home or self-care (01) ==
LOC: ATC 09:25
PROVIDERS: Internal Medicine Nephrology
DX: I12.9 Hypertensive chronic kidney disease with stage 1 through stage 4 chronic kidney disease, or unspecified chronic kidney disease (principal); N18.30 Chronic kidney disease, stage 3 unspecified; D75.1 Secondary polycythemia; E11.21 Type 2 diabetes mellitus with diabetic nephropathy; E11.22 Type 2 diabetes mellitus with diabetic chronic kidney disease; Z88.1 Allergy status to other antibiotic agents; Z88.2 Allergy status to sulfonamides
CPT/HCPCS: 80069; 85018; 96365; 96375; J1642; J2405

== ENCOUNTER 2020-08-01 00:15 | Day surgery (SDC) | payer OTHER ==
[2020-08-30] MEDS ORDERED: LAMO100 PO (23:00)
[2020-08-31] MEDS ORDERED: DULO60 PO (02:38)
[2020-08-31] MEDS ORDERED: ONDA4 PO (02:39)
[2020-08-31] MEDS ORDERED: METO5 PO (02:40)
[2020-09-01] MEDS ORDERED: CEFD300 PO (11:40)
== END 2020-08-01 11:08 | disposition home or self-care (01) ==
LOC: ATC 00:15
DX: I12.9 Hypertensive chronic kidney disease with stage 1 through stage 4 chronic kidney disease, or unspecified chronic kidney disease (principal); N18.30 Chronic kidney disease, stage 3 unspecified; D75.1 Secondary polycythemia; E11.22 Type 2 diabetes mellitus with diabetic chronic kidney disease; E11.21 Type 2 diabetes mellitus with diabetic nephropathy; Z88.1 Allergy status to other antibiotic agents; Z88.2 Allergy status to sulfonamides
CPT/HCPCS: 96365; 96375; J1642; J2405

== ENCOUNTER 2020-08-03 00:04 | Day surgery (SDC) | payer OTHER ==
[2020-08-30] MEDS ORDERED: LAMO100 PO (23:00)
[2020-08-31] MEDS ORDERED: DULO60 PO (02:38)
[2020-08-31] MEDS ORDERED: ONDA4 PO (02:39)
[2020-08-31] MEDS ORDERED: METO5 PO (02:40)
[2020-09-01] MEDS ORDERED: CEFD300 PO (11:40)
== END 2020-08-03 11:00 | disposition home or self-care (01) ==
LOC: ATC 00:04
DX: I12.9 Hypertensive chronic kidney disease with stage 1 through stage 4 chronic kidney disease, or unspecified chronic kidney disease (principal); E11.22 Type 2 diabetes mellitus with diabetic chronic kidney disease; N18.30 Chronic kidney disease, stage 3 unspecified; D63.1 Anemia in chronic kidney disease; N25.81 Secondary hyperparathyroidism of renal origin; E11.21 Type 2 diabetes mellitus with diabetic nephropathy; E03.9 Hypothyroidism, unspecified; Z79.82 Long term (current) use of aspirin
CPT/HCPCS: 96365; 96375; J1642; J2405

== ENCOUNTER 2020-08-04 00:14 | Day surgery (SDC) | payer OTHER ==
[2020-08-30] MEDS ORDERED: LAMO100 PO (23:00)
[2020-08-31] MEDS ORDERED: DULO60 PO (02:38)
[2020-08-31] MEDS ORDERED: ONDA4 PO (02:39)
[2020-08-31] MEDS ORDERED: METO5 PO (02:40)
[2020-09-01] MEDS ORDERED: CEFD300 PO (11:40)
== END 2020-08-04 10:56 | disposition home or self-care (01) ==
LOC: ATC 00:14
DX: I12.9 Hypertensive chronic kidney disease with stage 1 through stage 4 chronic kidney disease, or unspecified chronic kidney disease (principal); N18.30 Chronic kidney disease, stage 3 unspecified; D63.1 Anemia in chronic kidney disease; E11.21 Type 2 diabetes mellitus with diabetic nephropathy; E03.9 Hypothyroidism, unspecified; Z79.82 Long term (current) use of aspirin; Z88.1 Allergy status to other antibiotic agents; Z88.2 Allergy status to sulfonamides
CPT/HCPCS: 96365; 96375; J1642; J2405

== ENCOUNTER 2020-08-07 00:09 | Day surgery (SDC) | payer OTHER ==
[2020-08-30] MEDS ORDERED: LAMO100 PO (23:00)
[2020-08-31] MEDS ORDERED: DULO60 PO (02:38)
[2020-08-31] MEDS ORDERED: ONDA4 PO (02:39)
[2020-08-31] MEDS ORDERED: METO5 PO (02:40)
[2020-09-01] MEDS ORDERED: CEFD300 PO (11:40)
== END 2020-08-07 10:47 | disposition home or self-care (01) ==
LOC: ATC 00:09
DX: I12.9 Hypertensive chronic kidney disease with stage 1 through stage 4 chronic kidney disease, or unspecified chronic kidney disease (principal); E11.22 Type 2 diabetes mellitus with diabetic chronic kidney disease; N18.30 Chronic kidney disease, stage 3 unspecified; D63.1 Anemia in chronic kidney disease; E03.9 Hypothyroidism, unspecified; E79.0 Hyperuricemia without signs of inflammatory arthritis and tophaceous disease; E87.6 Hypokalemia; Z88.1 Allergy status to other antibiotic agents; Z88.2 Allergy status to sulfonamides; Z88.8 Allergy status to other drugs, medicaments and biological substances
CPT/HCPCS: 96365; 96375; J1642; J2405

== ENCOUNTER 2020-08-08 00:43 | Day surgery (SDC) | payer OTHER ==
[2020-08-30] MEDS ORDERED: LAMO100 PO (23:00)
[2020-08-31] MEDS ORDERED: DULO60 PO (02:38)
[2020-08-31] MEDS ORDERED: ONDA4 PO (02:39)
[2020-08-31] MEDS ORDERED: METO5 PO (02:40)
[2020-09-01] MEDS ORDERED: CEFD300 PO (11:40)
== END 2020-08-08 11:09 | disposition home or self-care (01) ==
LOC: ATC 00:43
DX: I12.9 Hypertensive chronic kidney disease with stage 1 through stage 4 chronic kidney disease, or unspecified chronic kidney disease (principal); N18.30 Chronic kidney disease, stage 3 unspecified; D63.1 Anemia in chronic kidney disease; D75.1 Secondary polycythemia; E11.21 Type 2 diabetes mellitus with diabetic nephropathy; E11.22 Type 2 diabetes mellitus with diabetic chronic kidney disease; Z88.1 Allergy status to other antibiotic agents; Z88.2 Allergy status to sulfonamides
CPT/HCPCS: 96365; 96375; J1642; J2405

== ENCOUNTER 2020-08-08 00:55 | Day surgery (SDC) | payer OTHER ==
[2020-08-30] MEDS ORDERED: LAMO100 PO (23:00)
[2020-08-31] MEDS ORDERED: DULO60 PO (02:38)
[2020-08-31] MEDS ORDERED: ONDA4 PO (02:39)
[2020-08-31] MEDS ORDERED: METO5 PO (02:40)
[2020-09-01] MEDS ORDERED: CEFD300 PO (11:40)
== END 2020-08-08 22:53 | disposition home or self-care (01) ==
LOC: WOUND 00:55
DX: E11.622 Type 2 diabetes mellitus with other skin ulcer (principal); E11.51 Type 2 diabetes mellitus with diabetic peripheral angiopathy without gangrene; L97.812 Non-pressure chronic ulcer of other part of right lower leg with fat layer exposed; I70.238 Atherosclerosis of native arteries of right leg with ulceration of other part of lower leg; L89.623 Pressure ulcer of left heel, stage 3; C22.1 Intrahepatic bile duct carcinoma; R60.0 Localized edema; E83.59 Other disorders of calcium metabolism
CPT/HCPCS: 87070; 87075; 87077; 87147; 87186; 87205; G0463

== ENCOUNTER 2020-08-10 00:38 | Day surgery (SDC) | payer OTHER ==
[2020-08-30] MEDS ORDERED: LAMO100 PO (23:00)
[2020-08-31] MEDS ORDERED: DULO60 PO (02:38)
[2020-08-31] MEDS ORDERED: ONDA4 PO (02:39)
[2020-08-31] MEDS ORDERED: METO5 PO (02:40)
[2020-09-01] MEDS ORDERED: CEFD300 PO (11:40)
== END 2020-08-10 15:37 | disposition home or self-care (01) ==
LOC: ATC 00:38
DX: I12.9 Hypertensive chronic kidney disease with stage 1 through stage 4 chronic kidney disease, or unspecified chronic kidney disease (principal); E11.22 Type 2 diabetes mellitus with diabetic chronic kidney disease; N18.30 Chronic kidney disease, stage 3 unspecified; D63.1 Anemia in chronic kidney disease; N25.81 Secondary hyperparathyroidism of renal origin; E87.70 Fluid overload, unspecified; E11.21 Type 2 diabetes mellitus with diabetic nephropathy; E87.1 Hypo-osmolality and hyponatremia; E87.6 Hypokalemia; E83.30 Disorder of phosphorus metabolism, unspecified; E55.9 Vitamin D deficiency, unspecified; E03.9 Hypothyroidism, unspecified; E83.59 Other disorders of calcium metabolism; Z88.1 Allergy status to other antibiotic agents; Z88.2 Allergy status to sulfonamides
CPT/HCPCS: 96365; 96375; J1642; J2405

== ENCOUNTER 2020-08-11 00:15 | Day surgery (SDC) | payer OTHER ==
--- NOTE | 2020-08-11 10:44 | NUR ---
PATIENT NAUSEATED AFTER MEDICATIN INFUSED. CONCERNED ABOUT WOUND ON RIGHT LOWER LEG AND TAKING PT STRAIGHT TO THE ED. MEDIPORT LEFT ACCESSED FOR ED VISIT.
[2020-08-30] MEDS ORDERED: LAMO100 PO (23:00)
[2020-08-31] MEDS ORDERED: DULO60 PO (02:38)
[2020-08-31] MEDS ORDERED: ONDA4 PO (02:39)
[2020-08-31] MEDS ORDERED: METO5 PO (02:40)
[2020-09-01] MEDS ORDERED: CEFD300 PO (11:40)
== END 2020-08-11 10:44 | disposition home or self-care (01) ==
LOC: ATC 00:15
DX: I12.9 Hypertensive chronic kidney disease with stage 1 through stage 4 chronic kidney disease, or unspecified chronic kidney disease (principal); N18.30 Chronic kidney disease, stage 3 unspecified; D63.1 Anemia in chronic kidney disease; E11.21 Type 2 diabetes mellitus with diabetic nephropathy; E03.9 Hypothyroidism, unspecified; Z88.1 Allergy status to other antibiotic agents; Z88.2 Allergy status to sulfonamides
CPT/HCPCS: 96365; 96375; J1642; J2405

== ENCOUNTER 2020-08-11 11:03 | Emergency (ER) | payer OTHER ==
[~2020-08-11] VITALS: Ht 167.6 cm; Wt 98.0 kg
[2020-08-11 12:13] LABS: BASOPHILS ABSOLUTE AUTO 0.03 K/mm3 (0.00-0.23); BASOPHILS PERCENT AUTO 0 % (0-2); EOSINOPHILS ABSOLUTE AUTO 0.04 K/mm3 (0.00-0.68); EOSINOPHILS PERCENT AUTO 0 % (0-6); Hematocrit 34.4 % (33.0-51.0); Hemoglobin 11.3 g/dL (11.5-16.0); IMMATURE GRAN ABSOLUTE AUTO 0.07 K/mm3 (0.00-0.10); IMMATURE GRAN PERCENT AUTO 1 % (0-1); LYMPHOCYTES ABSOLUTE AUTO 0.81 K/mm3 (0.84-5.20); LYMPHOCYTES PERCENT AUTO 6 % (21-46); MONOCYTES ABSOLUTE AUTO 0.91 K/mm3 (0.16-1.47); MONOCYTES PERCENT AUTO 7 % (4-13); Mean Corpuscular HGB 26.2 pg (26.0-34.0); Mean Corpuscular HGB Conc 32.8 g/dL (31.5-36.5); Mean Corpuscular Volume 80 fL (80-100); Mean Platelet Volume 11.8 fL (9.1-12.4); NEUTROPHILS PERCENT AUTO 86 % (41-73); Platelet Count 234 K/mm3 (150-400); RDW Coefficient Variation 15.9 % (11.7-14.2); RDW Standard Deviation 45.8 fL (35.1-46.3); Red Blood Cell Count 4.31 M/mm3 (3.80-5.20); White Blood Cell Count 12.76 K/mm3 (4.00-11.30)
[2020-08-11 12:48] LABS: Albumin, Blood 2.8 g/dL (3.4-5.0); Albumin/Globulin Ratio 0.7 (0.8-1.8); Bilirubin, Total 0.9 mg/dL (0.1-1.0); Bun/Creatinine Ratio 16.8 (12.0-20.0); Calcium, Blood 7.5 mg/dL (8.5-10.1); Creatinine, Blood 1.43 mg/dL (0.40-1.00); Globulin, Blood 3.9 g/dL (2.2-4.0); Potassium, Blood 3.4 mmol/L (3.5-5.5); Total Protein, Blood 6.7 g/dL (6.4-8.2)
== END 2020-08-11 13:58 | disposition home or self-care (01) ==
LOC: ER 11:03
PROVIDERS: Physician Assistant
DX: E11.622 Type 2 diabetes mellitus with other skin ulcer (principal); L97.919 Non-pressure chronic ulcer of unspecified part of right lower leg with unspecified severity; Z79.899 Other long term (current) drug therapy; Z79.4 Long term (current) use of insulin; Z79.02 Long term (current) use of antithrombotics/antiplatelets; I10 Essential (primary) hypertension; Z87.891 Personal history of nicotine dependence
CPT/HCPCS: 36415; 80053; 85025; 99284; J1642; J7030

== ENCOUNTER 2020-08-14 00:28 | Day surgery (SDC) | payer OTHER ==
[2020-08-14] MEDS ORDERED: LEVFLO500 PO (10:13)
== END 2020-08-14 11:08 | disposition home or self-care (01) ==
LOC: ATC 00:28
DX: I12.9 Hypertensive chronic kidney disease with stage 1 through stage 4 chronic kidney disease, or unspecified chronic kidney disease (principal); E11.22 Type 2 diabetes mellitus with diabetic chronic kidney disease; N18.30 Chronic kidney disease, stage 3 unspecified; D63.1 Anemia in chronic kidney disease; N25.81 Secondary hyperparathyroidism of renal origin; E11.21 Type 2 diabetes mellitus with diabetic nephropathy; E87.70 Fluid overload, unspecified; E03.9 Hypothyroidism, unspecified; E87.1 Hypo-osmolality and hyponatremia; E87.6 Hypokalemia; E83.30 Disorder of phosphorus metabolism, unspecified; E55.9 Vitamin D deficiency, unspecified; E83.59 Other disorders of calcium metabolism; Z88.2 Allergy status to sulfonamides; Z88.1 Allergy status to other antibiotic agents
CPT/HCPCS: 96365; 96375; J1642; J2405

== ENCOUNTER 2020-08-15 00:15 | Day surgery (SDC) | payer OTHER | END 2020-08-15 10:50 | disposition home or self-care (01) | LOC: ATC 00:15 | DX: I12.9 Hypertensive chronic kidney disease with stage 1 through stage 4 chronic kidney disease, or unspecified chronic kidney disease (principal); N18.30 Chronic kidney disease, stage 3 unspecified; D63.1 Anemia in chronic kidney disease; N25.81 Secondary hyperparathyroidism of renal origin; E11.21 Type 2 diabetes mellitus with diabetic nephropathy; E87.1 Hypo-osmolality and hyponatremia; E87.6 Hypokalemia; E83.30 Disorder of phosphorus metabolism, unspecified; E55.9 Vitamin D deficiency, unspecified; E03.9 Hypothyroidism, unspecified; E79.0 Hyperuricemia without signs of inflammatory arthritis and tophaceous disease; E83.59 Other disorders of calcium metabolism; Z88.1 Allergy status to other antibiotic agents; Z88.2 Allergy status to sulfonamides; Z88.8 Allergy status to other drugs, medicaments and biological substances | CPT/HCPCS: J1642; J2405 ==

== ENCOUNTER 2020-08-15 01:05 | Day surgery (SDC) | payer OTHER | END 2020-08-15 22:43 | disposition home or self-care (01) | LOC: WOUND | DX: E11.622 Type 2 diabetes mellitus with other skin ulcer (principal); L97.812 Non-pressure chronic ulcer of other part of right lower leg with fat layer exposed; L89.623 Pressure ulcer of left heel, stage 3; I70.238 Atherosclerosis of native arteries of right leg with ulceration of other part of lower leg; C22.1 Intrahepatic bile duct carcinoma; R60.0 Localized edema; E83.59 Other disorders of calcium metabolism | CPT/HCPCS: G0463 ==

== ENCOUNTER 2020-08-18 00:12 | Day surgery (SDC) | payer OTHER ==
[2020-08-18 11:25] LABS: Anion Gap 6 mmol/L (6-16); Blood Urea Nitrogen 32 mg/dL (8-24); Bun/Creatinine Ratio 18.3 (12.0-20.0); CO2, Blood 29 mmol/L (21-32); Calcium, Blood 8.1 mg/dL (8.5-10.1); Chloride, Blood 99 mmol/L (98-108); Creatinine, Blood 1.75 mg/dL (0.40-1.00); Glomerular Filtration Rate 31 (60-); Glucose, Blood 165 mg/dL (70-99); Phosphorus, Blood 4.9 mg/dL (2.5-4.9); Potassium, Blood 3.4 mmol/L (3.5-5.5); Sodium, Blood 134 mmol/L (136-145); Thyroxine (T4) 10.1 ug/dL (4.8-13.9)
[2020-08-30] MEDS ORDERED: LAMO100 PO (23:00)
[2020-08-31] MEDS ORDERED: DULO60 PO (02:38)
[2020-08-31] MEDS ORDERED: ONDA4 PO (02:39)
[2020-08-31] MEDS ORDERED: METO5 PO (02:40)
== END 2020-08-18 17:00 | disposition home or self-care (01) ==
LOC: ATC 00:12
PROVIDERS: Internal Medicine Nephrology
DX: I12.9 Hypertensive chronic kidney disease with stage 1 through stage 4 chronic kidney disease, or unspecified chronic kidney disease (principal); N18.30 Chronic kidney disease, stage 3 unspecified; D63.1 Anemia in chronic kidney disease; N25.81 Secondary hyperparathyroidism of renal origin; E11.21 Type 2 diabetes mellitus with diabetic nephropathy; E87.1 Hypo-osmolality and hyponatremia; E87.6 Hypokalemia; E83.30 Disorder of phosphorus metabolism, unspecified; E55.9 Vitamin D deficiency, unspecified; E03.9 Hypothyroidism, unspecified; E79.0 Hyperuricemia without signs of inflammatory arthritis and tophaceous disease; E83.59 Other disorders of calcium metabolism; Z88.1 Allergy status to other antibiotic agents; Z88.2 Allergy status to sulfonamides; Z88.8 Allergy status to other drugs, medicaments and biological substances
CPT/HCPCS: 80069; 84436; 84443; 84480; 85018; 96365; 96375; J1642; J2405

== ENCOUNTER 2020-08-19 00:24 | Day surgery (SDC) | payer OTHER | END 2020-08-19 10:48 | disposition home or self-care (01) | LOC: ATC 00:24 | DX: I12.9 Hypertensive chronic kidney disease with stage 1 through stage 4 chronic kidney disease, or unspecified chronic kidney disease (principal); E11.22 Type 2 diabetes mellitus with diabetic chronic kidney disease; N18.30 Chronic kidney disease, stage 3 unspecified; D63.1 Anemia in chronic kidney disease; N25.81 Secondary hyperparathyroidism of renal origin; E11.21 Type 2 diabetes mellitus with diabetic nephropathy; E87.70 Fluid overload, unspecified; E03.9 Hypothyroidism, unspecified; E87.1 Hypo-osmolality and hyponatremia; E87.6 Hypokalemia; E83.30 Disorder of phosphorus metabolism, unspecified; E55.9 Vitamin D deficiency, unspecified; E83.59 Other disorders of calcium metabolism; E79.0 Hyperuricemia without signs of inflammatory arthritis and tophaceous disease; Z88.2 Allergy status to sulfonamides; Z88.1 Allergy status to other antibiotic agents | CPT/HCPCS: J1642; J2405 ==

== ENCOUNTER 2020-08-21 00:37 | Day surgery (SDC) | payer OTHER | END 2020-08-21 10:54 | disposition home or self-care (01) | LOC: ATC 00:37 | DX: I12.9 Hypertensive chronic kidney disease with stage 1 through stage 4 chronic kidney disease, or unspecified chronic kidney disease (principal); N18.30 Chronic kidney disease, stage 3 unspecified; D63.1 Anemia in chronic kidney disease; N25.81 Secondary hyperparathyroidism of renal origin; E11.621 Type 2 diabetes mellitus with foot ulcer; E87.1 Hypo-osmolality and hyponatremia; E87.6 Hypokalemia; E83.30 Disorder of phosphorus metabolism, unspecified; E55.9 Vitamin D deficiency, unspecified; E03.9 Hypothyroidism, unspecified; E79.0 Hyperuricemia without signs of inflammatory arthritis and tophaceous disease; E83.59 Other disorders of calcium metabolism; Z88.1 Allergy status to other antibiotic agents; Z88.2 Allergy status to sulfonamides; Z88.8 Allergy status to other drugs, medicaments and biological substances; Z79.4 Long term (current) use of insulin | CPT/HCPCS: 96365; 96375; J1642; J2405 ==

== ENCOUNTER 2020-08-22 00:02 | Day surgery (SDC) | payer OTHER | END 2020-08-22 22:38 | disposition home or self-care (01) | LOC: WOUND 00:02 | DX: E11.622 Type 2 diabetes mellitus with other skin ulcer (principal); L97.812 Non-pressure chronic ulcer of other part of right lower leg with fat layer exposed; L97.829 Non-pressure chronic ulcer of other part of left lower leg with unspecified severity; L89.623 Pressure ulcer of left heel, stage 3; I70.238 Atherosclerosis of native arteries of right leg with ulceration of other part of lower leg; C22.1 Intrahepatic bile duct carcinoma; R60.0 Localized edema; E83.59 Other disorders of calcium metabolism ==

== ENCOUNTER 2020-08-22 00:27 | Day surgery (SDC) | payer OTHER | END 2020-08-22 10:30 | disposition home or self-care (01) | LOC: ATC 00:27 | DX: I12.9 Hypertensive chronic kidney disease with stage 1 through stage 4 chronic kidney disease, or unspecified chronic kidney disease (principal); E11.22 Type 2 diabetes mellitus with diabetic chronic kidney disease; N18.30 Chronic kidney disease, stage 3 unspecified; D63.1 Anemia in chronic kidney disease; E03.9 Hypothyroidism, unspecified; E87.6 Hypokalemia; E79.0 Hyperuricemia without signs of inflammatory arthritis and tophaceous disease; Z79.82 Long term (current) use of aspirin; Z88.1 Allergy status to other antibiotic agents; Z88.2 Allergy status to sulfonamides; Z88.8 Allergy status to other drugs, medicaments and biological substances | CPT/HCPCS: 96365; 96375; J1642; J2405 ==

== ENCOUNTER 2020-08-24 00:40 | Day surgery (SDC) | payer OTHER | END 2020-08-24 11:00 | disposition home or self-care (01) | LOC: ATC 00:40 | DX: I12.9 Hypertensive chronic kidney disease with stage 1 through stage 4 chronic kidney disease, or unspecified chronic kidney disease (principal); E11.22 Type 2 diabetes mellitus with diabetic chronic kidney disease; N18.30 Chronic kidney disease, stage 3 unspecified; D63.1 Anemia in chronic kidney disease; N25.81 Secondary hyperparathyroidism of renal origin; Z79.82 Long term (current) use of aspirin; E03.9 Hypothyroidism, unspecified | CPT/HCPCS: 96365; 96372; J1642; J2405 ==

== ENCOUNTER 2020-08-25 00:17 | Day surgery (SDC) | payer OTHER | END 2020-08-25 11:00 | disposition home or self-care (01) | LOC: ATC 00:17 | DX: I12.9 Hypertensive chronic kidney disease with stage 1 through stage 4 chronic kidney disease, or unspecified chronic kidney disease (principal); E11.22 Type 2 diabetes mellitus with diabetic chronic kidney disease; N18.30 Chronic kidney disease, stage 3 unspecified; D63.1 Anemia in chronic kidney disease; N25.81 Secondary hyperparathyroidism of renal origin; E11.21 Type 2 diabetes mellitus with diabetic nephropathy; E03.9 Hypothyroidism, unspecified; E87.1 Hypo-osmolality and hyponatremia; E87.6 Hypokalemia; E55.9 Vitamin D deficiency, unspecified; E79.0 Hyperuricemia without signs of inflammatory arthritis and tophaceous disease; Z88.1 Allergy status to other antibiotic agents; Z88.2 Allergy status to sulfonamides; Z88.8 Allergy status to other drugs, medicaments and biological substances; Z79.82 Long term (current) use of aspirin | CPT/HCPCS: J1642; J2405 ==

== ENCOUNTER 2020-08-28 00:04 | Day surgery (SDC) | payer OTHER ==
--- NOTE | 2020-08-28 10:27 | NUR ---
PT'S SPOUSE REPORTS PT HAS BEEN HAVING "PERIODS OF BLACK OUTS BUT NOT ACTUALLY PASSING OUT" FOR THE PAST WEEK. SPOUSE REPORTS PT'S "BODY STIFFENS LIKE A BOARD" AND SHE SEEMS TO BE CONFUSED. PT REPORTS SHE DOESN'T KNOW THAT SHE HAS HAD THESE EPISODES AND DOESN'T REMEMBER ANYTHING ABOUT THEM. PT REPORTS SHE HAS STOPPED HER LAMOTRIGIN BECAUSE SOME OF THE SIDE EFFECTS LISTED SEEM TO BE WHAT SHE IS EXPERIENCING. PT HAS NOT CONTACTED HER PCP ABOUT THESE EPISODES OR STOPPING HER LAMOTRIGIN. 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 PT AND SPOUSE VERBALIZE UNDERSTANDING AND STATE THAT THEY WILL CONTACT HER PCP.
== END 2020-08-28 10:45 | disposition home or self-care (01) ==
LOC: ATC 00:04
DX: I12.9 Hypertensive chronic kidney disease with stage 1 through stage 4 chronic kidney disease, or unspecified chronic kidney disease (principal); N18.30 Chronic kidney disease, stage 3 unspecified; D63.1 Anemia in chronic kidney disease; E11.22 Type 2 diabetes mellitus with diabetic chronic kidney disease; E11.21 Type 2 diabetes mellitus with diabetic nephropathy; N25.81 Secondary hyperparathyroidism of renal origin; E55.9 Vitamin D deficiency, unspecified; E78.00 Pure hypercholesterolemia, unspecified; R76.9 Abnormal immunological finding in serum, unspecified; R94.5 Abnormal results of liver function studies; R94.6 Abnormal results of thyroid function studies; Z88.1 Allergy status to other antibiotic agents; Z88.2 Allergy status to sulfonamides
CPT/HCPCS: J1642; J2405

== ENCOUNTER 2020-08-29 00:03 | Day surgery (SDC) | payer OTHER ==
[2020-08-30] MEDS ORDERED: LAMO100 PO (23:00)
== END 2020-08-29 11:14 | disposition home or self-care (01) ==
LOC: ATC 00:03
DX: I12.9 Hypertensive chronic kidney disease with stage 1 through stage 4 chronic kidney disease, or unspecified chronic kidney disease (principal); E11.22 Type 2 diabetes mellitus with diabetic chronic kidney disease; N18.30 Chronic kidney disease, stage 3 unspecified; D63.1 Anemia in chronic kidney disease; N25.81 Secondary hyperparathyroidism of renal origin; E55.9 Vitamin D deficiency, unspecified; E78.00 Pure hypercholesterolemia, unspecified; R76.9 Abnormal immunological finding in serum, unspecified; R94.5 Abnormal results of liver function studies; E03.9 Hypothyroidism, unspecified; Z88.1 Allergy status to other antibiotic agents; Z88.2 Allergy status to sulfonamides; Z79.82 Long term (current) use of aspirin
CPT/HCPCS: A9270; J1642; J2405

== ENCOUNTER 2020-08-29 00:12 | Day surgery (SDC) | payer OTHER ==
[2020-08-30] MEDS ORDERED: LAMO100 PO (23:00)
[2020-08-31] MEDS ORDERED: DULO60 PO (02:38)
[2020-08-31] MEDS ORDERED: ONDA4 PO (02:39)
[2020-08-31] MEDS ORDERED: METO5 PO (02:40)
== END 2020-08-29 23:22 | disposition home or self-care (01) ==
LOC: WOUND 00:12
DX: E11.622 Type 2 diabetes mellitus with other skin ulcer (principal); L97.812 Non-pressure chronic ulcer of other part of right lower leg with fat layer exposed; I70.238 Atherosclerosis of native arteries of right leg with ulceration of other part of lower leg; L89.623 Pressure ulcer of left heel, stage 3; C22.1 Intrahepatic bile duct carcinoma; R60.0 Localized edema; E83.59 Other disorders of calcium metabolism

== ENCOUNTER 2020-09-05 00:32 | Day surgery (SDC) | payer OTHER ==
[~2020-09-05 00:32] MED LIST changes: +CEFD300 PO; +ONDA4 PO
== END 2020-09-05 22:39 | disposition home or self-care (01) ==
LOC: WOUND 00:32
DX: E11.622 Type 2 diabetes mellitus with other skin ulcer (principal); L97.812 Non-pressure chronic ulcer of other part of right lower leg with fat layer exposed; I70.235 Atherosclerosis of native arteries of right leg with ulceration of other part of foot; L89.623 Pressure ulcer of left heel, stage 3; C22.1 Intrahepatic bile duct carcinoma; R60.0 Localized edema; E83.59 Other disorders of calcium metabolism
CPT/HCPCS: A9270

== ENCOUNTER 2020-09-07 02:07 | Day surgery (SDC) | payer OTHER | END 2020-09-07 12:05 | disposition home or self-care (01) | LOC: ATC 02:07 | DX: E11.22 Type 2 diabetes mellitus with diabetic chronic kidney disease (principal); I12.9 Hypertensive chronic kidney disease with stage 1 through stage 4 chronic kidney disease, or unspecified chronic kidney disease; N18.30 Chronic kidney disease, stage 3 unspecified; N17.9 Acute kidney failure, unspecified; D63.1 Anemia in chronic kidney disease; N25.81 Secondary hyperparathyroidism of renal origin; E87.70 Fluid overload, unspecified; R80.9 Proteinuria, unspecified; E87.1 Hypo-osmolality and hyponatremia; E87.6 Hypokalemia; E55.9 Vitamin D deficiency, unspecified; E03.9 Hypothyroidism, unspecified; Z79.82 Long term (current) use of aspirin; Z88.1 Allergy status to other antibiotic agents; Z88.2 Allergy status to sulfonamides; Z88.8 Allergy status to other drugs, medicaments and biological substances | CPT/HCPCS: 96365; 96375; J1642; J2405 ==

== ENCOUNTER 2020-09-08 01:56 | Day surgery (SDC) | payer OTHER | END 2020-09-08 10:54 | disposition home or self-care (01) | LOC: ATC 01:56 | DX: I12.9 Hypertensive chronic kidney disease with stage 1 through stage 4 chronic kidney disease, or unspecified chronic kidney disease (principal); E11.22 Type 2 diabetes mellitus with diabetic chronic kidney disease; N18.30 Chronic kidney disease, stage 3 unspecified; D63.1 Anemia in chronic kidney disease; N25.81 Secondary hyperparathyroidism of renal origin; E03.9 Hypothyroidism, unspecified; Z79.82 Long term (current) use of aspirin | CPT/HCPCS: 96365; 96375; J1642; J2405 ==

== ENCOUNTER 2020-09-11 00:51 | Day surgery (SDC) | payer OTHER | END 2020-09-11 11:31 | disposition home or self-care (01) | LOC: ATC 00:51 | DX: I12.9 Hypertensive chronic kidney disease with stage 1 through stage 4 chronic kidney disease, or unspecified chronic kidney disease (principal); N18.30 Chronic kidney disease, stage 3 unspecified; D63.1 Anemia in chronic kidney disease; N25.81 Secondary hyperparathyroidism of renal origin; E11.22 Type 2 diabetes mellitus with diabetic chronic kidney disease; E03.9 Hypothyroidism, unspecified; E79.0 Hyperuricemia without signs of inflammatory arthritis and tophaceous disease; Z88.1 Allergy status to other antibiotic agents; Z88.2 Allergy status to sulfonamides; Z88.8 Allergy status to other drugs, medicaments and biological substances | CPT/HCPCS: 96365; 96375; J1642; J2405 ==

== ENCOUNTER 2020-09-12 00:11 | Day surgery (SDC) | payer OTHER | END 2020-09-12 22:42 | disposition home or self-care (01) | LOC: WOUND 00:11 | DX: E11.622 Type 2 diabetes mellitus with other skin ulcer (principal); L97.812 Non-pressure chronic ulcer of other part of right lower leg with fat layer exposed; L89.613 Pressure ulcer of right heel, stage 3; E11.51 Type 2 diabetes mellitus with diabetic peripheral angiopathy without gangrene; I70.238 Atherosclerosis of native arteries of right leg with ulceration of other part of lower leg; C22.1 Intrahepatic bile duct carcinoma; E83.59 Other disorders of calcium metabolism; R60.0 Localized edema | CPT/HCPCS: A9270 ==

== ENCOUNTER 2020-09-12 00:41 | Day surgery (SDC) | payer OTHER ==
--- NOTE | 2020-09-12 16:04 | NUR ---
MEDIPORT: PT CAME IN FOR INFUSION. SELINA RN FLUSHED PORT WITH 20 ML NS, SELINA GOT FLASH OF BLOOD. THIS RN IN ROOM, MEDIPORT APPEARED TO BE IN PLACE. INFUSION STARTED AND WITHIN 5 MIN PT CALLED THIS RN IN ROOM. APPEARS THAT ZAIDI WAS DISLODGED. INFILTRATION NOTED. THIS RN ATTEMPTED TO GET ANOTHER ZAIDI IN, HOWEVER WITH PORT INFILTRATED AND THE SWELLING IT WAS NOT SUCCESSFUL. PORT FEELS LIKE IT IS FLIPPED, WILL CALL DR HERNDON AND SUGGEST PT GET MIGHT GIVE REFERRAL TO SURGEON FOR REFERRAL FOR NEW PORT. PORT HAS BEEN HAVING ISSUES DRAWING BLOOD FROM PORT THE PAST FEW MONTHS.
== END 2020-09-12 11:55 | disposition home or self-care (01) ==
LOC: ATC 00:41
DX: I12.9 Hypertensive chronic kidney disease with stage 1 through stage 4 chronic kidney disease, or unspecified chronic kidney disease (principal); N18.30 Chronic kidney disease, stage 3 unspecified; E11.22 Type 2 diabetes mellitus with diabetic chronic kidney disease; D63.1 Anemia in chronic kidney disease; N25.81 Secondary hyperparathyroidism of renal origin; E11.21 Type 2 diabetes mellitus with diabetic nephropathy; Z88.2 Allergy status to sulfonamides; Z88.1 Allergy status to other antibiotic agents; Z79.899 Other long term (current) drug therapy
CPT/HCPCS: 96365; 96375; J1642; J2405

== ENCOUNTER 2020-09-14 00:33 | Day surgery (SDC) | payer OTHER | END 2020-09-14 10:52 | disposition home or self-care (01) | LOC: ATC 00:33 | DX: I12.9 Hypertensive chronic kidney disease with stage 1 through stage 4 chronic kidney disease, or unspecified chronic kidney disease (principal); N18.30 Chronic kidney disease, stage 3 unspecified; D63.1 Anemia in chronic kidney disease; N25.81 Secondary hyperparathyroidism of renal origin; E11.21 Type 2 diabetes mellitus with diabetic nephropathy; E83.59 Other disorders of calcium metabolism; E87.1 Hypo-osmolality and hyponatremia; E83.30 Disorder of phosphorus metabolism, unspecified; E55.9 Vitamin D deficiency, unspecified; E03.9 Hypothyroidism, unspecified; E79.0 Hyperuricemia without signs of inflammatory arthritis and tophaceous disease; Z88.1 Allergy status to other antibiotic agents; Z88.8 Allergy status to other drugs, medicaments and biological substances | CPT/HCPCS: 96365; 96375; J1642; J2405 ==

== ENCOUNTER 2020-09-15 00:06 | Day surgery (SDC) | payer OTHER ==
[2020-09-15 11:12] LABS: BASOPHILS ABSOLUTE AUTO 0.05 K/mm3 (0.00-0.23); BASOPHILS PERCENT AUTO 1 % (0-2); EOSINOPHILS ABSOLUTE AUTO 0.45 K/mm3 (0.00-0.68); EOSINOPHILS PERCENT AUTO 6 % (0-6); Hematocrit 34.6 % (33.0-51.0); Hemoglobin 11.1 g/dL (11.5-16.0); IMMATURE GRAN ABSOLUTE AUTO 0.11 K/mm3 (0.00-0.10); IMMATURE GRAN PERCENT AUTO 1 % (0-1); LYMPHOCYTES ABSOLUTE AUTO 1.58 K/mm3 (0.84-5.20); LYMPHOCYTES PERCENT AUTO 20 % (21-46); MONOCYTES ABSOLUTE AUTO 0.59 K/mm3 (0.16-1.47); MONOCYTES PERCENT AUTO 7 % (4-13); Mean Corpuscular HGB 26.4 pg (26.0-34.0); Mean Corpuscular HGB Conc 32.1 g/dL (31.5-36.5); Mean Corpuscular Volume 82 fL (80-100); Mean Platelet Volume 11.7 fL (9.1-12.4); NEUTROPHILS ABSOLUTE AUTO 5.14 K/mm3 (1.96-9.15); NEUTROPHILS PERCENT AUTO 65 % (41-73); Platelet Count 237 K/mm3 (150-400); RDW Coefficient Variation 16.7 % (11.7-14.2); RDW Standard Deviation 48.7 fL (35.1-46.3); White Blood Cell Count 7.92 K/mm3 (4.00-11.30)
[2020-09-15 11:34] LABS: Alanine Aminotransfer (ALT/SGP 23 U/L (12-78); Albumin, Blood 3.1 g/dL (3.4-5.0); Albumin/Globulin Ratio 0.8 (0.8-1.8); Alk Phos 89 U/L (50-136); Anion Gap 9 mmol/L (6-16); Aspartate Aminotrans (AST/SGOT 15 U/L (12-37); Bilirubin, Direct <0.1 mg/dL (0.0-0.3); Bilirubin, Indirect Unable to Calculate mg/dL (0.1-0.7); Bilirubin, Total 0.3 mg/dL (0.1-1.0); Blood Urea Nitrogen 37 mg/dL (8-24); CHOL/HDL RATIO 5.5; CO2, Blood 26 mmol/L (21-32); Calcium, Blood 7.8 mg/dL (8.5-10.1); Chloride, Blood 96 mmol/L (98-108); Cholesterol 166 mg/dL (50-200); Creatinine, Blood 1.85 mg/dL (0.40-1.00); Globulin, Blood 3.7 g/dL (2.2-4.0); Glomerular Filtration Rate 29 (60-); Glucose, Blood 136 mg/dL (70-99); HDL Cholesterol 30 mg/dL (>39); LDL/HDL RATIO 2.4; Low Density Lipoprotein Chol 72 mg/dL (0-110); Phosphorus, Blood 4.2 mg/dL (2.5-4.9); Potassium, Blood 3.3 mmol/L (3.5-5.5); Sodium, Blood 131 mmol/L (136-145); Total Protein, Blood 6.8 g/dL (6.4-8.2); Triglycerides 322 mg/dL (30-160); Very Low Density Lipoprot Chol 64 mg/dL (6-32)
== END 2020-09-15 11:02 | disposition home or self-care (01) ==
LOC: ATC 00:06
PROVIDERS: Family Medicine
DX: I12.9 Hypertensive chronic kidney disease with stage 1 through stage 4 chronic kidney disease, or unspecified chronic kidney disease (principal); N18.30 Chronic kidney disease, stage 3 unspecified; E11.22 Type 2 diabetes mellitus with diabetic chronic kidney disease; D63.1 Anemia in chronic kidney disease; N25.81 Secondary hyperparathyroidism of renal origin; E03.9 Hypothyroidism, unspecified
CPT/HCPCS: 80053; 80061; 82248; 83036; 84100; 85025; 96365; 96375; J1642; J2405

== ENCOUNTER 2020-09-19 03:24 | Day surgery (SDC) | payer OTHER | END 2020-09-19 23:04 | disposition home or self-care (01) | LOC: WOUND 03:24 | DX: E11.622 Type 2 diabetes mellitus with other skin ulcer (principal); L97.812 Non-pressure chronic ulcer of other part of right lower leg with fat layer exposed; L89.623 Pressure ulcer of left heel, stage 3; I70.238 Atherosclerosis of native arteries of right leg with ulceration of other part of lower leg; C22.1 Intrahepatic bile duct carcinoma; R60.0 Localized edema; E83.59 Other disorders of calcium metabolism | CPT/HCPCS: G0463 ==

== ENCOUNTER 2020-09-19 03:39 | Day surgery (SDC) | payer OTHER | END 2020-09-19 11:11 | disposition home or self-care (01) | LOC: ATC 03:39 | DX: I12.9 Hypertensive chronic kidney disease with stage 1 through stage 4 chronic kidney disease, or unspecified chronic kidney disease (principal); N18.30 Chronic kidney disease, stage 3 unspecified; D63.1 Anemia in chronic kidney disease; N25.81 Secondary hyperparathyroidism of renal origin; E11.22 Type 2 diabetes mellitus with diabetic chronic kidney disease; E83.30 Disorder of phosphorus metabolism, unspecified; E55.9 Vitamin D deficiency, unspecified; E03.9 Hypothyroidism, unspecified; Z88.1 Allergy status to other antibiotic agents; Z88.0 Allergy status to penicillin; Z88.2 Allergy status to sulfonamides | CPT/HCPCS: 96365; 96375; A9270; J1642; J2405 ==

== ENCOUNTER 2020-09-21 00:19 | Day surgery (SDC) | payer OTHER ==
[2020-09-21 12:01] LABS: Albumin, Blood 3.2 g/dL (3.4-5.0); Anion Gap 7 mmol/L (6-16); Blood Urea Nitrogen 36 mg/dL (8-24); Bun/Creatinine Ratio 23.5 (12.0-20.0); CO2, Blood 27 mmol/L (21-32); Calcium, Blood 7.9 mg/dL (8.5-10.1); Chloride, Blood 94 mmol/L (98-108); Creatinine, Blood 1.53 mg/dL (0.40-1.00); Glomerular Filtration Rate 36 (60-); Glucose, Blood 188 mg/dL (70-99); Magnesium, Blood 1.2 mg/dL (1.6-2.4); Phosphorus, Blood 4.2 mg/dL (2.5-4.9); Potassium, Blood 4.2 mmol/L (3.5-5.5); Sodium, Blood 128 mmol/L (136-145)
--- NOTE | 2020-09-21 12:31 | NUR ---
DIFFICULTY ACCESSING PATIENT MEDIPORT. ACCESS ATTEMPTED MULTIPLE TIMES BY THIS RN AND ANNA MARIE LINDO RN WITHOUT SUCCESS. PATIENT REPORTED INTENSE PAIN AFTER EACH ATTEMPT. IV PLACED. RN WILL REASSESS PORT TOMORROW
[2020-09-21 12:39] LABS: Source, Urine Voided
[2020-09-21 12:50] LABS: Bilirubin, Urine Neg (Neg); Blood, Urine 1+ (Neg); Glucose Qualitative, Urine Neg (Neg); Ketones, Urine Neg (Neg); Leukocyte Esterase, Urine Neg (Neg); Nitrite, Urine Neg (Neg); Protein, Urine 2+ (Neg); Specific Gravity, Urine 1.015 (1.003-1.022); Urobilinogen, Urine NORM (Normal)
[2020-09-21 13:09] LABS: Appearance, Urine Clear (Clear); Color, Urine Yellow (P-Yellow)
[2020-09-21 13:10] LABS: Bacteria Few /hpf; Red Blood Cells, Urine 0-2 /hpf (0-2); Squamous Epithelial Cells Rare /hpf (Few); White Blood Cells, Urine 0-2 /hpf (0-5)
== END 2020-09-21 12:06 | disposition home or self-care (01) ==
LOC: ATC 00:19
PROVIDERS: Family Medicine
DX: I12.9 Hypertensive chronic kidney disease with stage 1 through stage 4 chronic kidney disease, or unspecified chronic kidney disease (principal); E11.22 Type 2 diabetes mellitus with diabetic chronic kidney disease; N18.32 Chronic kidney disease, stage 3b; D63.1 Anemia in chronic kidney disease; E78.00 Pure hypercholesterolemia, unspecified; E55.9 Vitamin D deficiency, unspecified; N25.81 Secondary hyperparathyroidism of renal origin; Z79.82 Long term (current) use of aspirin; Z88.1 Allergy status to other antibiotic agents; Z88.2 Allergy status to sulfonamides
CPT/HCPCS: 80069; 81001; 83735; 96365; 96375; J2405

== ENCOUNTER 2020-09-23 02:25 | Day surgery (SDC) | payer OTHER | END 2020-09-23 12:02 | disposition home or self-care (01) | LOC: ATC 02:25 | DX: I12.9 Hypertensive chronic kidney disease with stage 1 through stage 4 chronic kidney disease, or unspecified chronic kidney disease (principal); N18.30 Chronic kidney disease, stage 3 unspecified; N25.81 Secondary hyperparathyroidism of renal origin; E55.9 Vitamin D deficiency, unspecified; E78.00 Pure hypercholesterolemia, unspecified | CPT/HCPCS: 96365; 96375; J1642; J2405 ==

== ENCOUNTER 2020-09-25 00:06 | Day surgery (SDC) | payer OTHER ==
[2020-09-25 11:25] LABS: Albumin, Blood 3.6 g/dL (3.4-5.0); Anion Gap 8 mmol/L (6-16); Blood Urea Nitrogen 32 mg/dL (8-24); Bun/Creatinine Ratio 20.3 (12.0-20.0); CO2, Blood 25 mmol/L (21-32); Calcium, Blood 8.1 mg/dL (8.5-10.1); Chloride, Blood 96 mmol/L (98-108); Creatinine, Blood 1.58 mg/dL (0.40-1.00); Glomerular Filtration Rate 34 (60-); Glucose, Blood 185 mg/dL (70-99); Potassium, Blood 4.2 mmol/L (3.5-5.5); Sodium, Blood 129 mmol/L (136-145); Thyroxine (T4) 8.3 ug/dL (4.8-13.9); Triiodothyronine, Free 2.44 pg/mL (2.18-3.98); Uric Acid, Blood 6.4 mg/dL (2.6-6.0)
--- NOTE | 2020-09-25 14:45 | NUR ---
LAB RESULTS FROM TODAY FAXED TO DR. MARINO'S OFFICE.
== END 2020-09-25 10:51 | disposition home or self-care (01) ==
LOC: ATC 00:06
PROVIDERS: Internal Medicine Nephrology
DX: I12.9 Hypertensive chronic kidney disease with stage 1 through stage 4 chronic kidney disease, or unspecified chronic kidney disease (principal); E11.22 Type 2 diabetes mellitus with diabetic chronic kidney disease; N18.30 Chronic kidney disease, stage 3 unspecified; D63.1 Anemia in chronic kidney disease; N25.81 Secondary hyperparathyroidism of renal origin; E11.21 Type 2 diabetes mellitus with diabetic nephropathy; E55.9 Vitamin D deficiency, unspecified; E03.9 Hypothyroidism, unspecified; Z88.1 Allergy status to other antibiotic agents; Z88.2 Allergy status to sulfonamides; Z79.82 Long term (current) use of aspirin
CPT/HCPCS: 80069; 82530; 84436; 84443; 84481; 84550; 85018; 96365; 96375; J1642; J2405

== ENCOUNTER 2020-09-26 03:13 | Day surgery (SDC) | payer OTHER | END 2020-09-26 14:56 | disposition home or self-care (01) | LOC: ATC 03:13 | DX: I12.9 Hypertensive chronic kidney disease with stage 1 through stage 4 chronic kidney disease, or unspecified chronic kidney disease (principal); N18.32 Chronic kidney disease, stage 3b; E11.22 Type 2 diabetes mellitus with diabetic chronic kidney disease; D63.1 Anemia in chronic kidney disease; E11.21 Type 2 diabetes mellitus with diabetic nephropathy; R80.9 Proteinuria, unspecified; E87.1 Hypo-osmolality and hyponatremia; E78.00 Pure hypercholesterolemia, unspecified; E55.9 Vitamin D deficiency, unspecified; N25.81 Secondary hyperparathyroidism of renal origin; M85.80 Other specified disorders of bone density and structure, unspecified site; E87.6 Hypokalemia; Z79.82 Long term (current) use of aspirin; Z79.899 Other long term (current) drug therapy | CPT/HCPCS: 96523; J1642 ==

== ENCOUNTER 2020-09-28 04:06 | Day surgery (SDC) | payer OTHER | END 2020-09-28 23:02 | disposition home or self-care (01) | LOC: ATC 04:06 | DX: I12.9 Hypertensive chronic kidney disease with stage 1 through stage 4 chronic kidney disease, or unspecified chronic kidney disease (principal); N18.32 Chronic kidney disease, stage 3b; D63.1 Anemia in chronic kidney disease; E11.621 Type 2 diabetes mellitus with foot ulcer; E87.1 Hypo-osmolality and hyponatremia; N25.81 Secondary hyperparathyroidism of renal origin; E87.6 Hypokalemia; E55.9 Vitamin D deficiency, unspecified; M85.80 Other specified disorders of bone density and structure, unspecified site; Z88.1 Allergy status to other antibiotic agents; Z88.2 Allergy status to sulfonamides; Z88.8 Allergy status to other drugs, medicaments and biological substances; Z79.4 Long term (current) use of insulin ==

== ENCOUNTER 2020-09-29 00:46 | Day surgery (SDC) | payer OTHER | END 2020-09-29 23:09 | disposition home or self-care (01) | LOC: ATC 00:46 | DX: I12.9 Hypertensive chronic kidney disease with stage 1 through stage 4 chronic kidney disease, or unspecified chronic kidney disease (principal); E11.22 Type 2 diabetes mellitus with diabetic chronic kidney disease; N18.32 Chronic kidney disease, stage 3b; D63.1 Anemia in chronic kidney disease; N25.81 Secondary hyperparathyroidism of renal origin; E55.9 Vitamin D deficiency, unspecified; E78.00 Pure hypercholesterolemia, unspecified; R76.9 Abnormal immunological finding in serum, unspecified; R94.5 Abnormal results of liver function studies; R94.6 Abnormal results of thyroid function studies ==

== ENCOUNTER 2020-10-03 04:45 | Day surgery (SDC) | payer OTHER | END 2020-10-03 23:40 | disposition home or self-care (01) | LOC: WOUND 04:45 | DX: E11.622 Type 2 diabetes mellitus with other skin ulcer (principal); L97.812 Non-pressure chronic ulcer of other part of right lower leg with fat layer exposed; I70.238 Atherosclerosis of native arteries of right leg with ulceration of other part of lower leg; E83.59 Other disorders of calcium metabolism | CPT/HCPCS: A9270 ==

== ENCOUNTER 2020-10-03 04:58 | Day surgery (SDC) | payer OTHER | END 2020-10-03 10:40 | disposition home or self-care (01) | LOC: ATC 04:58 | DX: I12.9 Hypertensive chronic kidney disease with stage 1 through stage 4 chronic kidney disease, or unspecified chronic kidney disease (principal); N18.32 Chronic kidney disease, stage 3b; D63.1 Anemia in chronic kidney disease; E11.21 Type 2 diabetes mellitus with diabetic nephropathy; N25.81 Secondary hyperparathyroidism of renal origin | CPT/HCPCS: 96365; 96375; J1642; J2405 ==

== ENCOUNTER 2020-10-09 00:15 | Day surgery (SDC) | payer OTHER | END 2020-10-09 22:55 | disposition home or self-care (01) | LOC: ATC 00:15 | DX: I12.9 Hypertensive chronic kidney disease with stage 1 through stage 4 chronic kidney disease, or unspecified chronic kidney disease (principal); E11.22 Type 2 diabetes mellitus with diabetic chronic kidney disease; N18.32 Chronic kidney disease, stage 3b; D63.1 Anemia in chronic kidney disease; N25.81 Secondary hyperparathyroidism of renal origin; E11.21 Type 2 diabetes mellitus with diabetic nephropathy; E87.1 Hypo-osmolality and hyponatremia; E78.00 Pure hypercholesterolemia, unspecified; M85.80 Other specified disorders of bone density and structure, unspecified site; E55.9 Vitamin D deficiency, unspecified; E87.6 Hypokalemia; R80.9 Proteinuria, unspecified ==

== ENCOUNTER 2020-10-12 04:07 | Day surgery (SDC) | payer OTHER | END 2020-10-12 11:02 | disposition home or self-care (01) | LOC: ATC 04:07 | DX: I12.9 Hypertensive chronic kidney disease with stage 1 through stage 4 chronic kidney disease, or unspecified chronic kidney disease (principal); E11.22 Type 2 diabetes mellitus with diabetic chronic kidney disease; N18.32 Chronic kidney disease, stage 3b; N25.81 Secondary hyperparathyroidism of renal origin; Z79.82 Long term (current) use of aspirin | CPT/HCPCS: 96365; 96375; J1642; J2405 ==

== ENCOUNTER 2020-10-14 10:00 | Day surgery (SDC) | payer OTHER ==
[~2020-10-14] VITALS: Wt 88.6 kg
[2020-10-14] MEDS ORDERED: MORP15ER PO (12:50)
== END 2020-10-14 10:52 | disposition home or self-care (01) ==
LOC: ATC 10:00
DX: I12.9 Hypertensive chronic kidney disease with stage 1 through stage 4 chronic kidney disease, or unspecified chronic kidney disease (principal); E11.22 Type 2 diabetes mellitus with diabetic chronic kidney disease; N18.32 Chronic kidney disease, stage 3b; D83.1 Common variable immunodeficiency with predominant immunoregulatory T-cell disorders; E78.00 Pure hypercholesterolemia, unspecified; N25.81 Secondary hyperparathyroidism of renal origin; E55.9 Vitamin D deficiency, unspecified; Z79.82 Long term (current) use of aspirin; Z88.1 Allergy status to other antibiotic agents; Z88.2 Allergy status to sulfonamides
CPT/HCPCS: 96365; 96375; J1642; J2405

== ENCOUNTER 2020-10-16 00:06 | Day surgery (SDC) | payer OTHER ==
[~2020-10-16 00:06] MED LIST changes: +MORP15ER PO
== END 2020-10-16 10:59 | disposition home or self-care (01) ==
LOC: ATC 00:06
DX: I12.9 Hypertensive chronic kidney disease with stage 1 through stage 4 chronic kidney disease, or unspecified chronic kidney disease (principal); E11.22 Type 2 diabetes mellitus with diabetic chronic kidney disease; N18.32 Chronic kidney disease, stage 3b; D63.1 Anemia in chronic kidney disease; N25.81 Secondary hyperparathyroidism of renal origin; Z79.82 Long term (current) use of aspirin
CPT/HCPCS: 96365; 96375; J1642; J2405

== ENCOUNTER 2020-10-17 00:48 | Day surgery (SDC) | payer OTHER | END 2020-10-17 22:45 | disposition home or self-care (01) | LOC: WOUND 00:48 | DX: E11.622 Type 2 diabetes mellitus with other skin ulcer (principal); I70.238 Atherosclerosis of native arteries of right leg with ulceration of other part of lower leg; L97.812 Non-pressure chronic ulcer of other part of right lower leg with fat layer exposed; E83.59 Other disorders of calcium metabolism ==

== ENCOUNTER 2020-10-17 07:16 | Day surgery (SDC) | payer OTHER | END 2020-10-17 10:48 | disposition home or self-care (01) | LOC: ATC 07:16 | DX: D75.1 Secondary polycythemia (principal); E11.22 Type 2 diabetes mellitus with diabetic chronic kidney disease; I12.9 Hypertensive chronic kidney disease with stage 1 through stage 4 chronic kidney disease, or unspecified chronic kidney disease; N18.32 Chronic kidney disease, stage 3b; D63.1 Anemia in chronic kidney disease; E11.21 Type 2 diabetes mellitus with diabetic nephropathy; E87.1 Hypo-osmolality and hyponatremia; E78.00 Pure hypercholesterolemia, unspecified; E55.9 Vitamin D deficiency, unspecified; N25.81 Secondary hyperparathyroidism of renal origin; M85.80 Other specified disorders of bone density and structure, unspecified site; E87.6 Hypokalemia | CPT/HCPCS: 96365; 96375; J1642; J2405 ==

== ENCOUNTER 2020-10-19 04:15 | Day surgery (SDC) | payer OTHER | END 2020-10-19 10:05 | disposition home or self-care (01) | LOC: ATC 04:15 | DX: I12.9 Hypertensive chronic kidney disease with stage 1 through stage 4 chronic kidney disease, or unspecified chronic kidney disease (principal); E11.22 Type 2 diabetes mellitus with diabetic chronic kidney disease; N18.32 Chronic kidney disease, stage 3b; D63.1 Anemia in chronic kidney disease; E78.00 Pure hypercholesterolemia, unspecified; E55.9 Vitamin D deficiency, unspecified; N25.81 Secondary hyperparathyroidism of renal origin; M85.80 Other specified disorders of bone density and structure, unspecified site | CPT/HCPCS: 96365; 96375; J1642; J2405 ==

== ENCOUNTER 2020-10-23 01:05 | Day surgery (SDC) | payer OTHER ==
[2020-10-23 11:04] LABS: Thyroxine (T4) 8.2 ug/dL (4.8-13.9)
[2020-10-23 11:07] LABS: Albumin, Blood 3.2 g/dL (3.4-5.0); Anion Gap 7 mmol/L (6-16); Blood Urea Nitrogen 30 mg/dL (8-24); Bun/Creatinine Ratio 22.4 (12.0-20.0); CO2, Blood 25 mmol/L (21-32); Calcium, Blood 8.2 mg/dL (8.5-10.1); Chloride, Blood 102 mmol/L (98-108); Creatinine, Blood 1.34 mg/dL (0.40-1.00); Glomerular Filtration Rate 42 (60-); Glucose, Blood 130 mg/dL (70-99); Phosphorus, Blood 3.4 mg/dL (2.5-4.9); Potassium, Blood 4.3 mmol/L (3.5-5.5); Sodium, Blood 134 mmol/L (136-145); Triiodothyronine, Free 2.68 pg/mL (2.18-3.98)
== END 2020-10-23 10:56 | disposition home or self-care (01) ==
LOC: ATC 01:05
PROVIDERS: Internal Medicine Nephrology
DX: I12.9 Hypertensive chronic kidney disease with stage 1 through stage 4 chronic kidney disease, or unspecified chronic kidney disease (principal); E11.22 Type 2 diabetes mellitus with diabetic chronic kidney disease; N18.32 Chronic kidney disease, stage 3b; D63.1 Anemia in chronic kidney disease; N25.81 Secondary hyperparathyroidism of renal origin; Z79.82 Long term (current) use of aspirin
CPT/HCPCS: 80069; 84436; 84481; 85018; 96365; 96375; J1642; J2405

== ENCOUNTER 2020-10-24 04:45 | Day surgery (SDC) | payer OTHER | END 2020-10-24 23:00 | disposition home or self-care (01) | LOC: WOUND 04:45 | DX: E11.622 Type 2 diabetes mellitus with other skin ulcer (principal); L97.812 Non-pressure chronic ulcer of other part of right lower leg with fat layer exposed; I70.238 Atherosclerosis of native arteries of right leg with ulceration of other part of lower leg; E83.59 Other disorders of calcium metabolism; S91.104A Unspecified open wound of right lesser toe(s) without damage to nail, initial encounter; X58.XXXA Exposure to other specified factors, initial encounter | CPT/HCPCS: A9270 ==

== ENCOUNTER 2020-10-24 05:04 | Day surgery (SDC) | payer OTHER | END 2020-10-24 11:05 | disposition home or self-care (01) | LOC: ATC 05:04 | DX: I12.9 Hypertensive chronic kidney disease with stage 1 through stage 4 chronic kidney disease, or unspecified chronic kidney disease (principal); N18.32 Chronic kidney disease, stage 3b; D63.1 Anemia in chronic kidney disease; N25.81 Secondary hyperparathyroidism of renal origin | CPT/HCPCS: 96365; 96375; J1642; J2405 ==

== ENCOUNTER 2020-10-26 00:04 | Day surgery (SDC) | payer OTHER | END 2020-10-26 10:30 | disposition home or self-care (01) | LOC: ATC 00:04 | DX: I12.9 Hypertensive chronic kidney disease with stage 1 through stage 4 chronic kidney disease, or unspecified chronic kidney disease (principal); E11.22 Type 2 diabetes mellitus with diabetic chronic kidney disease; N18.32 Chronic kidney disease, stage 3b; D63.1 Anemia in chronic kidney disease; Z88.1 Allergy status to other antibiotic agents; Z88.2 Allergy status to sulfonamides | CPT/HCPCS: 96365; 96375; J1642; J2405 ==

== ENCOUNTER 2020-10-27 01:17 | Day surgery (SDC) | payer OTHER | END 2020-10-27 10:50 | disposition home or self-care (01) | LOC: ATC 01:17 | DX: I12.9 Hypertensive chronic kidney disease with stage 1 through stage 4 chronic kidney disease, or unspecified chronic kidney disease (principal); N18.32 Chronic kidney disease, stage 3b; D63.1 Anemia in chronic kidney disease; E11.22 Type 2 diabetes mellitus with diabetic chronic kidney disease; E78.00 Pure hypercholesterolemia, unspecified; E55.9 Vitamin D deficiency, unspecified; N25.81 Secondary hyperparathyroidism of renal origin; M85.80 Other specified disorders of bone density and structure, unspecified site; Z88.1 Allergy status to other antibiotic agents; Z88.2 Allergy status to sulfonamides; Z79.82 Long term (current) use of aspirin | CPT/HCPCS: 96365; 96375; J1642; J2405 ==

== ENCOUNTER 2020-10-31 03:29 | Day surgery (SDC) | payer OTHER | END 2020-10-31 23:48 | disposition home or self-care (01) | LOC: WOUND 03:29 | DX: E11.622 Type 2 diabetes mellitus with other skin ulcer (principal); L97.812 Non-pressure chronic ulcer of other part of right lower leg with fat layer exposed; I70.238 Atherosclerosis of native arteries of right leg with ulceration of other part of lower leg; E83.59 Other disorders of calcium metabolism | CPT/HCPCS: A9270 ==

== ENCOUNTER 2020-10-31 04:16 | Day surgery (SDC) | payer OTHER | END 2020-10-31 10:32 | disposition home or self-care (01) | LOC: ATC 04:16 | DX: I12.9 Hypertensive chronic kidney disease with stage 1 through stage 4 chronic kidney disease, or unspecified chronic kidney disease (principal); E11.22 Type 2 diabetes mellitus with diabetic chronic kidney disease; N18.32 Chronic kidney disease, stage 3b; D63.1 Anemia in chronic kidney disease; E78.00 Pure hypercholesterolemia, unspecified; E55.9 Vitamin D deficiency, unspecified; N25.81 Secondary hyperparathyroidism of renal origin; M85.80 Other specified disorders of bone density and structure, unspecified site; Z88.1 Allergy status to other antibiotic agents; Z88.2 Allergy status to sulfonamides; Z79.82 Long term (current) use of aspirin | CPT/HCPCS: 96365; 96375; J1642; J2405 ==

== ENCOUNTER 2020-10-31 11:31 | Emergency (ER) | payer OTHER ==
[~2020-10-31] VITALS: Ht 165.1 cm; Wt 95.7 kg
== END 2020-10-31 12:38 | disposition home or self-care (01) ==
LOC: ER 11:31
DX: M25.511 Pain in right shoulder (principal); I10 Essential (primary) hypertension; E11.9 Type 2 diabetes mellitus without complications; Z79.02 Long term (current) use of antithrombotics/antiplatelets; Z79.4 Long term (current) use of insulin; Z79.899 Other long term (current) drug therapy; Z88.1 Allergy status to other antibiotic agents; Z88.0 Allergy status to penicillin; Z87.891 Personal history of nicotine dependence
CPT/HCPCS: 73060; 99283-25

== ENCOUNTER 2020-11-02 00:11 | Day surgery (SDC) | payer OTHER | END 2020-11-02 11:02 | disposition home or self-care (01) | LOC: ATC 00:11 | DX: I12.9 Hypertensive chronic kidney disease with stage 1 through stage 4 chronic kidney disease, or unspecified chronic kidney disease (principal); N18.30 Chronic kidney disease, stage 3 unspecified; D63.1 Anemia in chronic kidney disease; N25.81 Secondary hyperparathyroidism of renal origin; E11.21 Type 2 diabetes mellitus with diabetic nephropathy; E87.1 Hypo-osmolality and hyponatremia; E83.59 Other disorders of calcium metabolism; E03.9 Hypothyroidism, unspecified; E79.0 Hyperuricemia without signs of inflammatory arthritis and tophaceous disease; Z88.1 Allergy status to other antibiotic agents; Z88.2 Allergy status to sulfonamides; Z88.8 Allergy status to other drugs, medicaments and biological substances | CPT/HCPCS: 96365; 96375; J1642; J2405 ==

== ENCOUNTER 2020-11-03 04:36 | Day surgery (SDC) | payer OTHER | END 2020-11-03 11:10 | disposition home or self-care (01) | LOC: ATC 04:36 | DX: I12.9 Hypertensive chronic kidney disease with stage 1 through stage 4 chronic kidney disease, or unspecified chronic kidney disease (principal); E11.22 Type 2 diabetes mellitus with diabetic chronic kidney disease; N18.32 Chronic kidney disease, stage 3b; N25.81 Secondary hyperparathyroidism of renal origin; D63.1 Anemia in chronic kidney disease; E78.00 Pure hypercholesterolemia, unspecified | CPT/HCPCS: 96365; 96375; J1642; J2405 ==

== ENCOUNTER 2020-11-06 02:30 | Day surgery (SDC) | payer OTHER ==
[2020-11-06 11:26] LABS: Albumin, Blood 2.9 g/dL (3.4-5.0); Anion Gap 12 mmol/L (6-16); Blood Urea Nitrogen 30 mg/dL (8-24); Bun/Creatinine Ratio 26.5 (12.0-20.0); CO2, Blood 26 mmol/L (21-32); Chloride, Blood 103 mmol/L (98-108); Creatinine, Blood 1.13 mg/dL (0.40-1.00); Glomerular Filtration Rate 51 (60-); Glucose, Blood 213 mg/dL (70-99); Phosphorus, Blood 3.2 mg/dL (2.5-4.9); Potassium, Blood 4.5 mmol/L (3.5-5.5); Sodium, Blood 141 mmol/L (136-145)
== END 2020-11-06 10:55 | disposition home or self-care (01) ==
LOC: ATC 02:30
PROVIDERS: Internal Medicine Nephrology
DX: N18.30 Chronic kidney disease, stage 3 unspecified (principal); D63.1 Anemia in chronic kidney disease
CPT/HCPCS: 80069; 96365; 96375; J1642; J2405

== ENCOUNTER 2020-11-07 04:13 | Day surgery (SDC) | payer OTHER | END 2020-11-07 22:48 | disposition home or self-care (01) | LOC: WOUND 04:13 | DX: E11.622 Type 2 diabetes mellitus with other skin ulcer (principal); I70.238 Atherosclerosis of native arteries of right leg with ulceration of other part of lower leg; L97.812 Non-pressure chronic ulcer of other part of right lower leg with fat layer exposed; E83.59 Other disorders of calcium metabolism | CPT/HCPCS: A9270 ==

== ENCOUNTER 2020-11-07 04:30 | Day surgery (SDC) | payer OTHER | END 2020-11-07 11:04 | disposition home or self-care (01) | LOC: ATC 04:30 | DX: I12.9 Hypertensive chronic kidney disease with stage 1 through stage 4 chronic kidney disease, or unspecified chronic kidney disease (principal); N18.32 Chronic kidney disease, stage 3b; E11.22 Type 2 diabetes mellitus with diabetic chronic kidney disease; R73.09 Other abnormal glucose; N25.81 Secondary hyperparathyroidism of renal origin; Z88.1 Allergy status to other antibiotic agents; Z88.2 Allergy status to sulfonamides; E55.9 Vitamin D deficiency, unspecified | CPT/HCPCS: 96365; 96375; J1642; J2405 ==

== ENCOUNTER 2020-11-09 01:07 | Day surgery (SDC) | payer OTHER | END 2020-11-09 10:55 | disposition home or self-care (01) | LOC: ATC 01:07 | DX: I12.9 Hypertensive chronic kidney disease with stage 1 through stage 4 chronic kidney disease, or unspecified chronic kidney disease (principal); N18.32 Chronic kidney disease, stage 3b; D75.1 Secondary polycythemia; D63.1 Anemia in chronic kidney disease; E11.22 Type 2 diabetes mellitus with diabetic chronic kidney disease; E11.21 Type 2 diabetes mellitus with diabetic nephropathy; N25.81 Secondary hyperparathyroidism of renal origin | CPT/HCPCS: 96365; 96375; J1642; J2405 ==

== ENCOUNTER 2020-11-14 00:31 | Day surgery (SDC) | payer OTHER | END 2020-11-14 11:18 | disposition home or self-care (01) | LOC: ATC 00:31 | DX: I12.9 Hypertensive chronic kidney disease with stage 1 through stage 4 chronic kidney disease, or unspecified chronic kidney disease (principal); N18.32 Chronic kidney disease, stage 3b; D63.1 Anemia in chronic kidney disease; E11.22 Type 2 diabetes mellitus with diabetic chronic kidney disease; E78.00 Pure hypercholesterolemia, unspecified; E55.9 Vitamin D deficiency, unspecified; N25.81 Secondary hyperparathyroidism of renal origin; Z79.82 Long term (current) use of aspirin | CPT/HCPCS: J1642; J2405 ==

== ENCOUNTER 2020-11-14 01:02 | Day surgery (SDC) | payer OTHER | END 2020-11-14 23:26 | disposition home or self-care (01) | LOC: WOUND 01:02 | DX: E11.622 Type 2 diabetes mellitus with other skin ulcer (principal); L97.812 Non-pressure chronic ulcer of other part of right lower leg with fat layer exposed; I70.238 Atherosclerosis of native arteries of right leg with ulceration of other part of lower leg; E83.59 Other disorders of calcium metabolism | CPT/HCPCS: A9270 ==

== ENCOUNTER 2020-11-16 00:54 | Day surgery (SDC) | payer OTHER | END 2020-11-16 11:13 | disposition home or self-care (01) | LOC: ATC 00:54 | DX: I12.9 Hypertensive chronic kidney disease with stage 1 through stage 4 chronic kidney disease, or unspecified chronic kidney disease (principal); N18.32 Chronic kidney disease, stage 3b; D63.1 Anemia in chronic kidney disease; N25.81 Secondary hyperparathyroidism of renal origin; Z88.1 Allergy status to other antibiotic agents; Z88.2 Allergy status to sulfonamides | CPT/HCPCS: 96365; 96375; J1642; J2405 ==

== ENCOUNTER 2020-11-17 01:08 | Day surgery (SDC) | payer OTHER | END 2020-11-17 10:57 | disposition home or self-care (01) | LOC: ATC 01:08 | DX: I12.9 Hypertensive chronic kidney disease with stage 1 through stage 4 chronic kidney disease, or unspecified chronic kidney disease (principal); E11.22 Type 2 diabetes mellitus with diabetic chronic kidney disease; N18.32 Chronic kidney disease, stage 3b; D63.1 Anemia in chronic kidney disease; E78.00 Pure hypercholesterolemia, unspecified; E55.9 Vitamin D deficiency, unspecified; N25.81 Secondary hyperparathyroidism of renal origin; Z79.82 Long term (current) use of aspirin | CPT/HCPCS: J1642; J2405 ==

== ENCOUNTER 2020-11-20 00:48 | Day surgery (SDC) | payer OTHER ==
[2020-11-20 11:11] LABS: Hematocrit 32.4 % (33.0-51.0); Hemoglobin 10.1 g/dL (11.5-16.0)
[2020-11-20 11:19] LABS: Albumin, Blood 3.3 g/dL (3.4-5.0); Anion Gap 5 mmol/L (6-16); Blood Urea Nitrogen 34 mg/dL (8-24); Bun/Creatinine Ratio 25.4 (12.0-20.0); CO2, Blood 26 mmol/L (21-32); Calcium, Blood 8.1 mg/dL (8.5-10.1); Chloride, Blood 104 mmol/L (98-108); Creatinine, Blood 1.34 mg/dL (0.40-1.00); Glomerular Filtration Rate 39 (60-); Glucose, Blood 151 mg/dL (70-99); Phosphorus, Blood 3.4 mg/dL (2.5-4.9); Potassium, Blood 4.1 mmol/L (3.5-5.5); Sodium, Blood 135 mmol/L (136-145)
== END 2020-11-20 11:14 | disposition home or self-care (01) ==
LOC: ATC 00:48
PROVIDERS: Internal Medicine Nephrology
DX: I12.9 Hypertensive chronic kidney disease with stage 1 through stage 4 chronic kidney disease, or unspecified chronic kidney disease (principal); N18.32 Chronic kidney disease, stage 3b; D63.1 Anemia in chronic kidney disease; E11.21 Type 2 diabetes mellitus with diabetic nephropathy; E87.1 Hypo-osmolality and hyponatremia; E78.00 Pure hypercholesterolemia, unspecified; N25.81 Secondary hyperparathyroidism of renal origin; M85.80 Other specified disorders of bone density and structure, unspecified site; E87.6 Hypokalemia; E83.59 Other disorders of calcium metabolism; Z88.2 Allergy status to sulfonamides; Z88.8 Allergy status to other drugs, medicaments and biological substances
CPT/HCPCS: 80069; 85014; 85018; J1642; J2405

== ENCOUNTER 2020-11-21 04:06 | Day surgery (SDC) | payer OTHER | END 2020-11-21 23:51 | disposition home or self-care (01) | LOC: WOUND 04:06 | DX: E11.622 Type 2 diabetes mellitus with other skin ulcer (principal); L97.812 Non-pressure chronic ulcer of other part of right lower leg with fat layer exposed; I70.238 Atherosclerosis of native arteries of right leg with ulceration of other part of lower leg; E83.59 Other disorders of calcium metabolism; Z88.1 Allergy status to other antibiotic agents | CPT/HCPCS: A9270 ==

== ENCOUNTER 2020-11-21 04:22 | Day surgery (SDC) | payer OTHER | END 2020-11-21 11:26 | disposition home or self-care (01) | LOC: ATC 04:22 | DX: I12.9 Hypertensive chronic kidney disease with stage 1 through stage 4 chronic kidney disease, or unspecified chronic kidney disease (principal); N18.32 Chronic kidney disease, stage 3b; D63.1 Anemia in chronic kidney disease; E11.22 Type 2 diabetes mellitus with diabetic chronic kidney disease; E11.21 Type 2 diabetes mellitus with diabetic nephropathy; N25.81 Secondary hyperparathyroidism of renal origin; Z88.1 Allergy status to other antibiotic agents; Z88.2 Allergy status to sulfonamides | CPT/HCPCS: J1642; J2405 ==

== ENCOUNTER 2020-11-23 00:46 | Day surgery (SDC) | payer OTHER | END 2020-11-23 22:40 | disposition home or self-care (01) | LOC: WOUND 00:46 | DX: E11.622 Type 2 diabetes mellitus with other skin ulcer (principal); L97.812 Non-pressure chronic ulcer of other part of right lower leg with fat layer exposed; I70.238 Atherosclerosis of native arteries of right leg with ulceration of other part of lower leg; E83.59 Other disorders of calcium metabolism ==

== ENCOUNTER 2020-11-23 00:58 | Day surgery (SDC) | payer OTHER | END 2020-11-23 11:01 | disposition home or self-care (01) | LOC: ATC 00:58 | DX: I12.9 Hypertensive chronic kidney disease with stage 1 through stage 4 chronic kidney disease, or unspecified chronic kidney disease (principal); E11.22 Type 2 diabetes mellitus with diabetic chronic kidney disease; N18.32 Chronic kidney disease, stage 3b; D63.1 Anemia in chronic kidney disease; E78.00 Pure hypercholesterolemia, unspecified; N25.81 Secondary hyperparathyroidism of renal origin; E55.9 Vitamin D deficiency, unspecified; Z79.82 Long term (current) use of aspirin; Z88.1 Allergy status to other antibiotic agents; Z88.2 Allergy status to sulfonamides; Z88.8 Allergy status to other drugs, medicaments and biological substances | CPT/HCPCS: 96365; 96375; J1642; J2405 ==

== ENCOUNTER 2020-11-28 07:09 | Day surgery (SDC) | payer OTHER | END 2020-11-28 22:47 | disposition home or self-care (01) | LOC: WOUND | DX: E11.622 Type 2 diabetes mellitus with other skin ulcer (principal); L97.812 Non-pressure chronic ulcer of other part of right lower leg with fat layer exposed; E11.51 Type 2 diabetes mellitus with diabetic peripheral angiopathy without gangrene; I70.238 Atherosclerosis of native arteries of right leg with ulceration of other part of lower leg; E83.59 Other disorders of calcium metabolism | CPT/HCPCS: A9270 ==

== ENCOUNTER 2020-11-30 02:05 | Day surgery (SDC) | payer OTHER | END 2020-11-30 11:13 | disposition home or self-care (01) | LOC: ATC 02:05 | DX: I12.9 Hypertensive chronic kidney disease with stage 1 through stage 4 chronic kidney disease, or unspecified chronic kidney disease (principal); E11.22 Type 2 diabetes mellitus with diabetic chronic kidney disease; N18.32 Chronic kidney disease, stage 3b; D63.1 Anemia in chronic kidney disease; N25.81 Secondary hyperparathyroidism of renal origin; E87.6 Hypokalemia; Z88.1 Allergy status to other antibiotic agents; Z88.2 Allergy status to sulfonamides | CPT/HCPCS: 96365; 96375; J1642; J2405 ==

== ENCOUNTER 2020-12-01 01:24 | Day surgery (SDC) | payer OTHER | END 2020-12-01 11:16 | disposition home or self-care (01) | LOC: ATC 01:24 | DX: I12.9 Hypertensive chronic kidney disease with stage 1 through stage 4 chronic kidney disease, or unspecified chronic kidney disease (principal); E11.22 Type 2 diabetes mellitus with diabetic chronic kidney disease; N18.32 Chronic kidney disease, stage 3b; D63.1 Anemia in chronic kidney disease; N25.81 Secondary hyperparathyroidism of renal origin; E87.6 Hypokalemia; Z88.1 Allergy status to other antibiotic agents; Z88.2 Allergy status to sulfonamides | CPT/HCPCS: 96365; 96375; J1642; J2405 ==

== ENCOUNTER 2020-12-04 01:26 | Day surgery (SDC) | payer OTHER ==
[2020-12-04 11:43] LABS: Albumin, Blood 3.2 g/dL (3.4-5.0); Anion Gap 6 mmol/L (6-16); Blood Urea Nitrogen 36 mg/dL (8-24); Bun/Creatinine Ratio 25.9 (12.0-20.0); CO2, Blood 26 mmol/L (21-32); Calcium, Blood 8.1 mg/dL (8.5-10.1); Chloride, Blood 99 mmol/L (98-108); Creatinine, Blood 1.39 mg/dL (0.40-1.00); Glomerular Filtration Rate 37 (60-); Glucose, Blood 203 mg/dL (70-99); Phosphorus, Blood 3.5 mg/dL (2.5-4.9); Potassium, Blood 4.4 mmol/L (3.5-5.5); Sodium, Blood 131 mmol/L (136-145)
== END 2020-12-04 11:04 | disposition home or self-care (01) ==
LOC: ATC 01:26
PROVIDERS: Internal Medicine Nephrology
DX: I12.9 Hypertensive chronic kidney disease with stage 1 through stage 4 chronic kidney disease, or unspecified chronic kidney disease (principal); N18.32 Chronic kidney disease, stage 3b; D63.1 Anemia in chronic kidney disease; E11.21 Type 2 diabetes mellitus with diabetic nephropathy; E11.22 Type 2 diabetes mellitus with diabetic chronic kidney disease; N25.81 Secondary hyperparathyroidism of renal origin; E55.9 Vitamin D deficiency, unspecified; E87.6 Hypokalemia; Z88.1 Allergy status to other antibiotic agents; Z88.2 Allergy status to sulfonamides
CPT/HCPCS: 36591; 80069; 85018; 96365; 96375; J1642; J2405

== ENCOUNTER 2020-12-05 04:06 | Day surgery (SDC) | payer OTHER ==
--- NOTE | 2020-12-05 11:33 | NUR ---
PT WITH LARGE RED RASH AROUND MEDIPORT WHERE DRESSING SITS. I BELIEVE WE SHOULD TRY ALCOHOL AND HOLD THE CHLORAPREP.
== END 2020-12-05 11:00 | disposition home or self-care (01) ==
LOC: ATC 04:06
DX: I12.9 Hypertensive chronic kidney disease with stage 1 through stage 4 chronic kidney disease, or unspecified chronic kidney disease (principal); N18.32 Chronic kidney disease, stage 3b; D63.1 Anemia in chronic kidney disease; E11.21 Type 2 diabetes mellitus with diabetic nephropathy; E87.1 Hypo-osmolality and hyponatremia; E78.00 Pure hypercholesterolemia, unspecified; N25.81 Secondary hyperparathyroidism of renal origin; M85.80 Other specified disorders of bone density and structure, unspecified site; E87.6 Hypokalemia; E83.59 Other disorders of calcium metabolism; Z88.1 Allergy status to other antibiotic agents; Z88.2 Allergy status to sulfonamides; Z88.8 Allergy status to other drugs, medicaments and biological substances
CPT/HCPCS: 96365; 96375; J1642; J2405

== ENCOUNTER 2020-12-05 04:57 | Day surgery (SDC) | payer OTHER | END 2020-12-05 22:48 | disposition home or self-care (01) | LOC: WOUND 04:57 | DX: E11.622 Type 2 diabetes mellitus with other skin ulcer (principal); L97.812 Non-pressure chronic ulcer of other part of right lower leg with fat layer exposed; E11.51 Type 2 diabetes mellitus with diabetic peripheral angiopathy without gangrene; I70.238 Atherosclerosis of native arteries of right leg with ulceration of other part of lower leg; E83.59 Other disorders of calcium metabolism; B37.2 Candidiasis of skin and nail | CPT/HCPCS: A9270 ==

== ENCOUNTER 2020-12-07 02:12 | Day surgery (SDC) | payer OTHER | END 2020-12-07 11:59 | disposition home or self-care (01) | LOC: ATC 02:12 | DX: I12.9 Hypertensive chronic kidney disease with stage 1 through stage 4 chronic kidney disease, or unspecified chronic kidney disease (principal); E11.22 Type 2 diabetes mellitus with diabetic chronic kidney disease; N18.32 Chronic kidney disease, stage 3b; D63.1 Anemia in chronic kidney disease; N25.81 Secondary hyperparathyroidism of renal origin; Z88.1 Allergy status to other antibiotic agents; Z88.2 Allergy status to sulfonamides; Z79.82 Long term (current) use of aspirin | CPT/HCPCS: 96365; 96375; J1642; J2405 ==

== ENCOUNTER 2020-12-11 00:29 | Day surgery (SDC) | payer OTHER | END 2020-12-11 22:53 | disposition home or self-care (01) | LOC: ATC 00:29 | DX: I12.9 Hypertensive chronic kidney disease with stage 1 through stage 4 chronic kidney disease, or unspecified chronic kidney disease (principal); N18.32 Chronic kidney disease, stage 3b; D63.1 Anemia in chronic kidney disease; E11.22 Type 2 diabetes mellitus with diabetic chronic kidney disease; E78.00 Pure hypercholesterolemia, unspecified; E55.9 Vitamin D deficiency, unspecified; N25.81 Secondary hyperparathyroidism of renal origin; M85.80 Other specified disorders of bone density and structure, unspecified site; Z88.1 Allergy status to other antibiotic agents; Z88.2 Allergy status to sulfonamides ==

== ENCOUNTER 2020-12-12 01:36 | Day surgery (SDC) | payer OTHER | END 2020-12-12 10:21 | disposition home or self-care (01) | LOC: ATC 01:36 | DX: I12.9 Hypertensive chronic kidney disease with stage 1 through stage 4 chronic kidney disease, or unspecified chronic kidney disease (principal); N18.32 Chronic kidney disease, stage 3b; D63.1 Anemia in chronic kidney disease; E11.21 Type 2 diabetes mellitus with diabetic nephropathy; E87.1 Hypo-osmolality and hyponatremia; N25.81 Secondary hyperparathyroidism of renal origin; E78.00 Pure hypercholesterolemia, unspecified; M85.80 Other specified disorders of bone density and structure, unspecified site; E87.6 Hypokalemia; E83.59 Other disorders of calcium metabolism | CPT/HCPCS: 96365; 96375; J1642; J2405 ==

== ENCOUNTER 2020-12-12 02:35 | Day surgery (SDC) | payer OTHER | END 2020-12-12 23:30 | disposition home or self-care (01) | LOC: WOUND 02:35 | DX: E11.622 Type 2 diabetes mellitus with other skin ulcer (principal); L97.812 Non-pressure chronic ulcer of other part of right lower leg with fat layer exposed; I70.238 Atherosclerosis of native arteries of right leg with ulceration of other part of lower leg; E11.51 Type 2 diabetes mellitus with diabetic peripheral angiopathy without gangrene; E83.59 Other disorders of calcium metabolism ==

== ENCOUNTER 2020-12-14 07:23 | Day surgery (SDC) | payer OTHER | END 2020-12-14 11:15 | disposition home or self-care (01) | LOC: ATC 07:23 | DX: I12.9 Hypertensive chronic kidney disease with stage 1 through stage 4 chronic kidney disease, or unspecified chronic kidney disease (principal); E11.22 Type 2 diabetes mellitus with diabetic chronic kidney disease; N18.32 Chronic kidney disease, stage 3b; D63.1 Anemia in chronic kidney disease; N25.81 Secondary hyperparathyroidism of renal origin; Z88.1 Allergy status to other antibiotic agents; Z88.2 Allergy status to sulfonamides | CPT/HCPCS: 96365; 96375; J1642; J2405 ==

== ENCOUNTER 2020-12-18 01:30 | Day surgery (SDC) | payer OTHER | END 2020-12-18 11:10 | disposition home or self-care (01) | LOC: ATC 01:30 | DX: I12.9 Hypertensive chronic kidney disease with stage 1 through stage 4 chronic kidney disease, or unspecified chronic kidney disease (principal); E11.22 Type 2 diabetes mellitus with diabetic chronic kidney disease; N18.32 Chronic kidney disease, stage 3b; D63.1 Anemia in chronic kidney disease; E78.00 Pure hypercholesterolemia, unspecified; E55.9 Vitamin D deficiency, unspecified; N25.81 Secondary hyperparathyroidism of renal origin; Z88.1 Allergy status to other antibiotic agents; Z88.2 Allergy status to sulfonamides | CPT/HCPCS: 96365; 96375; J1642; J2405 ==

== ENCOUNTER 2020-12-19 02:03 | Day surgery (SDC) | payer OTHER | END 2020-12-19 23:00 | disposition home or self-care (01) | LOC: WOUND 02:03 | DX: E11.622 Type 2 diabetes mellitus with other skin ulcer (principal); L97.812 Non-pressure chronic ulcer of other part of right lower leg with fat layer exposed; E11.51 Type 2 diabetes mellitus with diabetic peripheral angiopathy without gangrene; I70.238 Atherosclerosis of native arteries of right leg with ulceration of other part of lower leg; E83.59 Other disorders of calcium metabolism; B37.2 Candidiasis of skin and nail; Z88.1 Allergy status to other antibiotic agents | CPT/HCPCS: A9270 ==

== ENCOUNTER 2020-12-19 02:26 | Day surgery (SDC) | payer OTHER | END 2020-12-19 10:42 | disposition home or self-care (01) | LOC: ATC 02:26 | DX: I12.9 Hypertensive chronic kidney disease with stage 1 through stage 4 chronic kidney disease, or unspecified chronic kidney disease (principal); N18.32 Chronic kidney disease, stage 3b; D63.1 Anemia in chronic kidney disease; E11.22 Type 2 diabetes mellitus with diabetic chronic kidney disease; E11.21 Type 2 diabetes mellitus with diabetic nephropathy; N25.81 Secondary hyperparathyroidism of renal origin; Z88.1 Allergy status to other antibiotic agents; Z88.2 Allergy status to sulfonamides | CPT/HCPCS: 96365; 96375; J1642; J2405 ==

== ENCOUNTER 2020-12-21 04:01 | Day surgery (SDC) | payer OTHER | END 2020-12-21 10:45 | disposition home or self-care (01) | LOC: ATC 04:01 | DX: I12.9 Hypertensive chronic kidney disease with stage 1 through stage 4 chronic kidney disease, or unspecified chronic kidney disease (principal); E11.22 Type 2 diabetes mellitus with diabetic chronic kidney disease; N18.32 Chronic kidney disease, stage 3b; D63.1 Anemia in chronic kidney disease; E78.00 Pure hypercholesterolemia, unspecified; N25.81 Secondary hyperparathyroidism of renal origin; E55.9 Vitamin D deficiency, unspecified; Z79.82 Long term (current) use of aspirin | CPT/HCPCS: 96365; 96375; J1642; J2405 ==

== ENCOUNTER 2020-12-25 02:30 | Day surgery (SDC) | payer OTHER | END 2020-12-25 23:17 | disposition home or self-care (01) | LOC: WOUND 02:30 | DX: E11.622 Type 2 diabetes mellitus with other skin ulcer (principal); E11.51 Type 2 diabetes mellitus with diabetic peripheral angiopathy without gangrene; L97.812 Non-pressure chronic ulcer of other part of right lower leg with fat layer exposed; I70.238 Atherosclerosis of native arteries of right leg with ulceration of other part of lower leg; E83.59 Other disorders of calcium metabolism; B37.2 Candidiasis of skin and nail; Z86.31 Personal history of diabetic foot ulcer | CPT/HCPCS: A9270 ==

== ENCOUNTER 2020-12-25 02:33 | Day surgery (SDC) | payer OTHER | END 2020-12-25 11:08 | disposition home or self-care (01) | LOC: ATC 02:33 | DX: I12.9 Hypertensive chronic kidney disease with stage 1 through stage 4 chronic kidney disease, or unspecified chronic kidney disease (principal); E11.22 Type 2 diabetes mellitus with diabetic chronic kidney disease; N18.32 Chronic kidney disease, stage 3b; N25.81 Secondary hyperparathyroidism of renal origin | CPT/HCPCS: 96365; 96375; J1642; J2405 ==

== ENCOUNTER 2021-01-01 02:37 | Day surgery (SDC) | payer OTHER ==
[2021-01-01 09:31] LABS: Albumin, Blood 3.3 g/dL (3.4-5.0); Anion Gap 5 mmol/L (6-16); Blood Urea Nitrogen 26 mg/dL (8-24); Bun/Creatinine Ratio 19.4 (12.0-20.0); CO2, Blood 28 mmol/L (21-32); Chloride, Blood 96 mmol/L (98-108); Creatinine, Blood 1.34 mg/dL (0.40-1.00); Glomerular Filtration Rate 39 (60-); Glucose, Blood 124 mg/dL (70-99); Phosphorus, Blood 3.9 mg/dL (2.5-4.9); Potassium, Blood 4.4 mmol/L (3.5-5.5); Sodium, Blood 129 mmol/L (136-145)
== END 2021-01-01 23:07 | disposition home or self-care (01) ==
LOC: ATC 02:37
PROVIDERS: Internal Medicine Nephrology
DX: I12.9 Hypertensive chronic kidney disease with stage 1 through stage 4 chronic kidney disease, or unspecified chronic kidney disease (principal); N18.32 Chronic kidney disease, stage 3b; D63.1 Anemia in chronic kidney disease; E11.22 Type 2 diabetes mellitus with diabetic chronic kidney disease; N25.81 Secondary hyperparathyroidism of renal origin; Z88.1 Allergy status to other antibiotic agents; Z88.0 Allergy status to penicillin; Z88.2 Allergy status to sulfonamides
CPT/HCPCS: 80069; 96365; 96375; J1642; J2405

== ENCOUNTER 2021-01-01 02:50 | Day surgery (SDC) | payer OTHER | END 2021-01-01 09:46 | disposition home or self-care (01) | LOC: WOUND 02:50 | DX: E11.51 Type 2 diabetes mellitus with diabetic peripheral angiopathy without gangrene (principal); L97.812 Non-pressure chronic ulcer of other part of right lower leg with fat layer exposed; I70.238 Atherosclerosis of native arteries of right leg with ulceration of other part of lower leg; B37.2 Candidiasis of skin and nail; E83.59 Other disorders of calcium metabolism ==

== ENCOUNTER 2021-01-02 01:39 | Day surgery (SDC) | payer OTHER | END 2021-01-02 10:50 | disposition home or self-care (01) | LOC: ATC 01:39 | DX: I12.9 Hypertensive chronic kidney disease with stage 1 through stage 4 chronic kidney disease, or unspecified chronic kidney disease (principal); E11.22 Type 2 diabetes mellitus with diabetic chronic kidney disease; N18.32 Chronic kidney disease, stage 3b; E87.6 Hypokalemia | CPT/HCPCS: 96365; 96375; J1642; J2405 ==

== ENCOUNTER 2021-01-09 02:36 | Day surgery (SDC) | payer OTHER | END 2021-01-09 22:57 | disposition home or self-care (01) | LOC: WOUND 02:36 | DX: E11.622 Type 2 diabetes mellitus with other skin ulcer (principal); E11.51 Type 2 diabetes mellitus with diabetic peripheral angiopathy without gangrene; I70.238 Atherosclerosis of native arteries of right leg with ulceration of other part of lower leg; L97.812 Non-pressure chronic ulcer of other part of right lower leg with fat layer exposed; L97.811 Non-pressure chronic ulcer of other part of right lower leg limited to breakdown of skin; L97.821 Non-pressure chronic ulcer of other part of left lower leg limited to breakdown of skin; E83.59 Other disorders of calcium metabolism | CPT/HCPCS: A9270 ==

== ENCOUNTER 2021-01-11 01:25 | Day surgery (SDC) | payer OTHER | END 2021-01-11 14:40 | disposition home or self-care (01) | LOC: ATC 01:25 | DX: I12.9 Hypertensive chronic kidney disease with stage 1 through stage 4 chronic kidney disease, or unspecified chronic kidney disease (principal); N18.32 Chronic kidney disease, stage 3b; E11.22 Type 2 diabetes mellitus with diabetic chronic kidney disease; E87.6 Hypokalemia | CPT/HCPCS: 96365; 96375; J1642; J2405 ==

== ENCOUNTER 2021-01-12 01:08 | Day surgery (SDC) | payer OTHER | END 2021-01-12 23:02 | disposition home or self-care (01) | LOC: WOUND 01:08 | DX: E11.622 Type 2 diabetes mellitus with other skin ulcer (principal); L97.812 Non-pressure chronic ulcer of other part of right lower leg with fat layer exposed; E11.51 Type 2 diabetes mellitus with diabetic peripheral angiopathy without gangrene; I70.238 Atherosclerosis of native arteries of right leg with ulceration of other part of lower leg; E83.59 Other disorders of calcium metabolism; B37.2 Candidiasis of skin and nail ==

== ENCOUNTER 2021-01-15 00:28 | Day surgery (SDC) | payer OTHER | END 2021-01-15 23:04 | disposition home or self-care (01) | LOC: WOUND 00:28 | DX: E11.622 Type 2 diabetes mellitus with other skin ulcer (principal); L97.812 Non-pressure chronic ulcer of other part of right lower leg with fat layer exposed; L97.821 Non-pressure chronic ulcer of other part of left lower leg limited to breakdown of skin; E11.51 Type 2 diabetes mellitus with diabetic peripheral angiopathy without gangrene; I70.238 Atherosclerosis of native arteries of right leg with ulceration of other part of lower leg; E83.59 Other disorders of calcium metabolism; B37.2 Candidiasis of skin and nail | CPT/HCPCS: A9270 ==

== ENCOUNTER 2021-01-15 02:02 | Day surgery (SDC) | payer OTHER | END 2021-01-15 10:01 | disposition home or self-care (01) | LOC: ATC 02:02 | DX: I12.9 Hypertensive chronic kidney disease with stage 1 through stage 4 chronic kidney disease, or unspecified chronic kidney disease (principal); E11.22 Type 2 diabetes mellitus with diabetic chronic kidney disease; N18.32 Chronic kidney disease, stage 3b; D63.1 Anemia in chronic kidney disease; E78.00 Pure hypercholesterolemia, unspecified; E55.9 Vitamin D deficiency, unspecified; N25.81 Secondary hyperparathyroidism of renal origin; M85.80 Other specified disorders of bone density and structure, unspecified site; Z88.1 Allergy status to other antibiotic agents; Z88.0 Allergy status to penicillin; Z88.2 Allergy status to sulfonamides | CPT/HCPCS: J1642; J2405 ==

== ENCOUNTER 2021-01-22 02:28 | Day surgery (SDC) | payer OTHER | END 2021-01-22 09:49 | disposition home or self-care (01) | LOC: ATC 02:28 | DX: I12.9 Hypertensive chronic kidney disease with stage 1 through stage 4 chronic kidney disease, or unspecified chronic kidney disease (principal); N18.32 Chronic kidney disease, stage 3b; D63.1 Anemia in chronic kidney disease; N25.81 Secondary hyperparathyroidism of renal origin; Z79.899 Other long term (current) drug therapy | CPT/HCPCS: 96365; 96375; J1642; J2405 ==

== ENCOUNTER 2021-01-22 08:00 | Day surgery (SDC) | payer OTHER | END 2021-01-22 23:59 | disposition home or self-care (01) | LOC: WOUND 08:00 | DX: E11.622 Type 2 diabetes mellitus with other skin ulcer (principal); L97.812 Non-pressure chronic ulcer of other part of right lower leg with fat layer exposed; E11.51 Type 2 diabetes mellitus with diabetic peripheral angiopathy without gangrene; I70.238 Atherosclerosis of native arteries of right leg with ulceration of other part of lower leg; E83.59 Other disorders of calcium metabolism; B37.2 Candidiasis of skin and nail ==

== ENCOUNTER 2021-01-24 00:51 | Day surgery (SDC) | payer OTHER | END 2021-01-24 09:43 | disposition home or self-care (01) | LOC: ATC 00:51 | DX: I12.9 Hypertensive chronic kidney disease with stage 1 through stage 4 chronic kidney disease, or unspecified chronic kidney disease (principal); N18.32 Chronic kidney disease, stage 3b; D63.1 Anemia in chronic kidney disease; E11.22 Type 2 diabetes mellitus with diabetic chronic kidney disease; E11.21 Type 2 diabetes mellitus with diabetic nephropathy | CPT/HCPCS: 96365; 96375; J1642; J2405 ==

== ENCOUNTER 2021-01-26 04:13 | Day surgery (SDC) | payer OTHER | END 2021-01-26 09:25 | disposition home or self-care (01) | LOC: ATC 04:13 | DX: I12.9 Hypertensive chronic kidney disease with stage 1 through stage 4 chronic kidney disease, or unspecified chronic kidney disease (principal); N18.32 Chronic kidney disease, stage 3b; D63.1 Anemia in chronic kidney disease; E11.22 Type 2 diabetes mellitus with diabetic chronic kidney disease; E11.21 Type 2 diabetes mellitus with diabetic nephropathy; N25.81 Secondary hyperparathyroidism of renal origin | CPT/HCPCS: 96365; 96375; J1642; J2405 ==

== ENCOUNTER 2021-01-26 04:17 | Day surgery (SDC) | payer OTHER | END 2021-01-26 23:10 | disposition home or self-care (01) | LOC: WOUND 04:17 | DX: E11.622 Type 2 diabetes mellitus with other skin ulcer (principal); L97.812 Non-pressure chronic ulcer of other part of right lower leg with fat layer exposed; E11.51 Type 2 diabetes mellitus with diabetic peripheral angiopathy without gangrene; I70.238 Atherosclerosis of native arteries of right leg with ulceration of other part of lower leg; E83.59 Other disorders of calcium metabolism; B37.2 Candidiasis of skin and nail ==

== ENCOUNTER 2021-01-29 06:08 | Day surgery (SDC) | payer OTHER | END 2021-01-29 09:25 | disposition home or self-care (01) | LOC: ATC 06:08 | DX: I12.9 Hypertensive chronic kidney disease with stage 1 through stage 4 chronic kidney disease, or unspecified chronic kidney disease (principal); N18.32 Chronic kidney disease, stage 3b; E11.22 Type 2 diabetes mellitus with diabetic chronic kidney disease; D63.1 Anemia in chronic kidney disease; E11.21 Type 2 diabetes mellitus with diabetic nephropathy; N25.81 Secondary hyperparathyroidism of renal origin; Z79.899 Other long term (current) drug therapy | CPT/HCPCS: 96365; 96375; J1642; J2405 ==

== ENCOUNTER 2021-01-30 02:54 | Day surgery (SDC) | payer OTHER | END 2021-01-30 22:41 | disposition home or self-care (01) | LOC: WOUND 02:54 | DX: E11.622 Type 2 diabetes mellitus with other skin ulcer (principal); L97.812 Non-pressure chronic ulcer of other part of right lower leg with fat layer exposed; E11.51 Type 2 diabetes mellitus with diabetic peripheral angiopathy without gangrene; I70.235 Atherosclerosis of native arteries of right leg with ulceration of other part of foot; E83.50 Unspecified disorder of calcium metabolism; B37.2 Candidiasis of skin and nail | CPT/HCPCS: A9270 ==

== ENCOUNTER 2021-02-02 00:15 | Day surgery (SDC) | payer OTHER | END 2021-02-02 11:42 | disposition home or self-care (01) | LOC: ATC 00:15 | DX: N18.30 Chronic kidney disease, stage 3 unspecified (principal); D63.1 Anemia in chronic kidney disease | CPT/HCPCS: 96365; 96375; J1642; J2405 ==

== ENCOUNTER 2021-02-02 00:40 | Day surgery (SDC) | payer OTHER | END 2021-02-02 12:00 | disposition home or self-care (01) | LOC: WOUND 00:40 | DX: E11.622 Type 2 diabetes mellitus with other skin ulcer (principal); L97.812 Non-pressure chronic ulcer of other part of right lower leg with fat layer exposed; I70.238 Atherosclerosis of native arteries of right leg with ulceration of other part of lower leg; E11.51 Type 2 diabetes mellitus with diabetic peripheral angiopathy without gangrene; E83.59 Other disorders of calcium metabolism; B37.2 Candidiasis of skin and nail; I87.2 Venous insufficiency (chronic) (peripheral) ==

== ENCOUNTER 2021-02-05 04:43 | Day surgery (SDC) | payer OTHER ==
[2021-02-05] MEDS ORDERED: FERSU300 PO (10:29)
[2021-02-05 10:51] LABS: Hematocrit 34.8 % (33.0-51.0); Hemoglobin 10.7 g/dL (11.5-16.0)
[2021-02-05 11:11] LABS: Anion Gap 5 mmol/L (6-16); Blood Urea Nitrogen 32 mg/dL (8-24); Bun/Creatinine Ratio 23.7 (12.0-20.0); CO2, Blood 28 mmol/L (21-32); Calcium, Blood 8.5 mg/dL (8.5-10.1); Chloride, Blood 100 mmol/L (98-108); Creatinine, Blood 1.35 mg/dL (0.40-1.00); Glomerular Filtration Rate 39 (60-); Glucose, Blood 275 mg/dL (70-99); Phosphorus, Blood 3.6 mg/dL (2.5-4.9); Potassium, Blood 4.4 mmol/L (3.5-5.5); Sodium, Blood 133 mmol/L (136-145)
== END 2021-02-05 10:51 | disposition home or self-care (01) ==
LOC: ATC 04:43
PROVIDERS: Internal Medicine Nephrology
DX: I12.9 Hypertensive chronic kidney disease with stage 1 through stage 4 chronic kidney disease, or unspecified chronic kidney disease (principal); N18.32 Chronic kidney disease, stage 3b; D63.1 Anemia in chronic kidney disease; E11.22 Type 2 diabetes mellitus with diabetic chronic kidney disease; E11.51 Type 2 diabetes mellitus with diabetic peripheral angiopathy without gangrene; N25.81 Secondary hyperparathyroidism of renal origin; Z79.899 Other long term (current) drug therapy; Z79.82 Long term (current) use of aspirin
CPT/HCPCS: 80069; 85014; 85018; 96365; 96375; J1642; J2405

== ENCOUNTER 2021-02-06 01:14 | Day surgery (SDC) | payer OTHER ==
[~2021-02-06 01:14] MED LIST changes: +FERSU300 PO
== END 2021-02-06 23:01 | disposition home or self-care (01) ==
LOC: WOUND 01:14
DX: E11.622 Type 2 diabetes mellitus with other skin ulcer (principal); L97.812 Non-pressure chronic ulcer of other part of right lower leg with fat layer exposed; E11.51 Type 2 diabetes mellitus with diabetic peripheral angiopathy without gangrene; I70.238 Atherosclerosis of native arteries of right leg with ulceration of other part of lower leg; E83.59 Other disorders of calcium metabolism; B37.2 Candidiasis of skin and nail; I87.2 Venous insufficiency (chronic) (peripheral); Z88.1 Allergy status to other antibiotic agents
CPT/HCPCS: A9270; G0463

== ENCOUNTER 2021-02-09 14:45 | Emergency (ER) | payer OTHER ==
[~2021-02-09] VITALS: Ht 167.6 cm; Wt 93.4 kg
[2021-02-09 15:37] LABS: BASOPHILS ABSOLUTE AUTO 0.08 K/mm3 (0.00-0.23); BASOPHILS PERCENT AUTO 1 % (0-2); EOSINOPHILS ABSOLUTE AUTO 0.58 K/mm3 (0.00-0.68); EOSINOPHILS PERCENT AUTO 6 % (0-6); Hematocrit 37.9 % (33.0-51.0); Hemoglobin 11.7 g/dL (11.5-16.0); IMMATURE GRAN ABSOLUTE AUTO 0.17 K/mm3 (0.00-0.10); IMMATURE GRAN PERCENT AUTO 2 % (0-1); LYMPHOCYTES ABSOLUTE AUTO 1.68 K/mm3 (0.84-5.20); LYMPHOCYTES PERCENT AUTO 16 % (21-46); MONOCYTES ABSOLUTE AUTO 0.73 K/mm3 (0.16-1.47); MONOCYTES PERCENT AUTO 7 % (4-13); Mean Corpuscular HGB 24.8 pg (26.0-34.0); Mean Corpuscular HGB Conc 30.9 g/dL (31.5-36.5); Mean Corpuscular Volume 81 fL (80-100); Mean Platelet Volume 11.2 fL (9.1-12.4); NEUTROPHILS PERCENT AUTO 69 % (41-73); Platelet Count 272 K/mm3 (150-400); RDW Standard Deviation 53.1 fL (35.1-46.3); Red Blood Cell Count 4.71 M/mm3 (3.80-5.20); White Blood Cell Count 10.54 K/mm3 (4.00-11.30)
[2021-02-09 15:52] LABS: Alanine Aminotransfer (ALT/SGP 21 U/L (12-78); Albumin/Globulin Ratio 0.8 (0.8-1.8); Alk Phos 144 U/L (50-136); Anion Gap 8 mmol/L (6-16); Aspartate Aminotrans (AST/SGOT 17 U/L (12-37); Bilirubin, Total 0.3 mg/dL (0.1-1.0); Blood Urea Nitrogen 26 mg/dL (8-24); Bun/Creatinine Ratio 17.6 (12.0-20.0); CO2, Blood 26 mmol/L (21-32); Calcium, Blood 8.4 mg/dL (8.5-10.1); Chloride, Blood 100 mmol/L (98-108); Creatinine, Blood 1.48 mg/dL (0.40-1.00); Globulin, Blood 3.9 g/dL (2.2-4.0); Glomerular Filtration Rate 35 (60-); Glucose, Blood 98 mg/dL (70-99); Potassium, Blood 3.7 mmol/L (3.5-5.5); Sodium, Blood 134 mmol/L (136-145); Total Protein, Blood 6.9 g/dL (6.4-8.2); Troponin I <0.015 ng/mL (0.000-0.040)
[2021-02-09 16:39] LABS: Source, Urine Clean Catch
[2021-02-09 16:46] LABS: Appearance, Urine Clear (Clear); Bilirubin, Urine Neg (Neg); Blood, Urine 1+ (Neg); Glucose Qualitative, Urine Neg (Neg); Ketones, Urine Neg (Neg); Leukocyte Esterase, Urine Neg (Neg); Nitrite, Urine Neg (Neg); Protein, Urine 1+ (Neg); Urobilinogen, Urine NORM (Normal)
[2021-02-09 16:51] LABS: Color, Urine Pale Yellow (P-Yellow)
[2021-02-09 16:54] LABS: Bacteria Not Seen /hpf; Red Blood Cells, Urine 0-2 /hpf (0-2); Squamous Epithelial Cells Rare /hpf (Few); White Blood Cells, Urine 0-2 /hpf (0-5)
== END 2021-02-09 18:05 | disposition home or self-care (01) ==
LOC: ER 14:45
PROVIDERS: Emergency Medicine; Physician Assistant
DX: R42 Dizziness and giddiness (principal); R07.9 Chest pain, unspecified; R00.2 Palpitations; E11.22 Type 2 diabetes mellitus with diabetic chronic kidney disease; N18.4 Chronic kidney disease, stage 4 (severe); I48.0 Paroxysmal atrial fibrillation; J45.909 Unspecified asthma, uncomplicated; E03.9 Hypothyroidism, unspecified; K21.9 Gastro-esophageal reflux disease without esophagitis; E11.51 Type 2 diabetes mellitus with diabetic peripheral angiopathy without gangrene; I73.9 Peripheral vascular disease, unspecified; Z87.891 Personal history of nicotine dependence; Z88.0 Allergy status to penicillin; Z88.8 Allergy status to other drugs, medicaments and biological substances; Z79.899 Other long term (current) drug therapy; Z79.02 Long term (current) use of antithrombotics/antiplatelets; Z79.4 Long term (current) use of insulin
CPT/HCPCS: 71046; 80053; 81001; 83690; 84484; 85025; 93005; 93010; 99285-25

== ENCOUNTER 2021-02-15 00:44 | Day surgery (SDC) | payer OTHER | END 2021-02-15 10:00 | disposition home or self-care (01) | LOC: ATC 00:44 | DX: I12.9 Hypertensive chronic kidney disease with stage 1 through stage 4 chronic kidney disease, or unspecified chronic kidney disease (principal); N18.32 Chronic kidney disease, stage 3b; D63.1 Anemia in chronic kidney disease; E11.22 Type 2 diabetes mellitus with diabetic chronic kidney disease; E11.21 Type 2 diabetes mellitus with diabetic nephropathy | CPT/HCPCS: 96365; 96375; J1642; J2405 ==

== ENCOUNTER 2021-02-16 04:10 | Day surgery (SDC) | payer OTHER | END 2021-02-16 09:21 | disposition home or self-care (01) | LOC: ATC 04:10 | DX: N18.30 Chronic kidney disease, stage 3 unspecified (principal); D63.1 Anemia in chronic kidney disease | CPT/HCPCS: 96365; 96375; J1642; J2405 ==

== ENCOUNTER 2021-02-19 04:07 | Day surgery (SDC) | payer OTHER | END 2021-02-19 09:24 | disposition home or self-care (01) | LOC: ATC 04:07 | DX: N18.30 Chronic kidney disease, stage 3 unspecified (principal); D63.1 Anemia in chronic kidney disease | CPT/HCPCS: 96365; 96375; J1642; J2405 ==

== ENCOUNTER 2021-02-20 02:43 | Day surgery (SDC) | payer OTHER | END 2021-02-20 09:36 | disposition home or self-care (01) | LOC: ATC 02:43 | DX: N18.30 Chronic kidney disease, stage 3 unspecified (principal); D63.1 Anemia in chronic kidney disease | CPT/HCPCS: 96365; 96375; J1642; J2405 ==

== ENCOUNTER 2021-02-26 05:21 | Day surgery (SDC) | payer OTHER | END 2021-02-26 09:23 | disposition home or self-care (01) | LOC: ATC 05:21 | DX: I12.9 Hypertensive chronic kidney disease with stage 1 through stage 4 chronic kidney disease, or unspecified chronic kidney disease (principal); N18.32 Chronic kidney disease, stage 3b; D63.1 Anemia in chronic kidney disease; N25.81 Secondary hyperparathyroidism of renal origin; E11.21 Type 2 diabetes mellitus with diabetic nephropathy; Z79.899 Other long term (current) drug therapy; Z79.82 Long term (current) use of aspirin | CPT/HCPCS: 96365; 96375; J1642; J2405 ==

== ENCOUNTER 2021-02-27 05:03 | Day surgery (SDC) | payer OTHER | END 2021-02-27 09:51 | disposition home or self-care (01) | LOC: ATC 05:03 | DX: I12.9 Hypertensive chronic kidney disease with stage 1 through stage 4 chronic kidney disease, or unspecified chronic kidney disease (principal); N18.32 Chronic kidney disease, stage 3b; D63.1 Anemia in chronic kidney disease; E11.22 Type 2 diabetes mellitus with diabetic chronic kidney disease; N25.81 Secondary hyperparathyroidism of renal origin; E11.21 Type 2 diabetes mellitus with diabetic nephropathy; Z79.899 Other long term (current) drug therapy; Z79.82 Long term (current) use of aspirin | CPT/HCPCS: 96365; 96375; J1642; J2405 ==

== ENCOUNTER 2021-03-02 05:15 | Day surgery (SDC) | payer OTHER | END 2021-03-02 09:24 | disposition home or self-care (01) | LOC: ATC 05:15 | DX: I12.9 Hypertensive chronic kidney disease with stage 1 through stage 4 chronic kidney disease, or unspecified chronic kidney disease (principal); N18.32 Chronic kidney disease, stage 3b; E11.21 Type 2 diabetes mellitus with diabetic nephropathy; E11.22 Type 2 diabetes mellitus with diabetic chronic kidney disease; D63.1 Anemia in chronic kidney disease; R80.9 Proteinuria, unspecified; E87.1 Hypo-osmolality and hyponatremia; E87.6 Hypokalemia; E78.00 Pure hypercholesterolemia, unspecified; E55.9 Vitamin D deficiency, unspecified; N25.81 Secondary hyperparathyroidism of renal origin; M85.80 Other specified disorders of bone density and structure, unspecified site; Z79.890 Hormone replacement therapy; Z79.82 Long term (current) use of aspirin; Z79.899 Other long term (current) drug therapy; Z88.1 Allergy status to other antibiotic agents; Z88.2 Allergy status to sulfonamides | CPT/HCPCS: 96365; 96375; J1642; J2405 ==

== ENCOUNTER 2021-03-05 05:46 | Day surgery (SDC) | payer OTHER | END 2021-03-05 10:44 | disposition home or self-care (01) | LOC: ATC 05:46 | DX: I12.9 Hypertensive chronic kidney disease with stage 1 through stage 4 chronic kidney disease, or unspecified chronic kidney disease (principal); N28.9 Disorder of kidney and ureter, unspecified; N18.32 Chronic kidney disease, stage 3b; E11.21 Type 2 diabetes mellitus with diabetic nephropathy; E11.22 Type 2 diabetes mellitus with diabetic chronic kidney disease; D63.1 Anemia in chronic kidney disease; R80.9 Proteinuria, unspecified; E87.6 Hypokalemia; E87.1 Hypo-osmolality and hyponatremia; E55.9 Vitamin D deficiency, unspecified; N25.81 Secondary hyperparathyroidism of renal origin; M85.80 Other specified disorders of bone density and structure, unspecified site; Z79.899 Other long term (current) drug therapy; Z79.890 Hormone replacement therapy; Z79.82 Long term (current) use of aspirin; Z88.1 Allergy status to other antibiotic agents; Z88.2 Allergy status to sulfonamides | CPT/HCPCS: 96365; 96375; J1642; J2405 ==

== ENCOUNTER 2021-03-06 01:57 | Day surgery (SDC) | payer OTHER | END 2021-03-06 10:24 | disposition home or self-care (01) | LOC: ATC 01:57 | DX: I12.9 Hypertensive chronic kidney disease with stage 1 through stage 4 chronic kidney disease, or unspecified chronic kidney disease (principal); N18.32 Chronic kidney disease, stage 3b; D63.1 Anemia in chronic kidney disease; E11.21 Type 2 diabetes mellitus with diabetic nephropathy; E11.22 Type 2 diabetes mellitus with diabetic chronic kidney disease; R80.9 Proteinuria, unspecified; E87.6 Hypokalemia; E87.1 Hypo-osmolality and hyponatremia; E78.00 Pure hypercholesterolemia, unspecified; E55.9 Vitamin D deficiency, unspecified; N25.81 Secondary hyperparathyroidism of renal origin; M85.80 Other specified disorders of bone density and structure, unspecified site; Z79.899 Other long term (current) drug therapy; Z79.82 Long term (current) use of aspirin; Z88.1 Allergy status to other antibiotic agents; Z88.2 Allergy status to sulfonamides | CPT/HCPCS: 96365; 96375; J1642; J2405 ==

== ENCOUNTER 2021-03-09 05:46 | Day surgery (SDC) | payer OTHER | END 2021-03-09 11:03 | disposition home or self-care (01) | LOC: ATC 05:46 | DX: I12.9 Hypertensive chronic kidney disease with stage 1 through stage 4 chronic kidney disease, or unspecified chronic kidney disease (principal); N18.32 Chronic kidney disease, stage 3b; D63.1 Anemia in chronic kidney disease; E11.22 Type 2 diabetes mellitus with diabetic chronic kidney disease; E11.21 Type 2 diabetes mellitus with diabetic nephropathy; N25.81 Secondary hyperparathyroidism of renal origin | CPT/HCPCS: 96365; 96375; J1642; J2405 ==

== ENCOUNTER 2021-03-12 04:30 | Day surgery (SDC) | payer OTHER | END 2021-03-12 10:57 | disposition home or self-care (01) | LOC: ATC 04:30 | DX: I12.9 Hypertensive chronic kidney disease with stage 1 through stage 4 chronic kidney disease, or unspecified chronic kidney disease (principal); N18.32 Chronic kidney disease, stage 3b; D63.1 Anemia in chronic kidney disease; E11.22 Type 2 diabetes mellitus with diabetic chronic kidney disease; E11.21 Type 2 diabetes mellitus with diabetic nephropathy; N25.81 Secondary hyperparathyroidism of renal origin; Z79.82 Long term (current) use of aspirin; Z79.899 Other long term (current) drug therapy | CPT/HCPCS: 96365; 96375; J1642; J2405 ==

== ENCOUNTER 2021-03-19 00:15 | Day surgery (SDC) | payer OTHER ==
[2021-03-20] MEDS ORDERED: TRAZ100 PO (10:59)
== END 2021-03-19 11:06 | disposition home or self-care (01) ==
LOC: ATC 00:15
DX: I12.9 Hypertensive chronic kidney disease with stage 1 through stage 4 chronic kidney disease, or unspecified chronic kidney disease (principal); N18.32 Chronic kidney disease, stage 3b; D63.1 Anemia in chronic kidney disease; E11.21 Type 2 diabetes mellitus with diabetic nephropathy; N25.81 Secondary hyperparathyroidism of renal origin; M85.80 Other specified disorders of bone density and structure, unspecified site; Z88.1 Allergy status to other antibiotic agents; Z88.0 Allergy status to penicillin; Z88.2 Allergy status to sulfonamides
CPT/HCPCS: 96365; 96375; J1642; J2405

== ENCOUNTER 2021-03-23 03:04 | Day surgery (SDC) | payer OTHER ==
[~2021-03-23 03:04] MED LIST changes: +TRAZ100 PO
== END 2021-03-23 10:58 | disposition home or self-care (01) ==
LOC: ATC 03:04
DX: I12.9 Hypertensive chronic kidney disease with stage 1 through stage 4 chronic kidney disease, or unspecified chronic kidney disease (principal); E11.22 Type 2 diabetes mellitus with diabetic chronic kidney disease; N18.32 Chronic kidney disease, stage 3b; D63.1 Anemia in chronic kidney disease; N25.81 Secondary hyperparathyroidism of renal origin
CPT/HCPCS: J1642; J2405

== ENCOUNTER 2021-03-26 03:27 | Day surgery (SDC) | payer OTHER | END 2021-03-26 11:00 | disposition home or self-care (01) | LOC: ATC 03:27 | DX: I12.9 Hypertensive chronic kidney disease with stage 1 through stage 4 chronic kidney disease, or unspecified chronic kidney disease (principal); E11.22 Type 2 diabetes mellitus with diabetic chronic kidney disease; N18.32 Chronic kidney disease, stage 3b; D63.1 Anemia in chronic kidney disease; R19.00 Intra-abdominal and pelvic swelling, mass and lump, unspecified site; E78.00 Pure hypercholesterolemia, unspecified; N25.81 Secondary hyperparathyroidism of renal origin; Z79.82 Long term (current) use of aspirin | CPT/HCPCS: J1642; J2405 ==

== ENCOUNTER 2021-04-02 02:55 | Day surgery (SDC) | payer OTHER | END 2021-04-02 22:40 | disposition home or self-care (01) | LOC: ATC 02:55 | DX: N18.30 Chronic kidney disease, stage 3 unspecified (principal); D63.1 Anemia in chronic kidney disease; R19.00 Intra-abdominal and pelvic swelling, mass and lump, unspecified site ==

== ENCOUNTER 2021-04-05 01:05 | Day surgery (SDC) | payer OTHER | END 2021-04-05 09:17 | disposition home or self-care (01) | LOC: ATC 01:05 | DX: I12.9 Hypertensive chronic kidney disease with stage 1 through stage 4 chronic kidney disease, or unspecified chronic kidney disease (principal); N18.32 Chronic kidney disease, stage 3b; D63.1 Anemia in chronic kidney disease; R19.00 Intra-abdominal and pelvic swelling, mass and lump, unspecified site; E11.21 Type 2 diabetes mellitus with diabetic nephropathy; E11.22 Type 2 diabetes mellitus with diabetic chronic kidney disease; N25.81 Secondary hyperparathyroidism of renal origin; Z88.1 Allergy status to other antibiotic agents; Z88.2 Allergy status to sulfonamides | CPT/HCPCS: 96365; 96375; J1642; J2405 ==

== ENCOUNTER 2021-04-09 04:24 | Day surgery (SDC) | payer OTHER | END 2021-04-09 11:00 | disposition home or self-care (01) | LOC: ATC 04:24 | DX: N18.30 Chronic kidney disease, stage 3 unspecified (principal) | CPT/HCPCS: J1642; J2405 ==

== ENCOUNTER 2021-04-10 05:55 | Day surgery (SDC) | payer OTHER | END 2021-04-10 10:55 | disposition home or self-care (01) | LOC: ATC 05:55 | DX: I12.9 Hypertensive chronic kidney disease with stage 1 through stage 4 chronic kidney disease, or unspecified chronic kidney disease (principal); E11.22 Type 2 diabetes mellitus with diabetic chronic kidney disease; N18.32 Chronic kidney disease, stage 3b; D63.1 Anemia in chronic kidney disease; N25.81 Secondary hyperparathyroidism of renal origin | CPT/HCPCS: J1642; J2405 ==

== ENCOUNTER 2021-04-13 08:00 | Day surgery (SDC) | payer OTHER ==
[2021-04-13] MEDS ORDERED: OCUFLOX OP (13:07)
[2021-04-13] MEDS ORDERED: KETO.5OPSO BOTHEYES (13:08)
[2021-04-13] MEDS ORDERED: PREDNISOLO15 MG/5 ML PO (13:14)
== END 2021-04-13 23:59 | disposition home or self-care (01) ==
LOC: ATC 08:00
DX: N18.30 Chronic kidney disease, stage 3 unspecified (principal); D63.1 Anemia in chronic kidney disease
CPT/HCPCS: 96365; 96375; J1642; J2405

== ENCOUNTER 2021-04-15 19:11 | Emergency (ER) | payer OTHER ==
[~2021-04-15] VITALS: Ht 167.6 cm; Wt 89.8 kg
[~2021-04-15 19:11] MED LIST changes: +KETO.5OPSO BOTHEYES; +OCUFLOX OP; +PREDNISOLO15 MG/5 ML PO
[2021-04-15 20:11] LABS: BASOPHILS ABSOLUTE AUTO 0.06 K/mm3 (0.00-0.23); BASOPHILS PERCENT AUTO 1 % (0-2); EOSINOPHILS ABSOLUTE AUTO 0.53 K/mm3 (0.00-0.68); EOSINOPHILS PERCENT AUTO 6 % (0-6); Hematocrit 37.4 % (33.0-51.0); Hemoglobin 11.9 g/dL (11.5-16.0); IMMATURE GRAN ABSOLUTE AUTO 0.05 K/mm3 (0.00-0.10); IMMATURE GRAN PERCENT AUTO 1 % (0-1); LYMPHOCYTES ABSOLUTE AUTO 1.19 K/mm3 (0.84-5.20); LYMPHOCYTES PERCENT AUTO 14 % (21-46); MONOCYTES ABSOLUTE AUTO 0.65 K/mm3 (0.16-1.47); MONOCYTES PERCENT AUTO 8 % (4-13); Mean Corpuscular HGB 26.3 pg (26.0-34.0); Mean Corpuscular HGB Conc 31.8 g/dL (31.5-36.5); Mean Corpuscular Volume 83 fL (80-100); Mean Platelet Volume 10.7 fL (9.1-12.4); NEUTROPHILS ABSOLUTE AUTO 6.12 K/mm3 (1.96-9.15); NEUTROPHILS PERCENT AUTO 71 % (41-73); Platelet Count 227 K/mm3 (150-400); RDW Coefficient Variation 17.4 % (11.7-14.2); RDW Standard Deviation 52.7 fL (35.1-46.3); Red Blood Cell Count 4.53 M/mm3 (3.80-5.20)
[2021-04-15 21:05] LABS: Albumin, Blood 3.2 g/dL (3.4-5.0); Albumin/Globulin Ratio 1.1 (0.8-1.8); Bilirubin, Total 0.2 mg/dL (0.1-1.0); Bun/Creatinine Ratio 23.1 (12.0-20.0); Calcium, Blood 8.1 mg/dL (8.5-10.1); Creatinine, Blood 1.3 mg/dL (0.40-1.00); Globulin, Blood 2.9 g/dL (2.2-4.0); Potassium, Blood 4.2 mmol/L (3.5-5.5); Total Protein, Blood 6.1 g/dL (6.4-8.2)
[2021-04-15] MEDS ORDERED: NYSTOP15 GM TOP (22:08)
[2021-04-15] MEDS ORDERED: TRAZ50 PO (22:09)
[2021-04-15] MEDS ORDERED: DULOXETINE HCL60 M1 PO (22:09)
[2021-04-15] MEDS ORDERED: LAMOTRIGINE100 M1 PO (22:10)
[2021-04-15] MEDS ORDERED: SPIRONOLACTONE25 MG PO (22:10)
[2021-04-15] MEDS ORDERED: BUME1 PO (22:14)
[2021-04-16] MEDS ORDERED: Cleocin HCl150 MG PO (01:27)
== END 2021-04-16 01:55 | disposition home or self-care (01) ==
LOC: ER 19:11
PROVIDERS: Physician Assistant
DX: L03.311 Cellulitis of abdominal wall (principal); Z88.0 Allergy status to penicillin; Z88.8 Allergy status to other drugs, medicaments and biological substances; Z88.1 Allergy status to other antibiotic agents; Z79.899 Other long term (current) drug therapy; Z79.4 Long term (current) use of insulin; Z88.6 Allergy status to analgesic agent; N18.4 Chronic kidney disease, stage 4 (severe); E11.22 Type 2 diabetes mellitus with diabetic chronic kidney disease; I48.0 Paroxysmal atrial fibrillation; J45.909 Unspecified asthma, uncomplicated; E03.9 Hypothyroidism, unspecified; K21.9 Gastro-esophageal reflux disease without esophagitis; Z87.891 Personal history of nicotine dependence
CPT/HCPCS: 74176; 80053; 83605; 83690; 85025; 99284-25; A9270; J1642

== ENCOUNTER 2021-04-16 10:17 | Day surgery (SDC) | payer OTHER ==
[~2021-04-16 10:17] MED LIST changes: +Cleocin HCl150 MG PO; +DULOXETINE HCL60 M1 PO; +LAMOTRIGINE100 M1 PO; +NYSTOP15 GM TOP; +SPIRONOLACTONE25 MG PO; +TRAZ50 PO
== END 2021-04-16 11:23 | disposition home or self-care (01) ==
LOC: ATC 10:17
DX: N18.30 Chronic kidney disease, stage 3 unspecified (principal); D63.1 Anemia in chronic kidney disease
CPT/HCPCS: J1642; J2405

== ENCOUNTER 2021-04-17 00:36 | Day surgery (SDC) | payer OTHER | END 2021-04-17 14:22 | disposition home or self-care (01) | LOC: ATC 00:36 | DX: I12.9 Hypertensive chronic kidney disease with stage 1 through stage 4 chronic kidney disease, or unspecified chronic kidney disease (principal); N18.32 Chronic kidney disease, stage 3b; D63.1 Anemia in chronic kidney disease; E11.21 Type 2 diabetes mellitus with diabetic nephropathy; N25.81 Secondary hyperparathyroidism of renal origin; M85.80 Other specified disorders of bone density and structure, unspecified site; Z88.1 Allergy status to other antibiotic agents; Z88.2 Allergy status to sulfonamides | CPT/HCPCS: J1642; J2405 ==

== ENCOUNTER 2021-04-20 05:30 | Day surgery (SDC) | payer OTHER | END 2021-04-20 10:55 | disposition home or self-care (01) | LOC: ATC 05:30 | DX: I12.9 Hypertensive chronic kidney disease with stage 1 through stage 4 chronic kidney disease, or unspecified chronic kidney disease (principal); E11.22 Type 2 diabetes mellitus with diabetic chronic kidney disease; N18.32 Chronic kidney disease, stage 3b; D63.1 Anemia in chronic kidney disease; E78.00 Pure hypercholesterolemia, unspecified; E55.9 Vitamin D deficiency, unspecified; N25.81 Secondary hyperparathyroidism of renal origin; M85.80 Other specified disorders of bone density and structure, unspecified site; Z88.1 Allergy status to other antibiotic agents; Z88.2 Allergy status to sulfonamides | CPT/HCPCS: J1642; J2405 ==

== ENCOUNTER 2021-04-24 04:12 | Day surgery (SDC) | payer OTHER | END 2021-04-24 10:53 | disposition home or self-care (01) | LOC: ATC 04:12 | DX: I12.9 Hypertensive chronic kidney disease with stage 1 through stage 4 chronic kidney disease, or unspecified chronic kidney disease (principal); N18.30 Chronic kidney disease, stage 3 unspecified; D63.1 Anemia in chronic kidney disease; E11.22 Type 2 diabetes mellitus with diabetic chronic kidney disease; E11.21 Type 2 diabetes mellitus with diabetic nephropathy; N25.81 Secondary hyperparathyroidism of renal origin; Z88.1 Allergy status to other antibiotic agents; Z88.2 Allergy status to sulfonamides | CPT/HCPCS: J1642; J2405 ==

== ENCOUNTER 2021-04-27 00:24 | Day surgery (SDC) | payer OTHER | END 2021-04-27 10:43 | disposition home or self-care (01) | LOC: ATC 00:24 | DX: I12.9 Hypertensive chronic kidney disease with stage 1 through stage 4 chronic kidney disease, or unspecified chronic kidney disease (principal); N18.32 Chronic kidney disease, stage 3b; D63.1 Anemia in chronic kidney disease; E11.21 Type 2 diabetes mellitus with diabetic nephropathy; E11.22 Type 2 diabetes mellitus with diabetic chronic kidney disease; N25.81 Secondary hyperparathyroidism of renal origin; Z88.1 Allergy status to other antibiotic agents; Z88.2 Allergy status to sulfonamides | CPT/HCPCS: J1642; J2405 ==

== ENCOUNTER 2021-05-01 04:53 | Day surgery (SDC) | payer OTHER ==
--- NOTE | 2021-05-01 11:17 | NUR ---
PT GOING TO ER AFTER VISIT. PT STATES SHE WAS VERY NAUSEATED, SHAKEY, AND THAT IT FEELS LIKE HER BLOOD SUGAR IS LOW. UNABLE TO CHECK HER BLOOD SUGAR IN OUR DEPT. PT STATES SHE DID NOT CHECK HER BG AT HOME D/T GETTING BAD RESULTS. DID VS AT FIRST OF TX AND MACHINE COULD NOT CALCULATE HER PULSE. MACHINE STATED 40 BPM. MANUALLY HR WAS VERY IRREGULAR AND 54. PT STATED THAT SHE WAS VERY SOB. PT USED 2 OF HER INHALERS WITH SOME FEELING BETTER. AT DISCHARGE FROM DEPARTMENT HER PULSE MANUALLY WAS 64. LEFT FOR ER IN WHEELCHAIR WITH PUSHING HER. I LEFT MEDIPORT ACCESSED AND DID NOT FLUSH WITH HEPARIN.
== END 2021-05-01 11:06 | disposition home or self-care (01) ==
LOC: ATC 04:53
DX: I12.9 Hypertensive chronic kidney disease with stage 1 through stage 4 chronic kidney disease, or unspecified chronic kidney disease (principal); N18.32 Chronic kidney disease, stage 3b; D63.1 Anemia in chronic kidney disease; E11.22 Type 2 diabetes mellitus with diabetic chronic kidney disease; E78.00 Pure hypercholesterolemia, unspecified; N25.81 Secondary hyperparathyroidism of renal origin; M85.80 Other specified disorders of bone density and structure, unspecified site; Z88.1 Allergy status to other antibiotic agents; Z88.0 Allergy status to penicillin; Z88.2 Allergy status to sulfonamides
CPT/HCPCS: J1642; J2405

== ENCOUNTER 2021-05-17 01:07 | Day surgery (SDC) | payer OTHER | END 2021-05-17 11:27 | disposition home or self-care (01) | LOC: ATC 01:07 | DX: Z45.2 Encounter for adjustment and management of vascular access device (principal); I12.9 Hypertensive chronic kidney disease with stage 1 through stage 4 chronic kidney disease, or unspecified chronic kidney disease; N18.32 Chronic kidney disease, stage 3b; E11.22 Type 2 diabetes mellitus with diabetic chronic kidney disease; E11.21 Type 2 diabetes mellitus with diabetic nephropathy; N25.81 Secondary hyperparathyroidism of renal origin; Z79.82 Long term (current) use of aspirin; Z79.899 Other long term (current) drug therapy | CPT/HCPCS: 96365; 96375; J1642; J2405 ==

== ENCOUNTER 2021-06-01 00:25 | Day surgery (SDC) | payer OTHER | END 2021-06-01 10:53 | disposition home or self-care (01) | LOC: ATC 00:25 | DX: I12.9 Hypertensive chronic kidney disease with stage 1 through stage 4 chronic kidney disease, or unspecified chronic kidney disease (principal); N18.32 Chronic kidney disease, stage 3b; D63.1 Anemia in chronic kidney disease; E11.22 Type 2 diabetes mellitus with diabetic chronic kidney disease; E11.21 Type 2 diabetes mellitus with diabetic nephropathy; N25.81 Secondary hyperparathyroidism of renal origin; Z88.1 Allergy status to other antibiotic agents; Z88.2 Allergy status to sulfonamides | CPT/HCPCS: J1642; J2405 ==

== ENCOUNTER 2021-06-04 02:35 | Day surgery (SDC) | payer OTHER ==
[2021-06-04 11:27] LABS: BASOPHILS ABSOLUTE AUTO 0.08 K/mm3 (0.00-0.23); BASOPHILS PERCENT AUTO 1 % (0-2); EOSINOPHILS ABSOLUTE AUTO 0.44 K/mm3 (0.00-0.68); EOSINOPHILS PERCENT AUTO 5 % (0-6); Hematocrit 28.8 % (33.0-51.0); IMMATURE GRAN ABSOLUTE AUTO 0.27 K/mm3 (0.00-0.10); IMMATURE GRAN PERCENT AUTO 3 % (0-1); LYMPHOCYTES ABSOLUTE AUTO 1.06 K/mm3 (0.84-5.20); LYMPHOCYTES PERCENT AUTO 12 % (21-46); MONOCYTES ABSOLUTE AUTO 0.86 K/mm3 (0.16-1.47); MONOCYTES PERCENT AUTO 10 % (4-13); Mean Corpuscular HGB 26.7 pg (26.0-34.0); Mean Corpuscular HGB Conc 31.3 g/dL (31.5-36.5); Mean Corpuscular Volume 86 fL (80-100); Mean Platelet Volume 11.3 fL (9.1-12.4); NEUTROPHILS ABSOLUTE AUTO 5.99 K/mm3 (1.96-9.15); NEUTROPHILS PERCENT AUTO 69 % (41-73); Platelet Count 330 K/mm3 (150-400); RDW Coefficient Variation 16.1 % (11.7-14.2); RDW Standard Deviation 49.8 fL (35.1-46.3); Red Blood Cell Count 3.37 M/mm3 (3.80-5.20)
[2021-06-04 11:42] LABS: Alanine Aminotransfer (ALT/SGP 16 U/L (12-78); Albumin, Blood 2.9 g/dL (3.4-5.0); Albumin/Globulin Ratio 1.1 (0.8-1.8); Alk Phos 120 U/L (50-136); Anion Gap 8 mmol/L (6-16); Aspartate Aminotrans (AST/SGOT 10 U/L (12-37); Bilirubin, Direct 0.1 mg/dL (0.0-0.3); Bilirubin, Indirect 0.4 mg/dL (0.1-0.7); Bilirubin, Total 0.5 mg/dL (0.1-1.0); Blood Urea Nitrogen 21 mg/dL (8-24); Bun/Creatinine Ratio 13.8 (12.0-20.0); CO2, Blood 24 mmol/L (21-32); Calcium, Blood 8.2 mg/dL (8.5-10.1); Chloride, Blood 105 mmol/L (98-108); Creatinine, Blood 1.52 mg/dL (0.40-1.00); Globulin, Blood 2.7 g/dL (2.2-4.0); Glomerular Filtration Rate 34 (60-); Glucose, Blood 117 mg/dL (70-99); Phosphorus, Blood 4.4 mg/dL (2.5-4.9); Potassium, Blood 4.2 mmol/L (3.5-5.5); Sodium, Blood 137 mmol/L (136-145); Total Protein, Blood 5.6 g/dL (6.4-8.2)
== END 2021-06-04 11:30 | disposition home or self-care (01) ==
LOC: ATC 02:35
PROVIDERS: Internal Medicine Nephrology
DX: N18.2 Chronic kidney disease, stage 2 (mild) (principal); D63.1 Anemia in chronic kidney disease; N25.81 Secondary hyperparathyroidism of renal origin; E55.9 Vitamin D deficiency, unspecified; R76.9 Abnormal immunological finding in serum, unspecified; R94.6 Abnormal results of thyroid function studies; E78.00 Pure hypercholesterolemia, unspecified; R94.5 Abnormal results of liver function studies
CPT/HCPCS: 80053; 82248; 84100; 85025; J1642; J2405

== ENCOUNTER 2021-06-05 00:38 | Day surgery (SDC) | payer OTHER ==
--- NOTE | 2021-06-05 12:02 | NUR ---
PT WITH DRY HEAVES. ASKING WHEN SHE CAN TAKE MORE ZOFRAN. TOLD HER 6-8 HOURS. HER TO TAKE CARE OF PT.
== END 2021-06-05 11:35 | disposition home or self-care (01) ==
LOC: ATC 00:38
DX: I12.9 Hypertensive chronic kidney disease with stage 1 through stage 4 chronic kidney disease, or unspecified chronic kidney disease (principal); E11.22 Type 2 diabetes mellitus with diabetic chronic kidney disease; N18.32 Chronic kidney disease, stage 3b; D63.1 Anemia in chronic kidney disease; N25.81 Secondary hyperparathyroidism of renal origin
CPT/HCPCS: J1642; J2405

== ENCOUNTER 2021-06-08 00:31 | Day surgery (SDC) | payer OTHER | END 2021-06-08 11:27 | disposition home or self-care (01) | LOC: ATC 00:31 | DX: I12.9 Hypertensive chronic kidney disease with stage 1 through stage 4 chronic kidney disease, or unspecified chronic kidney disease (principal); E11.22 Type 2 diabetes mellitus with diabetic chronic kidney disease; N18.32 Chronic kidney disease, stage 3b; D63.1 Anemia in chronic kidney disease; N25.81 Secondary hyperparathyroidism of renal origin; E55.9 Vitamin D deficiency, unspecified; R76.9 Abnormal immunological finding in serum, unspecified; R94.6 Abnormal results of thyroid function studies | CPT/HCPCS: J1642; J2405 ==

== ENCOUNTER 2021-06-11 02:55 | Day surgery (SDC) | payer OTHER | END 2021-06-11 11:22 | disposition home or self-care (01) | LOC: ATC 02:55 | DX: I12.9 Hypertensive chronic kidney disease with stage 1 through stage 4 chronic kidney disease, or unspecified chronic kidney disease (principal); N18.32 Chronic kidney disease, stage 3b; D63.1 Anemia in chronic kidney disease; E11.21 Type 2 diabetes mellitus with diabetic nephropathy; R80.9 Proteinuria, unspecified; E87.1 Hypo-osmolality and hyponatremia; E78.00 Pure hypercholesterolemia, unspecified; N25.81 Secondary hyperparathyroidism of renal origin; M85.80 Other specified disorders of bone density and structure, unspecified site; E87.6 Hypokalemia; E83.59 Other disorders of calcium metabolism | CPT/HCPCS: 96365; 96375; J1642; J2405 ==

== ENCOUNTER 2021-06-12 05:08 | Day surgery (SDC) | payer OTHER ==
--- NOTE | 2021-06-21 13:39 | NUR ---
SODIUM THIOSULFATE STOP TIME 1120.
== END 2021-06-12 11:26 | disposition home or self-care (01) ==
LOC: ATC 05:08
DX: I12.9 Hypertensive chronic kidney disease with stage 1 through stage 4 chronic kidney disease, or unspecified chronic kidney disease (principal); N18.32 Chronic kidney disease, stage 3b; D63.1 Anemia in chronic kidney disease; E11.22 Type 2 diabetes mellitus with diabetic chronic kidney disease; E78.00 Pure hypercholesterolemia, unspecified; E55.9 Vitamin D deficiency, unspecified; N25.81 Secondary hyperparathyroidism of renal origin; Z45.2 Encounter for adjustment and management of vascular access device; Z88.1 Allergy status to other antibiotic agents; Z88.2 Allergy status to sulfonamides
CPT/HCPCS: 96365; 96375; J1642; J2405

== ENCOUNTER 2021-06-18 01:54 | Day surgery (SDC) | payer OTHER ==
[2021-06-18] MEDS ORDERED: CIPR500 (12:45)
== END 2021-06-18 11:42 | disposition home or self-care (01) ==
LOC: ATC 01:54
DX: I12.9 Hypertensive chronic kidney disease with stage 1 through stage 4 chronic kidney disease, or unspecified chronic kidney disease (principal); N18.32 Chronic kidney disease, stage 3b; D63.1 Anemia in chronic kidney disease; E11.22 Type 2 diabetes mellitus with diabetic chronic kidney disease; E11.21 Type 2 diabetes mellitus with diabetic nephropathy; N25.81 Secondary hyperparathyroidism of renal origin; R80.9 Proteinuria, unspecified; E87.1 Hypo-osmolality and hyponatremia; E78.00 Pure hypercholesterolemia, unspecified; E55.9 Vitamin D deficiency, unspecified; M85.80 Other specified disorders of bone density and structure, unspecified site; E87.6 Hypokalemia; Z88.1 Allergy status to other antibiotic agents; Z88.2 Allergy status to sulfonamides
CPT/HCPCS: 96365; 96375; J1642; J2405

== ENCOUNTER 2021-06-19 04:21 | Day surgery (SDC) | payer OTHER ==
[~2021-06-19 04:21] MED LIST changes: +CIPR500
[2021-06-19 12:05] LABS: BASOPHILS ABSOLUTE AUTO 0.05 K/mm3 (0.00-0.23); BASOPHILS PERCENT AUTO 1 % (0-2); EOSINOPHILS ABSOLUTE AUTO 0.49 K/mm3 (0.00-0.68); EOSINOPHILS PERCENT AUTO 6 % (0-6); Hematocrit 31.1 % (33.0-51.0); Hemoglobin 9.5 g/dL (11.5-16.0); IMMATURE GRAN ABSOLUTE AUTO 0.06 K/mm3 (0.00-0.10); IMMATURE GRAN PERCENT AUTO 1 % (0-1); LYMPHOCYTES ABSOLUTE AUTO 1.13 K/mm3 (0.84-5.20); LYMPHOCYTES PERCENT AUTO 14 % (21-46); MONOCYTES ABSOLUTE AUTO 0.56 K/mm3 (0.16-1.47); MONOCYTES PERCENT AUTO 7 % (4-13); Mean Corpuscular HGB 25.4 pg (26.0-34.0); Mean Corpuscular HGB Conc 30.5 g/dL (31.5-36.5); Mean Corpuscular Volume 83 fL (80-100); Mean Platelet Volume 12.6 fL (9.1-12.4); NEUTROPHILS ABSOLUTE AUTO 5.55 K/mm3 (1.96-9.15); NEUTROPHILS PERCENT AUTO 71 % (41-73); Platelet Count 266 K/mm3 (150-400); RDW Coefficient Variation 16.5 % (11.7-14.2); RDW Standard Deviation 49.1 fL (35.1-46.3); Red Blood Cell Count 3.74 M/mm3 (3.80-5.20); White Blood Cell Count 7.84 K/mm3 (4.00-11.30)
[2021-06-19 12:25] LABS: Alanine Aminotransfer (ALT/SGP 15 U/L (12-78); Albumin, Blood 3.1 g/dL (3.4-5.0); Albumin/Globulin Ratio 1.2 (0.8-1.8); Alk Phos 104 U/L (50-136); Anion Gap 9 mmol/L (6-16); Aspartate Aminotrans (AST/SGOT 8 U/L (12-37); Bilirubin, Total 0.3 mg/dL (0.1-1.0); Blood Urea Nitrogen 21 mg/dL (8-24); Bun/Creatinine Ratio 16.5 (12.0-20.0); CO2, Blood 25 mmol/L (21-32); Calcium, Blood 8.3 mg/dL (8.5-10.1); Chloride, Blood 107 mmol/L (98-108); Creatinine, Blood 1.27 mg/dL (0.40-1.00); Globulin, Blood 2.6 g/dL (2.2-4.0); Glomerular Filtration Rate 42 (60-); Glucose, Blood 142 mg/dL (70-99); Phosphorus, Blood 3.7 mg/dL (2.5-4.9); Potassium, Blood 4.2 mmol/L (3.5-5.5); Sodium, Blood 141 mmol/L (136-145); Total Protein, Blood 5.7 g/dL (6.4-8.2)
== END 2021-06-19 11:27 | disposition home or self-care (01) ==
LOC: ATC 04:21
PROVIDERS: Nurse Practitioner Family
DX: K63.2 Fistula of intestine (principal); T85.79XD Infection and inflammatory reaction due to other internal prosthetic devices, implants and grafts, subsequent encounter; L02.211 Cutaneous abscess of abdominal wall; I12.9 Hypertensive chronic kidney disease with stage 1 through stage 4 chronic kidney disease, or unspecified chronic kidney disease; E11.22 Type 2 diabetes mellitus with diabetic chronic kidney disease; N18.32 Chronic kidney disease, stage 3b; D63.1 Anemia in chronic kidney disease; E83.51 Hypocalcemia
CPT/HCPCS: 80053; 84100; 85025; J1642; J2405

== ENCOUNTER 2021-06-22 03:11 | Day surgery (SDC) | payer OTHER | END 2021-06-22 11:15 | disposition home or self-care (01) | LOC: ATC 03:11 | DX: I12.9 Hypertensive chronic kidney disease with stage 1 through stage 4 chronic kidney disease, or unspecified chronic kidney disease (principal); E11.22 Type 2 diabetes mellitus with diabetic chronic kidney disease; N18.32 Chronic kidney disease, stage 3b; D63.1 Anemia in chronic kidney disease; E78.00 Pure hypercholesterolemia, unspecified; E55.9 Vitamin D deficiency, unspecified; N25.81 Secondary hyperparathyroidism of renal origin; Z88.2 Allergy status to sulfonamides; Z88.1 Allergy status to other antibiotic agents; Z45.2 Encounter for adjustment and management of vascular access device | CPT/HCPCS: J1642; J2405 ==

== ENCOUNTER 2021-06-25 01:49 | Day surgery (SDC) | payer OTHER | END 2021-06-25 11:05 | disposition home or self-care (01) | LOC: ATC 01:49 | DX: I12.9 Hypertensive chronic kidney disease with stage 1 through stage 4 chronic kidney disease, or unspecified chronic kidney disease (principal); N18.32 Chronic kidney disease, stage 3b; D63.1 Anemia in chronic kidney disease; E11.22 Type 2 diabetes mellitus with diabetic chronic kidney disease; E11.21 Type 2 diabetes mellitus with diabetic nephropathy; N25.81 Secondary hyperparathyroidism of renal origin; R80.9 Proteinuria, unspecified; E87.1 Hypo-osmolality and hyponatremia; E78.00 Pure hypercholesterolemia, unspecified; E55.9 Vitamin D deficiency, unspecified; M85.80 Other specified disorders of bone density and structure, unspecified site; E87.6 Hypokalemia; Z88.1 Allergy status to other antibiotic agents; Z88.2 Allergy status to sulfonamides | CPT/HCPCS: 96365; 96375; J1642; J2405 ==

== ENCOUNTER 2021-06-26 03:48 | Day surgery (SDC) | payer OTHER | END 2021-06-26 11:45 | disposition home or self-care (01) | LOC: ATC 03:48 | DX: I12.9 Hypertensive chronic kidney disease with stage 1 through stage 4 chronic kidney disease, or unspecified chronic kidney disease (principal); N18.32 Chronic kidney disease, stage 3b; D63.1 Anemia in chronic kidney disease; E11.21 Type 2 diabetes mellitus with diabetic nephropathy; E11.22 Type 2 diabetes mellitus with diabetic chronic kidney disease; E78.00 Pure hypercholesterolemia, unspecified; E55.9 Vitamin D deficiency, unspecified; N25.81 Secondary hyperparathyroidism of renal origin; M85.80 Other specified disorders of bone density and structure, unspecified site; E87.6 Hypokalemia | CPT/HCPCS: J1642; J2405 ==

== ENCOUNTER 2021-06-29 02:38 | Day surgery (SDC) | payer OTHER | END 2021-06-29 10:56 | disposition home or self-care (01) | LOC: ATC 02:38 | DX: I12.9 Hypertensive chronic kidney disease with stage 1 through stage 4 chronic kidney disease, or unspecified chronic kidney disease (principal); N18.32 Chronic kidney disease, stage 3b; D63.1 Anemia in chronic kidney disease; E11.21 Type 2 diabetes mellitus with diabetic nephropathy; E11.22 Type 2 diabetes mellitus with diabetic chronic kidney disease; N25.81 Secondary hyperparathyroidism of renal origin; Z88.1 Allergy status to other antibiotic agents; Z88.2 Allergy status to sulfonamides | CPT/HCPCS: J1642; J2405 ==

== ENCOUNTER 2021-07-02 03:22 | Day surgery (SDC) | payer OTHER | END 2021-07-02 10:56 | disposition home or self-care (01) | LOC: ATC 03:22 | DX: I12.9 Hypertensive chronic kidney disease with stage 1 through stage 4 chronic kidney disease, or unspecified chronic kidney disease (principal); N18.32 Chronic kidney disease, stage 3b; D63.1 Anemia in chronic kidney disease; E11.21 Type 2 diabetes mellitus with diabetic nephropathy; E11.22 Type 2 diabetes mellitus with diabetic chronic kidney disease; N25.81 Secondary hyperparathyroidism of renal origin; M85.80 Other specified disorders of bone density and structure, unspecified site | CPT/HCPCS: 96365; 96375; J1642; J2405 ==

== ENCOUNTER 2021-07-03 00:26 | Day surgery (SDC) | payer OTHER | END 2021-07-03 11:00 | disposition home or self-care (01) | LOC: ATC 00:26 | DX: I12.9 Hypertensive chronic kidney disease with stage 1 through stage 4 chronic kidney disease, or unspecified chronic kidney disease (principal); E11.22 Type 2 diabetes mellitus with diabetic chronic kidney disease; N18.32 Chronic kidney disease, stage 3b; E78.00 Pure hypercholesterolemia, unspecified; N25.81 Secondary hyperparathyroidism of renal origin | CPT/HCPCS: J1642; J2405 ==

== ENCOUNTER 2021-07-06 01:24 | Day surgery (SDC) | payer OTHER | END 2021-07-06 11:20 | disposition home or self-care (01) | LOC: ATC 01:24 | DX: I12.9 Hypertensive chronic kidney disease with stage 1 through stage 4 chronic kidney disease, or unspecified chronic kidney disease (principal); N18.32 Chronic kidney disease, stage 3b; D63.1 Anemia in chronic kidney disease; E11.21 Type 2 diabetes mellitus with diabetic nephropathy; E11.22 Type 2 diabetes mellitus with diabetic chronic kidney disease; E87.1 Hypo-osmolality and hyponatremia; E78.00 Pure hypercholesterolemia, unspecified; E55.9 Vitamin D deficiency, unspecified; N25.81 Secondary hyperparathyroidism of renal origin; M85.80 Other specified disorders of bone density and structure, unspecified site; E87.6 Hypokalemia | CPT/HCPCS: 96365; 96375; J1642; J2405 ==

== ENCOUNTER 2021-07-09 06:03 | Day surgery (SDC) | payer OTHER ==
--- NOTE | 2021-07-09 10:34 | NUR ---
1010 PT ARRIVES IN CLINIC C/O LEFT ARM PAIN AND LEFT ARMPIT, VITALS OBTAINED AND PT STARTS GRASPING CHEST AND STATES THAT IT IS HARD FOR HER TO TAKE A DEEP BREATH AND HER CHEST HURTS. PT TAKEN TO ER, REPORTED OFF TO WASH OIL PUMP OPERATOR HELPER AND DR PEREZ I BELIEVE.
[2021-07-09] MEDS ORDERED: NITROGLYCERIN0.4 M3 PO (12:28)
== END 2021-07-09 23:26 | disposition home or self-care (01) ==
LOC: ATC 06:03
DX: I12.9 Hypertensive chronic kidney disease with stage 1 through stage 4 chronic kidney disease, or unspecified chronic kidney disease (principal); N18.32 Chronic kidney disease, stage 3b; D63.1 Anemia in chronic kidney disease
CPT/HCPCS: J1642; J2405

== ENCOUNTER 2021-07-09 10:15 | Emergency (ER) | payer OTHER ==
[~2021-07-09] VITALS: Ht 167.6 cm; Wt 82.5 kg
[2021-07-09 11:31] LABS: BASOPHILS ABSOLUTE AUTO 0.05 K/mm3 (0.00-0.23); BASOPHILS PERCENT AUTO 1 % (0-2); EOSINOPHILS ABSOLUTE AUTO 0.28 K/mm3 (0.00-0.68); EOSINOPHILS PERCENT AUTO 3 % (0-6); Hematocrit 38.3 % (33.0-51.0); Hemoglobin 11.5 g/dL (11.5-16.0); IMMATURE GRAN ABSOLUTE AUTO 0.04 K/mm3 (0.00-0.10); IMMATURE GRAN PERCENT AUTO 0 % (0-1); LYMPHOCYTES ABSOLUTE AUTO 0.93 K/mm3 (0.84-5.20); LYMPHOCYTES PERCENT AUTO 10 % (21-46); MONOCYTES ABSOLUTE AUTO 0.58 K/mm3 (0.16-1.47); MONOCYTES PERCENT AUTO 6 % (4-13); Mean Corpuscular HGB 24.8 pg (26.0-34.0); Mean Corpuscular Volume 83 fL (80-100); Mean Platelet Volume 12.8 fL (9.1-12.4); NEUTROPHILS ABSOLUTE AUTO 7.55 K/mm3 (1.96-9.15); NEUTROPHILS PERCENT AUTO 80 % (41-73); Platelet Count 229 K/mm3 (150-400); RDW Coefficient Variation 16.5 % (11.7-14.2); RDW Standard Deviation 48.7 fL (35.1-46.3); Red Blood Cell Count 4.64 M/mm3 (3.80-5.20); White Blood Cell Count 9.43 K/mm3 (4.00-11.30)
[2021-07-09 11:56] LABS: Albumin, Blood 3.5 g/dL (3.4-5.0); Albumin/Globulin Ratio 1.1 (0.8-1.8); Bilirubin, Total 0.5 mg/dL (0.1-1.0); Bun/Creatinine Ratio 14.8 (12.0-20.0); Creatinine, Blood 1.35 mg/dL (0.40-1.00); Globulin, Blood 3.3 g/dL (2.2-4.0); Potassium, Blood 4.5 mmol/L (3.5-5.5); Total Protein, Blood 6.8 g/dL (6.4-8.2)
[2021-07-09] MEDS ORDERED: NITROGLYCERIN0.4 M3 PO (12:28)
== END 2021-07-09 14:31 | disposition home or self-care (01) ==
LOC: ER 10:15
PROVIDERS: Physician Assistant
DX: I12.9 Hypertensive chronic kidney disease with stage 1 through stage 4 chronic kidney disease, or unspecified chronic kidney disease (principal); E11.22 Type 2 diabetes mellitus with diabetic chronic kidney disease; N18.4 Chronic kidney disease, stage 4 (severe); M79.81 Nontraumatic hematoma of soft tissue; I48.0 Paroxysmal atrial fibrillation; J45.909 Unspecified asthma, uncomplicated; E03.9 Hypothyroidism, unspecified; K21.9 Gastro-esophageal reflux disease without esophagitis; Z88.0 Allergy status to penicillin; Z88.1 Allergy status to other antibiotic agents; Z88.8 Allergy status to other drugs, medicaments and biological substances; Z79.899 Other long term (current) drug therapy; Z79.4 Long term (current) use of insulin
CPT/HCPCS: 36415; 71045; 80053; 84484; 85025; 93005; 93010; J2270

== ENCOUNTER 2021-07-10 05:33 | Day surgery (SDC) | payer OTHER ==
[~2021-07-10 05:33] MED LIST changes: +NITROGLYCERIN0.4 M3 PO
== END 2021-07-10 23:52 | disposition home or self-care (01) ==
LOC: ATC 05:33
DX: I12.9 Hypertensive chronic kidney disease with stage 1 through stage 4 chronic kidney disease, or unspecified chronic kidney disease (principal); E11.22 Type 2 diabetes mellitus with diabetic chronic kidney disease; N18.32 Chronic kidney disease, stage 3b; D63.1 Anemia in chronic kidney disease; N25.81 Secondary hyperparathyroidism of renal origin

== ENCOUNTER 2021-07-17 04:50 | Day surgery (SDC) | payer OTHER ==
[2021-07-17] MEDS ORDERED: AZIT250 PO (10:56)
[2021-07-17] MEDS ORDERED: BENZONATATE100 MG PO (10:57)
== END 2021-07-17 11:30 | disposition home or self-care (01) ==
LOC: ATC 04:50
DX: I12.9 Hypertensive chronic kidney disease with stage 1 through stage 4 chronic kidney disease, or unspecified chronic kidney disease (principal); E11.22 Type 2 diabetes mellitus with diabetic chronic kidney disease; N18.32 Chronic kidney disease, stage 3b; D63.1 Anemia in chronic kidney disease; N25.81 Secondary hyperparathyroidism of renal origin; E78.00 Pure hypercholesterolemia, unspecified
CPT/HCPCS: 96365; 96375; J1642; J2405

== ENCOUNTER 2021-07-20 02:50 | Day surgery (SDC) | payer OTHER ==
[~2021-07-20 02:50] MED LIST changes: +BENZONATATE100 MG PO
--- NOTE | 2021-07-25 10:45 | NUR ---
LATE ENTRY STOP TIME FOR SODIUM THIOSULFATE 1110. JYOTHI ADEN RN UNABLE TO FLUSH WITH HEPARIN AFTER PATIENT PORT INFILTRATED. PATIENT IS TO SEE HER ONCOLOGIST THIS WEEK FOR ASSESSMENT OF NEED FOR NEW PORT PLACEMENT
== END 2021-07-20 11:18 | disposition home or self-care (01) ==
LOC: ATC 02:50
DX: I12.9 Hypertensive chronic kidney disease with stage 1 through stage 4 chronic kidney disease, or unspecified chronic kidney disease (principal); N18.32 Chronic kidney disease, stage 3b; D63.1 Anemia in chronic kidney disease; E11.21 Type 2 diabetes mellitus with diabetic nephropathy; E11.22 Type 2 diabetes mellitus with diabetic chronic kidney disease; R80.9 Proteinuria, unspecified; E87.1 Hypo-osmolality and hyponatremia; E78.00 Pure hypercholesterolemia, unspecified; N25.81 Secondary hyperparathyroidism of renal origin; M85.80 Other specified disorders of bone density and structure, unspecified site; E87.6 Hypokalemia; E83.59 Other disorders of calcium metabolism
CPT/HCPCS: 96365; 96375; J1642; J2405

== ENCOUNTER 2021-07-23 01:54 | Day surgery (SDC) | payer OTHER ==
[2021-07-24] MEDS ORDERED: SULTRIDS PO (08:25)
== END 2021-07-23 11:11 | disposition home or self-care (01) ==
LOC: ATC 01:54
DX: I12.9 Hypertensive chronic kidney disease with stage 1 through stage 4 chronic kidney disease, or unspecified chronic kidney disease (principal); N18.32 Chronic kidney disease, stage 3b; D63.1 Anemia in chronic kidney disease; N25.81 Secondary hyperparathyroidism of renal origin; E11.21 Type 2 diabetes mellitus with diabetic nephropathy; E11.22 Type 2 diabetes mellitus with diabetic chronic kidney disease; E86.9 Volume depletion, unspecified; R80.9 Proteinuria, unspecified; E87.1 Hypo-osmolality and hyponatremia; E87.6 Hypokalemia; E83.30 Disorder of phosphorus metabolism, unspecified; E83.51 Hypocalcemia; E83.42 Hypomagnesemia; E78.00 Pure hypercholesterolemia, unspecified; Z88.1 Allergy status to other antibiotic agents; Z88.2 Allergy status to sulfonamides
CPT/HCPCS: 96365; 96375; J1642; J2405

== ENCOUNTER 2021-07-24 03:21 | Day surgery (SDC) | payer OTHER ==
[2021-07-24] MEDS ORDERED: SULTRIDS PO (08:25)
== END 2021-07-24 09:45 | disposition home or self-care (01) ==
LOC: ATC 03:21
DX: I12.9 Hypertensive chronic kidney disease with stage 1 through stage 4 chronic kidney disease, or unspecified chronic kidney disease (principal); N18.32 Chronic kidney disease, stage 3b; D63.1 Anemia in chronic kidney disease; E11.21 Type 2 diabetes mellitus with diabetic nephropathy; E11.22 Type 2 diabetes mellitus with diabetic chronic kidney disease; R80.9 Proteinuria, unspecified; E87.1 Hypo-osmolality and hyponatremia; E78.00 Pure hypercholesterolemia, unspecified; E55.9 Vitamin D deficiency, unspecified; N25.81 Secondary hyperparathyroidism of renal origin; M85.80 Other specified disorders of bone density and structure, unspecified site; E87.6 Hypokalemia
CPT/HCPCS: J1642; J2405

== ENCOUNTER 2021-07-27 03:12 | Day surgery (SDC) | payer OTHER | END 2021-07-27 11:02 | disposition home or self-care (01) | LOC: ATC 03:12 | DX: I12.9 Hypertensive chronic kidney disease with stage 1 through stage 4 chronic kidney disease, or unspecified chronic kidney disease (principal); E11.22 Type 2 diabetes mellitus with diabetic chronic kidney disease; N18.32 Chronic kidney disease, stage 3b; D63.1 Anemia in chronic kidney disease; N25.81 Secondary hyperparathyroidism of renal origin | CPT/HCPCS: J1642; J2405 ==

== ENCOUNTER 2021-08-03 00:55 | Day surgery (SDC) | payer OTHER | END 2021-08-03 10:59 | disposition home or self-care (01) | LOC: ATC 00:55 | DX: I12.9 Hypertensive chronic kidney disease with stage 1 through stage 4 chronic kidney disease, or unspecified chronic kidney disease (principal); N18.32 Chronic kidney disease, stage 3b; D63.1 Anemia in chronic kidney disease; E11.21 Type 2 diabetes mellitus with diabetic nephropathy; E11.22 Type 2 diabetes mellitus with diabetic chronic kidney disease; R80.9 Proteinuria, unspecified; E87.1 Hypo-osmolality and hyponatremia; E78.00 Pure hypercholesterolemia, unspecified; N25.81 Secondary hyperparathyroidism of renal origin; M85.80 Other specified disorders of bone density and structure, unspecified site; E87.6 Hypokalemia; E83.59 Other disorders of calcium metabolism | CPT/HCPCS: J1642; J2405 ==

== ENCOUNTER 2021-08-10 00:16 | Day surgery (SDC) | payer OTHER | END 2021-08-10 11:05 | disposition home or self-care (01) | LOC: ATC 00:16 | DX: I12.9 Hypertensive chronic kidney disease with stage 1 through stage 4 chronic kidney disease, or unspecified chronic kidney disease (principal); E11.22 Type 2 diabetes mellitus with diabetic chronic kidney disease; N18.32 Chronic kidney disease, stage 3b; D63.1 Anemia in chronic kidney disease; E11.21 Type 2 diabetes mellitus with diabetic nephropathy; R80.9 Proteinuria, unspecified; E87.1 Hypo-osmolality and hyponatremia; E78.00 Pure hypercholesterolemia, unspecified; N25.81 Secondary hyperparathyroidism of renal origin; M85.80 Other specified disorders of bone density and structure, unspecified site; E87.6 Hypokalemia; E83.59 Other disorders of calcium metabolism | CPT/HCPCS: J1642; J2405 ==

== ENCOUNTER 2021-08-13 08:46 | Day surgery (SDC) | payer OTHER | END 2021-08-13 11:15 | disposition home or self-care (01) | LOC: ATC 08:46 | DX: I12.9 Hypertensive chronic kidney disease with stage 1 through stage 4 chronic kidney disease, or unspecified chronic kidney disease (principal); N18.32 Chronic kidney disease, stage 3b; D63.1 Anemia in chronic kidney disease; E11.21 Type 2 diabetes mellitus with diabetic nephropathy; E11.22 Type 2 diabetes mellitus with diabetic chronic kidney disease; R80.9 Proteinuria, unspecified; E87.1 Hypo-osmolality and hyponatremia; E78.00 Pure hypercholesterolemia, unspecified; N25.81 Secondary hyperparathyroidism of renal origin; M85.80 Other specified disorders of bone density and structure, unspecified site; E87.6 Hypokalemia; E83.59 Other disorders of calcium metabolism | CPT/HCPCS: 96365; 96375; J1642; J2405 ==

== ENCOUNTER 2021-08-14 01:13 | Day surgery (SDC) | payer OTHER ==
--- NOTE | 2021-08-14 12:01 | NUR ---
THIS STUDENT NURSE OBTAINED PERMISION TO OBSERVE AND ASSIST IN HER CARE ON 08/14/21. I OBTAINED HER VITALS AND OBSERVED JYOTHI PAIZ WITH IV POWER PORT ACCESS.
== END 2021-08-14 11:21 | disposition home or self-care (01) ==
LOC: ATC 01:13
DX: I12.9 Hypertensive chronic kidney disease with stage 1 through stage 4 chronic kidney disease, or unspecified chronic kidney disease (principal); N18.32 Chronic kidney disease, stage 3b; D63.1 Anemia in chronic kidney disease; E11.21 Type 2 diabetes mellitus with diabetic nephropathy; E11.22 Type 2 diabetes mellitus with diabetic chronic kidney disease; R80.9 Proteinuria, unspecified; E87.1 Hypo-osmolality and hyponatremia; E78.00 Pure hypercholesterolemia, unspecified; N25.81 Secondary hyperparathyroidism of renal origin; M85.80 Other specified disorders of bone density and structure, unspecified site; E87.6 Hypokalemia; E83.59 Other disorders of calcium metabolism
CPT/HCPCS: J1642; J2405

== ENCOUNTER 2021-08-21 01:43 | Day surgery (SDC) | payer OTHER | END 2021-08-21 11:55 | disposition home or self-care (01) | LOC: ATC 01:43 | DX: I12.9 Hypertensive chronic kidney disease with stage 1 through stage 4 chronic kidney disease, or unspecified chronic kidney disease (principal); E11.22 Type 2 diabetes mellitus with diabetic chronic kidney disease; N18.32 Chronic kidney disease, stage 3b; D63.1 Anemia in chronic kidney disease; N25.81 Secondary hyperparathyroidism of renal origin; M85.80 Other specified disorders of bone density and structure, unspecified site; Z88.1 Allergy status to other antibiotic agents; Z88.2 Allergy status to sulfonamides | CPT/HCPCS: J1642; J2405 ==

== ENCOUNTER 2021-08-30 01:18 | Day surgery (SDC) | payer OTHER | END 2021-08-30 10:08 | disposition home or self-care (01) | LOC: ATC 01:18 | DX: I12.9 Hypertensive chronic kidney disease with stage 1 through stage 4 chronic kidney disease, or unspecified chronic kidney disease (principal); N18.32 Chronic kidney disease, stage 3b; E11.22 Type 2 diabetes mellitus with diabetic chronic kidney disease; D63.1 Anemia in chronic kidney disease; E11.21 Type 2 diabetes mellitus with diabetic nephropathy; N25.81 Secondary hyperparathyroidism of renal origin; Z79.899 Other long term (current) drug therapy | CPT/HCPCS: 96365; 96375; J1642; J2405 ==

== ENCOUNTER 2021-08-31 01:06 | Day surgery (SDC) | payer OTHER | END 2021-08-31 11:05 | disposition home or self-care (01) | LOC: ATC 01:06 | DX: I12.9 Hypertensive chronic kidney disease with stage 1 through stage 4 chronic kidney disease, or unspecified chronic kidney disease (principal); N18.32 Chronic kidney disease, stage 3b; D63.1 Anemia in chronic kidney disease; E11.21 Type 2 diabetes mellitus with diabetic nephropathy; E87.1 Hypo-osmolality and hyponatremia; E78.00 Pure hypercholesterolemia, unspecified; E55.9 Vitamin D deficiency, unspecified; N25.81 Secondary hyperparathyroidism of renal origin; E87.6 Hypokalemia | CPT/HCPCS: J1642; J2405 ==

== ENCOUNTER 2021-09-04 01:18 | Day surgery (SDC) | payer OTHER | END 2021-09-04 15:23 | disposition home or self-care (01) | LOC: ATC 01:18 | DX: I12.9 Hypertensive chronic kidney disease with stage 1 through stage 4 chronic kidney disease, or unspecified chronic kidney disease (principal); N18.32 Chronic kidney disease, stage 3b; D63.1 Anemia in chronic kidney disease; E11.22 Type 2 diabetes mellitus with diabetic chronic kidney disease; E11.21 Type 2 diabetes mellitus with diabetic nephropathy; R80.9 Proteinuria, unspecified; E87.1 Hypo-osmolality and hyponatremia; E78.00 Pure hypercholesterolemia, unspecified; N25.81 Secondary hyperparathyroidism of renal origin; M85.80 Other specified disorders of bone density and structure, unspecified site; E87.6 Hypokalemia; E83.59 Other disorders of calcium metabolism | CPT/HCPCS: J2405 ==

== ENCOUNTER 2021-09-11 02:47 | Day surgery (SDC) | payer OTHER ==
[2021-09-11] MEDS ORDERED: ELIQUIS5 M3 PO (14:37)
== END 2021-09-11 15:11 | disposition home or self-care (01) ==
LOC: ATC 02:47
DX: Z45.2 Encounter for adjustment and management of vascular access device (principal); I12.9 Hypertensive chronic kidney disease with stage 1 through stage 4 chronic kidney disease, or unspecified chronic kidney disease; N18.32 Chronic kidney disease, stage 3b; D63.1 Anemia in chronic kidney disease; E11.22 Type 2 diabetes mellitus with diabetic chronic kidney disease; E11.21 Type 2 diabetes mellitus with diabetic nephropathy; N25.81 Secondary hyperparathyroidism of renal origin; Z79.82 Long term (current) use of aspirin; Z79.899 Other long term (current) drug therapy
CPT/HCPCS: J2405

== ENCOUNTER 2021-09-17 01:04 | Day surgery (SDC) | payer OTHER ==
[~2021-09-17 01:04] MED LIST changes: +ELIQUIS5 M3 PO
== END 2021-09-17 11:05 | disposition home or self-care (01) ==
LOC: ATC 01:04
DX: I12.9 Hypertensive chronic kidney disease with stage 1 through stage 4 chronic kidney disease, or unspecified chronic kidney disease (principal); N18.32 Chronic kidney disease, stage 3b; E11.22 Type 2 diabetes mellitus with diabetic chronic kidney disease; D63.1 Anemia in chronic kidney disease; E11.21 Type 2 diabetes mellitus with diabetic nephropathy; E55.9 Vitamin D deficiency, unspecified; N25.81 Secondary hyperparathyroidism of renal origin; E87.1 Hypo-osmolality and hyponatremia; E87.6 Hypokalemia
CPT/HCPCS: 96365; 96375; J2405

== ENCOUNTER 2021-09-18 01:50 | Day surgery (SDC) | payer OTHER | END 2021-09-18 11:24 | disposition home or self-care (01) | LOC: ATC 01:50 | DX: I12.9 Hypertensive chronic kidney disease with stage 1 through stage 4 chronic kidney disease, or unspecified chronic kidney disease (principal); N18.32 Chronic kidney disease, stage 3b; D63.1 Anemia in chronic kidney disease; E11.21 Type 2 diabetes mellitus with diabetic nephropathy; E87.1 Hypo-osmolality and hyponatremia; E78.00 Pure hypercholesterolemia, unspecified; E55.9 Vitamin D deficiency, unspecified; N25.81 Secondary hyperparathyroidism of renal origin; E87.6 Hypokalemia | CPT/HCPCS: 96365; 96375; J2405 ==

== ENCOUNTER 2021-09-21 01:01 | Day surgery (SDC) | payer OTHER | END 2021-09-21 11:00 | disposition home or self-care (01) | LOC: ATC 01:01 | DX: I12.9 Hypertensive chronic kidney disease with stage 1 through stage 4 chronic kidney disease, or unspecified chronic kidney disease (principal); N18.32 Chronic kidney disease, stage 3b; E11.22 Type 2 diabetes mellitus with diabetic chronic kidney disease; D63.1 Anemia in chronic kidney disease; E87.1 Hypo-osmolality and hyponatremia; E78.00 Pure hypercholesterolemia, unspecified; E55.9 Vitamin D deficiency, unspecified; N25.81 Secondary hyperparathyroidism of renal origin; E87.6 Hypokalemia | CPT/HCPCS: J2405 ==

== ENCOUNTER 2021-10-01 10:03 | Day surgery (SDC) | payer OTHER | END 2021-10-01 11:03 | disposition home or self-care (01) | LOC: ATC 10:03 | DX: I12.9 Hypertensive chronic kidney disease with stage 1 through stage 4 chronic kidney disease, or unspecified chronic kidney disease (principal); N18.32 Chronic kidney disease, stage 3b; D63.1 Anemia in chronic kidney disease; N25.81 Secondary hyperparathyroidism of renal origin; E11.22 Type 2 diabetes mellitus with diabetic chronic kidney disease; E11.21 Type 2 diabetes mellitus with diabetic nephropathy | CPT/HCPCS: 96365; 96375; J2405 ==

== ENCOUNTER 2021-10-02 04:34 | Day surgery (SDC) | payer OTHER | END 2021-10-02 11:38 | disposition home or self-care (01) | LOC: ATC 04:34 | DX: I12.9 Hypertensive chronic kidney disease with stage 1 through stage 4 chronic kidney disease, or unspecified chronic kidney disease (principal); N18.32 Chronic kidney disease, stage 3b; D63.1 Anemia in chronic kidney disease; N25.81 Secondary hyperparathyroidism of renal origin; E11.22 Type 2 diabetes mellitus with diabetic chronic kidney disease; E11.21 Type 2 diabetes mellitus with diabetic nephropathy | CPT/HCPCS: 96365; 96375; J2405 ==

== ENCOUNTER 2021-10-08 01:26 | Day surgery (SDC) | payer OTHER | END 2021-10-08 11:56 | disposition home or self-care (01) | LOC: ATC 01:26 | DX: I12.9 Hypertensive chronic kidney disease with stage 1 through stage 4 chronic kidney disease, or unspecified chronic kidney disease (principal); N18.32 Chronic kidney disease, stage 3b; E11.22 Type 2 diabetes mellitus with diabetic chronic kidney disease; D63.1 Anemia in chronic kidney disease; E11.21 Type 2 diabetes mellitus with diabetic nephropathy; N25.81 Secondary hyperparathyroidism of renal origin | CPT/HCPCS: 96365; 96375; J2405 ==

== ENCOUNTER 2021-10-09 00:58 | Day surgery (SDC) | payer OTHER | END 2021-10-09 11:25 | disposition home or self-care (01) | LOC: ATC 00:58 | DX: I12.9 Hypertensive chronic kidney disease with stage 1 through stage 4 chronic kidney disease, or unspecified chronic kidney disease (principal); N18.32 Chronic kidney disease, stage 3b; E11.22 Type 2 diabetes mellitus with diabetic chronic kidney disease; D63.1 Anemia in chronic kidney disease; E11.21 Type 2 diabetes mellitus with diabetic nephropathy; N25.81 Secondary hyperparathyroidism of renal origin | CPT/HCPCS: 96365; 96375; J2405 ==

== ENCOUNTER 2021-10-16 01:51 | Day surgery (SDC) | payer OTHER ==
[2021-10-16 11:19] LABS: Albumin, Blood 3.7 g/dL (3.4-5.0); Anion Gap 9 mmol/L (6-16); Blood Urea Nitrogen 25 mg/dL (8-24); Bun/Creatinine Ratio 17.5 (12.0-20.0); CO2, Blood 25 mmol/L (21-32); Calcium, Blood 7.9 mg/dL (8.5-10.1); Chloride, Blood 102 mmol/L (98-108); Creatinine, Blood 1.43 mg/dL (0.40-1.00); Glomerular Filtration Rate 39 (60-); Glucose, Blood 124 mg/dL (70-99); Phosphorus, Blood 4.2 mg/dL (2.5-4.9); Potassium, Blood 3.9 mmol/L (3.5-5.5); Sodium, Blood 136 mmol/L (136-145)
== END 2021-10-16 11:47 | disposition home or self-care (01) ==
LOC: ATC 01:51
PROVIDERS: Internal Medicine Nephrology
DX: I12.9 Hypertensive chronic kidney disease with stage 1 through stage 4 chronic kidney disease, or unspecified chronic kidney disease (principal); N18.32 Chronic kidney disease, stage 3b; D63.1 Anemia in chronic kidney disease; N25.81 Secondary hyperparathyroidism of renal origin; Z79.82 Long term (current) use of aspirin; Z79.4 Long term (current) use of insulin; Z79.899 Other long term (current) drug therapy
CPT/HCPCS: 80069; 96365; 96375; J2405

== ENCOUNTER 2021-10-22 01:01 | Day surgery (SDC) | payer OTHER | END 2021-10-22 11:03 | disposition home or self-care (01) | LOC: ATC 01:01 | DX: E83.59 Other disorders of calcium metabolism (principal) | CPT/HCPCS: 96365; 96375; J2405 ==

== ENCOUNTER 2021-10-23 10:03 | Day surgery (SDC) | payer OTHER | END 2021-10-23 11:10 | disposition home or self-care (01) | LOC: ATC 10:03 | DX: I12.9 Hypertensive chronic kidney disease with stage 1 through stage 4 chronic kidney disease, or unspecified chronic kidney disease (principal); N18.32 Chronic kidney disease, stage 3b; E11.22 Type 2 diabetes mellitus with diabetic chronic kidney disease; D63.1 Anemia in chronic kidney disease; N25.81 Secondary hyperparathyroidism of renal origin; E11.21 Type 2 diabetes mellitus with diabetic nephropathy; Z79.899 Other long term (current) drug therapy | CPT/HCPCS: 96365; 96375; J2405 ==

== ENCOUNTER 2021-10-29 02:13 | Day surgery (SDC) | payer OTHER | END 2021-10-29 10:55 | disposition home or self-care (01) | LOC: ATC 02:13 | DX: I12.9 Hypertensive chronic kidney disease with stage 1 through stage 4 chronic kidney disease, or unspecified chronic kidney disease (principal); E11.22 Type 2 diabetes mellitus with diabetic chronic kidney disease; N18.32 Chronic kidney disease, stage 3b; D63.1 Anemia in chronic kidney disease; N25.81 Secondary hyperparathyroidism of renal origin; Z79.4 Long term (current) use of insulin; E87.1 Hypo-osmolality and hyponatremia; E87.2 Acidosis; E83.51 Hypocalcemia; E83.42 Hypomagnesemia | CPT/HCPCS: J2405 ==

== ENCOUNTER 2021-10-30 05:10 | Day surgery (SDC) | payer OTHER | END 2021-10-30 11:00 | disposition home or self-care (01) | LOC: ATC 05:10 | DX: I12.9 Hypertensive chronic kidney disease with stage 1 through stage 4 chronic kidney disease, or unspecified chronic kidney disease (principal); E11.22 Type 2 diabetes mellitus with diabetic chronic kidney disease; N18.32 Chronic kidney disease, stage 3b; N25.81 Secondary hyperparathyroidism of renal origin; D63.1 Anemia in chronic kidney disease; E87.1 Hypo-osmolality and hyponatremia; E87.6 Hypokalemia; E87.2 Acidosis; E55.9 Vitamin D deficiency, unspecified; E11.51 Type 2 diabetes mellitus with diabetic peripheral angiopathy without gangrene; Z79.4 Long term (current) use of insulin; Z79.82 Long term (current) use of aspirin; Z88.2 Allergy status to sulfonamides; Z88.1 Allergy status to other antibiotic agents; Z88.8 Allergy status to other drugs, medicaments and biological substances | CPT/HCPCS: 96365; 96375; J2405 ==

== ENCOUNTER 2021-11-06 00:54 | Day surgery (SDC) | payer OTHER | END 2021-11-06 09:35 | disposition home or self-care (01) | LOC: ATC 00:54 | DX: C22.1 Intrahepatic bile duct carcinoma (principal); E83.59 Other disorders of calcium metabolism; I12.9 Hypertensive chronic kidney disease with stage 1 through stage 4 chronic kidney disease, or unspecified chronic kidney disease; N18.32 Chronic kidney disease, stage 3b; D63.1 Anemia in chronic kidney disease; N25.81 Secondary hyperparathyroidism of renal origin; E11.21 Type 2 diabetes mellitus with diabetic nephropathy; Z79.82 Long term (current) use of aspirin; Z79.4 Long term (current) use of insulin; Z79.899 Other long term (current) drug therapy | CPT/HCPCS: 96365; 96375; J2405 ==

== ENCOUNTER 2021-11-12 00:22 | Day surgery (SDC) | payer OTHER | END 2021-11-12 11:14 | disposition home or self-care (01) | LOC: ATC 00:22 | DX: E83.59 Other disorders of calcium metabolism (principal); I12.9 Hypertensive chronic kidney disease with stage 1 through stage 4 chronic kidney disease, or unspecified chronic kidney disease; E11.22 Type 2 diabetes mellitus with diabetic chronic kidney disease; N18.32 Chronic kidney disease, stage 3b; D63.1 Anemia in chronic kidney disease; E11.51 Type 2 diabetes mellitus with diabetic peripheral angiopathy without gangrene; Z88.1 Allergy status to other antibiotic agents; Z88.2 Allergy status to sulfonamides; Z79.4 Long term (current) use of insulin | CPT/HCPCS: 96365; 96375; J2405 ==

== ENCOUNTER 2021-11-13 04:47 | Day surgery (SDC) | payer OTHER | END 2021-11-13 11:10 | disposition home or self-care (01) | LOC: ATC 04:47 | DX: E83.59 Other disorders of calcium metabolism (principal); I12.9 Hypertensive chronic kidney disease with stage 1 through stage 4 chronic kidney disease, or unspecified chronic kidney disease; E11.22 Type 2 diabetes mellitus with diabetic chronic kidney disease; N18.32 Chronic kidney disease, stage 3b; D63.1 Anemia in chronic kidney disease; N25.81 Secondary hyperparathyroidism of renal origin; E83.30 Disorder of phosphorus metabolism, unspecified; E11.51 Type 2 diabetes mellitus with diabetic peripheral angiopathy without gangrene; Z88.1 Allergy status to other antibiotic agents; Z88.2 Allergy status to sulfonamides | CPT/HCPCS: 96365; 96375; J2405 ==

== ENCOUNTER 2021-11-20 03:26 | Day surgery (SDC) | payer OTHER | END 2021-11-20 11:15 | disposition home or self-care (01) | LOC: ATC 03:26 | DX: E83.59 Other disorders of calcium metabolism (principal) | CPT/HCPCS: 96365; 96375; J1642; J2405 ==

== ENCOUNTER 2021-11-26 05:50 | Day surgery (SDC) | payer OTHER | END 2021-11-26 11:06 | disposition home or self-care (01) | LOC: ATC 05:50 | DX: E83.59 Other disorders of calcium metabolism (principal); I12.9 Hypertensive chronic kidney disease with stage 1 through stage 4 chronic kidney disease, or unspecified chronic kidney disease; E11.22 Type 2 diabetes mellitus with diabetic chronic kidney disease; N18.32 Chronic kidney disease, stage 3b; D63.1 Anemia in chronic kidney disease; N25.81 Secondary hyperparathyroidism of renal origin; E87.2 Acidosis; E11.51 Type 2 diabetes mellitus with diabetic peripheral angiopathy without gangrene; Z88.1 Allergy status to other antibiotic agents; Z88.2 Allergy status to sulfonamides | CPT/HCPCS: 96365; 96375; J1642; J2405 ==

== ENCOUNTER 2021-11-27 02:45 | Day surgery (SDC) | payer OTHER | END 2021-11-27 11:00 | disposition home or self-care (01) | LOC: ATC 02:45 | DX: E83.59 Other disorders of calcium metabolism (principal) | CPT/HCPCS: 96365; 96375; J1642; J2405 ==

== ENCOUNTER 2021-12-03 00:45 | Day surgery (SDC) | payer OTHER | END 2021-12-03 11:42 | disposition home or self-care (01) | LOC: ATC 00:45 | DX: E83.59 Other disorders of calcium metabolism (principal) | CPT/HCPCS: J1642; J2405 ==

== ENCOUNTER 2021-12-04 00:52 | Day surgery (SDC) | payer OTHER | END 2021-12-04 12:00 | disposition home or self-care (01) | LOC: ATC 00:52 | DX: E83.59 Other disorders of calcium metabolism (principal); E11.22 Type 2 diabetes mellitus with diabetic chronic kidney disease; I12.9 Hypertensive chronic kidney disease with stage 1 through stage 4 chronic kidney disease, or unspecified chronic kidney disease; N18.32 Chronic kidney disease, stage 3b; D63.1 Anemia in chronic kidney disease; N25.81 Secondary hyperparathyroidism of renal origin; E11.51 Type 2 diabetes mellitus with diabetic peripheral angiopathy without gangrene; E79.0 Hyperuricemia without signs of inflammatory arthritis and tophaceous disease | CPT/HCPCS: 96365; 96375; J1642; J2405 ==

== ENCOUNTER 2021-12-10 01:51 | Day surgery (SDC) | payer OTHER ==
[2021-12-11] MEDS ORDERED: SULTRIDS PO (11:18)
== END 2021-12-10 11:21 | disposition home or self-care (01) ==
LOC: ATC 01:51
DX: E83.59 Other disorders of calcium metabolism (principal); I12.9 Hypertensive chronic kidney disease with stage 1 through stage 4 chronic kidney disease, or unspecified chronic kidney disease; N18.32 Chronic kidney disease, stage 3b; D63.1 Anemia in chronic kidney disease; N25.81 Secondary hyperparathyroidism of renal origin; E87.70 Fluid overload, unspecified; E11.21 Type 2 diabetes mellitus with diabetic nephropathy; E11.22 Type 2 diabetes mellitus with diabetic chronic kidney disease
CPT/HCPCS: 96365; 96375; J1642; J2405

== ENCOUNTER 2021-12-11 00:28 | Day surgery (SDC) | payer OTHER ==
[2021-12-11] MEDS ORDERED: SULTRIDS PO (11:18)
== END 2021-12-11 11:00 | disposition home or self-care (01) ==
LOC: ATC 00:28
DX: E83.59 Other disorders of calcium metabolism (principal)
CPT/HCPCS: J1642; J2405

== ENCOUNTER 2021-12-17 03:55 | Day surgery (SDC) | payer OTHER | END 2021-12-17 11:06 | disposition home or self-care (01) | LOC: ATC 03:55 | DX: E83.59 Other disorders of calcium metabolism (principal); I12.9 Hypertensive chronic kidney disease with stage 1 through stage 4 chronic kidney disease, or unspecified chronic kidney disease; N18.32 Chronic kidney disease, stage 3b; E11.22 Type 2 diabetes mellitus with diabetic chronic kidney disease; D63.1 Anemia in chronic kidney disease; N25.81 Secondary hyperparathyroidism of renal origin; E11.21 Type 2 diabetes mellitus with diabetic nephropathy; Z79.899 Other long term (current) drug therapy | CPT/HCPCS: 96365; 96375; J1642; J2405 ==

== ENCOUNTER 2021-12-18 00:34 | Day surgery (SDC) | payer OTHER | END 2021-12-18 10:56 | disposition home or self-care (01) | LOC: ATC 00:34 | DX: E83.59 Other disorders of calcium metabolism (principal); I12.9 Hypertensive chronic kidney disease with stage 1 through stage 4 chronic kidney disease, or unspecified chronic kidney disease; N18.32 Chronic kidney disease, stage 3b; E11.22 Type 2 diabetes mellitus with diabetic chronic kidney disease; D63.1 Anemia in chronic kidney disease; N25.81 Secondary hyperparathyroidism of renal origin; E11.21 Type 2 diabetes mellitus with diabetic nephropathy; Z79.82 Long term (current) use of aspirin; Z79.4 Long term (current) use of insulin; Z79.899 Other long term (current) drug therapy | CPT/HCPCS: 96365; 96375; J1642; J2405 ==

== ENCOUNTER 2021-12-24 01:16 | Day surgery (SDC) | payer OTHER | END 2021-12-24 11:30 | disposition home or self-care (01) | LOC: ATC 01:16 | DX: E83.59 Other disorders of calcium metabolism (principal); I12.9 Hypertensive chronic kidney disease with stage 1 through stage 4 chronic kidney disease, or unspecified chronic kidney disease; N18.32 Chronic kidney disease, stage 3b; E11.22 Type 2 diabetes mellitus with diabetic chronic kidney disease; E11.21 Type 2 diabetes mellitus with diabetic nephropathy; Z79.899 Other long term (current) drug therapy; Z79.82 Long term (current) use of aspirin; Z79.890 Hormone replacement therapy; Z88.1 Allergy status to other antibiotic agents; Z88.2 Allergy status to sulfonamides | CPT/HCPCS: 96365; 96375; J1642; J2405 ==

== ENCOUNTER 2021-12-25 04:05 | Day surgery (SDC) | payer OTHER | END 2021-12-25 12:18 | disposition home or self-care (01) | LOC: ATC 04:05 | DX: E83.59 Other disorders of calcium metabolism (principal); I12.9 Hypertensive chronic kidney disease with stage 1 through stage 4 chronic kidney disease, or unspecified chronic kidney disease; N18.32 Chronic kidney disease, stage 3b; E11.22 Type 2 diabetes mellitus with diabetic chronic kidney disease; E11.21 Type 2 diabetes mellitus with diabetic nephropathy; Z79.82 Long term (current) use of aspirin; Z79.899 Other long term (current) drug therapy; Z79.4 Long term (current) use of insulin; Z79.890 Hormone replacement therapy; Z88.1 Allergy status to other antibiotic agents; Z88.2 Allergy status to sulfonamides; Z88.8 Allergy status to other drugs, medicaments and biological substances | CPT/HCPCS: 96365; 96375; J1642; J2405 ==

== ENCOUNTER 2021-12-31 01:33 | Day surgery (SDC) | payer OTHER | END 2021-12-31 11:09 | disposition home or self-care (01) | LOC: ATC 01:33 | DX: E83.59 Other disorders of calcium metabolism (principal) | CPT/HCPCS: 96365; 96375; J1642; J2405 ==

== ENCOUNTER 2022-01-01 01:39 | Day surgery (SDC) | payer OTHER ==
[2022-01-01 11:26] LABS: Hematocrit 34.5 % (33.0-51.0); Hemoglobin 10.9 g/dL (11.5-16.0)
[2022-01-01 11:41] LABS: Albumin, Blood 3.1 g/dL (3.4-5.0); Anion Gap 13 mmol/L (6-16); Blood Urea Nitrogen 22 mg/dL (8-24); Bun/Creatinine Ratio 16.2 (12.0-20.0); CO2, Blood 26 mmol/L (21-32); Calcium, Blood 8.3 mg/dL (8.5-10.1); Chloride, Blood 100 mmol/L (98-108); Creatinine, Blood 1.36 mg/dL (0.40-1.00); Glomerular Filtration Rate 42 (60-); Glucose, Blood 135 mg/dL (70-99); Phosphorus, Blood 3.6 mg/dL (2.5-4.9); Potassium, Blood 4.1 mmol/L (3.5-5.5); Sodium, Blood 139 mmol/L (136-145)
== END 2022-01-01 11:03 | disposition home or self-care (01) ==
LOC: ATC 01:39
PROVIDERS: Internal Medicine Nephrology
DX: E83.59 Other disorders of calcium metabolism (principal); E11.22 Type 2 diabetes mellitus with diabetic chronic kidney disease; E11.51 Type 2 diabetes mellitus with diabetic peripheral angiopathy without gangrene; I12.9 Hypertensive chronic kidney disease with stage 1 through stage 4 chronic kidney disease, or unspecified chronic kidney disease; N18.32 Chronic kidney disease, stage 3b; D63.1 Anemia in chronic kidney disease; N25.81 Secondary hyperparathyroidism of renal origin; E87.1 Hypo-osmolality and hyponatremia; E87.6 Hypokalemia; E83.42 Hypomagnesemia; E83.51 Hypocalcemia
CPT/HCPCS: 80069; 85014; 85018; 96365; 96375; J1642; J2405

== ENCOUNTER 2022-01-08 08:25 | Day surgery (SDC) | payer OTHER ==
[2022-01-08 11:22] LABS: Albumin, Blood 3.6 g/dL (3.4-5.0); Anion Gap 5 mmol/L (6-16); Blood Urea Nitrogen 40 mg/dL (8-24); Bun/Creatinine Ratio 25.2 (12.0-20.0); CO2, Blood 28 mmol/L (21-32); Chloride, Blood 101 mmol/L (98-108); Creatinine, Blood 1.59 mg/dL (0.40-1.00); Glomerular Filtration Rate 35 (60-); Glucose, Blood 117 mg/dL (70-99); Phosphorus, Blood 4.3 mg/dL (2.5-4.9); Potassium, Blood 4.4 mmol/L (3.5-5.5); Sodium, Blood 134 mmol/L (136-145)
== END 2022-01-08 11:35 | disposition home or self-care (01) ==
LOC: ATC 08:25
PROVIDERS: Internal Medicine Nephrology
DX: I12.9 Hypertensive chronic kidney disease with stage 1 through stage 4 chronic kidney disease, or unspecified chronic kidney disease (principal); N18.32 Chronic kidney disease, stage 3b; D63.1 Anemia in chronic kidney disease; E11.22 Type 2 diabetes mellitus with diabetic chronic kidney disease; N25.81 Secondary hyperparathyroidism of renal origin; E11.21 Type 2 diabetes mellitus with diabetic nephropathy; Z88.1 Allergy status to other antibiotic agents; Z88.2 Allergy status to sulfonamides; Z79.899 Other long term (current) drug therapy
CPT/HCPCS: 80069; 85018; 96365; 96375; J1642; J2405

== ENCOUNTER 2022-01-14 00:33 | Day surgery (SDC) | payer OTHER | END 2022-01-14 10:53 | disposition home or self-care (01) | LOC: ATC 00:33 | DX: E83.59 Other disorders of calcium metabolism (principal); E11.22 Type 2 diabetes mellitus with diabetic chronic kidney disease; I12.9 Hypertensive chronic kidney disease with stage 1 through stage 4 chronic kidney disease, or unspecified chronic kidney disease; N18.32 Chronic kidney disease, stage 3b; D63.1 Anemia in chronic kidney disease; N25.81 Secondary hyperparathyroidism of renal origin; E87.70 Fluid overload, unspecified; E87.1 Hypo-osmolality and hyponatremia; E87.6 Hypokalemia; E83.51 Hypocalcemia; E83.42 Hypomagnesemia; E87.2 Acidosis | CPT/HCPCS: 96365; J1642 ==

== ENCOUNTER 2022-01-15 01:42 | Day surgery (SDC) | payer OTHER | END 2022-01-15 10:51 | disposition home or self-care (01) | LOC: ATC 01:42 | DX: I12.9 Hypertensive chronic kidney disease with stage 1 through stage 4 chronic kidney disease, or unspecified chronic kidney disease (principal); N18.32 Chronic kidney disease, stage 3b; E11.22 Type 2 diabetes mellitus with diabetic chronic kidney disease; D63.1 Anemia in chronic kidney disease; N25.81 Secondary hyperparathyroidism of renal origin; E11.21 Type 2 diabetes mellitus with diabetic nephropathy; Z79.82 Long term (current) use of aspirin; Z79.4 Long term (current) use of insulin; Z79.899 Other long term (current) drug therapy | CPT/HCPCS: 96365; 96375; J1642; J2405 ==

== ENCOUNTER 2022-01-21 02:04 | Day surgery (SDC) | payer OTHER | END 2022-01-21 11:25 | disposition home or self-care (01) | LOC: ATC 02:04 | DX: I12.9 Hypertensive chronic kidney disease with stage 1 through stage 4 chronic kidney disease, or unspecified chronic kidney disease (principal); N18.32 Chronic kidney disease, stage 3b; D63.1 Anemia in chronic kidney disease; N25.81 Secondary hyperparathyroidism of renal origin; E11.22 Type 2 diabetes mellitus with diabetic chronic kidney disease; E11.21 Type 2 diabetes mellitus with diabetic nephropathy; Z79.899 Other long term (current) drug therapy | CPT/HCPCS: J1642; J2405 ==

== ENCOUNTER 2022-02-05 00:26 | Day surgery (SDC) | payer OTHER | END 2022-02-05 11:06 | disposition home or self-care (01) | LOC: ATC 00:26 | DX: E83.59 Other disorders of calcium metabolism (principal); I12.9 Hypertensive chronic kidney disease with stage 1 through stage 4 chronic kidney disease, or unspecified chronic kidney disease; N18.32 Chronic kidney disease, stage 3b; E11.22 Type 2 diabetes mellitus with diabetic chronic kidney disease; D63.1 Anemia in chronic kidney disease; N25.81 Secondary hyperparathyroidism of renal origin; E11.21 Type 2 diabetes mellitus with diabetic nephropathy; Z88.1 Allergy status to other antibiotic agents; Z88.2 Allergy status to sulfonamides; Z88.8 Allergy status to other drugs, medicaments and biological substances; Z79.82 Long term (current) use of aspirin; Z79.4 Long term (current) use of insulin; Z79.899 Other long term (current) drug therapy | CPT/HCPCS: J1642; J2405 ==

== ENCOUNTER 2022-02-11 01:22 | Day surgery (SDC) | payer OTHER | END 2022-02-11 10:57 | disposition home or self-care (01) | LOC: ATC 01:22 | DX: E87.70 Fluid overload, unspecified (principal); E87.1 Hypo-osmolality and hyponatremia; I12.9 Hypertensive chronic kidney disease with stage 1 through stage 4 chronic kidney disease, or unspecified chronic kidney disease; N18.32 Chronic kidney disease, stage 3b; D63.1 Anemia in chronic kidney disease; N25.81 Secondary hyperparathyroidism of renal origin; E87.6 Hypokalemia; E83.51 Hypocalcemia; E83.42 Hypomagnesemia | CPT/HCPCS: J1642; J2405 ==

== ENCOUNTER 2022-02-12 02:01 | Day surgery (SDC) | payer OTHER | END 2022-02-12 11:35 | disposition home or self-care (01) | LOC: ATC 02:01 | DX: E83.59 Other disorders of calcium metabolism (principal); I12.9 Hypertensive chronic kidney disease with stage 1 through stage 4 chronic kidney disease, or unspecified chronic kidney disease; E11.22 Type 2 diabetes mellitus with diabetic chronic kidney disease; N18.32 Chronic kidney disease, stage 3b; E11.51 Type 2 diabetes mellitus with diabetic peripheral angiopathy without gangrene; E87.6 Hypokalemia; Z88.1 Allergy status to other antibiotic agents; Z88.2 Allergy status to sulfonamides; Z79.4 Long term (current) use of insulin; Z79.82 Long term (current) use of aspirin | CPT/HCPCS: J1642; J2405 ==

== ENCOUNTER 2022-02-18 02:48 | Day surgery (SDC) | payer OTHER | END 2022-02-18 11:02 | disposition home or self-care (01) | LOC: ATC 02:48 | DX: E83.59 Other disorders of calcium metabolism (principal); I12.9 Hypertensive chronic kidney disease with stage 1 through stage 4 chronic kidney disease, or unspecified chronic kidney disease; N18.32 Chronic kidney disease, stage 3b; D63.1 Anemia in chronic kidney disease; N25.81 Secondary hyperparathyroidism of renal origin; E87.70 Fluid overload, unspecified; E11.22 Type 2 diabetes mellitus with diabetic chronic kidney disease; E11.21 Type 2 diabetes mellitus with diabetic nephropathy; Z79.82 Long term (current) use of aspirin; Z79.899 Other long term (current) drug therapy | CPT/HCPCS: J1642; J2405 ==

== ENCOUNTER 2022-02-19 02:46 | Day surgery (SDC) | payer OTHER | END 2022-02-19 10:52 | disposition home or self-care (01) | LOC: ATC 02:46 | DX: E83.59 Other disorders of calcium metabolism (principal); I12.9 Hypertensive chronic kidney disease with stage 1 through stage 4 chronic kidney disease, or unspecified chronic kidney disease; N18.32 Chronic kidney disease, stage 3b; D63.1 Anemia in chronic kidney disease; N25.81 Secondary hyperparathyroidism of renal origin; E11.22 Type 2 diabetes mellitus with diabetic chronic kidney disease; E87.1 Hypo-osmolality and hyponatremia; E87.6 Hypokalemia; E83.51 Hypocalcemia; E83.42 Hypomagnesemia; Z88.1 Allergy status to other antibiotic agents; Z88.2 Allergy status to sulfonamides; Z88.8 Allergy status to other drugs, medicaments and biological substances | CPT/HCPCS: J1642; J2405 ==

== ENCOUNTER 2022-02-25 02:48 | Day surgery (SDC) | payer OTHER | END 2022-02-25 11:00 | disposition home or self-care (01) | LOC: ATC 02:48 | DX: E83.59 Other disorders of calcium metabolism (principal); I12.9 Hypertensive chronic kidney disease with stage 1 through stage 4 chronic kidney disease, or unspecified chronic kidney disease; E11.22 Type 2 diabetes mellitus with diabetic chronic kidney disease; N18.32 Chronic kidney disease, stage 3b; E11.21 Type 2 diabetes mellitus with diabetic nephropathy; E11.51 Type 2 diabetes mellitus with diabetic peripheral angiopathy without gangrene; D63.1 Anemia in chronic kidney disease; E87.6 Hypokalemia; Z79.899 Other long term (current) drug therapy; Z79.82 Long term (current) use of aspirin; Z79.4 Long term (current) use of insulin; Z79.890 Hormone replacement therapy; Z79.01 Long term (current) use of anticoagulants; Z88.1 Allergy status to other antibiotic agents; Z88.2 Allergy status to sulfonamides | CPT/HCPCS: 96365; 96374; J1642; J2405 ==

== ENCOUNTER 2022-02-26 01:34 | Day surgery (SDC) | payer OTHER | END 2022-02-26 11:03 | disposition home or self-care (01) | LOC: ATC 01:34 | DX: E83.59 Other disorders of calcium metabolism (principal); I12.9 Hypertensive chronic kidney disease with stage 1 through stage 4 chronic kidney disease, or unspecified chronic kidney disease; E11.22 Type 2 diabetes mellitus with diabetic chronic kidney disease; N18.32 Chronic kidney disease, stage 3b; E11.51 Type 2 diabetes mellitus with diabetic peripheral angiopathy without gangrene; E87.6 Hypokalemia; Z88.1 Allergy status to other antibiotic agents; Z88.2 Allergy status to sulfonamides; Z79.4 Long term (current) use of insulin | CPT/HCPCS: J1642; J2405 ==

== ENCOUNTER 2022-03-04 00:40 | Day surgery (SDC) | payer OTHER | END 2022-03-04 10:57 | disposition home or self-care (01) | LOC: ATC 00:40 | DX: E83.59 Other disorders of calcium metabolism (principal); I12.9 Hypertensive chronic kidney disease with stage 1 through stage 4 chronic kidney disease, or unspecified chronic kidney disease; E11.22 Type 2 diabetes mellitus with diabetic chronic kidney disease; N18.32 Chronic kidney disease, stage 3b; E87.6 Hypokalemia; E11.51 Type 2 diabetes mellitus with diabetic peripheral angiopathy without gangrene; Z88.1 Allergy status to other antibiotic agents; Z88.2 Allergy status to sulfonamides | CPT/HCPCS: 96365; 96375; J1642; J2405 ==

== ENCOUNTER 2022-03-05 03:33 | Day surgery (SDC) | payer OTHER | END 2022-03-05 11:10 | disposition home or self-care (01) | LOC: ATC 03:33 | DX: E87.1 Hypo-osmolality and hyponatremia (principal); I12.9 Hypertensive chronic kidney disease with stage 1 through stage 4 chronic kidney disease, or unspecified chronic kidney disease; N18.32 Chronic kidney disease, stage 3b; D63.1 Anemia in chronic kidney disease; E11.22 Type 2 diabetes mellitus with diabetic chronic kidney disease; E83.51 Hypocalcemia; E83.42 Hypomagnesemia | CPT/HCPCS: 96365; 96375; J1642; J2405 ==

== ENCOUNTER 2022-03-11 02:39 | Day surgery (SDC) | payer OTHER | END 2022-03-11 11:32 | disposition home or self-care (01) | LOC: ATC 02:39 | DX: E83.59 Other disorders of calcium metabolism (principal); N18.32 Chronic kidney disease, stage 3b; I12.9 Hypertensive chronic kidney disease with stage 1 through stage 4 chronic kidney disease, or unspecified chronic kidney disease; N25.81 Secondary hyperparathyroidism of renal origin; E87.70 Fluid overload, unspecified; E87.1 Hypo-osmolality and hyponatremia; E87.6 Hypokalemia; E83.51 Hypocalcemia; E83.42 Hypomagnesemia | CPT/HCPCS: 96365; 96375; J1642; J2405 ==

== ENCOUNTER 2022-03-12 10:35 | Day surgery (SDC) | payer OTHER | END 2022-03-12 11:35 | disposition home or self-care (01) | LOC: ATC 10:35 | DX: E83.59 Other disorders of calcium metabolism (principal); I12.9 Hypertensive chronic kidney disease with stage 1 through stage 4 chronic kidney disease, or unspecified chronic kidney disease; E11.22 Type 2 diabetes mellitus with diabetic chronic kidney disease; N18.32 Chronic kidney disease, stage 3b; E87.6 Hypokalemia; E11.51 Type 2 diabetes mellitus with diabetic peripheral angiopathy without gangrene; Z79.4 Long term (current) use of insulin | CPT/HCPCS: J1642; J2405 ==

== ENCOUNTER 2022-03-18 02:01 | Day surgery (SDC) | payer OTHER ==
[2022-03-18] MEDS ORDERED: SULFAMETHOXAZO1 EACH PO (10:29)
== END 2022-03-18 11:12 | disposition home or self-care (01) ==
LOC: ATC 02:01
DX: E83.51 Hypocalcemia (principal); I12.9 Hypertensive chronic kidney disease with stage 1 through stage 4 chronic kidney disease, or unspecified chronic kidney disease; N18.32 Chronic kidney disease, stage 3b; D63.1 Anemia in chronic kidney disease; N25.81 Secondary hyperparathyroidism of renal origin; E11.22 Type 2 diabetes mellitus with diabetic chronic kidney disease; E87.1 Hypo-osmolality and hyponatremia; E87.6 Hypokalemia; E83.42 Hypomagnesemia; E87.20 Acidosis, unspecified
CPT/HCPCS: 96365; 96375; J1642; J2405

== ENCOUNTER 2022-03-19 08:54 | Day surgery (SDC) | payer OTHER ==
[~2022-03-19 08:54] MED LIST changes: +SULFAMETHOXAZO1 EACH PO
== END 2022-03-19 11:00 | disposition home or self-care (01) ==
LOC: ATC 08:54
DX: E83.51 Hypocalcemia (principal); I12.9 Hypertensive chronic kidney disease with stage 1 through stage 4 chronic kidney disease, or unspecified chronic kidney disease; N18.32 Chronic kidney disease, stage 3b; D63.1 Anemia in chronic kidney disease; N25.81 Secondary hyperparathyroidism of renal origin; E87.70 Fluid overload, unspecified; E11.22 Type 2 diabetes mellitus with diabetic chronic kidney disease; E87.6 Hypokalemia; E83.42 Hypomagnesemia; E87.29 Other acidosis; E55.9 Vitamin D deficiency, unspecified
CPT/HCPCS: 96365; 96375; J1642; J2405

== ENCOUNTER 2022-03-25 01:31 | Day surgery (SDC) | payer OTHER | END 2022-03-25 11:12 | disposition home or self-care (01) | LOC: ATC 01:31 | DX: E83.51 Hypocalcemia (principal); N18.32 Chronic kidney disease, stage 3b; I12.9 Hypertensive chronic kidney disease with stage 1 through stage 4 chronic kidney disease, or unspecified chronic kidney disease; D63.1 Anemia in chronic kidney disease; N25.81 Secondary hyperparathyroidism of renal origin; E87.70 Fluid overload, unspecified; E11.21 Type 2 diabetes mellitus with diabetic nephropathy; E87.1 Hypo-osmolality and hyponatremia; E87.6 Hypokalemia; E83.30 Disorder of phosphorus metabolism, unspecified; E83.42 Hypomagnesemia | CPT/HCPCS: 96365; 96375; J1642; J2405 ==

== ENCOUNTER 2022-04-15 00:27 | Day surgery (SDC) | payer OTHER ==
[2022-04-15 11:59] LABS: Albumin, Blood 2.9 g/dL (3.4-5.0); Anion Gap 15 mmol/L (6-16); Blood Urea Nitrogen 27 mg/dL (8-24); Bun/Creatinine Ratio 20.5 (12.0-20.0); CO2, Blood 28 mmol/L (21-32); Calcium, Blood 7.7 mg/dL (8.5-10.1); Chloride, Blood 100 mmol/L (98-108); Creatinine, Blood 1.32 mg/dL (0.40-1.00); Glomerular Filtration Rate 43 (60-); Glucose, Blood 155 mg/dL (70-99); Phosphorus, Blood 3.9 mg/dL (2.5-4.9); Potassium, Blood 4.2 mmol/L (3.5-5.5); Sodium, Blood 143 mmol/L (136-145)
== END 2022-04-15 11:09 | disposition home or self-care (01) ==
LOC: ATC 00:27
PROVIDERS: Internal Medicine Nephrology
DX: E83.59 Other disorders of calcium metabolism (principal); I12.9 Hypertensive chronic kidney disease with stage 1 through stage 4 chronic kidney disease, or unspecified chronic kidney disease; N18.32 Chronic kidney disease, stage 3b; E87.70 Fluid overload, unspecified; D63.1 Anemia in chronic kidney disease; E11.21 Type 2 diabetes mellitus with diabetic nephropathy; E11.22 Type 2 diabetes mellitus with diabetic chronic kidney disease; E87.1 Hypo-osmolality and hyponatremia; E87.6 Hypokalemia; M85.80 Other specified disorders of bone density and structure, unspecified site; E79.0 Hyperuricemia without signs of inflammatory arthritis and tophaceous disease
CPT/HCPCS: 80069; 85018; 96365; 96375; J1642; J2405

== ENCOUNTER 2022-04-22 00:49 | Day surgery (SDC) | payer OTHER | END 2022-04-22 11:49 | disposition home or self-care (01) | LOC: ATC 00:49 | DX: I12.9 Hypertensive chronic kidney disease with stage 1 through stage 4 chronic kidney disease, or unspecified chronic kidney disease (principal); N18.32 Chronic kidney disease, stage 3b; E87.70 Fluid overload, unspecified; D63.1 Anemia in chronic kidney disease; N25.81 Secondary hyperparathyroidism of renal origin; E11.22 Type 2 diabetes mellitus with diabetic chronic kidney disease; E87.6 Hypokalemia; E83.30 Disorder of phosphorus metabolism, unspecified; E11.51 Type 2 diabetes mellitus with diabetic peripheral angiopathy without gangrene | CPT/HCPCS: 96365; 96375; J1642; J2405 ==

== ENCOUNTER 2022-04-23 00:54 | Day surgery (SDC) | payer OTHER ==
[2022-04-23 11:41] LABS: Albumin, Blood 3.2 g/dL (3.4-5.0); Albumin/Globulin Ratio 1.1 (0.8-1.8); Bilirubin, Total 0.3 mg/dL (0.1-1.0); Bun/Creatinine Ratio 13.9 (12.0-20.0); Calcium, Blood 8.6 mg/dL (8.5-10.1); Creatinine, Blood 1.15 mg/dL (0.40-1.00); Potassium, Blood 4.7 mmol/L (3.5-5.5); Total Protein, Blood 6.2 g/dL (6.4-8.2)
== END 2022-04-23 11:26 | disposition home or self-care (01) ==
LOC: ATC 00:54
PROVIDERS: Internal Medicine Hematology & Oncology
DX: I12.9 Hypertensive chronic kidney disease with stage 1 through stage 4 chronic kidney disease, or unspecified chronic kidney disease (principal); N18.32 Chronic kidney disease, stage 3b; E87.70 Fluid overload, unspecified; N25.81 Secondary hyperparathyroidism of renal origin; E11.22 Type 2 diabetes mellitus with diabetic chronic kidney disease; E87.1 Hypo-osmolality and hyponatremia; E83.30 Disorder of phosphorus metabolism, unspecified; E55.9 Vitamin D deficiency, unspecified; E11.51 Type 2 diabetes mellitus with diabetic peripheral angiopathy without gangrene
CPT/HCPCS: 80053; 96365; 96375; J1642; J2405

== ENCOUNTER 2022-04-30 00:12 | Day surgery (SDC) | payer OTHER ==
[2022-04-30 12:00] LABS: Albumin, Blood 3.1 g/dL (3.4-5.0); Albumin/Globulin Ratio 1.2 (0.8-1.8); Bilirubin, Total 0.2 mg/dL (0.1-1.0); Bun/Creatinine Ratio 15.5 (12.0-20.0); Calcium, Blood 8.3 mg/dL (8.5-10.1); Creatinine, Blood 1.61 mg/dL (0.40-1.00); Globulin, Blood 2.6 g/dL (2.2-4.0); Potassium, Blood 4.8 mmol/L (3.5-5.5); Total Protein, Blood 5.7 g/dL (6.4-8.2)
--- NOTE | 2022-04-30 13:12 | NUR ---
LAS RESULTS FROM TODAY FAXED TO DR. DANA GOULD'S OFFICE PER MD ORDER.
== END 2022-04-30 23:17 | disposition home or self-care (01) ==
LOC: ATC 00:12
PROVIDERS: Internal Medicine Hematology & Oncology
DX: E83.59 Other disorders of calcium metabolism (principal); I12.9 Hypertensive chronic kidney disease with stage 1 through stage 4 chronic kidney disease, or unspecified chronic kidney disease; N18.32 Chronic kidney disease, stage 3b; D63.1 Anemia in chronic kidney disease; N25.81 Secondary hyperparathyroidism of renal origin; E11.21 Type 2 diabetes mellitus with diabetic nephropathy; E11.22 Type 2 diabetes mellitus with diabetic chronic kidney disease; E87.6 Hypokalemia; E79.0 Hyperuricemia without signs of inflammatory arthritis and tophaceous disease
CPT/HCPCS: 80053; 96365; 96375; J1642; J2405

== ENCOUNTER 2022-05-07 00:19 | Day surgery (SDC) | payer OTHER | END 2022-05-07 11:11 | disposition home or self-care (01) | LOC: ATC 00:19 | DX: I12.9 Hypertensive chronic kidney disease with stage 1 through stage 4 chronic kidney disease, or unspecified chronic kidney disease (principal); E83.59 Other disorders of calcium metabolism; N18.32 Chronic kidney disease, stage 3b; E87.70 Fluid overload, unspecified; D63.1 Anemia in chronic kidney disease; N25.81 Secondary hyperparathyroidism of renal origin; E11.21 Type 2 diabetes mellitus with diabetic nephropathy; E11.22 Type 2 diabetes mellitus with diabetic chronic kidney disease; E87.1 Hypo-osmolality and hyponatremia; E87.6 Hypokalemia; E83.30 Disorder of phosphorus metabolism, unspecified | CPT/HCPCS: 96365; 96375; J1642; J2405 ==

== ENCOUNTER 2022-05-15 03:34 | Day surgery (SDC) | payer OTHER ==
--- NOTE | 2022-05-15 13:41 | NUR ---
[facility] STAFF CONTACTED PT THIS MORNING. SHE IS ILL AND WILL NOT BE IN TODAY.
== END 2022-05-15 23:02 | disposition home or self-care (01) ==
LOC: ATC 03:34
DX: Z09 Encounter for follow-up examination after completed treatment for conditions other than malignant neoplasm (principal); N17.9 Acute kidney failure, unspecified; I12.9 Hypertensive chronic kidney disease with stage 1 through stage 4 chronic kidney disease, or unspecified chronic kidney disease; E11.22 Type 2 diabetes mellitus with diabetic chronic kidney disease; N18.32 Chronic kidney disease, stage 3b; N25.81 Secondary hyperparathyroidism of renal origin; E87.70 Fluid overload, unspecified; D63.1 Anemia in chronic kidney disease; E11.21 Type 2 diabetes mellitus with diabetic nephropathy; E87.1 Hypo-osmolality and hyponatremia; E87.6 Hypokalemia; E55.9 Vitamin D deficiency, unspecified; M85.80 Other specified disorders of bone density and structure, unspecified site; E79.0 Hyperuricemia without signs of inflammatory arthritis and tophaceous disease; I73.9 Peripheral vascular disease, unspecified; C22.0 Liver cell carcinoma; Z79.82 Long term (current) use of aspirin; Z88.1 Allergy status to other antibiotic agents; Z88.2 Allergy status to sulfonamides
CPT/HCPCS: J1642; J2405

== ENCOUNTER 2022-05-20 02:02 | Day surgery (SDC) | payer OTHER ==
[2022-05-20] MEDS ORDERED: PRED5 PO (12:06)
[2022-05-20] MEDS ORDERED: AZIT500 PO (12:07)
== END 2022-05-20 11:52 | disposition home or self-care (01) ==
LOC: ATC 02:02
DX: Z45.2 Encounter for adjustment and management of vascular access device (principal); I12.9 Hypertensive chronic kidney disease with stage 1 through stage 4 chronic kidney disease, or unspecified chronic kidney disease; E11.22 Type 2 diabetes mellitus with diabetic chronic kidney disease; N18.32 Chronic kidney disease, stage 3b; D63.1 Anemia in chronic kidney disease; N25.81 Secondary hyperparathyroidism of renal origin; E87.70 Fluid overload, unspecified; Z79.899 Other long term (current) drug therapy; Z88.1 Allergy status to other antibiotic agents; Z88.2 Allergy status to sulfonamides
CPT/HCPCS: J1642; J2405

== ENCOUNTER 2022-06-03 00:21 | Day surgery (SDC) | payer OTHER ==
[~2022-06-03 00:21] MED LIST changes: +AZIT500 PO; +PRED5 PO
== END 2022-06-03 10:54 | disposition home or self-care (01) ==
LOC: ATC 00:21
DX: I12.9 Hypertensive chronic kidney disease with stage 1 through stage 4 chronic kidney disease, or unspecified chronic kidney disease (principal); E11.22 Type 2 diabetes mellitus with diabetic chronic kidney disease; N18.32 Chronic kidney disease, stage 3b; N17.9 Acute kidney failure, unspecified; E87.70 Fluid overload, unspecified; D63.1 Anemia in chronic kidney disease; N25.81 Secondary hyperparathyroidism of renal origin; E11.21 Type 2 diabetes mellitus with diabetic nephropathy; E87.1 Hypo-osmolality and hyponatremia; E87.6 Hypokalemia; E55.9 Vitamin D deficiency, unspecified; M85.80 Other specified disorders of bone density and structure, unspecified site; E79.0 Hyperuricemia without signs of inflammatory arthritis and tophaceous disease; I73.9 Peripheral vascular disease, unspecified; C22.7 Other specified carcinomas of liver; Z88.1 Allergy status to other antibiotic agents; Z88.2 Allergy status to sulfonamides; Z88.8 Allergy status to other drugs, medicaments and biological substances
CPT/HCPCS: 96365; 96375; J1642; J2405

== ENCOUNTER 2022-06-18 00:26 | Day surgery (SDC) | payer OTHER | END 2022-06-18 11:13 | disposition home or self-care (01) | LOC: ATC 00:26 | DX: I12.9 Hypertensive chronic kidney disease with stage 1 through stage 4 chronic kidney disease, or unspecified chronic kidney disease (principal); N18.32 Chronic kidney disease, stage 3b; D63.1 Anemia in chronic kidney disease; E83.59 Other disorders of calcium metabolism; C22.1 Intrahepatic bile duct carcinoma | CPT/HCPCS: 96365; 96375; J1642; J2405 ==

== ENCOUNTER 2022-06-24 00:32 | Day surgery (SDC) | payer OTHER | END 2022-06-24 11:13 | disposition home or self-care (01) | LOC: ATC 00:32 | DX: I12.9 Hypertensive chronic kidney disease with stage 1 through stage 4 chronic kidney disease, or unspecified chronic kidney disease (principal); N18.32 Chronic kidney disease, stage 3b; E87.70 Fluid overload, unspecified; D63.1 Anemia in chronic kidney disease; N25.81 Secondary hyperparathyroidism of renal origin; E11.21 Type 2 diabetes mellitus with diabetic nephropathy; E11.51 Type 2 diabetes mellitus with diabetic peripheral angiopathy without gangrene | CPT/HCPCS: 96365; 96375; J1642; J2405 ==

== ENCOUNTER 2022-06-25 00:17 | Day surgery (SDC) | payer OTHER | END 2022-06-25 11:00 | disposition home or self-care (01) | LOC: ATC 00:17 | DX: I12.9 Hypertensive chronic kidney disease with stage 1 through stage 4 chronic kidney disease, or unspecified chronic kidney disease (principal); N18.32 Chronic kidney disease, stage 3b; E87.70 Fluid overload, unspecified; D63.1 Anemia in chronic kidney disease; N25.81 Secondary hyperparathyroidism of renal origin; E11.22 Type 2 diabetes mellitus with diabetic chronic kidney disease; E11.51 Type 2 diabetes mellitus with diabetic peripheral angiopathy without gangrene | CPT/HCPCS: 96365; 96375; J1642; J2405 ==

== ENCOUNTER 2022-07-02 03:14 | Day surgery (SDC) | payer OTHER | END 2022-07-02 23:00 | disposition home or self-care (01) | LOC: ATC 03:14 | DX: I12.9 Hypertensive chronic kidney disease with stage 1 through stage 4 chronic kidney disease, or unspecified chronic kidney disease (principal); E11.22 Type 2 diabetes mellitus with diabetic chronic kidney disease; N18.32 Chronic kidney disease, stage 3b; D63.1 Anemia in chronic kidney disease; N25.81 Secondary hyperparathyroidism of renal origin; E11.21 Type 2 diabetes mellitus with diabetic nephropathy; Z79.4 Long term (current) use of insulin; Z79.82 Long term (current) use of aspirin; Z79.899 Other long term (current) drug therapy ==

== ENCOUNTER 2022-07-08 01:06 | Day surgery (SDC) | payer OTHER | END 2022-07-08 11:18 | disposition home or self-care (01) | LOC: ATC 01:06 | DX: I12.9 Hypertensive chronic kidney disease with stage 1 through stage 4 chronic kidney disease, or unspecified chronic kidney disease (principal); N18.32 Chronic kidney disease, stage 3b; D63.1 Anemia in chronic kidney disease; N25.81 Secondary hyperparathyroidism of renal origin; E11.22 Type 2 diabetes mellitus with diabetic chronic kidney disease; E11.21 Type 2 diabetes mellitus with diabetic nephropathy; C22.1 Intrahepatic bile duct carcinoma; E11.51 Type 2 diabetes mellitus with diabetic peripheral angiopathy without gangrene; Z88.1 Allergy status to other antibiotic agents; Z88.2 Allergy status to sulfonamides; Z79.899 Other long term (current) drug therapy | CPT/HCPCS: 96365; 96375; J1642; J2405 ==

== ENCOUNTER 2022-07-09 00:16 | Day surgery (SDC) | payer OTHER ==
--- NOTE | 2022-07-09 11:04 | NUR ---
PT GOING TO CT SCAN AND WILL RETURN FOR HEPARIN FLUSH.
== END 2022-07-09 12:45 | disposition home or self-care (01) ==
LOC: ATC 00:16
DX: I12.9 Hypertensive chronic kidney disease with stage 1 through stage 4 chronic kidney disease, or unspecified chronic kidney disease (principal); N18.32 Chronic kidney disease, stage 3b; D63.1 Anemia in chronic kidney disease; N25.81 Secondary hyperparathyroidism of renal origin; E11.22 Type 2 diabetes mellitus with diabetic chronic kidney disease; E11.21 Type 2 diabetes mellitus with diabetic nephropathy; E11.51 Type 2 diabetes mellitus with diabetic peripheral angiopathy without gangrene; C22.1 Intrahepatic bile duct carcinoma; Z88.1 Allergy status to other antibiotic agents; Z88.2 Allergy status to sulfonamides; Z79.899 Other long term (current) drug therapy
CPT/HCPCS: 96365; 96375; 96523; J1642; J2405

== ENCOUNTER 2022-07-15 00:43 | Day surgery (SDC) | payer OTHER | END 2022-07-15 10:58 | disposition home or self-care (01) | LOC: ATC 00:43 | DX: I12.9 Hypertensive chronic kidney disease with stage 1 through stage 4 chronic kidney disease, or unspecified chronic kidney disease (principal); N18.32 Chronic kidney disease, stage 3b; E87.70 Fluid overload, unspecified; D63.1 Anemia in chronic kidney disease; N25.81 Secondary hyperparathyroidism of renal origin; E11.21 Type 2 diabetes mellitus with diabetic nephropathy; E11.22 Type 2 diabetes mellitus with diabetic chronic kidney disease; E11.51 Type 2 diabetes mellitus with diabetic peripheral angiopathy without gangrene; E87.1 Hypo-osmolality and hyponatremia; E87.6 Hypokalemia; E83.30 Disorder of phosphorus metabolism, unspecified; C22.1 Intrahepatic bile duct carcinoma; E55.9 Vitamin D deficiency, unspecified; Z88.1 Allergy status to other antibiotic agents; Z88.2 Allergy status to sulfonamides; Z79.899 Other long term (current) drug therapy; Z79.82 Long term (current) use of aspirin | CPT/HCPCS: 96365; 96375; J1642; J2405 ==

== ENCOUNTER 2022-07-16 00:54 | Day surgery (SDC) | payer OTHER ==
[2022-07-16 10:07] LABS: Hematocrit 38.6 % (33.0-51.0); Hemoglobin 12.4 g/dL (11.5-16.0)
[2022-07-16 10:16] LABS: Albumin, Blood 3.1 g/dL (3.4-5.0); Anion Gap 7 mmol/L (6-16); Blood Urea Nitrogen 37 mg/dL (8-24); Bun/Creatinine Ratio 26.1 (12.0-20.0); CO2, Blood 24 mmol/L (21-32); Calcium, Blood 8.1 mg/dL (8.5-10.1); Chloride, Blood 104 mmol/L (98-108); Creatinine, Blood 1.42 mg/dL (0.40-1.00); Glomerular Filtration Rate 40 (60-); Glucose, Blood 135 mg/dL (70-99); Phosphorus, Blood 4.7 mg/dL (2.5-4.9); Potassium, Blood 3.8 mmol/L (3.5-5.5); Sodium, Blood 135 mmol/L (136-145)
== END 2022-07-16 09:33 | disposition home or self-care (01) ==
LOC: ATC 00:54
PROVIDERS: Internal Medicine Nephrology
DX: I12.9 Hypertensive chronic kidney disease with stage 1 through stage 4 chronic kidney disease, or unspecified chronic kidney disease (principal); E87.70 Fluid overload, unspecified; D63.1 Anemia in chronic kidney disease; N25.81 Secondary hyperparathyroidism of renal origin; E11.22 Type 2 diabetes mellitus with diabetic chronic kidney disease; E11.51 Type 2 diabetes mellitus with diabetic peripheral angiopathy without gangrene; N18.30 Chronic kidney disease, stage 3 unspecified
CPT/HCPCS: 80069; 85014; 85018; 96365; 96375; J1642; J2405

== ENCOUNTER 2022-07-22 00:41 | Day surgery (SDC) | payer OTHER ==
[2022-07-23] MEDS ORDERED: TEMOVATE15 G1 EXT (10:37)
== END 2022-07-22 11:15 | disposition home or self-care (01) ==
LOC: ATC 00:41
DX: I12.9 Hypertensive chronic kidney disease with stage 1 through stage 4 chronic kidney disease, or unspecified chronic kidney disease (principal); D63.1 Anemia in chronic kidney disease; N18.32 Chronic kidney disease, stage 3b; N25.81 Secondary hyperparathyroidism of renal origin; E11.22 Type 2 diabetes mellitus with diabetic chronic kidney disease; E87.1 Hypo-osmolality and hyponatremia; E55.9 Vitamin D deficiency, unspecified
CPT/HCPCS: 96365; 96375; J1642; J2405

== ENCOUNTER 2022-07-23 01:48 | Day surgery (SDC) | payer OTHER ==
[2022-07-23] MEDS ORDERED: TEMOVATE15 G1 EXT (10:37)
== END 2022-07-23 11:05 | disposition home or self-care (01) ==
LOC: ATC 01:48
DX: I12.9 Hypertensive chronic kidney disease with stage 1 through stage 4 chronic kidney disease, or unspecified chronic kidney disease (principal); N18.32 Chronic kidney disease, stage 3b; D63.1 Anemia in chronic kidney disease; N25.81 Secondary hyperparathyroidism of renal origin; E11.22 Type 2 diabetes mellitus with diabetic chronic kidney disease; E55.9 Vitamin D deficiency, unspecified; E11.51 Type 2 diabetes mellitus with diabetic peripheral angiopathy without gangrene; C22.1 Intrahepatic bile duct carcinoma
CPT/HCPCS: 96365; 96375; J1642; J2405

== ENCOUNTER 2022-07-29 00:21 | Day surgery (SDC) | payer OTHER ==
[~2022-07-29 00:21] MED LIST changes: +TEMOVATE15 G1 EXT
== END 2022-07-29 10:47 | disposition home or self-care (01) ==
LOC: ATC 00:21
DX: I12.9 Hypertensive chronic kidney disease with stage 1 through stage 4 chronic kidney disease, or unspecified chronic kidney disease (principal); N18.32 Chronic kidney disease, stage 3b; E87.70 Fluid overload, unspecified; D63.1 Anemia in chronic kidney disease; N25.81 Secondary hyperparathyroidism of renal origin; E11.22 Type 2 diabetes mellitus with diabetic chronic kidney disease; E87.6 Hypokalemia; E11.51 Type 2 diabetes mellitus with diabetic peripheral angiopathy without gangrene
CPT/HCPCS: 96365; 96375; J1642; J2405

== ENCOUNTER 2022-07-30 01:38 | Day surgery (SDC) | payer OTHER | END 2022-07-30 11:17 | disposition home or self-care (01) | LOC: ATC 01:38 | DX: I12.9 Hypertensive chronic kidney disease with stage 1 through stage 4 chronic kidney disease, or unspecified chronic kidney disease (principal); N18.32 Chronic kidney disease, stage 3b; E87.70 Fluid overload, unspecified; D63.1 Anemia in chronic kidney disease; N25.81 Secondary hyperparathyroidism of renal origin; E55.9 Vitamin D deficiency, unspecified; I73.9 Peripheral vascular disease, unspecified | CPT/HCPCS: 96365; 96375; J1642; J2405 ==

== ENCOUNTER 2022-08-05 01:00 | Day surgery (SDC) | payer OTHER ==
--- NOTE | 2022-08-05 10:15 | NUR ---
PT HAS A PET SCAN IN [place] TOMORROW. SHE IS REQUESTING TO STAY ACCESSED FOR HER MEDIPORT. POWER NEEDLE PLACED.
== END 2022-08-05 10:48 | disposition home or self-care (01) ==
LOC: ATC 01:00
DX: I12.9 Hypertensive chronic kidney disease with stage 1 through stage 4 chronic kidney disease, or unspecified chronic kidney disease (principal); N18.32 Chronic kidney disease, stage 3b; C22.1 Intrahepatic bile duct carcinoma; E87.70 Fluid overload, unspecified; D63.1 Anemia in chronic kidney disease; N25.81 Secondary hyperparathyroidism of renal origin; E11.21 Type 2 diabetes mellitus with diabetic nephropathy; E11.22 Type 2 diabetes mellitus with diabetic chronic kidney disease; E11.51 Type 2 diabetes mellitus with diabetic peripheral angiopathy without gangrene; Z88.1 Allergy status to other antibiotic agents; Z88.2 Allergy status to sulfonamides; Z79.899 Other long term (current) drug therapy
CPT/HCPCS: 96365; 96375; J1642; J2405

== ENCOUNTER 2022-08-07 10:43 | Day surgery (SDC) | payer OTHER | END 2022-08-07 10:49 | disposition home or self-care (01) | LOC: ATC 10:43 | DX: I12.9 Hypertensive chronic kidney disease with stage 1 through stage 4 chronic kidney disease, or unspecified chronic kidney disease (principal); N18.32 Chronic kidney disease, stage 3b; E87.70 Fluid overload, unspecified; D63.1 Anemia in chronic kidney disease; N25.81 Secondary hyperparathyroidism of renal origin; E11.22 Type 2 diabetes mellitus with diabetic chronic kidney disease; E83.30 Disorder of phosphorus metabolism, unspecified | CPT/HCPCS: 96523 ==

== ENCOUNTER 2022-08-13 02:34 | Day surgery (SDC) | payer OTHER ==
[2022-08-13 10:55] VITALS: BP 139/78
== END 2022-08-13 11:00 | disposition home or self-care (01) ==
LOC: ATC 02:34
DX: I12.9 Hypertensive chronic kidney disease with stage 1 through stage 4 chronic kidney disease, or unspecified chronic kidney disease (principal); N18.32 Chronic kidney disease, stage 3b; E87.70 Fluid overload, unspecified; D63.1 Anemia in chronic kidney disease; E11.22 Type 2 diabetes mellitus with diabetic chronic kidney disease; E87.6 Hypokalemia; E55.9 Vitamin D deficiency, unspecified; E11.51 Type 2 diabetes mellitus with diabetic peripheral angiopathy without gangrene
CPT/HCPCS: 96365; 96375; J1642; J2405

== ENCOUNTER 2022-08-20 01:46 | Day surgery (SDC) | payer OTHER ==
--- NOTE | 2022-08-21 09:35 | NUR ---
LATE ENTRY: THIS RN HAD TO OVERRIDE ZOFRAN AND ZOFRAN WAS GIVEN. THIS RN ALSO SCANNED PT AND MED BUT FOR UNKNOWN REASONS IT IS NOT SHOWING. PT TOLERATED WELL
== END 2022-08-20 11:14 | disposition home or self-care (01) ==
LOC: ATC 01:46
DX: I12.9 Hypertensive chronic kidney disease with stage 1 through stage 4 chronic kidney disease, or unspecified chronic kidney disease (principal); N18.32 Chronic kidney disease, stage 3b; E11.21 Type 2 diabetes mellitus with diabetic nephropathy; E83.59 Other disorders of calcium metabolism; C22.1 Intrahepatic bile duct carcinoma
CPT/HCPCS: 96365; 96375; J1642; J2405

== ENCOUNTER 2022-08-26 00:07 | Day surgery (SDC) | payer OTHER ==
[2022-08-26 10:15] VITALS: BP 96/67
== END 2022-08-26 11:27 | disposition home or self-care (01) ==
LOC: ATC 00:07
DX: I12.9 Hypertensive chronic kidney disease with stage 1 through stage 4 chronic kidney disease, or unspecified chronic kidney disease (principal); N18.32 Chronic kidney disease, stage 3b; D63.1 Anemia in chronic kidney disease; N25.81 Secondary hyperparathyroidism of renal origin; E11.22 Type 2 diabetes mellitus with diabetic chronic kidney disease; E11.21 Type 2 diabetes mellitus with diabetic nephropathy; Z79.899 Other long term (current) drug therapy
CPT/HCPCS: 96365; 96375; J1642; J2405

== ENCOUNTER 2022-08-27 01:34 | Day surgery (SDC) | payer OTHER ==
[2022-08-27 10:25] VITALS: BP 125/60
== END 2022-08-27 11:11 | disposition home or self-care (01) ==
LOC: ATC 01:34
DX: C22.1 Intrahepatic bile duct carcinoma (principal); I12.9 Hypertensive chronic kidney disease with stage 1 through stage 4 chronic kidney disease, or unspecified chronic kidney disease; D63.1 Anemia in chronic kidney disease; N25.81 Secondary hyperparathyroidism of renal origin; E87.1 Hypo-osmolality and hyponatremia; E11.21 Type 2 diabetes mellitus with diabetic nephropathy; E87.6 Hypokalemia; E55.9 Vitamin D deficiency, unspecified; E83.30 Disorder of phosphorus metabolism, unspecified
CPT/HCPCS: 96365; 96375; J1642; J2405

== ENCOUNTER 2022-08-29 02:19 | Day surgery (SDC) | payer OTHER | END 2022-08-29 23:18 | disposition home or self-care (01) | LOC: WOUND 02:19 | DX: E11.621 Type 2 diabetes mellitus with foot ulcer (principal); L97.422 Non-pressure chronic ulcer of left heel and midfoot with fat layer exposed; I70.248 Atherosclerosis of native arteries of left leg with ulceration of other part of lower leg; E83.59 Other disorders of calcium metabolism; B37.2 Candidiasis of skin and nail; E11.51 Type 2 diabetes mellitus with diabetic peripheral angiopathy without gangrene; I87.2 Venous insufficiency (chronic) (peripheral); Z88.1 Allergy status to other antibiotic agents; J45.909 Unspecified asthma, uncomplicated; I12.0 Hypertensive chronic kidney disease with stage 5 chronic kidney disease or end stage renal disease; E11.22 Type 2 diabetes mellitus with diabetic chronic kidney disease; N18.6 End stage renal disease; E78.5 Hyperlipidemia, unspecified | CPT/HCPCS: A9270; G0463 ==

== ENCOUNTER 2022-09-02 00:47 | Day surgery (SDC) | payer OTHER ==
[2022-09-02 10:40] VITALS: BP 130/70
== END 2022-09-02 11:15 | disposition home or self-care (01) ==
LOC: ATC 00:47
DX: E83.59 Other disorders of calcium metabolism (principal); I12.9 Hypertensive chronic kidney disease with stage 1 through stage 4 chronic kidney disease, or unspecified chronic kidney disease; E11.22 Type 2 diabetes mellitus with diabetic chronic kidney disease; N18.32 Chronic kidney disease, stage 3b; D63.1 Anemia in chronic kidney disease; N25.81 Secondary hyperparathyroidism of renal origin; E11.21 Type 2 diabetes mellitus with diabetic nephropathy; Z79.4 Long term (current) use of insulin; Z79.899 Other long term (current) drug therapy
CPT/HCPCS: 96365; 96375; J1642; J2405

== ENCOUNTER 2022-09-03 00:30 | Day surgery (SDC) | payer OTHER ==
[2022-09-03 10:44] VITALS: BP 128/75
== END 2022-09-03 11:20 | disposition home or self-care (01) ==
LOC: ATC 00:30
DX: E83.59 Other disorders of calcium metabolism (principal); I12.9 Hypertensive chronic kidney disease with stage 1 through stage 4 chronic kidney disease, or unspecified chronic kidney disease; N18.32 Chronic kidney disease, stage 3b; D63.1 Anemia in chronic kidney disease; N25.81 Secondary hyperparathyroidism of renal origin; E11.21 Type 2 diabetes mellitus with diabetic nephropathy; Z88.1 Allergy status to other antibiotic agents; Z88.2 Allergy status to sulfonamides; Z79.4 Long term (current) use of insulin; Z79.899 Other long term (current) drug therapy
CPT/HCPCS: 96365; 96375; J1642; J2405

== ENCOUNTER 2022-09-09 02:10 | Day surgery (SDC) | payer OTHER | END 2022-09-09 22:48 | disposition home or self-care (01) | LOC: WOUND 02:10 | DX: L89.622 Pressure ulcer of left heel, stage 2 (principal); E11.621 Type 2 diabetes mellitus with foot ulcer; I70.248 Atherosclerosis of native arteries of left leg with ulceration of other part of lower leg; L97.422 Non-pressure chronic ulcer of left heel and midfoot with fat layer exposed; E11.622 Type 2 diabetes mellitus with other skin ulcer; E83.59 Other disorders of calcium metabolism; B37.2 Candidiasis of skin and nail; I87.2 Venous insufficiency (chronic) (peripheral); L89.623 Pressure ulcer of left heel, stage 3; I12.9 Hypertensive chronic kidney disease with stage 1 through stage 4 chronic kidney disease, or unspecified chronic kidney disease; E11.22 Type 2 diabetes mellitus with diabetic chronic kidney disease; N18.32 Chronic kidney disease, stage 3b; D63.1 Anemia in chronic kidney disease; N25.81 Secondary hyperparathyroidism of renal origin; E11.21 Type 2 diabetes mellitus with diabetic nephropathy; Z88.1 Allergy status to other antibiotic agents; Z88.2 Allergy status to sulfonamides; Z79.82 Long term (current) use of aspirin; Z79.4 Long term (current) use of insulin; Z79.899 Other long term (current) drug therapy | CPT/HCPCS: 96365; 96375; G0463; J1642; J2405 ==

== ENCOUNTER 2022-09-09 02:31 | Day surgery (SDC) | payer OTHER ==
[2022-09-09 09:59] VITALS: BP 127/79
== END 2022-09-09 11:00 | disposition home or self-care (01) ==
LOC: ATC 02:31
DX: E83.59 Other disorders of calcium metabolism (principal); I12.9 Hypertensive chronic kidney disease with stage 1 through stage 4 chronic kidney disease, or unspecified chronic kidney disease; E11.22 Type 2 diabetes mellitus with diabetic chronic kidney disease; N18.32 Chronic kidney disease, stage 3b; D63.1 Anemia in chronic kidney disease; N25.81 Secondary hyperparathyroidism of renal origin; E11.21 Type 2 diabetes mellitus with diabetic nephropathy; Z88.1 Allergy status to other antibiotic agents; Z88.2 Allergy status to sulfonamides; Z79.82 Long term (current) use of aspirin; Z79.4 Long term (current) use of insulin; Z79.899 Other long term (current) drug therapy
CPT/HCPCS: 96365; 96375; J1642; J2405

== ENCOUNTER 2022-09-10 01:52 | Day surgery (SDC) | payer OTHER ==
[2022-09-10 10:57] VITALS: BP 130/63
[2022-09-10 12:17] LABS: Albumin, Blood 3.2 g/dL (3.4-5.0); Anion Gap 12 mmol/L (6-16); Blood Urea Nitrogen 24 mg/dL (8-24); CO2, Blood 24 mmol/L (21-32); Calcium, Blood 7.5 mg/dL (8.5-10.1); Chloride, Blood 99 mmol/L (98-108); Creatinine, Blood 1.41 mg/dL (0.40-1.00); Glomerular Filtration Rate 40 (60-); Glucose, Blood 132 mg/dL (70-99); Phosphorus, Blood 5.2 mg/dL (2.5-4.9); Potassium, Blood 3.9 mmol/L (3.5-5.5); Sodium, Blood 135 mmol/L (136-145)
== END 2022-09-10 11:45 | disposition home or self-care (01) ==
LOC: ATC 01:52
PROVIDERS: Internal Medicine Nephrology
DX: E83.59 Other disorders of calcium metabolism (principal); I12.9 Hypertensive chronic kidney disease with stage 1 through stage 4 chronic kidney disease, or unspecified chronic kidney disease; E11.22 Type 2 diabetes mellitus with diabetic chronic kidney disease; N18.32 Chronic kidney disease, stage 3b; D63.1 Anemia in chronic kidney disease; N25.81 Secondary hyperparathyroidism of renal origin; E11.21 Type 2 diabetes mellitus with diabetic nephropathy; Z88.2 Allergy status to sulfonamides; Z88.1 Allergy status to other antibiotic agents; Z79.4 Long term (current) use of insulin; Z79.899 Other long term (current) drug therapy
CPT/HCPCS: 80069; 85018; 96365; 96375; J1642; J2405

== ENCOUNTER 2022-09-16 01:54 | Day surgery (SDC) | payer OTHER | END 2022-09-16 22:48 | disposition home or self-care (01) | LOC: WOUND 01:54 | DX: E11.621 Type 2 diabetes mellitus with foot ulcer (principal); E11.51 Type 2 diabetes mellitus with diabetic peripheral angiopathy without gangrene; E83.59 Other disorders of calcium metabolism; B37.2 Candidiasis of skin and nail; E11.622 Type 2 diabetes mellitus with other skin ulcer; I70.248 Atherosclerosis of native arteries of left leg with ulceration of other part of lower leg; I87.2 Venous insufficiency (chronic) (peripheral); L89.623 Pressure ulcer of left heel, stage 3; I13.10 Hypertensive heart and chronic kidney disease without heart failure, with stage 1 through stage 4 chronic kidney disease, or unspecified chronic kidney disease; E11.22 Type 2 diabetes mellitus with diabetic chronic kidney disease; N18.32 Chronic kidney disease, stage 3b; Z88.1 Allergy status to other antibiotic agents; Z88.2 Allergy status to sulfonamides | CPT/HCPCS: 96365; 96375; A9270; G0463; J1642; J2405 ==

== ENCOUNTER 2022-09-23 00:58 | Day surgery (SDC) | payer OTHER ==
[2022-09-23 09:40] VITALS: BP 178/77
== END 2022-09-23 10:37 | disposition home or self-care (01) ==
LOC: ATC 00:58
DX: E83.59 Other disorders of calcium metabolism (principal); I12.9 Hypertensive chronic kidney disease with stage 1 through stage 4 chronic kidney disease, or unspecified chronic kidney disease; E11.22 Type 2 diabetes mellitus with diabetic chronic kidney disease; N18.32 Chronic kidney disease, stage 3b; E11.21 Type 2 diabetes mellitus with diabetic nephropathy; Z79.82 Long term (current) use of aspirin; Z88.1 Allergy status to other antibiotic agents; Z88.2 Allergy status to sulfonamides; Z88.8 Allergy status to other drugs, medicaments and biological substances
CPT/HCPCS: 96365; J1642; J2405

== ENCOUNTER 2022-09-23 01:21 | Day surgery (SDC) | payer OTHER | END 2022-09-23 22:50 | disposition home or self-care (01) | LOC: WOUND 01:21 | DX: E11.621 Type 2 diabetes mellitus with foot ulcer (principal); L97.422 Non-pressure chronic ulcer of left heel and midfoot with fat layer exposed; E11.622 Type 2 diabetes mellitus with other skin ulcer; I70.248 Atherosclerosis of native arteries of left leg with ulceration of other part of lower leg; E83.59 Other disorders of calcium metabolism; B37.2 Candidiasis of skin and nail; E11.51 Type 2 diabetes mellitus with diabetic peripheral angiopathy without gangrene; I87.2 Venous insufficiency (chronic) (peripheral); L89.623 Pressure ulcer of left heel, stage 3 | CPT/HCPCS: G0463 ==

== ENCOUNTER 2022-09-30 00:08 | Day surgery (SDC) | payer OTHER ==
[2022-09-30 10:27] VITALS: BP 99/67
[2022-09-30 11:34] VITALS: BP 153/60
== END 2022-09-30 12:05 | disposition home or self-care (01) ==
LOC: ATC 00:08
DX: E83.59 Other disorders of calcium metabolism (principal)
CPT/HCPCS: J1642; J2405

== ENCOUNTER 2022-10-08 03:15 | Day surgery (SDC) | payer OTHER ==
[2022-10-08 10:29] VITALS: BP 136/80
== END 2022-10-08 11:29 | disposition home or self-care (01) ==
LOC: ATC 03:15
DX: E83.59 Other disorders of calcium metabolism (principal); I12.9 Hypertensive chronic kidney disease with stage 1 through stage 4 chronic kidney disease, or unspecified chronic kidney disease; N18.9 Chronic kidney disease, unspecified; D63.1 Anemia in chronic kidney disease
CPT/HCPCS: J1642; J2405

== ENCOUNTER 2022-10-14 01:49 | Day surgery (SDC) | payer OTHER ==
[2022-10-14 09:45] VITALS: BP 114/67
[2022-10-14 10:48] LABS: Anion Gap 8 mmol/L (6-16); Blood Urea Nitrogen 28 mg/dL (8-24); Bun/Creatinine Ratio 17.7 (12.0-20.0); CO2, Blood 28 mmol/L (21-32); Calcium, Blood 8.2 mg/dL (8.5-10.1); Chloride, Blood 98 mmol/L (98-108); Creatinine, Blood 1.58 mg/dL (0.40-1.00); Glomerular Filtration Rate 35 (60-); Glucose, Blood 147 mg/dL (70-99); Phosphorus, Blood 4.2 mg/dL (2.5-4.9); Potassium, Blood 4.6 mmol/L (3.5-5.5); Sodium, Blood 134 mmol/L (136-145)
== END 2022-10-14 10:57 | disposition home or self-care (01) ==
LOC: ATC 01:49
PROVIDERS: Internal Medicine Nephrology
DX: E83.59 Other disorders of calcium metabolism (principal); I12.9 Hypertensive chronic kidney disease with stage 1 through stage 4 chronic kidney disease, or unspecified chronic kidney disease; N18.32 Chronic kidney disease, stage 3b; E86.9 Volume depletion, unspecified; D63.1 Anemia in chronic kidney disease; N25.81 Secondary hyperparathyroidism of renal origin; E11.22 Type 2 diabetes mellitus with diabetic chronic kidney disease; E11.51 Type 2 diabetes mellitus with diabetic peripheral angiopathy without gangrene
CPT/HCPCS: 36591; 80069; 85018; 96367; 96374; J1642; J2405

== ENCOUNTER 2022-10-14 03:10 | Day surgery (SDC) | payer OTHER | END 2022-10-14 23:00 | disposition home or self-care (01) | LOC: WOUND 03:10 | DX: E11.621 Type 2 diabetes mellitus with foot ulcer (principal); L97.422 Non-pressure chronic ulcer of left heel and midfoot with fat layer exposed; I70.248 Atherosclerosis of native arteries of left leg with ulceration of other part of lower leg; E83.59 Other disorders of calcium metabolism; B37.2 Candidiasis of skin and nail; E11.51 Type 2 diabetes mellitus with diabetic peripheral angiopathy without gangrene; I87.2 Venous insufficiency (chronic) (peripheral); L89.623 Pressure ulcer of left heel, stage 3 | CPT/HCPCS: G0463 ==

== ENCOUNTER 2022-11-05 02:04 | Day surgery (SDC) | payer OTHER ==
[2022-11-05 10:34] VITALS: BP 121/73
== END 2022-11-05 11:30 | disposition home or self-care (01) ==
LOC: ATC 02:04
DX: E83.59 Other disorders of calcium metabolism (principal); I12.9 Hypertensive chronic kidney disease with stage 1 through stage 4 chronic kidney disease, or unspecified chronic kidney disease; E11.22 Type 2 diabetes mellitus with diabetic chronic kidney disease; N18.32 Chronic kidney disease, stage 3b; Z88.1 Allergy status to other antibiotic agents; Z88.2 Allergy status to sulfonamides; Z88.8 Allergy status to other drugs, medicaments and biological substances
CPT/HCPCS: 96365; 96375; J1642; J2405

== ENCOUNTER 2022-11-11 00:58 | Day surgery (SDC) | payer OTHER | END 2022-11-11 22:47 | disposition home or self-care (01) | LOC: ATC 00:58 | DX: E83.59 Other disorders of calcium metabolism (principal); E86.9 Volume depletion, unspecified; N25.81 Secondary hyperparathyroidism of renal origin; E11.21 Type 2 diabetes mellitus with diabetic nephropathy; E87.1 Hypo-osmolality and hyponatremia; E87.5 Hyperkalemia; E83.30 Disorder of phosphorus metabolism, unspecified; E55.9 Vitamin D deficiency, unspecified; E11.51 Type 2 diabetes mellitus with diabetic peripheral angiopathy without gangrene; E11.22 Type 2 diabetes mellitus with diabetic chronic kidney disease; I12.9 Hypertensive chronic kidney disease with stage 1 through stage 4 chronic kidney disease, or unspecified chronic kidney disease; N18.32 Chronic kidney disease, stage 3b; Z88.1 Allergy status to other antibiotic agents; Z88.2 Allergy status to sulfonamides ==

== ENCOUNTER 2022-11-12 03:00 | Day surgery (SDC) | payer OTHER | END 2022-11-12 22:49 | disposition home or self-care (01) | LOC: ATC 03:00 | DX: E83.59 Other disorders of calcium metabolism (principal); I12.9 Hypertensive chronic kidney disease with stage 1 through stage 4 chronic kidney disease, or unspecified chronic kidney disease; N18.32 Chronic kidney disease, stage 3b; E86.9 Volume depletion, unspecified; N25.81 Secondary hyperparathyroidism of renal origin; E11.22 Type 2 diabetes mellitus with diabetic chronic kidney disease; E87.1 Hypo-osmolality and hyponatremia; E87.5 Hyperkalemia; E11.51 Type 2 diabetes mellitus with diabetic peripheral angiopathy without gangrene; Z88.1 Allergy status to other antibiotic agents; Z88.2 Allergy status to sulfonamides ==

== ENCOUNTER 2022-11-27 20:35 | Inpatient (IN) | payer OTHER ==
[~2022-11-27] VITALS: Ht 167.6 cm; Wt 73.2 kg
[2022-11-27 21:13] LABS: BASOPHILS ABSOLUTE AUTO 0.09 K/mm3 (0.00-0.23); BASOPHILS PERCENT AUTO 0 % (0-2); EOSINOPHILS PERCENT AUTO 0 % (0-6); Hematocrit 46.3 % (33.0-51.0); Hemoglobin 16.1 g/dL (11.5-16.0); IMMATURE GRAN ABSOLUTE AUTO 0.41 K/mm3 (0.00-0.10); IMMATURE GRAN PERCENT AUTO 1 % (0-1); LYMPHOCYTES ABSOLUTE AUTO 1.52 K/mm3 (0.84-5.20); LYMPHOCYTES PERCENT AUTO 5 % (21-46); MONOCYTES ABSOLUTE AUTO 2.77 K/mm3 (0.16-1.47); MONOCYTES PERCENT AUTO 10 % (4-13); Mean Corpuscular HGB 30.2 pg (26.0-34.0); Mean Corpuscular HGB Conc 34.8 g/dL (31.5-36.5); Mean Corpuscular Volume 87 fL (80-100); Mean Platelet Volume 12.9 fL (9.1-12.4); NEUTROPHILS ABSOLUTE AUTO 23.93 K/mm3 (1.96-9.15); NEUTROPHILS PERCENT AUTO 83 % (41-73); Platelet Count 318 K/mm3 (150-400); RDW Coefficient Variation 15.9 % (11.7-14.2); RDW Standard Deviation 47.9 fL (35.1-46.3); Red Blood Cell Count 5.33 M/mm3 (3.80-5.20); White Blood Cell Count 28.82 K/mm3 (4.00-11.30)
[2022-11-27 21:35] LABS: Source, Urine Straight Cath
[2022-11-27 21:40] LABS: Appearance, Urine Hazy (Clear); Blood, Urine 1+ (Neg); Color, Urine Amber (P-Yellow); Glucose Qualitative, Urine Neg (Neg); Ketones, Urine Neg (Neg); Leukocyte Esterase, Urine 2+ (Neg); Nitrite, Urine Neg (Neg); Protein, Urine 2+ (Neg); Urobilinogen, Urine 2+ (Normal)
[2022-11-27 21:58] LABS: Bilirubin, Urine 1+ (Neg)
[2022-11-27 22:03] LABS: Albumin, Blood 2.5 g/dL (3.4-5.0); Albumin/Globulin Ratio 0.8 (0.8-1.8); Bilirubin, Total 4.6 mg/dL (0.1-1.0); Bun/Creatinine Ratio 36.7 (12.0-20.0); Calcium, Blood 10.1 mg/dL (8.5-10.1); Creatinine, Blood 1.96 mg/dL (0.40-1.00); Globulin, Blood 3.2 g/dL (2.2-4.0); Potassium, Blood 7.3 mmol/L (3.5-5.5); Total Protein, Blood 5.7 g/dL (6.4-8.2)
[2022-11-27 22:07] LABS: Bacteria Many /hpf; Squamous Epithelial Cells Few /hpf (Few)
[2022-11-27 22:08] LABS: Hyaline Casts 0-2 /lpf (0-2)
[2022-11-27 22:14] LABS: Magnesium, Blood 1.7 mg/dL (1.6-2.4)
[2022-11-27] MEDS ORDERED: NALOXONE HCL4 MG (22:18)
[2022-11-27 23:14] LABS: Potassium, Blood 7.2 mmol/L (3.5-5.5)
[2022-11-27 23:45] LABS: International Normalized Ratio 1.3; Prothrombin Time Results 13.4 Sec (9.7-11.5)
[2022-11-27 23:55] LABS: Thyroid Stimulating Hormone 13.9 uIU/mL (0.360-4.800)
[2022-11-28] VITALS (9 sets, daily range): BP systolic 91–121; BP diastolic 58–81
[2022-11-28 01:21] LABS: Albumin, Blood 2.1 g/dL (3.4-5.0); Anion Gap 9 mmol/L (6-16); Blood Urea Nitrogen 70 mg/dL (8-24); Bun/Creatinine Ratio 35.7 (12.0-20.0); CO2, Blood 20 mmol/L (21-32); Calcium, Blood 8.8 mg/dL (8.5-10.1); Chloride, Blood 105 mmol/L (98-108); Creatinine, Blood 1.96 mg/dL (0.40-1.00); Glomerular Filtration Rate 27 (60-); Glucose, Blood 216 mg/dL (70-99); Phosphorus, Blood 3.7 mg/dL (2.5-4.9); Potassium, Blood 6.9 mmol/L (3.5-5.5); Sodium, Blood 134 mmol/L (136-145)
[2022-11-28 04:23] LABS: Hematocrit 37.5 % (33.0-51.0); Hemoglobin 12.9 g/dL (11.5-16.0); Mean Corpuscular HGB 29.9 pg (26.0-34.0); Mean Corpuscular HGB Conc 34.4 g/dL (31.5-36.5); Mean Corpuscular Volume 87 fL (80-100); Mean Platelet Volume 12.6 fL (9.1-12.4); Platelet Count 217 K/mm3 (150-400); RDW Coefficient Variation 15.7 % (11.7-14.2); RDW Standard Deviation 48.9 fL (35.1-46.3); Red Blood Cell Count 4.31 M/mm3 (3.80-5.20); White Blood Cell Count 16.73 K/mm3 (4.00-11.30)
[2022-11-28 04:50] LABS: Albumin, Blood 1.9 g/dL (3.4-5.0); Albumin/Globulin Ratio 0.8 (0.8-1.8); Bilirubin, Total 3.5 mg/dL (0.1-1.0); Bun/Creatinine Ratio 34.4 (12.0-20.0); Creatinine, Blood 1.83 mg/dL (0.40-1.00); Globulin, Blood 2.3 g/dL (2.2-4.0); Magnesium, Blood 1.3 mg/dL (1.6-2.4); Phosphorus, Blood 3.8 mg/dL (2.5-4.9); Potassium, Blood 5.4 mmol/L (3.5-5.5); Total Protein, Blood 4.2 g/dL (6.4-8.2)
--- NOTE | 2022-11-28 05:38 | NUR ---
ADMIT/SHIFT SUMMARY PT TO UNIT FROM ED. ALERT. ORIENTED 2-3. PT AWARE OF SITUATION BUT MAKES RANDOM OFFHANDED COMMENTS AT TIMES THAT ARE NOT PERTINENT TO SITATION. PT HAS BECOME SLIGHTLY MORE COGNISENT POST ADMIT. VSS. RECEIVED 2L BOLUS AND INITIATION OF MAINTENACE FLUIDS WITH 0.1 DROP IN LACTIC ACID LEEL. ON RA. PORT ACCESSED IN ER. PT INCONTINENT, ATTENDS AND PUREWICK IN PLACE. PT TOLERATING PO INTAKE WELL WITHOUT S/SX ASPIRATION. OTHERWISE PT RESTING OFF AND ON. BED ALARM ON. IGNITION ASSESMENT COMPLETED. EDUCATION PROVIDED.
--- NOTE | 2022-11-28 09:24 | NUR ---
AM NOTE: PATIENT ALERT AND ORIENTED X2-3. SLEEPY THIS AM, WAKING TO VOICE/TOUCH. AT TIMES SLOWER TO RESPOND. PERRLA. OVERALL WEAKNESS THROUGHOUT. PATIENT NEEDING SOME ASSITANCE SETTING UP MEAL TRAY. DENIES NUMBNESS/TINGLING. BEDREST AT THIS TIME WITH Q2 TURNING. ON ROOM AIR SATING ABOVE 95%. DENIES SOB/COUGH. EVEN AND UNLABORED RESPIRATIONS. TELE SHOWING SR WITH HR 80'S. BP STABLE. PPP. NO EDEMA NOTED. DENIES CHEST PAIN/PRESSURE/PALPITATIONS. EATING WNL. NO SWALLOWING ISSUES NOTED. PURWICK IN PLACE, URINE JASON IN COLOR. DENIES PAIN UPON URINATION. LOOSE BOWEL MOVEMENTS X2 THIS AM. PO LACTULOSE GIVEN PER EMAR. USING BED COURTNEY/INCONTINENT AT TIMES. NS AND MAG INFUSING PER EMAR. PLAN FOR RENAL US TODAY. DR. WEBER, JHONY, BLESSING, AND ISAURO IN THIS MORNING. SAGE AT BEDSIDE FOR DOCTOR ROUNDING. LEFT AC PERIPHERAL IV SALINE LOCKED. LEFT CHEST WALL PORT ACCESS REMAINS WNL, NS INFUSING INTO PORT. SCATTERED BRUISING NOTED THROUGHOUT WITH LARGE BRUISE TO RIGHT POSTERIOR HIP AND LEFT HAND. RED/BLANCHABLE COCCYX/SUSHANT AREA, MEPILEX IN PLACE WELL Q2 TURNING. POWDER APPLIED TO PANUS FOLDS. CALL LIGHT IN REACH.
--- NOTE | 2022-11-28 11:50 | NUR ---
CALL PLACED TO DR. WEBER TO UPDATE ON PATIENT HISTORY OF DM AND USE OF INSULIN AT HOME. NO NEW ORDERS FOR THIS RN TO PLACE. DR. WEBER TO PLACE ORDERS. THIS RN ALSO CALLED [facility] TO OBTAIN ACCURATE MEDICATION LIST. WAITING FOR FAX FROM [facility]. PATIENT SLEEPING AT THIS TIME. VITAL SIGNS STABLE. CALL LIGHT IN REACH. BED ALARM ON.
--- NOTE | 2022-11-28 13:35 | NUR ---
Monitor My Meds UPDATED THIS RN. QTC INCREASED FROM PREVIOUS STRIP. DR. BOOKER CALLED TO UPDATED. NEW ORDERS FOR EKG. EKG RESULTS CALLED BACK TO DR. BOOKER AND MESSAGE LEFT. EKG PLACED IN CHART. LABS DRAWN AND PENDING. HOME MEDS ORDERED WELL ACHS BLOOD SUGAR CHECKS. PALLIATIVE CARE AT BEDSIDE WITH PATIENT AND .
[2022-11-28 13:51] LABS: Albumin, Blood 2.1 g/dL (3.4-5.0); Anion Gap 10 mmol/L (6-16); Blood Urea Nitrogen 59 mg/dL (8-24); Bun/Creatinine Ratio 36.4 (12.0-20.0); CO2, Blood 21 mmol/L (21-32); Calcium, Blood 8.4 mg/dL (8.5-10.1); Chloride, Blood 106 mmol/L (98-108); Creatinine, Blood 1.62 mg/dL (0.40-1.00); Glomerular Filtration Rate 34 (60-); Glucose, Blood 155 mg/dL (70-99); Magnesium, Blood 1.9 mg/dL (1.6-2.4); Phosphorus, Blood 3.8 mg/dL (2.5-4.9); Potassium, Blood 4.5 mmol/L (3.5-5.5); Sodium, Blood 137 mmol/L (136-145)
--- NOTE | 2022-11-28 14:04 | NUR ---
Pt resting in bed and A&OX2/3. Pt struggles with verbalizing reason for stay and correct year. Does verbalize current online trader. Pt denies pain, dyspnea at this time. Pt's spouse Fitz at bedside. Engaged in therapeutic listening as Faribault reports he and Pt living together. Daughter also lives with them. Faribault reports another daughter who lives next door and a son who also lives local. Fitz reports Pt requires assistance with ambulation, bathing, and dressing. Daughter who lives with them is currently disabled and is recovering from recent surgery. Gentle discussion regarding advanced care planning and planning for the future. Discussed code status wishes. Educated on life sustaining treatment including risk factors and implications to CPR. Pt does not engage in conversation for most of the visit and does not respond to code status discussion. Spouse Faribault reports Pt's wishes are Full Code. Pt reports needing to use the restroom. RN Erin in to assist. Ended visit. Palliative Care will remain available.
--- NOTE | 2022-11-28 14:22 | NUR ---
DR. BOOKER BY TO SEE EKG. PLAN TO DC ZOFRAN. ORDER PLACED BY THIS RN.
--- NOTE | 2022-11-28 16:54 | NUR ---
Upon receiving a referral for spiritual care, I visited the patient. THe patient is sleeping but her spouse Fitz is bedside and talks at length about her medical history, her Gnosticism brandyn and the family dynamics. He talks about how much her brandyn means to her and how her inspiration and courage lies in that brandyn. He then shares about how he is coping and talks about the ups and downs of dealing with all her medical problems for many yrs. He explains his strong beliefs in God and the Bible and is encouraged and uplifted by this conversation. I also provide recitation of scripture and prayer. Fitz responded well to all interventions and showed signs of being encouraged in his brandyn.
--- NOTE | 2022-11-28 18:36 | NUR ---
SHIFT SUMMARY: NO ACUTE CHANGES, SEE PREVIOUS NOTES FOR UPDATES. VITAL SIGNS REMAIN STABLE. AT BEDSIDE. USING BEDPAN FOR LOOSE BOWEL MOVEMENTS. 1700 DOSE OF ENULOSE HELD DUE TO MORE THAN 3 LOOSE BOWEL MOVEMENTS. REMAINS ON ROOM AIR AND IN SR. EATING SMALL AMOUNTS WITH EAT MEAL. SPEECH THERAPY ORDERED PER DIETARY REQUEST. Q2 TURNING. ACHS SUGARS. NS INFUSING PER EMAR. SLEEPING AT THIS TIME. CALL LIGHT IN REACH.
[2022-11-29] VITALS (20 sets, daily range): BP systolic 88–110; BP diastolic 56–88
--- NOTE | 2022-11-29 01:14 | NUR ---
AFIB 2214 - PT CONVERTED FROM SR 80'S TO AFIB RVY 140'S - 160'S. ASYMPTOMATIC AT THIS POINT. UPON FURTHER LOOKING, PT NOT STARTED ON HOME METOPROL 25MG DOSE ON DAY SHIFT AND WAS SCHEDULED TO RESTART MED @ 0900. DISCUSSED WITH DR PANIAGUA. ORDERS TO ADMINSTER DOSE NOW. 2234 - 25MG PO METOPROLOL DOSE ADMINISTERED. 2300 - HR REMAINS >150. PT NOW SYMPTOMATIC. DIAPHORETIC. SOB. COMPLAINING OF CP. CALLED DR PANIAGUA. ORDER OBTAINED FOR DILTIAZEM 10MG PUSH. ADMINISTERED. 10 POINT DROP IN HR FROM 160'S TO 150'S HR. 2350 - DR PANIAGUA CALLED. PT CONTINUES TO BE SYMPTOMATIC AND FEELING WORSE PER HER REPORT. PHYSICIAN TO ROOM TO ASSESS PT. HR 150'S. CARDIZEM GTT ORDERED AND INITIATED. 0040 - HR STILL >150. ORDER FROM DR PANIAGUA TO ALLOW TITRATION TO 20MGS PATIENT HAS BEEN AT 15MG DOSE. BP WITH MAP >65 CURRENTLY. Q15M BP'S IN PLACE. 0120 - PT RESTING CURRENTLY. DILT GTT @20MG. HR 130'S. MAP >65 BUT SOFT. SBP 80'S.
[2022-11-29 05:00] LABS: BASOPHILS ABSOLUTE AUTO 0.07 K/mm3 (0.00-0.23); BASOPHILS PERCENT AUTO 0 % (0-2); EOSINOPHILS ABSOLUTE AUTO 0.09 K/mm3 (0.00-0.68); EOSINOPHILS PERCENT AUTO 0 % (0-6); Hematocrit 41.2 % (33.0-51.0); Hemoglobin 14.6 g/dL (11.5-16.0); IMMATURE GRAN ABSOLUTE AUTO 0.56 K/mm3 (0.00-0.10); IMMATURE GRAN PERCENT AUTO 2 % (0-1); LYMPHOCYTES ABSOLUTE AUTO 1.19 K/mm3 (0.84-5.20); LYMPHOCYTES PERCENT AUTO 4 % (21-46); MONOCYTES ABSOLUTE AUTO 2.18 K/mm3 (0.16-1.47); MONOCYTES PERCENT AUTO 8 % (4-13); Mean Corpuscular HGB 30.4 pg (26.0-34.0); Mean Corpuscular HGB Conc 35.4 g/dL (31.5-36.5); Mean Corpuscular Volume 86 fL (80-100); NEUTROPHILS ABSOLUTE AUTO 24.73 K/mm3 (1.96-9.15); NEUTROPHILS PERCENT AUTO 86 % (41-73); Platelet Count 241 K/mm3 (150-400); RDW Coefficient Variation 16.3 % (11.7-14.2); RDW Standard Deviation 47.8 fL (35.1-46.3); Red Blood Cell Count 4.81 M/mm3 (3.80-5.20); White Blood Cell Count 28.82 K/mm3 (4.00-11.30)
[2022-11-29 05:02] LABS: Mean Platelet Volume 13.7 fL (9.1-12.4)
--- NOTE | 2022-11-29 05:07 | NUR ---
SHIFT SUMMARY PT AXO. POST AFIB NOTE, PT FOUND TO BE IN AFLUTTER RATE SLOWED DOWN. CARDIZEM GTT HAS BEEN TITRATED FROM 20MGS TO 10MGS TO MAINTAIN HR 100'S. PT NO LONGER SYMPTOMATIC TO HEART RHYTHM AND HAS BEEN RESTING SINCE INITIATION OF DILTIAZEM GTT. PORT CONTINUES TO BE ACCESSED, WITH FLUIDS INFUSING PER PROTOCOL. PT MENTATION MAINTAINS PER BEGINNING OF SHIFT. PT HAVING BM'S, DOESNTG ALWAYS TOLERATE BEDPAN. INCONTINENT VOIDS WITH FULL SATURATION OF BRIEFS AT TIMES. OTHERWISE, PT RECEIVED BED BATH THIS HIFT. BED ALARM ON .BED IN LOW POSITION. PT'S AT BEDSIDE FOR ENTIREITY OF SHIFT.
[2022-11-29 05:16] LABS: Albumin/Globulin Ratio 0.8 (0.8-1.8); Bilirubin, Total 3.9 mg/dL (0.1-1.0); Bun/Creatinine Ratio 35.3 (12.0-20.0); Calcium, Blood 8.4 mg/dL (8.5-10.1); Creatinine, Blood 1.67 mg/dL (0.40-1.00); Globulin, Blood 2.5 g/dL (2.2-4.0); Potassium, Blood 4.6 mmol/L (3.5-5.5); Total Protein, Blood 4.5 g/dL (6.4-8.2)
--- NOTE | 2022-11-29 12:11 | NUR ---
CALLED DR. VAIL AND TIA ABOUT LOW ALBUMIN AND THEY TOLD ME TO CALL DR. HERNDON. I TOUCHED BASE WITH DR. HERNDON ABOUT THE PT'S ALBUMIN RUNNING LOW SINCE ADMISSION, AND AT THIS TIME HE JUST WANTS TO KEEP MONITORING. NO ORDERS AT THIS TIME.
--- NOTE | 2022-11-29 15:17 | NUR ---
CALLED DR. WEBER ABOUT SOFT BP DR. WEBER WAS NOTIFIED OF THE PT'S BP TRENDING DOWN DESPITE BEING ON NS @ 50ML/HR. SHE IS GOING TO TALK TO ANOTHER AND POSSIBLY INCREASE THE RATE OF THE FLUIDS.
--- NOTE | 2022-11-29 16:42 | NUR ---
PT GIVEN A 500CC BOLUS OF NS, PER DR. WEBER, FOR SOFT BP'S.
--- NOTE | 2022-11-29 16:45 | NUR ---
SHIFT SUMMARY PT IS A&OX3-4, BUT HAS BEEN DROWSY AND FORGETFUL. SHE FORGETS THAT SHE NEEDS TO CALL FOR HELP AND SHE DOES NOT UNDERSTAND THE EXTENT OF HER SICKNESS OR WEAKNESS. HER HAS BEEN AT THE BEDSIDE HELPING WITH CARE, AND HELPING THE PT USE HER CALL LIGHT. THE PT WORKED WITH PT/OT/ST/DENTAL HYGIENIST THIS AM. SHE IS NOW A 2P ASSIST W/ GAIT BELT AND FWW. FOR DIET THE PT IS NOW ON A PUREE DIET DUE TO DIFFICULTY CHEWING. THE PT ONLY HAS TOP DENTURES IN, WHICH SHE HAS BEEN REFUSING TO TAKE OUT AND GET CLEANED. SHE HAS HAD FREQUENT BOWEL MOVEMENTS, INC AND CONT. SHE HAS BEEN ON ROOM AIR W/ SP02 >90%. WHEN SHE TRANSFERS SHE GETS SOB, AND TACHYPNEIC, BUT WE CAN NOT GET A GOOD READING ON HER OXYGEN WHILE TRANSFERING. ON TELE THE PT HAS BEEN AFLUTTER 90 S-120 S W/ SOME BIGEMINY, AND HER BP HAS BEEN SOFT BUT STABLE. DR. WEBER ORDERED ONE 500CC BOLUS TO HELP WITH DEHYDRATION AND THE SOFT BP. HER ANTIBIOTICS WERE SWITCHED THIS AM BECAUSE WE GOT A POSITIVE BLOOD CULTURE BACK. WITH THE ZYVOX, WE HAD TO HOLD THE PT S CYMBALTA AND WELLBUTRIN DUE TO INCREASED RISK OF SEROTONIN SYNDROME. PT AND SPOUSE BOTH EDUCATED/UPDATED ONE CARE. CALL LIGHT IN REACH, BED IN LOW, FAMILY AT BEDSIDE. PT ASSESSED AND EDUCATED ON FIRE IGNITION RISK, SAFETY, AND RISK OF INJURY. SEE NOTES FOR ANY UPDATES.
--- NOTE | 2022-11-29 18:27 | NUR ---
PT CONVERTED FROM AFLUTTER TO SR AT 1803
--- NOTE | 2022-11-29 21:09 | NUR ---
SAFETY & EDUCATION PT & FAMILY EDUCATED RE: IGINITION SOURCES AND RISK OF INJURY WHILE OXYGEN IS IN USE. PT DENIES SMOKING & PT AND FAMILY VERBALIZE UNDERSTANDING.
[2022-11-30] VITALS (9 sets, daily range): BP systolic 75–117; BP diastolic 59–77
[2022-11-30 03:51] LABS: BASOPHILS ABSOLUTE AUTO 0.07 K/mm3 (0.00-0.23); BASOPHILS PERCENT AUTO 0 % (0-2); EOSINOPHILS ABSOLUTE AUTO 0.13 K/mm3 (0.00-0.68); EOSINOPHILS PERCENT AUTO 0 % (0-6); Hematocrit 39.7 % (33.0-51.0); IMMATURE GRAN ABSOLUTE AUTO 0.41 K/mm3 (0.00-0.10); IMMATURE GRAN PERCENT AUTO 1 % (0-1); LYMPHOCYTES ABSOLUTE AUTO 1.33 K/mm3 (0.84-5.20); LYMPHOCYTES PERCENT AUTO 5 % (21-46); MONOCYTES ABSOLUTE AUTO 2.45 K/mm3 (0.16-1.47); MONOCYTES PERCENT AUTO 8 % (4-13); Mean Corpuscular HGB 29.9 pg (26.0-34.0); Mean Corpuscular HGB Conc 35.3 g/dL (31.5-36.5); Mean Corpuscular Volume 85 fL (80-100); Mean Platelet Volume 13.1 fL (9.1-12.4); NEUTROPHILS ABSOLUTE AUTO 24.99 K/mm3 (1.96-9.15); NEUTROPHILS PERCENT AUTO 85 % (41-73); Platelet Count 207 K/mm3 (150-400); RDW Coefficient Variation 16.4 % (11.7-14.2); RDW Standard Deviation 47.4 fL (35.1-46.3); Red Blood Cell Count 4.69 M/mm3 (3.80-5.20); White Blood Cell Count 29.38 K/mm3 (4.00-11.30)
[2022-11-30 04:07] LABS: Albumin, Blood 1.8 g/dL (3.4-5.0); Albumin/Globulin Ratio 0.8 (0.8-1.8); Bilirubin, Total 3.9 mg/dL (0.1-1.0); Bun/Creatinine Ratio 35.8 (12.0-20.0); Calcium, Blood 7.8 mg/dL (8.5-10.1); Creatinine, Blood 1.9 mg/dL (0.40-1.00); Globulin, Blood 2.4 g/dL (2.2-4.0); Magnesium, Blood 1.7 mg/dL (1.6-2.4); Phosphorus, Blood 3.9 mg/dL (2.5-4.9); Potassium, Blood 4.1 mmol/L (3.5-5.5); Total Protein, Blood 4.2 g/dL (6.4-8.2)
--- NOTE | 2022-11-30 04:27 | NUR ---
SHIFT SUMMARY SEE PREVIOUS NOTE. PT A&Ox3-4, COMMUNICATES NEEDS APPRPRIATELY. DOES NOT USE CALL LIGHT BUT AT TIMES WILL ASK TO CALL. BP STABLE, SINUS 70's W/ PAC/PVC's, DENIES CP/PRESSURE. SpO2> 92% RA, DENIES SOB. PT WITH FREQUENT, SMALL AMOUNTS OF LOOSE STOOL. PERICARE, ATTENDS CHANGES, AND Q2hr TURNS PROVIDED. PT 2 ASSIST TO BSC. NO OTHER EVENTS, WILL REPORT TO ONCOMING RN.
[2022-11-30 09:40] LABS: Base Excess Venous -10.6 mmol/L; Bicarbonate Venous 16.8 mmol/L (24.0-30.0); PCO2 Venous 29.9 mmHg (38-42); pH Blood Venous 7.32 (7.34-7.37)
[2022-11-30 11:12] LABS: Bilirubin, Direct 3.8 mg/dL (0.0-0.3)
--- NOTE | 2022-11-30 17:54 | NUR ---
SHIFT SUMMARY PT IS A&OX4 AND WAS WIDE AWAKE THIS MORNING. SHE TRANSFERED TO THE BSC AND CHAIR AND WAS UP FOR A FEW HOURS THIS MORNING. SHE THEN GOT VERY DROWSY AFTER BREAKFAST AND HER BP STARTED TO DROP AGAIN. THE DR'S ORDERED A 500CC BOLUS AND SHE RECIEVED SOME ALBUMIN. BP STABLE BUT STILL SOFT. THE PT HAS NOT COMPLAINED OF ANY ANGINA OR CHEST PRESSURE. SHE HAS BEEN ON ROOM AIR, AND ON TELE SHE HAS BEEN SR 70'S-60'S WITH SOME BIGEM. PT DID RECIEVE A BED BATH THIS AFTER NOON AND THE REDNESS ON HER LEFT BUTTOCK IS NOTICIABLE WORSE. PT HAS BEEN A Q2, BUT SHE HAS BEEN HAVING SOME INC STOOLS THAT ARE KEEPING HER SKIN MOIST. PT HAS BEEN ENCOURAGED TO SLEEP MORE ON HER RIGHT SIDE. MANY FAMILY MEMBERS HAVE VISITED THE PT TODAY AND WERE UPDATED ON CARE. ALL FAMILY MEMEBRS AND PT WERE ASSESSED AND EDUCATED ON FIRE IGNITION RISK AND SAFETY. SEE NOTES FOR ANY UPDATES.
--- NOTE | 2022-11-30 22:24 | NUR ---
ASSUMPTION OF CARE; THROUGH THE DAY PATIENT WITH LOWER BLOOD PRESSURE PLEASE SEE DAY RN ORDERS. BP IMPROVED, PATIENT IN NO SIGN OF DISTRESS, INFUSING NS, ALERT AND ORIENTED, 3-4 ODD AT TIMES, COOPERATIVE WITH CARE, POOR SHORT TERM MEMORY AT TIMES. ON RA WITH SPO2 >92%. SR DENIES CHEST PAIN OR PRESSURE. INCONTINENT AT TIMES, INCREASED STRENGHT STILL GENERALLY WEAK MODERATELY. AT BEDSIDE ALL QUESTIONS AND CONCERNS ANSWERED WILL MONITOR. NO CONCERNS FROM THIS RN AT THIS TIME.
[2022-12-01 03:38] VITALS: BP 119/61
--- NOTE | 2022-12-01 03:44 | NUR ---
END OF SHIFT: NO CHANGES FROM ASSUMPTION OF CARE DENIES CHEST PAIN PRESSURE OR SOB AT REST. STILL 2P TO BSC, STILL AT BEDSIDE SEE TELE FOR ALL CHANGES, MULTIPLE KNOWN CHANGES HAPPENING. PATIENT STILL INFUSING NS. NO CONCERNS FROM THIS RN OR PATIENT AT THIS TIME.
[2022-12-01 04:45] LABS: BASOPHILS ABSOLUTE AUTO 0.03 K/mm3 (0.00-0.23); BASOPHILS PERCENT AUTO 0 % (0-2); EOSINOPHILS ABSOLUTE AUTO 0.17 K/mm3 (0.00-0.68); EOSINOPHILS PERCENT AUTO 1 % (0-6); Hematocrit 38.1 % (33.0-51.0); Hemoglobin 13.4 g/dL (11.5-16.0); IMMATURE GRAN ABSOLUTE AUTO 0.29 K/mm3 (0.00-0.10); IMMATURE GRAN PERCENT AUTO 1 % (0-1); LYMPHOCYTES PERCENT AUTO 4 % (21-46); MONOCYTES ABSOLUTE AUTO 1.88 K/mm3 (0.16-1.47); MONOCYTES PERCENT AUTO 8 % (4-13); Mean Corpuscular HGB Conc 35.2 g/dL (31.5-36.5); Mean Corpuscular Volume 85 fL (80-100); NEUTROPHILS ABSOLUTE AUTO 19.59 K/mm3 (1.96-9.15); NEUTROPHILS PERCENT AUTO 85 % (41-73); Platelet Count 172 K/mm3 (150-400); RDW Coefficient Variation 16.7 % (11.7-14.2); Red Blood Cell Count 4.46 M/mm3 (3.80-5.20); White Blood Cell Count 22.96 K/mm3 (4.00-11.30)
[2022-12-01 04:46] LABS: Mean Platelet Volume 13.1 fL (9.1-12.4)
[2022-12-01 05:07] LABS: Albumin/Globulin Ratio 0.9 (0.8-1.8); Bilirubin, Total 4.2 mg/dL (0.1-1.0); Bun/Creatinine Ratio 39.3 (12.0-20.0); Calcium, Blood 8.1 mg/dL (8.5-10.1); Creatinine, Blood 1.78 mg/dL (0.40-1.00); Globulin, Blood 2.2 g/dL (2.2-4.0); Magnesium, Blood 1.7 mg/dL (1.6-2.4); Phosphorus, Blood 3.8 mg/dL (2.5-4.9); Potassium, Blood 3.5 mmol/L (3.5-5.5); Total Protein, Blood 4.2 g/dL (6.4-8.2)
--- NOTE | 2022-12-01 06:30 | NUR ---
END OF SHIFT: NO CHANGE FROM ASSUMPTION OF CARE VSS, PATIENT MENTATION SAME AT 3-4. RA. PATIENT AT BEDSIDE. WILL CONTINUE TO MONITOR UNTIL SHIFT CHANGE.
[2022-12-01 07:59] VITALS: BP 112/67
[2022-12-01 11:16] VITALS: BP 114/70
[2022-12-01 14:12] VITALS: BP 112/75
--- NOTE | 2022-12-01 14:26 | NUR ---
JYOTHI FROM PALLIATIVE CAME TO SEE THE PT. PT IS ALOT WEAKER TODAY, SLURRING HER WORDS MORE, IS MORE SLEEPY, AND HER PAIN HAS INCREASE. I HAD JYOTHI COME SEE THE PT AND TALK WITH FAMILY AND SHE IS GOING TO TALK TO DR. HERNDON AND THE PT'S ONCOLOGIST TOMORROW. I GAVE 12.5MG OF PHENERGAN TO HELP WITH SOME STOMACH DISCOMFORT. I HAVE TALKED TO DR. FUCHS ABOUT PAIN MEDICATIONS, AND JYOTHI IS GOING TO CALL HIM AGAIN TO FOLLOW UP. THE PT IS VERY MISERABLE AND HAS BEEN MOANING AND GROANING.
[2022-12-01 15:15] VITALS: BP 112/85
--- NOTE | 2022-12-01 18:00 | NUR ---
SHIFT SUMMARY PT IS A&0X3-4 BUT SHE IS VERY DROWSY AND HAS HAD PERIODS OF BEING LETHARGIC. PT HAS BEEN SLURRIGN HER WORDS MORE, AND HAS BEEN MOANING AND GROANING. WERE MADE AWARE OF THE CONCERNS AND I HAD [facility]IVE COME TO BEDSIDE. THE PT HAD HER GABAPENTIN INCREASED AND WAS GIVEN PHENERGAN. SHE STATED THAT THE COMBINATION HELPED AND THE MOANING HAS SUBSIDED WHEN RESTING. HER HAS BEEN AT BEDSIDE ALL DAY AND HAS BEEN UPDATED ON CARE. THE PT IS MORE EDEMATOUS THIS SHIFT IN HER BUE. SHE IS RECIEVING FLUIDS IN HER MEDIPORT AT 50ML/HR. SHE HAS BEEN ON RA AND HAS DENIED SOB. ON TELE THE PT HAS BEEN SR 80'S-90'S. SHE DENIES ANY ANGINA OR CHEST PRESSURE. SHE HAS BEEN A Q2 TURN AND HAS BEEN INC ALL DAY. PT AND FAMILY ASSESSED AND EDUCATED ON FIRE IGNITION RISK AND SAFETY.
[2022-12-01 20:00] VITALS: BP 141/87
[2022-12-02 00:16] VITALS: BP 106/67
[2022-12-02 04:00] VITALS: BP 106/67; BP 114/64
[2022-12-02 04:36] LABS: BASOPHILS ABSOLUTE AUTO 0.04 K/mm3 (0.00-0.23); BASOPHILS PERCENT AUTO 0 % (0-2); EOSINOPHILS ABSOLUTE AUTO 0.17 K/mm3 (0.00-0.68); EOSINOPHILS PERCENT AUTO 1 % (0-6); Hematocrit 37.7 % (33.0-51.0); Hemoglobin 13.4 g/dL (11.5-16.0); IMMATURE GRAN ABSOLUTE AUTO 0.22 K/mm3 (0.00-0.10); IMMATURE GRAN PERCENT AUTO 1 % (0-1); LYMPHOCYTES PERCENT AUTO 5 % (21-46); MONOCYTES ABSOLUTE AUTO 1.56 K/mm3 (0.16-1.47); MONOCYTES PERCENT AUTO 8 % (4-13); Mean Corpuscular HGB 30.5 pg (26.0-34.0); Mean Corpuscular HGB Conc 35.5 g/dL (31.5-36.5); Mean Corpuscular Volume 86 fL (80-100); NEUTROPHILS ABSOLUTE AUTO 17.84 K/mm3 (1.96-9.15); NEUTROPHILS PERCENT AUTO 86 % (41-73); Platelet Count 147 K/mm3 (150-400); RDW Coefficient Variation 17.4 % (11.7-14.2); RDW Standard Deviation 49.5 fL (35.1-46.3); Red Blood Cell Count 4.39 M/mm3 (3.80-5.20); White Blood Cell Count 20.83 K/mm3 (4.00-11.30)
[2022-12-02 04:39] LABS: Mean Platelet Volume 12.7 fL (9.1-12.4)
[2022-12-02 04:51] LABS: Albumin, Blood 1.9 g/dL (3.4-5.0); Anion Gap 10 mmol/L (6-16); Blood Urea Nitrogen 63 mg/dL (8-24); Bun/Creatinine Ratio 34.8 (12.0-20.0); CO2, Blood 19 mmol/L (21-32); Calcium, Blood 8.3 mg/dL (8.5-10.1); Chloride, Blood 108 mmol/L (98-108); Creatinine, Blood 1.81 mg/dL (0.40-1.00); Glomerular Filtration Rate 29 (60-); Glucose, Blood 167 mg/dL (70-99); Magnesium, Blood 1.6 mg/dL (1.6-2.4); Phosphorus, Blood 3.6 mg/dL (2.5-4.9); Sodium, Blood 137 mmol/L (136-145)
--- NOTE | 2022-12-02 06:36 | NUR ---
SHIFT SUMMARY PT A&O X3, ALTHOUGH INTERMITTENT PERIODS OF LETHARGY AND CONFUSION. EASLY REDIRECTED AND REORIENTED. VSS. AT BEDSIDE. PT AFEBRILE DURING SHIFT. PT DENIES ABD PAIN OR DISCOMFORT. DENIES GENERAL PAIN. PT UP TO BSC TO HAVE BM AND VOID AT BEGINNING OF SHIFT. PT TOLERATED THIS FAIR BUT WAS SOB AND EXHAUSTED AFTERWARDS. PT HAS ATTENDS IN PLACE, CHANGED PRN AND/OR Q2. NO ACUTE CHANGES DURING THIS SHIFT. CALL LIGHT IN REACH. WILL UPDATE ONCOMING RN.
[2022-12-02 07:57] VITALS: BP 113/75
[2022-12-02 11:58] VITALS: BP 121/96
[2022-12-02 16:43] VITALS: BP 114/95
--- NOTE | 2022-12-02 17:35 | NUR ---
pt resting no abdominal pain today. Review with pt needing to plan for the future. He stated he has been trying to talk to his kids. Gave him the hard choices book to use to talk to his chaildren about his code status. Will continue to follow for symptom managment and plan of care.
--- NOTE | 2022-12-02 18:49 | NUR ---
SHIFT SUMMARY PT ALERT, ORIENTED TO SELF, PERSON, PLACE. FOLLOWS COMMANDS BUT SOMETIMES SLOW TO RESPOND. SPO2>90% ON RA. LUNGS WHEEZY THIS AM, BREATHING TX ORDERED BY MD MUNOZ. VSS. PT UP TO BSC TO HAVE BM MULTIPLE TIMES, BROWN SMEAR W/ RED VICTORIA TYPE MIXED IN. INCONTINENT, C/D ATTENDS IN PLACE. UP IN CHAIR FOR BREAKFAST/LUNCH. WORKED W/ OT. SPEECH THERAPY ATTEMPTED TO SEE PT, BUT PT AND PT'S BOTH NAPPING HEAVILY. 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 MD MEDLEY NOTIFIED. PT NPO AT MIDNIGHT PER ORDERS FOR CARDIO CONSULT FOR HELEN 12/03. FLUIDS INFUSED PER EMAR. PT IN BED RESTING. CALL LIGHT IN REACH.
[2022-12-02 20:00] VITALS: BP 111/91
[2022-12-03] VITALS (30 sets, daily range): BP systolic 70–143; BP diastolic 32–118
[2022-12-03 05:24] LABS: BASOPHILS ABSOLUTE AUTO 0.05 K/mm3 (0.00-0.23); BASOPHILS PERCENT AUTO 0 % (0-2); EOSINOPHILS ABSOLUTE AUTO 0.16 K/mm3 (0.00-0.68); EOSINOPHILS PERCENT AUTO 1 % (0-6); Hematocrit 39.4 % (33.0-51.0); Hemoglobin 13.9 g/dL (11.5-16.0); IMMATURE GRAN ABSOLUTE AUTO 0.17 K/mm3 (0.00-0.10); IMMATURE GRAN PERCENT AUTO 1 % (0-1); LYMPHOCYTES ABSOLUTE AUTO 1.02 K/mm3 (0.84-5.20); LYMPHOCYTES PERCENT AUTO 5 % (21-46); MONOCYTES ABSOLUTE AUTO 1.25 K/mm3 (0.16-1.47); MONOCYTES PERCENT AUTO 6 % (4-13); Mean Corpuscular HGB 30.2 pg (26.0-34.0); Mean Corpuscular HGB Conc 35.3 g/dL (31.5-36.5); Mean Corpuscular Volume 86 fL (80-100); NEUTROPHILS ABSOLUTE AUTO 18.47 K/mm3 (1.96-9.15); NEUTROPHILS PERCENT AUTO 88 % (41-73); NRBC ABSOLUTE 0.02 K/mm3 (0.00-0.02); NRBC Auto 0.1 /100 WBC (0.0-0.2); Platelet Count 146 K/mm3 (150-400); RDW Coefficient Variation 18.2 % (11.7-14.2); RDW Standard Deviation 50.4 fL (35.1-46.3); Red Blood Cell Count 4.61 M/mm3 (3.80-5.20); White Blood Cell Count 21.12 K/mm3 (4.00-11.30)
[2022-12-03 05:40] LABS: Albumin, Blood 1.8 g/dL (3.4-5.0); Albumin/Globulin Ratio 0.9 (0.8-1.8); Bilirubin, Total 5.6 mg/dL (0.1-1.0); Calcium, Blood 8.1 mg/dL (8.5-10.1); Creatinine, Blood 1.77 mg/dL (0.40-1.00); Globulin, Blood 2.1 g/dL (2.2-4.0); Magnesium, Blood 1.7 mg/dL (1.6-2.4); Phosphorus, Blood 4.1 mg/dL (2.5-4.9); Total Protein, Blood 3.9 g/dL (6.4-8.2)
--- NOTE | 2022-12-03 06:03 | NUR ---
SHIFT SUMMARY PT REMAINS LETHARGIC, BUT AT TIMES IS ALERT AND ORIENTED, THIS WAXES AND WANES. VSS, ALTHOUGH SEEMS PT IS HAVING MORE FREQUENT PVC'S/BIGEMENY. PT REMAINS ON RA, SPO2 >95%. PT INCONTINENT AT TIMES, ATTENDS CHANGED NEEDED. PT HAS SMALL BM THIS SHIFT. PT DID NOT VERBALIZE ANY NEED TO USE BSC THIS SHIFT AND DID NOT VERBALIZE MANY NEEDS WHEN ASKED. PT'S AT BEDSIDE. NO ACUTE CHANGES THIS SHIFT. NS INFUSING PER EMAR. WILL UPDATE ONCOMING RN. PT NPO SINCE 0000 FOR PROCEDURE TODAY.
--- NOTE | 2022-12-03 08:38 | NUR ---
PT TAKEN TO [facility] PROCEDURE WITH ANESTHESIA. PT TOLERATES WELL. VSS. NADN. WILL CONTINUE TO MONITOR.
[2022-12-04] VITALS (7 sets, daily range): BP systolic 82–104; BP diastolic 54–80
[2022-12-04 05:50] LABS: Hematocrit 41.9 % (33.0-51.0); Hemoglobin 14.4 g/dL (11.5-16.0); Mean Corpuscular HGB Conc 34.4 g/dL (31.5-36.5); Mean Corpuscular Volume 87 fL (80-100); NRBC ABSOLUTE 0.05 K/mm3 (0.00-0.02); NRBC Auto 0.2 /100 WBC (0.0-0.2); Platelet Count 165 K/mm3 (150-400); RDW Coefficient Variation 19.5 % (11.7-14.2); RDW Standard Deviation 54.6 fL (35.1-46.3); White Blood Cell Count 26.61 K/mm3 (4.00-11.30)
[2022-12-04 06:20] LABS: Albumin, Blood 1.9 g/dL (3.4-5.0); Bilirubin, Total 9.2 mg/dL (0.1-1.0); Bun/Creatinine Ratio 34.3 (12.0-20.0); Calcium, Blood 8.4 mg/dL (8.5-10.1); Creatinine, Blood 2.39 mg/dL (0.40-1.00); Potassium, Blood 5.4 mmol/L (3.5-5.5); Total Protein, Blood 3.9 g/dL (6.4-8.2)
[2022-12-04 06:23] LABS: Phosphorus, Blood 7.3 mg/dL (2.5-4.9)
--- NOTE | 2022-12-04 07:14 | NUR ---
NOC SHIFT SUMMARY PT SLEPT LITTLE TO NONE OVERNIGHT. COMPLAINTS OF CHEST PAIN AT START OF SHIFT. DR. TRAN NOTIFIED, EKG AND TROPONIN OBTAINED. PER MD NO FURTHER ORDERS AFTER REVIEW AND DUE TO SOFT BPS. MEDICATED WITH TYLENOL PER EMAR. THROGHOUT THE SHIFT, PT STATES PAIN IS MORE EPIGASTRIC IN NATURE. ORIENTED X3-4 BUT FLAT/ODD AFFECT. WAKES SUDDENLY AND FREQUENTLY, LETHARGIC, RAISES ARMS IN AIR IF LOOKING FOR SOMETHING. AT BEDSIDE THROUGHOUT THE NIGHT. STATES BEHAVIOR AND ORIENTATION IS AT BASELINE FOR PATIENT BESIDES THE RAISING ARMS. PT INCONTIENT, REDNESS NOTED ON COCCYX, ATTENDS IN PLACE. CHANGE AND TURNED Q2 AND PRN. WILL PASS ON TO DAY SHIFT RN.
[2022-12-04 07:20] LABS: PO2 Arterial 88.8 mmHg (80-100); pH Blood Arterial 7.22 (7.35-7.45)
[2022-12-04 07:21] LABS: PCO2 Arterial 17.9 mmHg (35-45)
[2022-12-04 07:39] LABS: BASOPHILS PERCENT MAN 0 % (0-2); EOSINOPHILS PERCENT MAN 0 % (0-6); LYMPHOCYTES ABSOLUTE MAN 1.86 K/mm3 (0.84-5.20); LYMPHOCYTES PERCENT MAN 7 % (21-46); MONOCYTES ABSOLUTE MAN 1.33 K/mm3 (0.16-1.47); MONOCYTES PERCENT MAN 5 % (4-13); NEUTROPHILS ABSOLUTE MAN 23.41 K/mm3 (1.96-9.15); SEG NEUTROPHILS PERCENT MAN 88 % (41-73); TOTAL CELLS COUNTED 100
[2022-12-04 11:00] LABS: Source, Urine Foley catheter
[2022-12-04 11:07] LABS: Blood, Urine 1+ (Neg); Glucose Qualitative, Urine Neg (Neg); Ketones, Urine 1+ (Neg); Leukocyte Esterase, Urine 1+ (Neg); Nitrite, Urine Neg (Neg); Protein, Urine 1+ (Neg); Specific Gravity, Urine 1.025 (1.003-1.022); Urobilinogen, Urine 1+ (Normal)
[2022-12-04 11:16] LABS: Bilirubin, Urine 2+ (Neg)
[2022-12-04 11:17] LABS: Color, Urine Yellow (P-Yellow)
[2022-12-04 11:18] LABS: Appearance, Urine Hazy (Clear)
[2022-12-04 11:19] LABS: Bacteria Few /hpf; Red Blood Cells, Urine 0-2 /hpf (0-2); Squamous Epithelial Cells Rare /hpf (Few); White Blood Cells, Urine 0-2 /hpf (0-5)
[2022-12-04 11:20] LABS: Transitional Epithelial Cells Few /hpf (0-Rare)
--- NOTE | 2022-12-04 13:04 | NUR ---
MORNING SUMMARY PT HAS BECOME VERY LETHARGIC, HER LA KEEPS TRENDING UP, THE PT'S BP HAS BEEN DROPPING, AND SHE IS NO LONGER FOLLOWING COMMANDS. I HAVE HAD THE , MEDICAL ONCOLOGY PHYSICIAN, PALLIATIVE CARE, THE DEVONTE, AND THE THERAPY DOG AT BEDSIDE. DR. ARAUJO TALKED TO THE AND FAMILY AND WE ARE TRANSITIONING TO COMFORT CARE. ALL FLUIDS AND GTT'S STOPPED. FAMILY IS COMING IN.
--- NOTE | 2022-12-04 13:30 | NUR ---
Spiritual care visit conducted, Several visits with the patient's spouse, Fitz and with the patient. Fitz is tearful about his 's decline. I conduct a life review and provide therapeutic listening and prayer. After comfort care is established and large amount of family members arrive, I provide several mini visits with different family members and hear their stories, their love for the patient and about their individual ways of coping. I provide further therapeutic listening, gentle sales counselor, and a calming presence. Patient (earlier in the day) and family responded well and showed signs of being supported. I will continue to remain available.
--- NOTE | 2022-12-04 14:33 | NUR ---
I HAVE BEEN GIVINIG 5MG ROXONAL INSTEAD OF 10-20 UNTIL FAMILY SHOWED UP. FLEX WAS EDUCATED ON COMFORT CARE AND THEY WERE VISITED BY PALLIATIVE CARE AND OUR DEVONTE.
--- NOTE | 2022-12-04 17:11 | NUR ---
kervin conversatiuon with today on prognosis. He lactic acid has escalated to life threatening levels. Dr Abreu in to speak with to advise futility of escalating care. carmen pt made comfort care and DNR. family in at bedside. therapy dog in to visit, energy engineer in. pt requireing high dose medications for comfort some muscle tightening noted. physician contacted and medications updated.
--- NOTE | 2022-12-04 18:21 | NUR ---
pt transfer to floor review with recieving nurse.
--- NOTE | 2022-12-04 18:25 | NUR ---
I WAS IN THE MIDDLE OF GIVING ROXONAL AT 1655 WHEN MY COMPUTER GLITCHED OUT AND WOULD NOT LET ME GET BACK IN TO CHART TO ROXONAL. CHARGE NURSE SOFYA TRIED TO HELP FIX THE PROBLEM AND WE WERE UNABLE. IT CALLED. INCIDENT NUMBER [id number] UNDOCUMENTED IN MEDITECH 10MG ROXONAL GIVEN AT 1655 UNDOCUMENTED IN MEDITECH 20MG ROXONAL GIVEN AT 1750
--- NOTE | 2022-12-04 18:35 | NUR ---
TRANSFER TO 335 REPORT RECEIVEDF [facility]U [facility] NURSE. PT ARRIVED IN BED AND STAYED IN HER BED. NO TRANSFER. PT RELAXED WITH COURSE BREATH SOUNDS. ATROPINE GTT GIVEN. FAMILY IN WAITING ROOM EATING DINNER TOGETHER. RECLINER PROVIDED TO SPOUCE WITH PILLOW AND BLANKETS. CONTINUE POC.
--- NOTE | 2022-12-04 18:54 | NUR ---
PT'S [place] RING WAS GIVEN TO SAYRA THE . FAMILY WHITNESSED. UPPER DENTURES WERE SENT WITH THE PT WHEN SHE TRANSWERED TO ROOM 335. CARE WAS HANDED OFF TO LENO ALVAREZ.
--- NOTE | 2022-12-04 21:22 | NUR ---
"Spiritual Care | EOL Callback - [facility] Pt. had passed and family requested a filling hand. Spouse and several family memebers are present. After introductions, facilitated a life review of the Pt. and family. Pt. was a women of brandyn. Scriptures are read and the family gathered at the bedside to bless the Pt. A benediction and prayers for the family are given. Family are appropriatelt grieving. Family verbalize gratitude for the spiritual care visit. The family has chosen [facility] for their home. The family will stay in the room with the Pt. for a little while longer, but they do not expect any other individuals to come."
--- NOTE | 2022-12-04 22:08 | NUR ---
PT WITH FAMILY AT BEDSIDE. TOD 2024. VERIFIED BY AARON PIERRE RN AND EVARISTO FORBES RN.
== END 2022-12-04 20:25 | DRG 871 ==
LOC: ER 20:35 → PCU 11-28 00:36 → ERHOLD 11-28 00:36 → MEDS 11-28 00:36 → PCU 11-28 02:33 → MEDS 12-04 18:17
PROVIDERS: Emergency Medicine; Family Medicine; Hospitalist; Internal Medicine; Internal Medicine Nephrology; Student in an Organized Health Care Education/Training Program; ADMIT Internal Medicine
PROC: 3E03329 Introduction of Other Anti-infective into Peripheral Vein, Percutaneous Approach (ICD-10-PCS; principal; 2022-11-28)
PROC: 0T9B70Z Drainage of Bladder with Drainage Device, Via Natural or Artificial Opening (ICD-10-PCS; 2022-11-28)
PROC: 4A033R1 Measurement of Arterial Saturation, Peripheral, Percutaneous Approach (ICD-10-PCS; 2022-12-04)
DX: A41.1 Sepsis due to other specified staphylococcus (principal); G92.8 Other toxic encephalopathy; I50.21 Acute systolic (congestive) heart failure; N39.0 Urinary tract infection, site not specified; N18.4 Chronic kidney disease, stage 4 (severe); E87.20 Acidosis, unspecified; N17.9 Acute kidney failure, unspecified; E87.1 Hypo-osmolality and hyponatremia; I13.0 Hypertensive heart and chronic kidney disease with heart failure and stage 1 through stage 4 chronic kidney disease, or unspecified chronic kidney disease; A41.51 Sepsis due to Escherichia coli [E. coli]; K76.82 Hepatic encephalopathy; E87.6 Hypokalemia; E11.22 Type 2 diabetes mellitus with diabetic chronic kidney disease; I48.0 Paroxysmal atrial fibrillation; R65.20 Severe sepsis without septic shock; E83.59 Other disorders of calcium metabolism; J45.909 Unspecified asthma, uncomplicated; E03.9 Hypothyroidism, unspecified; E83.42 Hypomagnesemia; K21.9 Gastro-esophageal reflux disease without esophagitis; E87.5 Hyperkalemia; M10.9 Gout, unspecified; E88.09 Other disorders of plasma-protein metabolism, not elsewhere classified; D63.1 Anemia in chronic kidney disease; E11.51 Type 2 diabetes mellitus with diabetic peripheral angiopathy without gangrene; Z85.118 Personal history of other malignant neoplasm of bronchus and lung; Z85.05 Personal history of malignant neoplasm of liver; Z88.1 Allergy status to other antibiotic agents; Z88.8 Allergy status to other drugs, medicaments and biological substances; Z79.899 Other long term (current) drug therapy; Z79.890 Hormone replacement therapy; Z88.0 Allergy status to penicillin; Z79.4 Long term (current) use of insulin; Z79.891 Long term (current) use of opiate analgesic; Z79.01 Long term (current) use of anticoagulants; Z90.710 Acquired absence of both cervix and uterus; Z90.722 Acquired absence of ovaries, bilateral; Z90.49 Acquired absence of other specified parts of digestive tract; Z98.890 Other specified postprocedural states; Z98.84 Bariatric surgery status; Z87.891 Personal history of nicotine dependence
CPT/HCPCS: 36415; 36600; 70450; 71045; 74176; 76700; 80053; 80069; 81001; 82140; 82248; 82607; 82746; 82803; 82947; 83605; 83690; 83735; 84100; 84132; 84443; 84484; 85025; 85027; 85610; 87040; 87077; 87086; 87186; 92526; 92610; 93005; 93010; 93306; 93312; 93325; 94760; 96361; 96365; 96375; 97110; 97162; 97166; 97530; 97535; 99285-25; A9270; C1751; C9113; J0696; J1630; J1815; J2001; J2020; J2060; J2270; J2371; J2543; J2704; J3475; J7030; J7040; J7050; J7070; J7120; P9047